=== PATIENT | male | born 1935 | race Caucasian/White ===

== ENCOUNTER → 2018-07-13 10:40 | Outpatient (CLI) | payer MEDICARE, SELFPAY ==
[2018-07-13 11:03] LABS: Absolute Lymphocyte Count 1.22 X10^3/ul (0.83-4.51); Absolute Neutrophil Count 4.5 X10^3/uL (2.0-7.7); Basophil# 0.05 X10^3/uL; Basophil% 0.8 % (0-1); Eosinophil# 0.16 X10^3/uL; Eosinophils% 2.5 % (0-5); Hematocrit 41.7 % (40-54); Lymphocyte # 1.22 X10^3/ul (4.0); Lymphocyte % 18.7 % (19-41); Mean Corp Hgb Conc 33.6 g/gl (32-36); Mean Corpuscular Hgb 31.7 pg (27.0-32.0); Mean Corpuscular Volume 94.3 fL (80-94); Mean Platelet Vol. 10.1 fl (6.2-12.0); Monocyte# 0.62 X10^3/uL; Monocyte% 9.5 % (0-10); Neutrophil # 4.46 X10^3/uL (2.7-7.7); Neutrophil % 68.2 % (47-70); Platelet Count 195 K/mm3 (150-450); RBC Distribution Width CV 12.9 % (11.6-14.6); RBC Distribution Width SD 43.6 fl (35.1-43.9); Red Blood Count 4.42 M/mm3 (4.6-6.2); White Blood Count 6.5 K/mm3 (4.4-11.0)
[2018-07-13 11:07] LABS: POSITIVE COUNT NO; POSITIVE DIFFERENTIAL NO; POSITIVE MORPHOLOGY NO
[2018-07-13 11:34] LABS: AST(SGOT) 27 U/L (15-37); Alanine Aminotransfer ALT/SGPT 39 U/L (16-61); Albumin, Serum 3.8 g/dL (3.2-5.0); Alkaline Phosphatase 70 U/L (45-117); Anion Gap 10 (5-15); BNP,B-Type NATRIURETIC PEPTIDE 777.6 pg/mL (0-100); BUN 23 mg/dL (7-18); BUN/Creat Ratio 15.6 RATIO (10-20); Bilirubin, Direct 0.22 mg/dL (0.00-0.30); Calcium,Total 8.8 mg/dL (8.5-10.1); Chloride 107 mmol/L (98-107); Cholesterol 134 mg/dL (200); Creatinine, Serum 1.47 mg/dL (0.70-1.30); EST Glomerular Filtration Rate 49 mL/min (>60); Est Glom Filt Rate - Afr Amer 59 mL/min (>60); Globulin 3.8 g/dL (2.2-4.2); Glucose 102 mg/dL (74-106); High Density Lipoprotein 45 mg/dL; Potassium 4.5 mmol/L (3.5-5.1); Protein, Total 7.6 g/dL (6.4-8.2); Sodium Level 141 mmol/L (136-145); T4 Total, Thyroxin 7.5 ug/dL (4.5-12.1); Triglycerides 62 mg/dL; Very Low Density Lipoprotein 12 mg/dL (5-40)
== END ==
PROVIDERS: Family Provider Student in an Organized Health Care Education/Training Program; PCP Student in an Organized Health Care Education/Training Program; Visit Provider Physician Assistant Medical
DX: I48.91 Unspecified atrial fibrillation (principal); R06.09 Other forms of dyspnea; R53.83 Other fatigue; I25.10 Atherosclerotic heart disease of native coronary artery without angina pectoris
CPT/HCPCS: 36415; 80048; 80061; 80076; 83880; 84436; 84443; 85025

== ENCOUNTER → 2018-07-21 13:54 | Outpatient (CLI) | payer MEDICARE, SELFPAY | PROVIDERS: Family Provider Student in an Organized Health Care Education/Training Program; PCP Student in an Organized Health Care Education/Training Program; Visit Provider Physician Assistant Medical | DX: I48.91 Unspecified atrial fibrillation (principal); R06.09 Other forms of dyspnea; R53.83 Other fatigue; I25.10 Atherosclerotic heart disease of native coronary artery without angina pectoris | CPT/HCPCS: 93225; 93226; 93306 ==

== ENCOUNTER → 2018-07-27 10:37 | Outpatient (CLI) | payer MEDICARE, SELFPAY ==
--- NOTE | 2018-07-27 10:39 | STEWCON_ITS ---
Version 2 Reason For Study: CAD, Atrial Fibrillation Stress Results Protocol: Maximilian Protocol Maximum Predicted HR: 140 bpm Target HR: 119 bpm% Max imum Predicted HR: 107 % DurationHeart Rate Stage (mm:ss) (bpm) BPCom ment Baseline 78 122/84 Definity 3.5 ML Diluted Given; No Chest Pain Maximilian Protocol Stage I 3:00 15 0 134/80No Chest Pain; Mild Dyspnea Maximilian Protocol Stage II 1:15 13 3 / No Chest Pain; Moderate Dyspnea Recovery 86 128/88 No Chest Pain Stress Duration: 4:15 mm:ss Maximum Stress HR: 150 bpmM ETS: 7 Baseline Echocardiogram Findings The estimated ejection fraction is 65 %. Stress Echo Wall motion Data Resting WMIntermediate WMStress WM Resting Wall Motion Wall Motion Stress No regional wall motion No regional wall motion abnormalities noted. abnormalities noted. EKG Data Atrial fibrillation with controlled ventriicular response. The patient exercised according to the regular Maximilian protocol for a total duration of 4:15. The maximum heart rate attained was 164 beats per minute. This was 117% of maximum predicted heart rate. The patient exercised into stage 2 of the Maximilian protocol. During stress, there were no ST or T wave changes noted to suggest ischemia. No clinical angina was noted. Interpretation Summary The study was technically difficult. Contrast injection was performed. The estimated ejection fraction is 65 %. Normal, adequate, treadmill echocardiogram. Negative for ischemia by EKG and echocardiographic criteria. No anginal symptoms noted. Rare PVCs noted. Appropriate blood pressure response to exercise. Test terminated due to dyspnea. Below average exercise capacity for age. Decreased sensitivity due to poor echo windows requiring Definity enhancing agent. Final LVEF is 75%. Ordering Physician: Jennifer Omer Referring Physician: Jennifer Omer Performed By: Maureen Burleson RDCS
[2018-07-27 13:22] LABS: Anion Gap 12 (5-15); BUN 37 mg/dL (7-18); BUN/Creat Ratio 18.7 RATIO (10-20); Calcium,Total 9.2 mg/dL (8.5-10.1); Chloride 106 mmol/L (98-107); Creatinine, Serum 1.98 mg/dL (0.70-1.30); EST Glomerular Filtration Rate 35 mL/min (>60); Est Glom Filt Rate - Afr Amer 42 mL/min (>60); Glucose 102 mg/dL (74-106); Potassium 4.2 mmol/L (3.5-5.1); Sodium Level 143 mmol/L (136-145)
== END ==
PROVIDERS: Family Provider Student in an Organized Health Care Education/Training Program; PCP Student in an Organized Health Care Education/Training Program; Visit Provider Physician Assistant Medical
DX: I48.91 Unspecified atrial fibrillation (principal); I25.10 Atherosclerotic heart disease of native coronary artery without angina pectoris; I50.9 Heart failure, unspecified; R53.83 Other fatigue; R06.09 Other forms of dyspnea
CPT/HCPCS: 36415; 80048; 93017; 93350; Q9957; A4216; C8928

== ENCOUNTER → 2018-08-04 12:23 | Outpatient (CLI) | payer MEDICARE, SELFPAY | PROVIDERS: Family Provider Student in an Organized Health Care Education/Training Program; PCP Student in an Organized Health Care Education/Training Program; Visit Provider Nurse Practitioner Acute Care | DX: G47.33 Obstructive sleep apnea (adult) (pediatric) (principal) | CPT/HCPCS: 95811 ==

== ENCOUNTER → 2018-08-14 11:25 | Outpatient (CLI) | payer MEDICARE, SELFPAY ==
--- NOTE | 2018-08-14 11:33 | RAD_ITS ---
STUDY: X-RAY CHEST REASON FOR EXAM: Male, 82 years old. Shortness of breath. Atrial fibrillation. TECHNIQUE: PA and lateral views of the chest. COMPARISON: November 05, 2016. FINDINGS: There is hyperinflation of the lungs consistent with chronic obstructive lung disease (COPD). There is no new mass or infiltrate. There is no demonstrated pleural abnormality. Normal size heart. Normal mediastinum and pham. Normal visualized pulmonary arteries. There is atherosclerotic calcification of the aortic arch with tortuosity. There are diffuse degenerative changes of the visualized thoracic spine. There is degenerative osteoarthritis of the bilateral shoulders. There is no demonstrated abnormality of the visualized soft tissue structures of the upper abdomen. RAD/Chest PA and Lateral IMPRESSION: Probable COPD without acute cardiopulmonary disease or interval change. Electronically Signed: Aldo Mike DO at 17:02 EDT Tel [phone], Service support ,
[2018-08-14 12:31] LABS: Anion Gap 10 (5-15); BUN 24 mg/dL (7-18); BUN/Creat Ratio 15.6 RATIO (10-20); Chloride 104 mmol/L (98-107); Creatinine, Serum 1.54 mg/dL (0.70-1.30); EST Glomerular Filtration Rate 46 mL/min (>60); Est Glom Filt Rate - Afr Amer 56 mL/min (>60); Glucose 106 mg/dL (74-106); Potassium 4.3 mmol/L (3.5-5.1); Sodium Level 140 mmol/L (136-145)
== END ==
PROVIDERS: Family Provider Student in an Organized Health Care Education/Training Program; PCP Student in an Organized Health Care Education/Training Program; Referring Provider Physician Assistant Medical; Visit Provider Physician Assistant Medical
DX: I48.1 Persistent atrial fibrillation (principal); R06.02 Shortness of breath
CPT/HCPCS: 36415; 71046; 80048

== ENCOUNTER 2018-08-16 09:56 | Day surgery (SDC) | payer MEDICARE, SELFPAY ==
[2018-08-15 11:43] VITALS: BMI 26.4
--- NOTE | 2018-08-16 11:40 | PCM.OP.BLANK ---
Problem List (1) Atrial fibrillation Status: Acute Qualifiers: (2) Dyspnea on exertion Status: Acute (3) Fatigue Status: Acute Qualifiers: (4) KENNEDY (obstructive sleep apnea) Status: Acute Operative Report Date of Procedure: 08/16/18 DC cardioversion report: Patient was brought to the [facility] holding area in the fasting state. The risks/benefits of the DC cardioversion were thoroughly explained to the patient and his family and informed consent was obtained. The defibrillator pads were placed in the AP position. With the assistance of Dr. Maximilian Olivarez he was given a total of 50 mg of IV propofol. Once adequate sedation was obtained a single synchronized biphasic 200 J shock was delivered which converted him from atrial fibrillation with controlled ventricular response to normal sinus rhythm at a rate of 54 bpm. The patient spontaneously awoke, moves all 4 extremities and tolerated the procedure well. Conclusions: 1. Successful Eliquis assisted DC cardioversion with a single biphasic 200 J synchronized shock converting him from atrial flutter relation to normal sinus rhythm. 2. Patient will continue on current antihypertensive, atenolol, and Eliquis going forward. He will report in 2 weeks time for an EKG and blood pressure check. If the patient has recurrent atrial fibrillation we may consider continuing beta-leonora and Eliquis versus amiodarone assisted DC cardioversion in the future. 3. Patient will be discharged home once fully recovered. Many thanks Dr. Maximilian Olivarez for his assistance.
--- NOTE | 2018-08-16 11:43 | OP.PCM_ITS ---
Problem List (1) Atrial fibrillation Status: Acute Qualifiers: (2) Dyspnea on exertion Status: Acute (3) Fatigue Status: Acute Qualifiers: (4) KENNEDY (obstructive sleep apnea) Status: Acute Operative Report Date of Procedure: 08/16/18 DC cardioversion report: Patient was brought to the [facility] holding area in the fasting state. The risks/benefits of the DC cardioversion were thoroughly explained to the patient and his family and informed consent was obtained. The defibrillator pads were placed in the AP position. With the assistance of Dr. Maximilian Olivarez he was given a total of 50 mg of IV propofol. Once adequate sedation was obtained a single synchronized biphasic 200 J shock was delivered which converted him from atrial fibrillation with controlled ventricular response to normal sinus rhythm at a rate of 54 bpm. The patient spontaneously awoke, moves all 4 extremities and tolerated the procedure well. Conclusions: 1. Successful Eliquis assisted DC cardioversion with a single biphasic 200 J synchronized shock converting him from atrial flutter relation to normal sinus rhythm. 2. Patient will continue on current antihypertensive, atenolol, and Eliquis going forward. He will report in 2 weeks time for an EKG and blood pressure check. If the patient has recurrent atrial fibrillation we may consider paulette nuing beta-leonora and Eliquis versus amiodarone assisted DC cardioversion in the future. 3. Patient will be discharged home once fully recovered. Many thanks Dr. Maximilian Olivarez for his assistance.
--- NOTE | 2018-08-16 14:04 | OP.PCM_ITS ---
Problem List (1) Atrial fibrillation Status: Acute Qualifiers: (2) KENNEDY (obstructive sleep apnea) Status: Acute (3) Arteriosclerotic heart disease (ASHD) Status: Chronic (4) CKD (chronic kidney disease) stage 3, GFR 30-59 ml/min Status: Chronic (5) Hypertrophic cardiomyopathy Status: Chronic Operative Report Date of Procedure: 08/16/18 - Conscious sedation CONSCIOUS SEDATION REPORT BRIEF HISTORY OF PRESENT ILLNESS: The patient is an 82-year-old male who presented to [facility] for an elective outpatient cardioversion due to underlying atrial fibrillation. The patient reports no PO intake since midnight. The patient does have a history of obstructive sleep apnea treated with BiPAP therapy. The patient reports a history of smoking and COPD. The patient denies any recent constitutional symptoms such as fevers, chills, nausea or vomiting. The patient does report previous issues with bradycardia associated with anesthesia. Last known ejection fraction of 45%. PHYSICAL EXAMINATION: VITAL SIGNS: Reviewed and were acceptable. GENERAL: The patient is an obese male, in no apparent distress, speaking in full sentences. HEENT: Normocephalic, atraumatic. Mucous membranes are moist and pink. Good mouth opening noted. Trachea is midline. Good neck mobility. MP II CHEST: S1, S2 irregularly irregular. No murmurs, rubs or gallops were noted. LUNGS: Clear to auscultation bilaterally without appreciable wheezes, rales or rhonchi. ABDOMEN: Soft, nontender, nondistended. Positive bowel sounds. EXTREMITIES: There is no clubbing, cyanosis or edema. ASA Class: II DESCRIPTION OF PROCEDURE: After confirmation of informed consent, the patient's anesthesia plan was reviewed in detail. Propofol was chosen. Risks and benefits were reviewed and the patient agreed to proceed. At 11:29 AM, the patient was given 40 mg of propofol. The patient required a total of 50 mg of propofol throughout the procedure to achieve appropriate sedation. The patient achieved an appropriate level of sedation and received 1 attempt s synchronized cardioversion, at [address] Pedersen at the bedside. This was successful in achieving normal sinus rhythm. The patient was monitored until 11:37 AM, at which time the patient reached their baseline mental status and function. The patient tolerated the procedure well. COMPLICATIONS: None ESTIMATED BLOOD LOSS: None RECOMMENDATIONS: Okay to recover in usual fashion. Code Visit 9xxxx: Other Procedure See Report - [id number] - 8 minutes
== END 2018-08-16 12:55 | disposition home or self-care (01) ==
LOC: CLSP 09:57
PROVIDERS: Family Provider Student in an Organized Health Care Education/Training Program; PCP Student in an Organized Health Care Education/Training Program; Referring Provider Internal Medicine Cardiovascular Disease; Visit Provider Internal Medicine Cardiovascular Disease
DX: I48.1 Persistent atrial fibrillation (principal); R06.00 Dyspnea, unspecified; R53.83 Other fatigue; G47.33 Obstructive sleep apnea (adult) (pediatric); I25.10 Atherosclerotic heart disease of native coronary artery without angina pectoris; N18.3 Chronic kidney disease, stage 3 (moderate); I42.2 Other hypertrophic cardiomyopathy; E66.9 Obesity, unspecified; I25.2 Old myocardial infarction; Z68.26 Body mass index [BMI] 26.0-26.9, adult
CPT/HCPCS: 92960; 93005; J7040

== ENCOUNTER → 2019-10-19 09:07 | Outpatient (CLI) | payer MEDICARE, SELFPAY ==
[2019-10-18 13:40] VITALS: BMI 26.9
[2019-10-19 10:43] LABS: AST(SGOT) 20 U/L (15-37); Alanine Aminotransfer ALT/SGPT 31 U/L (16-61); Albumin, Serum 3.8 g/dL (3.2-5.0); Alkaline Phosphatase 63 U/L (45-117); Bilirubin, Direct 0.22 mg/dL (0.00-0.30); Cholesterol 136 mg/dL (200); Globulin 3.5 g/dL (2.2-4.2); High Density Lipoprotein 47 mg/dL; Protein, Total 7.3 g/dL (6.4-8.2); Triglycerides 51 mg/dL; Very Low Density Lipoprotein 10 mg/dL (5-40)
== END ==
PROVIDERS: Family Provider Student in an Organized Health Care Education/Training Program; PCP Student in an Organized Health Care Education/Training Program; Referring Provider Internal Medicine Cardiovascular Disease; Visit Provider Internal Medicine Cardiovascular Disease
DX: E78.5 Hyperlipidemia, unspecified (principal); I25.10 Atherosclerotic heart disease of native coronary artery without angina pectoris
CPT/HCPCS: 36415; 80061; 80076

== ENCOUNTER → 2019-11-02 13:52 | Outpatient (CLI) | payer MEDICARE, SELFPAY ==
[2019-10-18 13:40] VITALS: BMI 26.9
--- NOTE | 2019-11-02 13:53 | ECHOD_ITS ---
Reason For Study: CHF Procedure This was a 2D Doppler, Color Flow transthoracic echocardiogram. Exam performed in department. Left Ventricle Moderate concentric left ventricular hypertrophy. The estimated ejection fraction is 45 %. Stage 2 diastolic dysfunction. There is moderate global hypokinesis of the left ventricle. Right Ventricle Moderately dilated right ventricle. Normal systolic function. Atria The left atrium is moderately enlarged. Normal right atrium. Normal atrial septum. Mitral Valve The mitral valve is structurally normal. No prolapse or stenosis seen. Mild (1+) mitral valve insufficiency. Tricuspid Valve Normal tricuspid valve. Trivial tricuspid valve insufficiency. Unable to estimate RV systolic pressure due to insufficient tricuspid regurgitant envelope. Aortic Valve Trisinus/trileaflet aortic valve. Pulmonic Valve Normal pulmonic valve. Trivial pulmonic valve insufficiency. Great Vessels Normal aortic root. Normal arch. Normal inferior vena cava. Inferior vena cava collapse with sniff. Pericardium/Pleural No pericardial effusion. MMode/2D Measurements & Calculations LVIDd: 5.0 cm IVSd: 1.9 cm Ao root diam: 4.0 cm LVIDs: 4.0 cm LVPWd: 1.0 cm LA dimension: 4.0 cm RVDd: 4.0 cm FS: 20.3 % LAV(MOD-bp): 73.9 ml LA A4 area: 23.5 cm2 RA A4 area: 18.8 cm2 LAV(MOD-bp) Indexed: 40.1 ml/m2 LAV(MOD-sp2): 66.2 ml LAV(MOD-sp4): 76.5 ml Time Measurements MV dec time: 0.16 sec Doppler Measurements & Calculations MV E max puneet: 72.3 cm/sec Lat Peak E' Puneet: 8.8 cm/sec Med Peak E' Puneet: 3.5 cm/sec MV A max puneet: 44.2 cm/sec E/E' lat: 8.2 E/E' med: 20.7 MV E/A: 1.6 MV V2 max: 86.7 cm/sec MV P1/2t max puneet: 86.7 cm/sec Ao V2 max: 92.3 cm/sec MV max P.0 mmHg MV P1/2t: 83.1 msec Ao max P.4 mmHg MV V2 mean: 47.2 cm/sec MV dec slope: 305.4 cm/sec2 Ao V2 mean: 60.5 cm/sec MV mean P.0 mmHg MVA(P1/2t): 2.6 cm2 Ao mean P.7 mmHg MV V2 VTI: 29.3 cm Ao V2 VTI: 17.6 cm LV V1 max: 76.1 cm/sec MR max puneet: 523.8 cm/sec PA V2 max: 88.6 cm/sec LV V1 max P.3 mmHg MR max P.7 mmHg LV V1 mean P.2 mmHg MR mean puneet: 384.5 cm/sec LV V1 mean: 51.0 cm/sec MR mean P.8 mmHg LV V1 VTI: 14.0 cm MR VTI: 191.0 cm Interpretation Summary Moderate concentric left ventricular hypertrophy. The estimated ejection fraction is 45 %. Stage 2 diastolic dysfunction. There is moderate global hypokinesis of the left ventricle. Moderately dilated right ventricle. The left atrium is moderately enlarged. Mild (1+) mitral valve insufficiency. Trivial tricuspid valve insufficiency. Unable to estimate RV systolic pressure due to insufficient tricuspid regurgitant envelope. Compared to echo report dated 07/21/2018, no appreciable changes noted. Ordering Physician: Corby Pedersen Referring Physician: Geremias Mesa Performed By: eRese Jacobson RCS
== END ==
PROVIDERS: Family Provider Student in an Organized Health Care Education/Training Program; PCP Student in an Organized Health Care Education/Training Program; Referring Provider Internal Medicine Cardiovascular Disease; Visit Provider Internal Medicine Cardiovascular Disease
DX: I50.9 Heart failure, unspecified (principal); I25.10 Atherosclerotic heart disease of native coronary artery without angina pectoris; I48.91 Unspecified atrial fibrillation; I42.2 Other hypertrophic cardiomyopathy; G47.33 Obstructive sleep apnea (adult) (pediatric)
CPT/HCPCS: 93306

== ENCOUNTER → 2020-08-20 20:00 | Outpatient (CLI) | payer MEDICARE, SELFPAY ==
[2020-08-07 16:04] VITALS: BMI 26.6
[2020-08-14 12:54] VITALS: BMI 26.6
== END ==
PROVIDERS: PCP Student in an Organized Health Care Education/Training Program; Visit Provider Nurse Practitioner Acute Care
DX: G47.33 Obstructive sleep apnea (adult) (pediatric) (principal)
CPT/HCPCS: 95811

== ENCOUNTER → 2020-09-23 09:00 | Outpatient (CLI) | payer MEDICARE, SELFPAY ==
[2020-08-14 12:54] VITALS: BMI 26.6
== END ==
PROVIDERS: PCP Student in an Organized Health Care Education/Training Program; Visit Provider Nurse Practitioner Acute Care
DX: G47.33 Obstructive sleep apnea (adult) (pediatric) (principal)
CPT/HCPCS: 98960; G0463

== ENCOUNTER 2020-12-04 15:59 | Outpatient (RCR) | payer MEDICARE, SELFPAY | END 2020-12-04 23:59 | LOC: IMMUN 15:59 | PROVIDERS: PCP Student in an Organized Health Care Education/Training Program; Visit Provider Family Medicine | DX: Z23 Encounter for immunization (principal) | CPT/HCPCS: 0011A; 0012A; 91301 ==

== ENCOUNTER 2021-01-07 16:17 | Observation (INO) | payer MEDICARE, SELFPAY ==
[2020-12-31 10:23] VITALS: BMI 26.9
[2021-01-07] VITALS (7 sets, daily range): BP systolic 137–156; BP diastolic 67–90; PULSE 60–99; RESP 18–22; TEMP 35.8–36.8; O2SAT 96–97; BMI 25.8; BMI 26.0
--- NOTE | 2021-01-07 16:21 | CT_ITS ---
STUDY: CT BRAIN WITHOUT CONTRAST REASON FOR EXAM: Male, 85 years old. trauma RADIATION DOSAGE (If Supplied By Facility): CTDIvol = ( 44.99 ) mGy, DLP = ( 812.98 ) mGycm TECHNIQUE: Transaxial CT imaging of the brain was performed without administration of intravenous contrast material. Individualized dose optimization techniques were used for this CT. COMPARISON: No relevant priors. FINDINGS: Focal scalp swelling seen over the posterior right head. Normal calvarium. There is mild cerebral atrophy with widening of the extra-axial spaces and ventricular dilatation. There are areas of decreased attenuation within the white matter tracts of the supratentorial brain, consistent with microvascular disease changes. Normal basal ganglia and thalami. Normal brainstem. There is mild cerebellar atrophy. There is no intracranial hemorrhage. There are no findings of an acute ischemic infarction. Normal visualized paranasal sinuses. CT/Brain/Head without Contrast IMPRESSION: Chronic involutional changes of the brain. No acute abnormality. Electronically Signed: Ronaldo Mora MD at 16:40 EST , Service support ,
--- NOTE | 2021-01-07 16:42 | EKG12_ITS ---
Test Reason : SYNCOPE Blood Pressure : / mmHG Vent. Rate : 058 BPM Atrial Rate : 058 BPM P-R Int : 318 ms QRS Dur : 120 ms QT Int : 430 ms P-R-T Axes : 060 -51 112 degrees QTc Int : 422 ms Sinus bradycardia with 1st degree A-V block Left anterior fascicular block Left ventricular hypertrophy with QRS widening T wave abnormality, consider lateral ischemia Abnormal ECG Confirmed by JAGJIT RODAS, GUTIERREZ ([id number]), web content editor DARIAN MEIER ([id number]) on 01/12/2021 9:37:59 AM Referred By: THEODORE Confirmed By:CATHRYN DANIELSON MD
--- NOTE | 2021-01-07 16:43 | ED.VIS.GEN ---
History of Present Illness Chief Complaint: Syncope Informant: Patient Narrative: 85-year-old male presenting after an episode of syncope with laceration to the right side of his scalp. He states that he was coming in from working in his barn where he was cutting wood for about an hour and a half and he lost consciousness as he was coming up the steps to his house. He does not think he was unconscious for long. He states he did not have any chest pain, palpitations, lightheadedness or dizziness prior to the episode. This was unwitnessed. Patient is on Xarelto for history of A. fib. Patient states that 30 years ago he used to have episodes of syncope but he has not had this in some time. He denies any symptoms currently except for some mild pain to his scalp. - Past Medical History (1) Paroxysmal atrial fibrillation Status: Chronic (2) Atherosclerotic heart disease of [place] coronary artery without angina pectoris Status: Chronic (3) CKD (chronic kidney disease) stage 3, GFR 30-59 ml/min Status: Chronic (4) Hypertrophic cardiomyopathy Status: Chronic (5) KENNEDY (obstructive sleep apnea) Status: Chronic Past Medical History - Allergies and Home Meds Allergies/Adverse Reactions: Allergies atorvastatin Allergy (Verified 01/07/21 16:19) confused lisinopril Allergy (Verified 01/07/21 16:19) cough Prior records reviewed: Yes Past Medical History: - - Reviewed in problem list Surgical History: - - Hemorrhoid plexi Lives: Spouse/ Significant Other Smoking Status: Never smoker Alcohol: None Drugs: None - Family History Maternal Family History: Family History (Last Reviewed 12/31/20 @ 10:24 by Jennifer Loza) Father Myocardial infarction Brother Myocardial infarction Family History: Reports: - - No hypertrophic cardiomyopathy Paternal Family History: Family History (Last Reviewed 12/31/20 @ 10:24 by Jennifer Loza) Father Myocardial infarction Brother Myocardial infarction Family History: Reports: - - No hypertrophic cardiomyopathy Review of Systems General: Denies: Chills, Fever, Sweats Eyes: Denies: Visual changes - bilaterally, Diplopia ENT: Denies: Rhinorrhea, Sore throat Cardiovascular: Denies: Chest pain, Palpitations Respiratory: Denies: Dyspnea, Cough, Dyspnea on exertion Gastrointestinal: Denies: Abdominal pain, Nausea, Vomiting, Diarrhea, Constipation, Melena, Hematochezia, -, - Genitourinary: Denies: Dysuria, Hematuria, Frequency Musculoskeletal: Denies: Back pain, Extremity Pain Skin: Reports: Wounds, - - 5 cm laceration to the right side of scalp with no active bleeding. No skull deformity.. Denies: Rash Neurological: Denies: Headache, Weakness, Numbness Psych: Denies: Depression, Anxiety Physical Exam Vital Signs/Narrative: Vital Signs Temp Pulse Resp BP Pulse Ox 01/07/21 16:17 96.5 F L 67 18 149/90 H 96 Inital Vital Signs reviewed: Yes General: Well nourished, No Acute Distress Head: Normocephalic, Atraumatic Eyes: Perrl, EOMI ENT: Moist mucous membranes, No rhinorrhea Cardiovascular: Regular rate, Regular rhythm Respiratory: No distress, CTA bilaterally Abdomen: Soft, Nontender Back: Negative for: Nontender, Normal Inspection Extremities: Negative for: Nontender, No edema Skin: Normal color, No rash, - - 5 cm right posterior scalp laceration without skull induration or deformity. Psychological: Normal affect, Normal Mood Diagnostic/Tx/Re-eval - EKG Initial EKG Interpretation: Sinus Bradycardia, LAFB, Inverted T-Waves - Lead I, aVL - Medical Decision Making 85-year-old male presenting with an episode of syncope. He lost consciousness for short duration he states and hit his head. He has a laceration on the side of his head. He does not actively bleeding. Patient is on Xarelto for atrial fibrillation. Patient is denying any chest pain, palpitations, shortness of breath. He states that he was working in his barn sawing wood as he normally would and when he walked back and he had an episode of syncope. He states he has had this many years ago but has not had this for at least 30 years. EKG performed on arrival shows a sinus bradycardia with first-degree AV block as well as T wave inversion in leads I and lead aVL interpreted by myself. EKG is not significantly changed from EKG in 16 August 2018. Chest x-ray is interpreted by myself shows no acute cardiopulmonary process. Patient had CT brain which was negative for acute intracranial findings. Lab work shows white blood cell count 6.7 hemoglobin hematocrit 13.9/42.0 creatinine is 1.55 and is at baseline. Troponin is 0.332. Although the patient is denying any chest pain or shortness of breath I do have concern that his syncope could be cardiac related given his a history of hypertrophic cardiomyopathy as well as CAD. Patient was given aspirin. Patient's laceration was sutured as I could not approximate the wound margins with a staple. Please see procedure note. Patient is admitted in stabilized condition. Impression: 1. 5 cm scalp laceration 2. Syncope 3. Elevated troponin Procedures - Lacerations No standard instances Length: 5 ft Depth: Skin Shape: Linear Prep: Sterile Conditions, Chlorhexadine Laceration repair: Lidocaine Irrigated (ml): 500 Number of Sutures/Miriam: 3 Suture Information: Ethilon - 3.0 ED Disposition - Plan for ED Patient: Disposition: Acute Care Hospital [facility]
[2021-01-07] MEDS: Lidocaine/Epi/Tetracaine 50 ML 1 APPLIC TOPICAL (16:57)
[2021-01-07 17:01] LABS: Absolute Neutrophil Count 4.6 X10^3/uL (2.0-7.7); Basophil# 0.05 X10^3/uL; Basophil% 0.7 % (0-1); Eosinophil# 0.14 X10^3/uL; Eosinophils% 2.1 % (0-5); Hemoglobin 13.9 g/dL (13.0-16.5); Lymphocyte % 19.4 % (19-41); Mean Corp Hgb Conc 33.1 g/dL (32-36); Mean Corpuscular Hgb 31.2 pg (27.0-32.0); Mean Corpuscular Volume 94.4 fL (80-94); Mean Platelet Vol. 10.3 fl (6.2-12.0); Monocyte# 0.54 X10^3/uL; NRBC Flagged by Analyzer 0 % (0-5); Neutrophil # 4.64 X10^3/uL (2.7-7.7); Neutrophil % 69.2 % (47-70); Platelet Count 202 K/mm3 (150-450); RBC Distribution Width CV 12.2 % (11.6-14.6); RBC Distribution Width SD 42.4 fl (35.1-43.9); Red Blood Count 4.45 M/mm3 (4.6-6.2); White Blood Count 6.7 K/mm3 (4.4-11.0)
--- NOTE | 2021-01-07 17:10 | RAD_ITS ---
STUDY: X-RAY CHEST REASON FOR EXAM: Male, 85 years old. chest pain TECHNIQUE: Single AP portable view of the chest. COMPARISON: 08/14/2018. FINDINGS: The lungs are clear and expanded. There is no demonstrated pleural abnormality. Normal size heart. Normal mediastinum and pham. Normal visualized pulmonary arteries. There is atherosclerotic calcification of the aortic arch with tortuosity. There are diffuse degenerative changes of the visualized thoracic spine. Normal visualized ribs, clavicles, and shoulders. There is no demonstrated abnormality of the visualized soft tissue structures of the upper abdomen. RAD/Chest 1 View (Portable) IMPRESSION: No definite acute or significant abnormality seen. Electronically Signed: Ronaldo Mora MD at 17:33 EST , Service support ,
[2021-01-07 17:37] LABS: Anion Gap 6 (5-15); BUN 28 mg/dL (7-18); BUN/Creat Ratio 18.1 RATIO (10-20); Calcium,Total 9.1 mg/dL (8.5-10.1); Chloride 106 mmol/L (98-107); Creatinine, Serum 1.55 mg/dL (0.70-1.30); EST Glomerular Filtration Rate 46 mL/min (>60); Est Glom Filt Rate - Afr Amer 55 mL/min (>60); Estimated Creatinine Clearance 33.76 ml/min; Glucose 92 mg/dL (74-106); Sodium Level 138 mmol/L (136-145)
--- NOTE | 2021-01-07 18:21 | NURSING ---
DR BLACKWOOD FOR DR JAIMES
--- NOTE | 2021-01-07 18:34 | PCM.HP.STD ---
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 transplanted heart: zuni heart Qualified Code(s): I25.10 - Atherosclerotic heart disease of zuni coronary artery without angina pectoris (5) History of cardioversion Status: Chronic (6) KENNEDY (obstructive sleep apnea) Status: Chronic (7) CKD (chronic kidney disease) stage 3, GFR 30-59 ml/min Status: Chronic (8) Hypertrophic cardiomyopathy Status: Chronic History of Present Illness Date of Admission: 01/07/21 Chief Complaint: Syncope. The patient is a 85 year old M with past medical history as mentioned above presented to the emergency room because of syncopal episode. Patient stated that he was going upstairs and all of a sudden, he passed out and was on the floor. He denied any prodromal symptoms before this incident such as dizziness, lightheadedness, chest pain, palpitation. He stated that he lost his consciousness for a few seconds, regained his consciousness very quick and he felt okay afterwards. He reported any symptoms after he woke up. Currently, he is not dizzy or lightheaded. He has history of paroxysmal atrial fibrillation, status post cardioversion and he has been on atenolol and Xarelto for anticoagulation. He had a history of non-STEMI without history of prior cardiac interventions. He had a history of stage III chronic kidney disease and his baseline creatinine has been around 1.4 to 1.9 mg/dL and has been stable. In the emergency department, his vital signs were stable, was afebrile, heart rate was in the 60s to high 50s. Orthostatic vitals were normal. Pulse ox was normal on room air. Routine blood work was remarkable for BUN of 28, creatinine of 1.55. EKG revealed sinus bradycardia with heart rate of 58, first-degree AV block, no other cardiac arrhythmias or acute ischemic changes. Troponin was 0.332. Chest x-ray showed no acute findings. CT scan brain showed no acute infarct or hemorrhage. He is being admitted for syncopal episode and abnormal cardiac enzymes. Past Medical History Past Medical History (Chronic Problems): Chronic Problems (Last Updated 01/07/21 @ 18:[address] Virginia Dorman MD) Paroxysmal atrial fibrillation (Chronic) Atherosclerotic heart disease of zuni coronary artery without angina pectoris (Chronic) History of cardioversion (Chronic 01/11/19) KENNEDY (obstructive sleep apnea) (Chronic) Vertigo (Chronic) CKD (chronic kidney disease) stage 3, GFR 30-59 ml/min (Chronic) Hypertrophic cardiomyopathy (Chronic) NSTEMI (non-ST elevated myocardial infarction) (Chronic) Medical History: Medical History (Last Updated 01/07/21 @ 18:[address] Virginia Dorman MD) Paroxysmal atrial fibrillation (Chronic) I48.0 Atherosclerotic heart disease of zuni coronary artery without angina pectoris (Chronic) I25.10 Hypertrophic cardiomyopathy (Chronic) I42.2 NSTEMI (non-ST elevated myocardial infarction) (Chronic) I21.4 Atrial fibrillation (Inactive) I48.91 Allergies atorvastatin Allergy (Verified 01/07/21 16:19) confused lisinopril Allergy (Verified 01/07/21 16:19) cough Home Medications: Ambulatory Orders Medication Instructions Recorded Saw [place]leton Fruit [Saw Middleton] 450 mg PO DAILY 09/10/16 magnesium 250 mg tablet 500 mg PO DAILY tab 07/13/18 atenolol 25 mg tablet 25 mg PO DAILY #90 tab 10/18/19 cholecalciferol (vitamin D3) 125 5,000 unit PO DAILY 10/18/19 mcg (5,000 unit) capsule cyanocobalamin (vitamin B-12) 1,000 mcg PO DAILY 10/18/19 1,000 mcg capsule rivaroxaban 15 mg tablet 15 mg PO DAILY #90 tab 12/05/20 Surgical History: Surgical History (Last Reviewed 12/31/20 @ 10:24 by Jennifer Loza) History of cardioversion (Chronic) Onset Date: 01/11/19 Z98.890 Surgical History: no surgical history, - Psychiatric History: No pertinent psych hx Lives: Spouse/ Significant Other Smoking Status: Never smoker Alcohol: None Drugs: None - *Family History Maternal Family History: Family History (Last Reviewed 12/31/20 @ 10:24 by Jennifer Loza) Father Myocardial infarction Brother Myocardial infarction History Items: - Paternal Family History: Family History (Last Reviewed 12/31/20 @ 10:24 by Jennifer Loza) Father Myocardial infarction Brother Myocardial infarction History Items: - Review of Systems Constitutional: Denies: Anorexia, Chills, Fever, Weakness Eyes: Denies: Blurred vision, Double vision, Drainage, Redness HEENT: Denies: Difficulty Hearing, Ear Pain, Eye Pain, Nasal Congestion, Sore Throat Cardiovascular: Reports: Syncope. Denies: Chest Pain, Chest Pressure, Chest Tightness, Edema, Heaviness, Light Headedness, Palpitations Respiratory: Denies: Cough, Pleuritic Pain, Shortness of Breath, Sputum production, Wheezing Gastrointestinal: Denies: Abdominal Pain, Constipation, Diarrhea, Nausea, Vomiting Genitourinary: Denies: Dysuria, Frequency, Hematuria Musculoskeletal: Denies: Arm Pain, Back Pain, Foot Pain Skin: Denies: Dryness, Rash Neurological: Denies: Balance problems, Double vision, Change in Speech, Slurred speech, Confusion, Headaches, Incoordination Psychiatric: Denies: Anxiety, Depression Endocrine: Denies: Change in Body Habitus, Polydipsia VTE Information - Inpt Only VTE Present on Admission: No VTE Mechan Device Prophylaxis: None VTE Pharm Prophylaxis ordered?: No - Physical Exam Vitals/I&O's: Vital Signs Temp Pulse Resp BP Pulse Ox 97.3 F L 67 20 H 140/67 H 97 01/07/21 18:27 01/07/21 18:27 01/07/21 18:27 01/07/21 18:27 01/07/21 18:27 Oxygen Delivery Method Room Air Weight: 165 lb Body Mass Index (BMI) 25.8 General: Alert, Oriented x3, Cooperative, No apparent distress HEENT: PERRLA, EOMI, Normocephalic, - - Traumatic, right parietal scalp laceration. Oral: Moist Mucosa, No Gingival or Mucosal Lesions/ Ulcerations Neck: Supple, No JVD, Negative Carotid Bruits, Trachea Midline, Thyroid Normal Size and Texture Lungs: Clear to auscultation, Normal air movement, No rhonchi, No wheeze, No rales Cardiovascular: Regular rate, Regular Rhythm, Normal S1, Normal S2, PMI Normal Abdomen: Bowel Sounds Present, Soft, Non Tender, Non-Distended, No Hepato-splenomegaly Extremities: No clubbing, No cyanosis, No edema Skin: No rashes, No breakdown Lymphatic: No Cervical, Supraclavicular, or Inguinal Adenopathy Neurological: Cranial nerves II-XII grossly intact, Motor Exam 5/5 strength throughout Psych/Mental Status: Normal Affect, Appropriate, Alert and oriented to time, place, person, mood and affect Laboratory Results 01/07/21 16:50: WBC 6.7, RBC 4.45 L, Hgb 13.9, Hct 42.0, MCV 94.4 H, MCH 31.2, MCHC 33.1, RDW Std Deviation 42.4, RDW Coeff of Samra 12.2, Plt Count 202, MPV 10.3, Immature Gran % (Auto) 0.600, Neut % (Auto) 69.2, Lymph % (Auto) 19.4, [place] % (Auto) 8.0, Eos % (Auto) 2.1, Baso % (Auto) 0.7, Absolute Neuts (auto) 4.6, Absolute Lymphs (auto) 1.30, Nucleated RBC % 0 01/07/21 16:50: Sodium 138, Potassium 4.0, Chloride 106, Carbon Dioxide 26.0, Anion Gap 6, BUN 28 H, Creatinine 1.55 H, Estim Creat Clear Calc 33.76, Est GFR (MDRD) Af Amer 55 L, Est GFR (MDRD) Non-Af 46 L, BUN/Creatinine Ratio 18.1, Glucose 92, Calcium 9.1, Troponin I 0.332 H Clinical Impression(s) from Imaging Studies Brain CT 01/07/21 16:21 IMPRESSION: Chronic involutional changes of the brain. No acute abnormality. Electronically Signed: Ronaldo Mora MD at 16:40 EST , Service support , Chest X-Ray 01/07/21 17:10 IMPRESSION: No definite acute or significant abnormality seen. Electronically Signed: Ronaldo Mora MD at 17:33 EST , Service support , Assessment/Plan All Active Problems (Last Updated 01/07/21 @ 18:[address] Virginia Dorman MD) Abnormal cardiac enzyme level (Acute) Syncope (Acute) This is an 85 years old male patient presented to the emergency room because of syncopal episode, found to have abnormal cardiac enzymes and he is being admitted for evaluation and treatment. #1 syncopal episode: Seem to be cardiogenic. Patient had a history of hypertrophic cardiomyopathy so cardiac arrhythmia cannot be ruled out. EKG reviewed, revealed bradycardia, heart rate 58, first-degree AV block, no acute ischemic changes. Troponin is 0.332. Patient denied any chest pain. CT scan brain showed no acute findings. Plan: Admit to PCU for observation, cardiac monitoring, serial cardiac enzymes, repeat EKG tomorrow morning, 2D echocardiogram, gentle IV fluids for hydration, Tylenol as needed, cardiology consult, repeat CBC and BMP tomorrow morning, PT OT evaluation and treatment. #2 closed head injury/right parietal scalp laceration: Due to mechanical fall. CT scan brain showed no acute hemorrhage or infarct. Right scalp laceration to be sutured by the ED physician. #3 CAD: Without prior history of cardiac interventions. Plan as above, continue atenolol. #4 paroxysmal atrial fibrillation: Currently, he is in sinus rhythm, heart rate has been in the 60s, blood pressure stable. Plan to continue atenolol for rate control, continue Xarelto. #5 stage III chronic kidney disease: BUN and creatinine at baseline, plan for gentle IV fluids for hydration, repeat BMP tomorrow morning. #6 history of hypertrophic cardiomyopathy: Plan as above, cardiology consult. #7 DVT prophylaxis: Continue Xarelto. This note was generated with [employer] dictation software. It may contain incorrect words, spelling, and punctuation that were not noted in checking the note before signing. OBSV E&M: 54979 Initial observation care L3
[2021-01-07] MEDS: Aspirin 81 MG TAB.CHEW 324 MG PO (18:48)
[2021-01-07] MEDS: Lidocaine 1% (20 ml mdv) 20 ML Vial 10 ML INFILT (18:48)
--- NOTE | 2021-01-07 19:52 | ECHOD_ITS ---
Reason For Study: SYNCOPE/NEAR SYNCOPE Procedure This was a 2D Doppler, Color Flow transthoracic echocardiogram. Exam performed portable in patient room. Left Ventricle Normal LV size. The intervenricular septum has mild hypertrophy. The estimated ejection fraction is 60 %. No regional wall motion abnormalities noted. Right Ventricle Normal RV size. Normal systolic function. Atria The left atrium is moderately enlarged. Normal right atrium. No doppler evidence for ASD. Mitral Valve There is no mitral valve stenosis. Trivial mitral valve insufficiency. Tricuspid Valve There is no tricuspid stenosis. Unable to estimate RV systolic pressure due to inadequate jet, pulmonary artery pressure probably normal. Aortic Valve Trisinus/trileaflet aortic valve. There is no aortic stenosis. No aortic valve insufficiency. Pulmonic Valve There is no pulmonic valvular stenosis. No pulmonic valve insufficiency. Great Vessels Normal aortic root. Pericardium/Pleural No pericardial effusion. MMode/2D Measurements & Calculations LVIDd: 5.0 cm IVSd: 2.1 cm Ao root diam: 4.5 cm LVIDs: 4.0 cm LVPWd: 1.2 cm RVDd: 3.2 cm FS: 20.2 % LAV(MOD-bp): 76.2 ml LA A4 area: 21.1 cm2 LA dimension(2D): 4.4 cm LAV(MOD-bp) Indexed: 41.3 ml/m2 LAV(MOD-sp2): 74.6 ml LAV(MOD-sp4): 66.5 ml RA A4 area: 19.8 cm2 Time Measurements MV dec time: 0.17 sec Doppler Measurements & Calculations MV E max puneet: 66.3 cm/sec Lat Peak E' Puneet: 7.9 cm/sec Med Peak E' Puneet: 4.5 cm/sec MV A max puneet: 57.2 cm/sec E/E' lat: 8.4 E/E' med: 14.9 MV E/A: 1.2 Ao V2 max: 125.0 cm/sec LV V1 max: 124.7 cm/sec PA V2 max: 87.1 cm/sec Ao max P.3 mmHg LV V1 max P.2 mmHg TR max puneet: 249.8 cm/sec TR max P.0 mmHg Interpretation Summary The estimated ejection fraction is 60 %. Trivial mitral valve insufficiency. The left atrium is moderately enlarged. Ordering Physician: Virginia Dorman Referring Physician: Geremias Norwood Performed By: María Mahajan RDCS, RVT
[2021-01-07 20:10] LABS: International Normalized Ratio 1.8; Prothrombin Time (Protime)PT. 20.8 SECONDS (11.7-14.9)
[2021-01-07] MEDS: 0.9% Saline Lock 10 ML Syringe IV (20:47)
[2021-01-07] MEDS: 0.9% Normal Saline 1,000 ML 75 ML IV (20:47)
[2021-01-07 20:58] LABS: Magnesium 2.2 mg/dL (1.6-2.6)
[2021-01-08] VITALS (10 sets, daily range): BP systolic 128–142; BP diastolic 68–88; PULSE 53–64; RESP 16–18; TEMP 36.5–37.1; O2SAT 95–96
[2021-01-08] MEDS: Acetaminophen 325 MG Tablet 650 MG PO (05:38)
--- NOTE | 2021-01-08 05:55 | EKG12_ITS ---
Test Reason : AM EKG Blood Pressure : / mmHG Vent. Rate : 059 BPM Atrial Rate : 059 BPM P-R Int : 324 ms QRS Dur : 118 ms QT Int : 412 ms P-R-T Axes : 071 -47 118 degrees QTc Int : 407 ms Sinus bradycardia with 1st degree A-V block Left anterior fascicular block Left ventricular hypertrophy with QRS widening and repolarization abnormality Abnormal ECG When compared with ECG of 07-JAN-2021 17:04, MANUAL COMPARISON REQUIRED, DATA IS UNCONFIRMED Confirmed by LISET RODAS, DAYAN ([id number]), writer editor DARIAN MEIER ([id number]) on 01/13/2021 1:06:04 PM Referred By: MERCED Confirmed By:DAYAN HUTCHINS MD
[2021-01-08 06:11] LABS: Absolute Lymphocyte Count 1.33 X10^3/uL (0.83-4.51); Absolute Neutrophil Count 4.8 X10^3/uL (2.0-7.7); Basophil# 0.04 X10^3/uL; Basophil% 0.6 % (0-1); Eosinophil# 0.09 X10^3/uL; Eosinophils% 1.3 % (0-5); Hematocrit 40.7 % (40-54); Hemoglobin 12.9 g/dL (13.0-16.5); Lymphocyte # 1.33 X10^3/ul (4.0); Lymphocyte % 19.1 % (19-41); Mean Corp Hgb Conc 31.7 g/dL (32-36); Mean Corpuscular Hgb 30.2 pg (27.0-32.0); Mean Corpuscular Volume 95.3 fL (80-94); Monocyte# 0.69 X10^3/uL; Monocyte% 9.9 % (0-10); NRBC Flagged by Analyzer 0 % (0-5); Neutrophil # 4.81 X10^3/uL (2.7-7.7); Neutrophil % 68.8 % (47-70); Platelet Count 173 K/mm3 (150-450); RBC Distribution Width CV 12.3 % (11.6-14.6); RBC Distribution Width SD 43.2 fl (35.1-43.9); Red Blood Count 4.27 M/mm3 (4.6-6.2)
[2021-01-08 06:38] LABS: Anion Gap 5 (5-15); BUN 27 mg/dL (7-18); BUN/Creat Ratio 19.6 RATIO (10-20); Calcium,Total 8.7 mg/dL (8.5-10.1); Chloride 109 mmol/L (98-107); Creatinine, Serum 1.38 mg/dL (0.70-1.30); EST Glomerular Filtration Rate 52 mL/min (>60); Est Glom Filt Rate - Afr Amer 63 mL/min (>60); Glucose 95 mg/dL (74-106); Potassium 4.1 mmol/L (3.5-5.1); Sodium Level 140 mmol/L (136-145)
[2021-01-08] MEDS: Atenolol 25 MG Tablet PO (09:50)
[2021-01-08] MEDS: Rivaroxaban 15 MG Tablet PO (09:50)
--- NOTE | 2021-01-08 11:34 | PN_ITS ---
<Rox Francisco FIELD CONTACT PERSON - Last Filed: 01/08/21 11:51> Patient Problems: Active and Suspected Problems (Last Updated 01/07/21 @ 18:[address] Virginia aguirre MD) Abnormal cardiac enzyme level (Acute) Syncope (Acute) Subjective: Patient seen and examined. Denies further pre-syncope/syncope. Denies current symptoms or complaints. - Physical Exam Vitals/I&O's: Vital Signs Temp Pulse Resp BP Pulse Ox 98.2 F 64 18 133/69 H 96 01/08/21 09:46 01/08/21 09:46 01/08/21 09:46 01/08/21 09:46 01/08/21 09:46 Oxygen Delivery Method Room Air Weight: 161 lb 9.581 oz Body Mass Index (BMI) 26.0 Intake and Output for Last 24 Hours 01/06/21 01/07/21 01/08/21 23:59 23:59 23:59 Intake Total 1460 / 1460 Output Total 1105 / 1105 Balance 355 / 355 General: Alert, Oriented x3, Cooperative HEENT: Atraumatic, PERRLA, EOMI, Normocephalic Neck: Supple, No JVD, Negative Carotid Bruits Lungs: Clear to auscultation, Normal air movement Cardiovascular: Regular rate, No murmurs, - - 1st degree AV block Abdomen: Bowel Sounds Present, Soft, Non Tender, Non-Distended Extremities: No clubbing, No cyanosis, No edema, Capillary Refill Less than 3 Seconds Skin: No rashes, No breakdown, - - Right parietal scalp laceration- stable Musculoskeletal: No Tenderness to Palpation of Joints or Extremities Neurological: Cranial nerves II-XII grossly intact, Neuro grossly intact Psych/Mental Status: Normal Affect, Appropriate Laboratory Results 01/07/21 16:50: WBC 6.7, RBC 4.45 L, Hgb 13.9, Hct 42.0, MCV 94.4 H, MCH 31.2, MCHC 33.1, RDW Std Deviation 42.4, RDW Coeff of Samra 12.2, Plt Count 202, MPV 10.3, Immature Gran % (Auto) 0.600, Neut % (Auto) 69.2, Lymph % (Auto) 19.4, [place] % (Auto) 8.0, Eos % (Auto) 2.1, Baso % (Auto) 0.7, Absolute Neuts (auto) 4.6, Absolute Lymphs (auto) 1.30, Nucleated RBC % 0 01/07/21 16:50: Sodium 138, Potassium 4.0, Chloride 106, Carbon Dioxide 26.0, Anion Gap 6, BUN 28 H, Creatinine 1.55 H, Estim Creat Clear Calc 33.76, Est GFR (MDRD) Af Amer 55 L, Est GFR (MDRD) Non-Af 46 L, BUN/Creatinine Ratio 18.1, Glucose 92, Calcium 9.1, Troponin I 0.332 H 01/07/21 16:50: PT 20.8 H, INR 1.8 01/07/21 20:22: Magnesium 2.2, Troponin I 0.345 H 01/07/21 22:59: Troponin I 0.347 H 01/08/21 06:00: WBC 7.0, RBC 4.27 L, Hgb 12.9 L, Hct 40.7, MCV 95.3 H, MCH 30.2, MCHC 31.7 L, RDW Std Deviation 43.2, RDW Coeff of Samra 12.3, Plt Count 173, MPV 10.0, Immature Gran % (Auto) 0.300, Neut % (Auto) 68.8, Lymph % (Auto) 19.1, [place] % (Auto) 9.9, Eos % (Auto) 1.3, Baso % (Auto) 0.6, Absolute Neuts (auto) 4.8, Absolute Lymphs (auto) 1.33, Nucleated RBC % 0 01/08/21 06:00: Sodium 140, Potassium 4.1, Chloride 109 H, Carbon Dioxide 26.0, Anion Gap 5, BUN 27 H, Creatinine 1.38 H, Estim Creat Clear Calc 36.60, Est GFR (MDRD) Af Amer 63, Est GFR (MDRD) Non-Af 52 L, BUN/Creatinine Ratio 19.6, Glucose 95, Calcium 8.7 Current Medications Acetaminophen (Acetaminophen 325 Mg Tablet) 650 mg PO Q6H PRN PRN PRN Reason: Pain Score 1-10/Temp > 100.7 F Last Admin: 01/08/21 05:38 Dose: 650 mg Documented by: Atenolol (Atenolol 25 Mg Tablet) 25 mg PO DAILY [facility] Last Admin: 01/08/21 09:50 Dose: 25 mg Documented by: Ondansetron HCl (Ondansetron 4 Mg/2 Ml Vial) 4 mg IV Q8H PRN PRN PRN Reason: NAUSEA/VOMITING Rivaroxaban (Rivaroxaban 15 Mg Tablet) 15 mg PO DAILY [facility] Last Admin: 01/08/21 09:50 Dose: 15 mg Documented by: Sodium Chloride (0.9% Saline Lock 10 Ml Syringe) 10 - 40 ml IV UD PRN PRN Reason: SALINE FLUSH Last Admin: 01/07/21 20:47 Dose: 10 ml Documented by: Medical Necessity - Tobacco Use Smoking Status: Never smoker Assessment/Plan All Active Problems (Last Updated 01/07/21 @ 18:[address] Virginia Dorman MD) Abnormal cardiac enzyme level (Acute) Syncope (Acute) 1. Syncope, abnormal troponin-Cardiology consulted. Echocardiogram pending. Telemetry with 1st degree AV block. Orthostatic vitals negative. Further recommendations per cardiology. 2. Closed head injury with right parietal scalp laceration- secondary to #1. Sutured in ED. CT brain negative. 3. CAD/Hx hypertrophic cardiomyopathy- Echo 10/2019 with EF 45%, stage II diastolic dysfunction. Repeat echo ordered as noted above. Follows with Dr. Dee. 4. Paroxysmal atrial fibrillation- on atenolol, xarelto. History of synchronized cardioversion. 5. Stage III chronic kidney disease-at baseline, trend BMP. 6. KENNEDY-continue home Pap regimen. DVT prophylaxis- Xarelto This patient was seen by LOUISE Mcneil under the supervision of Dr. Rosario. <Gayle Rosario - Last Filed: 01/08/21 16:13> - Physical Exam Vitals/I&O's: Vital Signs Temp Pulse Resp BP Pulse Ox 97.9 F 56 L 18 132/68 H 95 01/08/21 15:40 01/08/21 15:40 01/08/21 15:40 01/08/21 15:40 01/08/21 15:40 Oxygen Delivery Method Room Air Weight: 161 lb 9.581 oz Body Mass Index (BMI) 26.0 Intake and Output for Last 24 Hours 01/06/21 01/07/21 01/08/21 23:59 23:59 23:59 Intake Total 1939 / 1939 Output Total 1330 / 1330 Balance 610 / 610 Laboratory Results 01/07/21 16:50: WBC 6.7, RBC 4.45 L, Hgb 13.9, Hct 42.0, MCV 94.4 H, MCH 31.2, MCHC 33.1, RDW Std Deviation 42.4, RDW Coeff of Samra 12.2, Plt Count 202, MPV 10.3, Immature Gran % (Auto) 0.600, Neut % (Auto) 69.2, Lymph % (Auto) 19.4, [place] % (Auto) 8.0, Eos % (Auto) 2.1, Baso % (Auto) 0.7, Absolute Neuts (auto) 4.6, Absolute Lymphs (auto) 1.30, Nucleated RBC % 0 01/07/21 16:50: Sodium 138, Potassium 4.0, Chloride 106, Carbon Dioxide 26.0, Anion Gap 6, BUN 28 H, Creatinine 1.55 H, Estim Creat Clear Calc 33.76, Est GFR (MDRD) Af Amer 55 L, Est GFR (MDRD) Non-Af 46 L, BUN/Creatinine Ratio 18.1, Glucose 92, Calcium 9.1, Troponin I 0.332 H 01/07/21 16:50: PT 20.8 H, INR 1.8 01/07/21 20:22: Magnesium 2.2, Troponin I 0.345 H 01/07/21 22:59: Troponin I 0.347 H 01/08/21 06:00: WBC 7.0, RBC 4.27 L, Hgb 12.9 L, Hct 40.7, MCV 95.3 H, MCH 30.2, MCHC 31.7 L, RDW Std Deviation 43.2, RDW Coeff of Samra 12.3, Plt Count 173, MPV 10.0, Immature Gran % (Auto) 0.300, Neut % (Auto) 68.8, Lymph % (Auto) 19.1, [place] % (Auto) 9.9, Eos % (Auto) 1.3, Baso % (Auto) 0.6, Absolute Neuts (auto) 4.8, Absolute Lymphs (auto) 1.33, Nucleated RBC % 0 01/08/21 06:00: Sodium 140, Potassium 4.1, Chloride 109 H, Carbon Dioxide 26.0, Anion Gap 5, BUN 27 H, Creatinine 1.38 H, Estim Creat Clear Calc 36.60, Est GFR (MDRD) Af Amer 63, Est GFR (MDRD) Non-Af 52 L, BUN/Creatinine Ratio 19.6, Glucose 95, Calcium 8.7 Current Medications Acetaminophen (Acetaminophen 325 Mg Tablet) 650 mg PO Q6H PRN PRN PRN Reason: Pain Score 1-10/Temp > 100.7 F Last Admin: 01/08/21 05:38 Dose: 650 mg Documented by: Atenolol (Atenolol 25 Mg Tablet) 25 mg PO DAILY [facility] Last Admin: 01/08/21 09:50 Dose: 25 mg Documented by: Ondansetron HCl (Ondansetron 4 Mg/2 Ml Vial) 4 mg IV Q8H PRN PRN PRN Reason: NAUSEA/VOMITING Rivaroxaban (Rivaroxaban 15 Mg Tablet) 15 mg PO DAILY [facility] Last Admin: 01/08/21 09:50 Dose: 15 mg Documented by: Sodium Chloride (0.9% Saline Lock 10 Ml Syringe) 10 - 40 ml IV UD PRN PRN Reason: SALINE FLUSH Last Admin: 01/07/21 20:47 Dose: 10 ml Documented by: Assessment/Plan Patient seen by Rox Francisco NP-see under my supervision. Patient seen and examined. He was admitted with a complaint of syncope. Troponins were also found to be mildly elevated with a peak of 0.347. Cardiology is on board. He has been managed for syncope Patient had no complaints and felt well. Review of symptoms otherwise negative. Labs and vitals reviewed. o/e: Vital Signs Temp Pulse Resp BP Pulse Ox 97.9 F 56 L 18 132/68 H 95 01/08/21 15:40 01/08/21 15:40 01/08/21 15:40 01/08/21 15:40 01/08/21 15:40 General: Alert, Oriented x3, Cooperative HEENT: Atraumatic, PERRLA, EOMI, Normocephalic Neck: Supple, No JVD, Negative Carotid Bruits Lungs: Clear to auscultation, Normal air movement Cardiovascular: bradycardic, No murmurs, - - 1st degree AV block Abdomen: Bowel Sounds Present, Soft, Non Tender, Non-Distended Extremities: No clubbing, No cyanosis, No edema, Capillary Refill Less than 3 Seconds Skin: No rashes, No breakdown, - - Right parietal scalp laceration- stable Musculoskeletal: No Tenderness to Palpation of Joints or Extremities Neurological: Cranial nerves II-XII grossly intact, Neuro grossly intact Psych/Mental Status: Normal Affect, Appropriate Cardiology consulted. 2D echo done showed EF of 60% with interventricular septal hypertrophy which was mild, greatly enlarged left atrium and trivial mitral valve insufficiency. Per cardiology, to consider neurology cause as well. CT of the brain done was however negative. To continue telemonitoring overnight and if he remains stable, consider discharging him tomorrow on a 30- day event monitor. To also have a Lexiscan nuclear stress test done tomorrow. Rest as per Rox Francisco NP having C's notes which I reviewed and endorsed. Inpatient E&M: 72125 Subs Hosp L2
--- NOTE | 2021-01-08 14:05 | CON.PCM_ITS ---
Reason for Consult Date of Consultation: 01/08/21 Reason for Consultation: Syncope History of Present Illness: The patient is a 85 year old M [admitted after syncopal episode. Patient was apparently about to go upstairs and the next thing he remembers his waking up on the ground. He hit his head and required 3 sutures to his scalp. He denies any chest pain, shortness of breath. He states that for couple of days prior to this episode he was feeling off balance and felt that he was leaning more to the left when he was walking. He had mentioned this to his as well. Sometimes when he gets up quickly from a sitting or lying position he gets dizziness but this is not consistent. He says he has history of vertigo but has not had any dizziness or lightheadedness recently. He did not have any prodromal symptoms prior to the syncopal episode. In the hospital he has been walking to the bathroom without any difficulty. Patient had a heart cath in 2016 when he had presented with elevated troponin of around 1.6 and was found to have a small diagonal with a significant ostial lesion. This was treated medically. He had a stress test in 2018 that was negative for ischemia. He had an echocardiogram done today which showed preserved EF. During this admission his troponin has gone up to around 0.3. Review of systems: All systems reviewed. All else is negative except that in the HPI.] Past Medical History Allergies/Adverse Reactions: Allergies atorvastatin Allergy (Verified 01/07/21 16:19) confused lisinopril Allergy (Verified 01/07/21 16:19) cough Home Medications: Ambulatory Orders Medication Instructions Recorded Saw [place] Fruit [Saw [place]] 450 mg PO DAILY 09/10/16 magnesium 250 mg tablet 500 mg PO DAILY tab 07/13/18 cholecalciferol (vitamin D3) 125 5,000 unit PO DAILY 10/18/19 mcg (5,000 unit) capsule cyanocobalamin (vitamin B-12) 1,000 mcg PO DAILY 10/18/19 1,000 mcg capsule Atenolol [Tenormin (beta leonora)] 25 mg PO DAILY 01/07/21 Rivaroxaban [Xarelto] 15 mg PO DAILY 01/07/21 Past Medical History (Chronic Problems): Chronic Problems (Last Updated 01/07/21 @ 18:[address] Virginia Dorman MD) Paroxysmal atrial fibrillation (Chronic) Atherosclerotic heart disease of [place] coronary artery without angina pectoris (Chronic) History of cardioversion (Chronic 01/11/19) KENNEDY (obstructive sleep apnea) (Chronic) Vertigo (Chronic) CKD (chronic kidney disease) stage 3, GFR 30-59 ml/min (Chronic) Hypertrophic cardiomyopathy (Chronic) NSTEMI (non-ST elevated myocardial infarction) (Chronic) Surgical History: no surgical history, - Psychiatric History: No pertinent psych hx - *Family History Maternal Family History: Family History (Last Reviewed 12/31/20 @ 10:24 by Jennifer Loza) Father Myocardial infarction Brother Myocardial infarction History Items: - Paternal Family History: Family History (Last Reviewed 12/31/20 @ 10:24 by Jennifer Loza) Father Myocardial infarction Brother Myocardial infarction History Items: - Lives: Spouse/ Significant Other Smoking Status: Never smoker Alcohol: None Drugs: None Objective: Vital Signs Temp Pulse Resp BP Pulse Ox 98.2 F 64 18 133/69 H 96 01/08/21 09:46 01/08/21 09:46 01/08/21 09:46 01/08/21 09:46 01/08/21 09:46 Oxygen Delivery Method Room Air Weight: 161 lb 9.581 oz Body Mass Index (BMI) 26.0 Intake and Output for Last 24 Hours 01/06/21 01/07/21 01/08/21 23:59 23:59 23:59 Intake Total 1940 / 1940 Output Total 1330 / 1330 Balance 610 / 610 General: Awake, Alert, Oriented x 3 HEENT: Atraumatic Oral: Moist Mucosa Neck: Supple Lungs: Clear to auscultation Cardiovascular: Regular Rhythm Extremities: No edema Skin: No Rashes 01/07/21 16:50: WBC 6.7, RBC 4.45 L, Hgb 13.9, Hct 42.0, MCV 94.4 H, MCH 31.2, MCHC 33.1, Plt Count 202, MPV 10.3, Immature Gran % (Auto) 0.600, Neut % (Auto) 69.2, Lymph % (Auto) 19.4, [place]eman % (Auto) 8.0, Eos % (Auto) 2.1, Baso % (Auto) 0.7, Absolute Neuts (auto) 4.6, Nucleated RBC % 0 01/07/21 16:50: Sodium 138, Potassium 4.0, Chloride 106, Carbon Dioxide 26.0, Anion Gap 6, BUN 28 H, Creatinine 1.55 H, Est GFR (MDRD) Af Amer 55 L, Est GFR (MDRD) Non-Af 46 L, BUN/Creatinine Ratio 18.1, Glucose 92, Calcium 9.1, Troponin I 0.332 H 01/07/21 16:50: PT 20.8 H, INR 1.8 01/07/21 20:22: Magnesium 2.2, Troponin I 0.345 H 01/07/21 22:59: Troponin I 0.347 H 01/08/21 06:00: WBC 7.0, RBC 4.27 L, Hgb 12.9 L, Hct 40.7, MCV 95.3 H, MCH 30.2, MCHC 31.7 L, Plt Count 173, MPV 10.0, Immature Gran % (Auto) 0.300, Neut % (Au to) 68.8, Lymph % (Auto) 19.1, Hod[place]eman % (Auto) 9.9, Eos % (Auto) 1.3, Baso % (Auto) 0.6, Absolute Neuts (auto) 4.8, Nucleated RBC % 0 01/08/21 06:00: Sodium 140, Potassium 4.1, Chloride 109 H, Carbon Dioxide 26.0, Anion Gap 5, BUN 27 H, Creatinine 1.38 H, Est GFR (MDRD) Af Amer 63, Est GFR (MDRD) Non-Af 52 L, BUN/Creatinine Ratio 19.6, Glucose 95, Calcium 8.7 Rhythm: EKG: ECHO: Stress Test: Cardiac Cath: PCI: CT Surgery: Holter monitor: EPS: PPM: CXR: Chest CT Scan: Assessment/Plan 1. Syncope: Does not appear to be cardiac. Consider neurological cause as well. From a cardiac standpoint continue telemetry monitoring overnight. When the patient is discharged home if possible will be reasonable to send him with a 30-day event monitor. We will also check a Lexiscan nuclear stress test. 2. Elevated troponin: Patient has significant stenosis in a small diagonal branch that is being treated medically. In 2015 when he had a heart cath his troponin was 1.6 and this lesion was identified and treated medically. With troponin elevation could be secondary to the underlying CAD. Patient has CKD as well. Creatinine is at baseline. Instead of proceeding with coronary angiography I think stress test will be better in this case.
--- NOTE | 2021-01-08 14:50 | CASEMGMT ---
THis RN KVNG to room with IRAHETA form at this time, explanation done-pt voices understanding, and signs IRAHETA form at this time. Original to chart and copy to pt at this time. Pt/ voice no further questions/concerns/needs at this time. SStaten JAZZMINE CM
[2021-01-09] VITALS (7 sets, daily range): BP systolic 127–154; BP diastolic 60–78; PULSE 55–75; RESP 18; TEMP 36.6–36.9; O2SAT 96–97
[2021-01-09 06:25] LABS: Hematocrit 39.8 % (40-54); Hemoglobin 13.2 g/dL (13.0-16.5); Mean Corp Hgb Conc 33.2 g/dL (32-36); Mean Corpuscular Hgb 31.6 pg (27.0-32.0); Mean Corpuscular Volume 95.2 fL (80-94); Platelet Count 165 K/mm3 (150-450); RBC Distribution Width CV 12.5 % (11.6-14.6); RBC Distribution Width SD 43.6 fl (35.1-43.9); Red Blood Count 4.18 M/mm3 (4.6-6.2); White Blood Count 6.5 K/mm3 (4.4-11.0)
[2021-01-09 06:55] LABS: Anion Gap 6 (5-15); BUN 27 mg/dL (7-18); BUN/Creat Ratio 20.6 RATIO (10-20); Calcium,Total 8.7 mg/dL (8.5-10.1); Chloride 108 mmol/L (98-107); Creatinine, Serum 1.31 mg/dL (0.70-1.30); EST Glomerular Filtration Rate 56 mL/min (>60); Est Glom Filt Rate - Afr Amer 67 mL/min (>60); Estimated Creatinine Clearance 38.56 ml/min; Glucose 90 mg/dL (74-106); Potassium 4.1 mmol/L (3.5-5.1); Sodium Level 139 mmol/L (136-145)
--- NOTE | 2021-01-09 10:22 | NURSING ---
unable to complete vsa on time due to patient being off floor at procedure
[2021-01-09] MEDS: Atenolol 25 MG Tablet PO (10:41)
--- NOTE | 2021-01-09 11:45 | CASEMGMT ---
Per therapy, pt does not need any further therapy at this time. Stress test is pending at this time. Slime DOVER CM
--- NOTE | 2021-01-09 11:52 | STRESSREP_ITS ---
Stress Test Report Date: 01/09/2021 Procedure: Pharmacologic stress nuclear imaging study Indications: Syncope Consent: Per the patient Procedure: The patient underwent pharmacologic (Regadenoson) evaluation with a peak heart rate of 88 beats per minute (64%predicted maximal heart rate) and a peak blood pressure of 142/74 mmHg. The baseline ECG demonstrated normal sinus rhythm, first-degree AV block, possible old anterior AR, nonspecific ST-T changes. EKG during lexiscan infusion revealed no significant ischemic changes, occasional PVCs. EKG post infusion revealed no significant ischemic changes. [There was no complaint of chest discomfort during pharmacologic infusion or recovery]. The examination was discontinued secondary to completion of protocol. Impression: 1. Lexiscan stress test test is negative for Lexiscan infusion induced EKG changes of ischemia. 2. Lexiscan stress test test is negative for Lexiscan infusion induced chest pain. 3. Results of the nuclear portion of the test is as below Myocardial perfusion imaging study: Technique: The patient was injected with 12 millicuries of technetium 99m Cardiolite and subsequently rest SPECT Cardiolite nuclear imaging was obtained in the horizontal long, vertical long, and short axis views. The patient underwent pharmacologic [Regadenoson 0.4mg] evaluation. Please see above for details. The patient was injected with 33.8 millicuries of technetium 99m Cardiolite and subsequently stress SPECT Cardiolite nuclear imaging was obtained in the horizontal long, vertical long, and short axis views. A gated Cardiolite study at peak stress was obtained. Interpretation: Rest and stress SPECT Cardiolite nuclear imaging status post realignment, normalization, and attenuation correction demonstrate mildly decreased radioisotope uptake in the inferior wall on both the rest and stress images prior to attenuation correction. After attenuation correction there is normal myocardial radioisotope uptake in the inferior wall. There is no evidence of significant ischemia or infarction overall. These findings assessed of diaphragmatic attenuation artifact. Gated images reveal no significant regional wall motion abnormalities. The reported LVEF is 54%. Impression: 1. There is no evidence of significant ischemia or infarction. 2. Estimated ejection fraction is 54%. This note was generated with [employer] software. It may contain incorrect words, spelling, and punctuation that were not noted in checking the note before signing.
--- NOTE | 2021-01-09 12:03 | PCM.DC ---
- Discharge Diagnoses Current Active Problems: Current Active and Chronic Problems (Last Updated 01/07/21 @ 18:[address] Virginia Dorman MD) Abnormal cardiac enzyme level (Acute) Syncope (Acute) Paroxysmal atrial fibrillation (Chronic) Atherosclerotic heart disease of [place] coronary artery without angina pectoris (Chronic) History of cardioversion (Chronic 01/11/19) KENNEDY (obstructive sleep apnea) (Chronic) CKD (chronic kidney disease) stage 3, GFR 30-59 ml/min (Chronic) Hypertrophic cardiomyopathy (Chronic) You will use the following diet at home:: Cardiac Discharge Activity: Return to Normal Activity Call your doctor if you observe: Shortness of breath, Dizziness, Fainting spells, Chest pain Allergies/Adverse Reactions: Allergies atorvastatin Allergy (Verified 01/07/21 16:19) confused lisinopril Allergy (Verified 01/07/21 16:19) cough Medications to take at Discharge Saw [place] Fruit [Saw [place]] 450 mg PO DAILY 09/10/16 magnesium 250 mg tablet 500 mg PO DAILY tab 07/13/18 cholecalciferol (vitamin D3) 125 mcg (5,000 unit) capsule 5,000 unit PO DAILY 10/18/19 cyanocobalamin (vitamin B-12) 1,000 mcg capsule 1,000 mcg PO DAILY 10/18/19 Atenolol [Tenormin (beta leonora)] 25 mg PO DAILY 01/07/21 Rivaroxaban [Xarelto] 15 mg PO DAILY 01/07/21 Primary Care Physician: Geremias Norwood DO [Primary Care Provider] - Please follow up with your Primary Care Physician in: 1 Week Test Results: Test results from this visit will be discussed in further detail at your follow-up appointment, if applicable. Please Follow Up With: Jennifer Omer, PA When: 4 Weeks Please Follow Up With: David Bustillo DO When: As scheduled 02/23/21 Proposed Discharge Date: 01/09/21
[2021-01-09] MEDS: Rivaroxaban 15 MG Tablet PO (12:07)
--- NOTE | 2021-01-09 12:07 | DS.PCM_ITS ---
<Rox Francisco [employer]INEER - Last Filed: 01/09/21 12:15> Discharge Date and Diagnosis - Problem List Patient Problems: Active and Suspected Problems (Last Updated 01/07/21 @ 18:[address] Virginia Dorman MD) Abnormal cardiac enzyme level (Acute) Syncope (Acute) Date of Admission: 01/07/21 Date of Discharge: 01/09/21 - Primary Discharge Diagnosis Acute Problems: Active Problems (Last Updated 01/07/21 @ 18:[address] Virginia Dorman MD) 1. Syncope, resulting in closed head injury with right parietal scalp laceration 2. Abnormal troponin 3. CAD/Hx hypertrophic cardiomyopathy 4. Paroxysmal atrial fibrillation 5. Stage III chronic kidney disease 6. KENNEDY - Secondary Discharge Diagnosis Chronic Problems: Chronic Problems (Last Updated 01/07/21 @ 18:[address] Virginia Dorman MD) Paroxysmal atrial fibrillation (Chronic) Atherosclerotic heart disease of [place] coronary artery without angina pectoris (Chronic) History of cardioversion (Chronic 01/11/19) KENNEDY (obstructive sleep apnea) (Chronic) Vertigo (Chronic) CKD (chronic kidney disease) stage 3, GFR 30-59 ml/min (Chronic) Hypertrophic cardiomyopathy (Chronic) NSTEMI (non-ST elevated myocardial infarction) (Chronic) Hospital Course and Treatment Imaging Results: Diagnostic Data Brain CT 01/07/21 16:21 IMPRESSION: Chronic involutional changes of the brain. No acute abnormality. Electronically Signed: Ronaldo Mora MD at 16:40 EST , Service support , Chest X-Ray 01/07/21 17:10 IMPRESSION: No definite acute or significant abnormality seen. Electronically Signed: Ronaldo Mora MD at 17:33 EST , Service support , Dr. Cunningham -Cardiology Operations: None Procedures: 2-D Echocardiogram, Stress test Summary of Care Provided: The patient is a 85 year old M admitted 01/07/2021 due to syncope. 1. Syncope, resulting in closed head injury with right parietal scalp laceration -CT brain negative. Scalp sutured in ED, remove sutures in 7 to 10 days. Orthostatic vitals negative. Echocardiogram demonstrates an EF of 60%. Patient underwent nuclear stress test which was negative for ischemia. Discharged on 30-day event monitor per cardiology recommendations. Follow-up with cardiology in 4 weeks following completion of event monitor. 2. Abnormal troponin-cardiology consulted. Underwent nuclear stress test which was negative for ischemia. 3. CAD/Hx hypertrophic cardiomyopathy- Echo 10/2019 with EF 45%, stage II diastolic dysfunction. Repeat echo as noted above. Follows with Dr. Dee. 4. Paroxysmal atrial fibrillation- on atenolol, xarelto. History of synchronized cardioversion. 5. Stage III chronic kidney disease-at baseline, trend BMP. 6. KENNEDY-continue home Pap regimen. General: Alert, Oriented x3, Cooperative HEENT: Atraumatic, PERRLA, EOMI, Normocephalic Neck: Supple, No JVD, Negative Carotid Bruits Lungs: Clear to auscultation, Normal air movement Cardiovascular: Regular rate, No murmurs, - - 1st degree AV block Abdomen: Bowel Sounds Present, Soft, Non Tender, Non-Distended Extremities: No clubbing, No cyanosis, No edema, Capillary Refill Less than 3 Seconds Skin: No rashes, No breakdown, - - Right parietal scalp laceration- stable Musculoskeletal: No Tenderness to Palpation of Joints or Extremities Neurological: Cranial nerves II-XII grossly intact, Neuro grossly intact Psych/Mental Status: Normal Affect, Appropriate Patient seen and examined prior to discharge. Physical assessment as noted above. Patient is stable for discharge with follow up recommendations as noted above. This patient was seen by LOUISE Mcneil under the supervision of Dr. Rosario. Patient Problems: Active and Suspected Problems (Last Updated 01/07/21 @ 18:[address] Virginia Dorman MD) Abnormal cardiac enzyme level (Acute) Syncope (Acute) - Physical Exam Vitals/I&O's: Vital Signs Temp Pulse Resp BP Pulse Ox 98.4 F 64 18 138/78 H 96 01/09/21 10:40 01/09/21 11:48 01/09/21 10:40 01/09/21 11:48 01/09/21 10:40 Oxygen Delivery Method Room Air Weight: 161 lb 9.581 oz Body Mass Index (BMI) 26.0 Orthostatic Vital Signs Start: 01/09/21 11:48 Freq: X1 Status: Active Protocol: Activity Type Activity Date Activity User E-Sign Co-Sign Detail Recorded Client Recorded Date Recorded By Document 01/09/21 11:48 AMG [id number] 01/09/21 11:48 AMG 01/09/21 11:48 Orthostatic Vitals Standing -Blood Pressure (90/60-120/80) 144/66 H -Extremity Use Left Arm -Pulse Rate (60-100) 74 Sitting -Blood Pressure (90/60-120/80) 138/65 H -Extremity Use Left Arm -Pulse Rate (60-100) 66 Lying -Blood Pressure (90/60-120/80) 138/78 H -Extremity Use Left Arm -Pulse Rate (60-100) 64 Intake and Output for Last 24 Hours 01/07/21 01/08/21 01/09/21 23:59 23:59 23:59 Intake Total 2420 / 2420 Output Total 1330 / 1330 Balance 1090 / 1090 Laboratory Results 01/09/21 05:15: WBC 6.5, RBC 4.18 L, Hgb 13.2, Hct 39.8 L, MCV 95.2 H, MCH 31.6, MCHC 33.2, RDW Std Deviation 43.6, RDW Coeff of Samra 12.5, Plt Count 165, MPV 11.0 01/09/21 05:15: Sodium 139, Potassium 4.1, Chloride 108 H, Carbon Dioxide 25.0, Anion Gap 6, BUN 27 H, Creatinine 1.31 H, Estim Creat Clear Calc 38.56, Est GFR (MDRD) Af Amer 67, Est GFR (MDRD) Non-Af 56 L, BUN/Creatinine Ratio 20.6 H, Glucose 90, Calcium 8.7 Current Medications Acetaminophen (Acetaminophen 325 Mg Tablet) 650 mg PO Q6H PRN PRN PRN Reason: Pain Score 1-10/Temp > 100.7 F Last Admin: 01/08/21 05:38 Dose: 650 mg Documented by: Atenolol (Atenolol 25 Mg Tablet) 25 mg PO DAILY TYREE Last Admin: 01/09/21 10:41 Dose: 25 mg Documented by: Ondansetron HCl (Ondansetron 4 Mg/2 Ml Vial) 4 mg IV Q8H PRN PRN PRN Reason: NAUSEA/VOMITING Rivaroxaban (Rivaroxaban 15 Mg Tablet) 15 mg PO DAILY TYREE Last Admin: 01/09/21 12:07 Dose: 15 mg Documented by: Sodium Chloride (0.9% Saline Lock 10 Ml Syringe) 10 - 40 ml IV UD PRN PRN Reason: SALINE FLUSH Last Admin: 01/07/21 20:47 Dose: 10 ml Documented by: Discharge Diet: Low fat/ Low Cholesterol Discharge Activity: Return to Normal Activity Call your doctor if you observe: Shortness of breath, Dizziness, Fainting spells, Chest pain Home Medications: Medications to take at Discharge Saw [place] Fruit [Saw [place]] 450 mg PO DAILY 09/10/16 magnesium 250 mg tablet 500 mg PO DAILY tab 07/13/18 cholecalciferol (vitamin D3) 125 mcg (5,000 unit) capsule 5,000 unit PO DAILY 10/18/19 cyanocobalamin (vitamin B-12) 1,000 mcg capsule 1,000 mcg PO DAILY 10/18/19 Atenolol [Tenormin (beta leonora)] 25 mg PO DAILY 01/07/21 Rivaroxaban [Xarelto] 15 mg PO DAILY 01/07/21 Other Amb Orders: 30-Day Event Recorder [[facility]] Location: None Selected Primary Care Physician: Geremias Norwood DO [Primary Care Provider] - Please follow up with your Primary Care Physician in: 1 Week Please Follow Up With: Jennifer Omer, PA When: 4 Weeks Please Follow Up With: David Bustillo DO When: As scheduled 02/23/21 Disposition: Home Minutes spent on discharge:: 35 Patient Condition:: Stable Medical Necessity - Tobacco Use Smoking Status: Never smoker Meaningful Use Info Meaningful Use Diagnoses (Choose all that apply): None applicable <Gayle Rosario - Last Filed: 01/09/21 16:28> Discharge Date and Diagnosis - Primary Discharge Diagnosis Acute Problems: Active Problems (Last Updated 01/07/21 @ 18:[address] Virginia Dorman MD) Abnormal cardiac enzyme level (Acute) Syncope (Acute) - Secondary Discharge Diagnosis Chronic Problems: Chronic Problems (Last Updated 01/07/21 @ 18:[address] Virginia Dorman MD) Paroxysmal atrial fibrillation (Chronic) Atherosclerotic heart disease of [place] coronary artery without angina pectoris (Chronic) History of cardioversion (Chronic 01/11/19) KENNEDY (obstructive sleep apnea) (Chronic) Vertigo (Chronic) CKD (chronic kidney disease) stage 3, GFR 30-59 ml/min (Chronic) Hypertrophic cardiomyopathy (Chronic) NSTEMI (non-ST elevated myocardial infarction) (Chronic) Hospital Course and Treatment Summary of Care Provided: Patient seen by LOUISE Mcneil under my supervision. The patient is a 85 year old M with a past medical history as outlined was admitted with a complaint of syncope and was found to have mildly elevated troponins with troponins peaking at 0.347. He was admitted and managed for syncope likely cardiogenic and cardiology was consulted. He did have a closed head injury with right parietal scalp laceration which was sutured. CT of the brain was negative. Orthostatics were negative and he had a 2D echo which showed EF of 60%. Per cardiology, he had a nuclear stress test which was negative for ischemia. Patient remained stable and was discharged home on a 30- day event monitor per cardiology recommendations. He is follow-up with cardiology. Of note, patient did have a history of hypertrophic cardiomyopathy and his 2D echo done during this admission showed interventricular septal hypertrophy. Patient seen and examined prior to discharge. He had no complaints. Review of systems otherwise negative. Labs and vitals reviewed. Home medication reviewed and reconciled. O/E: [] Vital Signs Temp Pulse Resp BP Pulse Ox 98.4 F 64 18 138/78 H 96 01/09/21 10:40 01/09/21 11:48 01/09/21 10:40 01/09/21 11:48 01/09/21 10:40 General: Alert, Oriented x3, Cooperative HEENT: Atraumatic, PERRLA, EOMI, Normocephalic Neck: Supple, No JVD, Negative Carotid Bruits Lungs: Clear to auscultation, Normal air movement Cardiovascular: bradycardic, No murmurs, - - 1st degree AV block Abdomen: Bowel Sounds Present, Soft, Non Tender, Non-Distended Extremities: No clubbing, No cyanosis, No edema, Capillary Refill Less than 3 Seconds Skin: No rashes, No breakdown, - - Right parietal scalp laceration- stable Musculoskeletal: No Tenderness to Palpation of Joints or Extremities Neurological: Cranial nerves II-XII grossly intact, Neuro grossly intact Psych/Mental Status: Normal Affect, Appropriate Plan is for discharge home today. Rest as per Rox Francisco NP-C's notes which I have reviewed and endorsed. - Physical Exam Vitals/I&O's: Vital Signs Temp Pulse Resp BP Pulse Ox 98.4 F 64 18 138/78 H 96 01/09/21 10:40 01/09/21 11:48 01/09/21 10:40 01/09/21 11:48 01/09/21 10:40 Oxygen Delivery Method Room Air Weight: 161 lb 9.581 oz Body Mass Index (BMI) 26.0 Intake and Output for Last 24 Hours 01/07/21 01/08/21 01/09/21 23:59 23:59 23:59 Intake Total 2420 / 2420 240 / 240 Output Total 1330 / 1330 Balance 1090 / 1090 240 / 240 Laboratory Results 01/09/21 05:15: WBC 6.5, RBC 4.18 L, Hgb 13.2, Hct 39.8 L, MCV 95.2 H, MCH 31.6, MCHC 33.2, RDW Std Deviation 43.6, RDW Coeff of [place] 12.5, Plt Count 165, MPV 11.0 01/09/21 05:15: Sodium 139, Potassium 4.1, Chloride 108 H, Carbon Dioxide 25.0, Anion Gap 6, BUN 27 H, Creatinine 1.31 H, Estim Creat Clear Calc 38.56, Est GFR (MDRD) Af Amer 67, Est GFR (MDRD) Non-Af 56 L, BUN/Creatinine Ratio 20.6 H, Glucose 90, Calcium 8.7 OBSV E&M: 15019 Observation care discharge
--- NOTE | 2021-01-09 12:42 | PHA.DC.MR ---
Pharmacy Service has performed discharge medication reconciliation for this patient. No new medications at time of discharge. Medications reviewed are from previously reported home medications. Home Medications Saw [place] Fruit [Saw [place]] 450 mg PO DAILY 09/10/16 magnesium 250 mg tablet 500 mg PO DAILY tab 07/13/18 cholecalciferol (vitamin D3) 125 mcg (5,000 unit) capsule 5,000 unit PO DAILY 10/18/19 cyanocobalamin (vitamin B-12) 1,000 mcg capsule 1,000 mcg PO DAILY 10/18/19 Atenolol [Tenormin (beta leonora)] 25 mg PO DAILY 01/07/21 Rivaroxaban [Xarelto] 15 mg PO DAILY 01/07/21 The patient's discharge medication list was reviewed for discrepancies and discrepancies were resolved.
--- NOTE | 2021-01-09 13:30 | PCM.PN.CARD ---
Subjectve: Patient has remained asymptomatic from a cardiac standpoint overnight. He did have 2 episodes of nonsustained V. tach on telemetry. The longest was 8 beats. Objective: Vital Signs Temp Pulse Resp BP Pulse Ox 98.4 F 64 18 138/78 H 96 01/09/21 10:40 01/09/21 11:48 01/09/21 10:40 01/09/21 11:48 01/09/21 10:40 Oxygen Delivery Method Room Air Weight: 161 lb 9.581 oz Body Mass Index (BMI) 26.0 Intake and Output for Last 24 Hours 01/07/21 01/08/21 01/09/21 23:59 23:59 23:59 Intake Total 2420 / 2420 240 / 240 Output Total 1330 / 1330 Balance 1090 / 1090 240 / 240 General: Awake, Alert, Oriented x 3 HEENT: Atraumatic Oral: Moist Mucosa Neck: Supple Cardiovascular: Regular Rhythm Abdomen: Soft Psych/Mental Status: Appropriate 01/09/21 05:15: WBC 6.5, RBC 4.18 L, Hgb 13.2, Hct 39.8 L, MCV 95.2 H, MCH 31.6, MCHC 33.2, Plt Count 165, MPV 11.0 01/09/21 05:15: Sodium 139, Potassium 4.1, Chloride 108 H, Carbon Dioxide 25.0, Anion Gap 6, BUN 27 H, Creatinine 1.31 H, Est GFR (MDRD) Af Amer 67, Est GFR (MDRD) Non-Af 56 L, BUN/Creatinine Ratio 20.6 H, Glucose 90, Calcium 8.7 Rhythm: EKG: ECHO: Stress Test: Cardiac Cath: PCI: CT Surgery: Holter monitor: EPS: PPM: CXR: Chest CT Scan: Medical Necessity - Tobacco Use Smoking Status: Never smoker Assessment/Plan 1. Syncope: 2D echo and stress test have been unremarkable. Patient did have nonsustained V. tach on telemetry. His potassium and magnesium were within normal limits. It will be reasonable from a cardiac standpoint to discharge the patient home with a 30-day event monitor. If patient has long runs of nonsustained V. tach or sustained V. tach then despite the normal stress test we can consider coronary angiography. Consider neurological cause for syncope as well. 2. Elevated troponin: Patient has significant stenosis in a small diagonal branch that is being treated medically. In 2016 when he had a heart cath his troponin was 1.6 and this lesion was identified and treated medically. With troponin elevation could be secondary to the underlying CAD. Patient has CKD as well. Creatinine is at baseline. Stress test was negative for significant ischemia. Patient is going home with 30-day event monitor. If he has further cardiac symptoms in the form of syncope or angina or if he has significant runs of nonsustained V. tach or sustained V. tach then we will consider coronary angiography despite the normal stress test.
== END 2021-01-09 13:13 | disposition home or self-care (01) ==
LOC: ED 17:31 → PCU 01-08 07:18
PROVIDERS: Nurse Practitioner Family; Admitting Provider Hospitalist; Emergency Provider Student in an Organized Health Care Education/Training Program; PCP Student in an Organized Health Care Education/Training Program; Visit Provider Student in an Organized Health Care Education/Training Program
DX: R55 Syncope and collapse (principal); S01.01XA Laceration without foreign body of scalp, initial encounter; W19.XXXA Unspecified fall, initial encounter; Y93.89 Activity, other specified; Y92.008 Other place in unspecified non-institutional (private) residence as the place of occurrence of the external cause; Y99.9 Unspecified external cause status; R74.8 Abnormal levels of other serum enzymes; I48.0 Paroxysmal atrial fibrillation; I25.10 Atherosclerotic heart disease of native coronary artery without angina pectoris; G47.33 Obstructive sleep apnea (adult) (pediatric); N18.30 Chronic kidney disease, stage 3 unspecified; I44.0 Atrioventricular block, first degree; R79.89 Other specified abnormal findings of blood chemistry; I25.2 Old myocardial infarction; I42.2 Other hypertrophic cardiomyopathy; Z79.899 Other long term (current) drug therapy; Z79.01 Long term (current) use of anticoagulants; I34.0 Nonrheumatic mitral (valve) insufficiency
CPT/HCPCS: 12002; 36415; 70450; 71045; 78452; 80048; 83735; 84484; 85025; 85027; 85610; 93005; 93017; 93306; 96360; 96361; 97161; 99218; 99251; 99285; A9500; J7030; A4216; G0378; G0463; J2785

== ENCOUNTER → 2021-03-03 20:00 | Outpatient (CLI) | payer MEDICARE, SELFPAY ==
[2021-02-23 13:21] VITALS: BMI 26.3
[2021-03-03] MEDS: Zolpidem Tartrate 5 MG Tablet PO (21:00)
== END ==
PROVIDERS: PCP Student in an Organized Health Care Education/Training Program; Visit Provider Internal Medicine Critical Care Medicine
DX: G47.33 Obstructive sleep apnea (adult) (pediatric) (principal)
CPT/HCPCS: 95811

== ENCOUNTER → 2021-03-19 10:00 | Outpatient (CLI) | payer MEDICARE, SELFPAY ==
[2021-03-02 15:37] VITALS: BMI 26.6
== END ==
PROVIDERS: PCP Student in an Organized Health Care Education/Training Program; Visit Provider Nurse Practitioner Acute Care
DX: R69 Illness, unspecified (principal)

== ENCOUNTER → 2021-07-14 10:00 | Outpatient (CLI) | payer MEDICARE, SELFPAY | PROVIDERS: PCP Student in an Organized Health Care Education/Training Program; Visit Provider Nurse Practitioner Acute Care | DX: G47.33 Obstructive sleep apnea (adult) (pediatric) (principal) ==

== ENCOUNTER → 2022-10-27 | Outpatient (CLI) | payer MEDICARE, SELFPAY ==
--- NOTE | 2022-10-27 15:20 | RAD_ITS ---
EXAM: XR CHEST, 2 VIEWS CLINICAL INDICATION: Possible DCCV for atrial , LAZARO TECHNIQUE: Frontal and lateral views of the chest. This report was created using Loop report generation technology. COMPARISON: None. FINDINGS: LUNGS AND PLEURAL SPACES: Degenerative changes of the acromioclavicular joints. Bibasilar mild pleural parenchymal scarring and/or subsegmental atelectasis. No consolidation. No pleural effusion or pneumothorax. No unremarkable pulmonary masses or nodules. HEART: Unremarkable. Cardiac silhouette not enlarged. MEDIASTINUM: Central airways and mediastinal contour are unremarkable. BONES/JOINTS: Degenerative changes of the spine. SOFT TISSUES: Unremarkable. VASCULATURE: Ectatic thoracic aortic arch with atherosclerotic calcifications. Atherosclerotic calcifications extend down the descending thoracic aorta which is not enlarged. RAD/Chest PA and Lateral IMPRESSION: No acute disease. Electronically Signed: Michael Bowling MD at 1:15 EST Reading Location ID and State: [facility] / [place] Tel , Service support ,
[2022-10-27 16:06] LABS: Hematocrit 41.1 % (40-54); Hemoglobin 13.8 g/dL (13.0-16.5); Mean Corp Hgb Conc 33.6 g/dL (32-36); Mean Corpuscular Hgb 32.3 pg (27.0-32.0); Mean Corpuscular Volume 96.3 fL (80-94); Platelet Count 209 K/mm3 (150-450); RBC Distribution Width CV 12.7 % (11.6-14.6); RBC Distribution Width SD 44.6 fl (35.1-43.9); Red Blood Count 4.27 M/mm3 (4.6-6.2); White Blood Count 6.8 K/mm3 (4.4-11.0)
[2022-10-27 16:41] LABS: Anion Gap 5 (5-15); BUN 21 mg/dL (7-18); BUN/Creat Ratio 14.3 RATIO (10-20); Calcium,Total 9.4 mg/dL (8.5-10.1); Chloride 107 mmol/L (98-107); Creatinine, Serum 1.47 mg/dL (0.70-1.30); EST Glomerular Filtration Rate 48 mL/min (>60); Est Glom Filt Rate - Afr Amer 59 mL/min (>60); Glucose 90 mg/dL (74-106); Magnesium 2.3 mg/dL (1.6-2.6); Potassium 4.1 mmol/L (3.5-5.1); Sodium Level 141 mmol/L (136-145); Thyroid Stim Hormone (TSH) 2.25 uIU/mL (0.358-3.74)
== END | disposition home or self-care (01) ==
LOC: RAD 15:12
PROVIDERS: PCP Student in an Organized Health Care Education/Training Program; Visit Provider Internal Medicine Cardiovascular Disease
DX: M19.019 Primary osteoarthritis, unspecified shoulder (principal); I70.0 Atherosclerosis of aorta; I77.810 Thoracic aortic ectasia; I48.0 Paroxysmal atrial fibrillation; N18.30 Chronic kidney disease, stage 3 unspecified; R06.09 Other forms of dyspnea; R53.83 Other fatigue; I25.10 Atherosclerotic heart disease of native coronary artery without angina pectoris; R11.10 Vomiting, unspecified
CPT/HCPCS: 36415; 71046; 80048; 83735; 83880; 84443; 85027

== ENCOUNTER → 2022-11-03 | Outpatient (CLI) | payer MEDICARE, SELFPAY ==
[2022-11-03 12:15] LABS: Anion Gap 3 (5-15); BUN 18 mg/dL (7-18); BUN/Creat Ratio 11.2 RATIO (10-20); Calcium,Total 9.2 mg/dL (8.5-10.1); Chloride 108 mmol/L (98-107); EST Glomerular Filtration Rate 44 mL/min (>60); Est Glom Filt Rate - Afr Amer 53 mL/min (>60); Glucose 102 mg/dL (74-106); Potassium 4.3 mmol/L (3.5-5.1); Sodium Level 140 mmol/L (136-145)
== END | disposition home or self-care (01) ==
LOC: LAB 11:21
PROVIDERS: PCP Student in an Organized Health Care Education/Training Program; Visit Provider Nurse Practitioner Gerontology
DX: I48.0 Paroxysmal atrial fibrillation (principal)
CPT/HCPCS: 36415; 80048

== ENCOUNTER → 2022-11-23 | Outpatient (CLI) | payer MEDICARE, SELFPAY | END | disposition home or self-care (01) | LOC: SL 13:23 | PROVIDERS: PCP Student in an Organized Health Care Education/Training Program; Visit Provider Nurse Practitioner Acute Care | DX: G47.33 Obstructive sleep apnea (adult) (pediatric) (principal) | CPT/HCPCS: 98960; G0463 ==

== ENCOUNTER 2022-11-30 10:23 | Day surgery (SDC) | payer MEDICARE, SELFPAY ==
[2022-11-29 08:38] VITALS: BMI 25.8
--- NOTE | 2022-11-29 14:12 | PCM.HP.BLA ---
History and Physical Date of Admission: 11/30/22 [facility] [address] [place], [place] [address] MR#: [id number] Acct: [id number] Name:WIL OCHOA Rep #: [id number] : 1935 ?Provider: ?LOUISE Gamboa Age/Sex:? 86/M ?Location: [facility] [place] Status: Signed HPI HPI History of Present Illness Surgical H&P: Yes Details: WIL FISH, is a 86 year old gentleman who presents to the office today for a cardiovascular follow-up visit. He has a history of CAD (no PCI/no CABG), PAF status post synchronized biphasic DC cardioversion, hyperlipidemia, hypertension, chronic kidney disease, and obstructive sleep apnea /CPAP who returns for routine cardiac follow-up.? As you recall, he had a syncopal episode in December 2020 and evaluated at [facility]. During his most recent hospitalization he was noted to have short runs of ventricular tachycardia.? He underwent an echocardiogram and stress test. His echocardiogram showed an ejection fraction of 60%.? His stress test was negative for ischemia.? Upon discharge, he underwent a 30-day event monitor that continues to show 7 episodes of ventricular tachycardia with longest episode of 11 beats.? He was also noted to have a 3.1-second pause.? Because of the noted ventricular tachycardia as well as pause, it was recommended proceed with heart catheterization to further rule out coronary artery disease.? He declined cardiac catheterization and opted for medical therapy with amiodarone- this was stopped d/t nausea, lightheadedness/dizziness.? He developed lightheadedness and bradycardia and his atenolol was placed on hold. He states that in September he was sick with an URI, and converted into atrial fibrillation. He has been in atrial fibrillation since.? He denies any palpitations, chest pain, pressure or heaviness. He does have SOB with exertion-this is worsening since being in atrial fibrillation.? He denies Orthopnea, and PND. He does wear a CPAP nightly. He does not have any bleeding issues; no blood in urine, stool or nosebleeds. He does acknowledge fatigue since being in atrial fibrillation. He denies myalgias, or claudication.? He does not have edema, or sudden weight gain. He does have occasional dizziness with quick positional changes. He denies lightheadedness, syncopal or near syncopal episodes, and headaches. Intake Vital Signs ? 11/03/2210:28 11/03/2210:28 Height 5 ft 6 in 5 ft 6 in Weight: 160 lb ? BMI 25.8 ? BP 130/75 H ? Blood Pressure Location Lt brachial ? Position Sitting ? Respiration 18 ? Pulse 67 ? Pulse Source Monitor ? Pulse Oximetry (%) 94 ? Intake Visit Reasons:?Back in atrial fib Luis Payroll Secretary Required: No Is patient in pain?: No Allergies atorvastatin Allergy (Verified 11/03/22 13:02) confusedlisinopril Allergy (Verified 11/03/22 13:02) coughamiodarone Adverse Reaction (Intermediate, Verified 11/03/22 13:02) lightheadedness Medications saw palmetto 450 mg capsule 450 mg PO DAILY prostate health 09/10/16 [History Confirmed 11/03/22] magnesium 250 mg tablet 500 mg PO DAILY mineral 07/13/18 [History Confirmed 11/03/22] cholecalciferol (vitamin D3) 125 mcg (5,000 unit) capsule 5,000 unit PO DAILY vitamin 10/18/19 [History Confirmed 11/03/22] cyanocobalamin (vitamin B-12) 1,000 mcg capsule 1,000 mcg PO DAILY vitamin 10/18/19 [History Confirmed 11/03/22] rivaroxaban 15 mg tablet 15 mg PO DAILY blood thinner #30 tabs 11/30/21 [Rx Confirmed 11/03/22] calcium carbonate 600 mg calcium (1,500 mg) tablet (Calcium) 600 mg PO DAILY 03/31/22 [History Confirmed 11/03/22] vitamins A,C,A-vumk-rjjdzh 14,320 unit-226 mg-200 unit capsule (PreserVision AREDS) 1 cap PO DAILY 03/31/22 [History Confirmed 11/03/22] [facility] Medical History? Atherosclerotic heart disease of [place] coronary artery without angina pectoris Atrial fibrillation Hypertrophic cardiomyopathy NSTEMI (non-ST elevated myocardial infarction) Paroxysmal atrial fibrillation Surgical History? History of cardioversion (01/11/19) Family History? Father?? Myocardial infarctionBrother?? Myocardial infarction Social History? Smoking Status:? Never smoker second hand exposure:? No alcohol intake:? never substance use type:? does not use caffeine:? Yes Type: tea what type of physical activity do you participate in:? walking ROS Const Const: Positive for fatigue; Negative for weakness, fever(s), headache(s), chills, frequent falls, weight gain or weight loss Eyes Eyes: Negative for blind spots, loss of peripheral vision, transient loss of vision, blurry vision, change in vision, double vision, floaters or tunnel vision ENT ENT: Negative for headache(s), dizziness (occasional with quick positional changes), Nosebleed/epistaxis, balance problems or neck pain Cardio Chest Pain: No Palpitations: No Edema: None Muscle aches with walking: None Resp Respiratory: Positive for SOB with activity (worsening since being in afib); Negative for SOB at rest or SOB orthopnea\SOB lying down GI GI: Negative nausea, vomiting, heartburn, bloating, vomiting blood/hematemesis, bright, red blood in stools or black,tarry stools Musc Musc: Negative for muscle aches/ myalgia, muscle weakness, joint pain or balance problems Neuro Neuro: Negative for dizziness (occasional with quick positional changes), lightheadedness, near syncope, syncope, orthostatic symptoms, frequent falls, headache(s), weakness, blurry vision or double vision João Hematologic/Lymphatic: Negative for easy bleeding or easy bruising Endo Endo: Positive for fatigue Cardiology Exam Const Appearance: cooperative, healthy appearing, comfortable, no acute distress, well developed and well groomed Nutritional Appearance: average body habitus and well nourished Orientation: alert, awake and oriented x3 Head Head: normal to inspection Ears: hearing grossly normal bilaterally Nose: external nose normal Face and Sinus: face symmetric Eyes Eyelids: eyelids normal Conjunctivae: conjunctivae normal Pupils: PERRL EOM: EOM intact bilaterally Neck Neck: normal visual inspection, full ROM and no JVD Carotids: normal carotid upstroke Chest Chest inspection: normal inspection of the chest, symmetric chest movement and normal respiratory effort; Negative cough Auscultation: Bilateral: Clear to Auscultation Cardio Rate: regular rate Rhythm: irregular rhythm Heart sounds: S1 normal, S2 normal and murmur Murmur: Grade 2/6, soft and DENIZ loudest LLSB GI GI: normal to inspection Neuro General: patient alert, patient awake, patient oriented x3, gait normal and moves all extremities Skin Skin: no rashes or lesions noted Extremities Pulses: Normal: Right Posterior Tibial Pulse, Left Posterior Tibial Pulse, Right Radial Pulse and Left Radial Pulse Lower Extremity Edema: None: Bilateral Psych Psychological: normal affect Supplemental Info Supplemental Information Echocardiogram 01/07/2021: Interpretation Summary The estimated ejection fraction is 60 %. Trivial mitral valve insufficiency. The left atrium is moderately enlarged. Echocardiogram from 11/02/2019: Interpretation Summary Moderate concentric left ventricular hypertrophy. The estimated ejection fraction is 45 %. Stage 2 diastolic dysfunction. There is moderate global hypokinesis of the left ventricle. Moderately dilated right ventricle. The left atrium is moderately enlarged. Mild (1+) mitral valve insufficiency. Trivial tricuspid valve insufficiency. Unable to estimate RV systolic pressure due to insufficient tricuspid regurgitant envelope. Compared to echo report dated 07/21/2018, no appreciable changes noted. Stress Test Report Date: 01/09/2021 ? Procedure: Pharmacologic stress nuclear imaging study ? Indications: Syncope ? Consent: Per the patient ? Procedure: ? The patient underwent pharmacologic (Regadenoson) evaluation with a peak heart rate of 88 beats per minute (64%predicted maximal heart rate) and a peak blood pressure of 142/74 mmHg. ? The baseline ECG demonstrated normal sinus rhythm, first-degree AV block, possible old anterior ME, nonspecific ST-T changes.? EKG during lexiscan infusion revealed no significant ischemic changes, occasional PVCs. EKG post infusion revealed no significant ischemic changes. ? [There was no complaint of chest discomfort during pharmacologic infusion or recovery]. ? The examination was discontinued secondary to completion of protocol. ? Impression: ? 1.? Lexiscan stress test test is negative for Lexiscan infusion induced EKG changes of ischemia. 2.? Lexiscan stress test test is negative for Lexiscan infusion induced chest pain. 3.? Results of the nuclear portion of the test is as below ? Myocardial perfusion imaging study: ? Technique: ? The patient was injected with 12 millicuries of technetium 99m Cardiolite and subsequently rest SPECT Cardiolite nuclear imaging was obtained in the horizontal long, vertical long, and short axis views. The patient underwent pharmacologic [Regadenoson 0.4mg] evaluation.? Please see above for details. The patient was injected with 33.8 millicuries of technetium 99m Cardiolite and subsequently stress SPECT Cardiolite nuclear imaging was obtained in the horizontal long, vertical long, and short axis views.? A gated Cardiolite study at peak stress was obtained. ? Interpretation: ? Rest and stress SPECT Cardiolite nuclear imaging status post realignment, normalization, and attenuation correction demonstrate mildly decreased radioisotope uptake in the inferior wall on both the rest and stress images prior to attenuation correction.? After attenuation correction there is normal myocardial radioisotope uptake in the inferior wall.? There is no evidence of significant ischemia or infarction overall.? These findings assessed of diaphragmatic attenuation artifact.? Gated images reveal no significant regional wall motion abnormalities.? The reported LVEF is 54%. ? Impression: ? 1.? There is no evidence of significant ischemia or infarction. 2.? Estimated ejection fraction is 54%. Heart catheterization from 11/09/2016: Final impression: 1.? Elevated left ventricular end-diastolic pressure compatible decreased diastolic compliance 2.? Left ventricle: A.? Normal left ventricular size, wall motion, and systolic function B.? Estimated LVEF is 60% C.? Fluoroscopic findings compatible with left ventricular hypertrophy 3.? Left main coronary artery: A.? Proximal 10-25% eccentric appearing stenosis 4.? Left anterior descending coronary artery: A.? Proximal mild eccentric calcification B.? Between the first and second diagonal branch there is 10-25% hazy appearing stenosis at the level of the mild eccentric calcification as well as an aneurysmal segment C.? Second diagonal branch: Small vessel: Ostial/proximal 50-75% appearing stenosis 5.? Left circumflex coronary artery: A.? Angiographically normal 6.? Right coronary artery: A.? Very large dominant vessel B.? Minimal luminal irregularities Labs: ?? ? No Data to Display Diagnostics: ?? ? Electrocardiogram ? Chest X-Ray ? Pulmonary: ?? ? No Data to Display Assessment and Plan Assessment and Plan (1) Paroxysmal atrial fibrillation: ?Status:?Chronic ?Plan: Patient has a history of paroxysmal atrial fibrillation.? His EKG from today demonstrates atrial fibrillation, occasional ectopic ventricular beat, left axis-anterior fascicular block, heart rate 96 bpm. His most recent echocardiogram from 01/07/2021 demonstrated an ejection fraction of 60%, and moderately enlarged left atrium. He has complaints of dyspnea on exertion, and fatigue since being back into atrial fibrillation. He will undergo cardioversion on 11/30/[address] Dee. Cardioversion instructions given to patient, and he verbalizes understanding. He does state that he has not missed any doses of rivaroxaban.? He will continue with rivaroxaban 15 mg daily, along with monitoring for any concerning symptoms of atrial fibrillation. (2) Atherosclerotic heart disease of [place] coronary artery without angina pectoris: ?Status:?Chronic ?Qualifiers: ?[place] vs. transplanted heart:?[place] heart? Qualified Code(s):?I25.10 - Atherosclerotic heart disease of [place] coronary artery without angina pectoris ?Plan: Patient has a history of coronary artery disease.? His most recent stress test from 01/09/2021 was negative for ischemia.? He appears stable at this time, and denies any recent symptoms or events.? He will continue with aggressive risk factor and lifestyle modifications, as well as monitoring for any concerning symptoms. (3) Syncope: ?Status:?Acute ?Plan: Patient has a history of syncope. He denies any recent symptoms or events. He will continue to monitor for any concerning symptoms. (4) KENNEDY (obstructive sleep apnea): ?Status:?Chronic ?Plan: Patient has a history of KENNEDY. He will continue with CPAP therapy, and following with pulmonology for this. ? ? ? Orders: Orders 12 Lead EKG performed by [facility] 11/03/22 I48.0 - Paroxysmal atrial fibrillation ? Cardioversion 11/30/22 I48.0 - Paroxysmal atrial fibrillation ? Basic Metabolic Profile (BMP) 11/03/22 I48.0 - Paroxysmal atrial fibrillation ? Plan Details Additional Comments: Patient will follow up in 3 months, or sooner if needed. Thank you for allowing me to participate in the care of your patient. Please don't hesitate to call if any issues arise. This note was generated using a voice recognition system and there may be incorrect words, spelling, or punctuation that were not noted when reviewing the office note prior to saving. Portions of this documentation were copied and pasted from previous office visit notes to provide a cohesive continuity of the history. The note has been reviewed, edited, and updated, as necessary. Follow Up: ? ? 3 Months (NANOTECHNOLOGY ENGINEERING TECHNICIAN/PA) ? ? 1 Week after 11/30/2022? (Post cardioversion EKG) COVID (Procedure Consent) Procedure Criteria Procedure Criteria: Yes Elective The surgeon/proceduralist and patient have discussed in detail the risk of exposure to and/or potential harm posed by the COVID-19 virus with having a surgery/procedure at this time versus the risk of? delaying the surgery/procedure. It is not possible to know either the risk of delaying the surgery or procedure or chance of getting an infection with perfect accuracy, but a joint decision was made between the patient and the surgeon/proceduralist ?to proceed at this time with the scheduled surgery/procedure as indicated on the consent form. Coding Level of Care Code Off vis,est,level 4 Diagnoses Paroxysmal atrial fibrillation? I48.0 Atherosclerotic heart disease of [place] coronary artery without angina pectoris? I25.10 ? ? ? [place] vs. transplanted heart: [place] heart Syncope? R55 KENNEDY (obstructive sleep apnea)? G47.33 Coding Level of Care Code Off vis,est,level 4 Diagnoses Paroxysmal atrial fibrillation? I48.0 Atherosclerotic heart disease of [place] coronary artery without angina pectoris? I25.10 ? ? ? [place] vs. transplanted heart: [place] heart Syncope? R55 KENNEDY (obstructive sleep apnea)? G47.33 11/05/22 0949 <Electronically signed by Lyn Gamboa NP, NP-C> Date Lyn GIL Cosigner Signature: Date (if applicable) CC:? Dr. Geremias Norwood, DO ~ Assessment & Plan Addt'l Comments I have examined the patient and the H&P has been reviewed. There are no clinical changes since date of exam. This note was generated using a voice recognition system and there may be incorrect words, spelling or punctuation that were not noted when reviewing the office note prior to saving.
--- NOTE | 2022-11-30 12:18 | PCM.OP.PRO ---
Procedure Report Date of Procedure: 11/30/22 CONSCIOUS SEDATION REPORT BRIEF HISTORY OF PRESENT ILLNESS: The patient is an 86-year-old male who presented to [facility] for an elective outpatient cardioversion due to underlying atrial fibrillation. The patient reports no PO intake since midnight, but is currently therapeutic on anticoagulation. The patient does have a history of KENNEDY treated with BiPAP therapy. The patient reports a history of smoking and COPD. The patient denies any recent constitutional symptoms such as fevers, chills, nausea or vomiting. The patient denies previous applicable anesthetic complications. Patient did take anticoagulation on the day of the procedure. Patient's last known ejection fraction was 60%. Patient did have a cardioversion completed in 2018 showing good response to 50 mg of propofol therapy. PHYSICAL EXAMINATION: VITAL SIGNS: Reviewed and were acceptable. GENERAL: The patient is a male, in no apparent distress, speaking in full sentences. HEENT: Normocephalic, atraumatic. Mucous membranes are moist and pink. Good mouth opening noted. Trachea is midline. Good neck mobility. MP II CHEST: S1, S2 irregularly irregular. No murmurs, rubs or gallops were noted. LUNGS: Clear to auscultation bilaterally without appreciable wheezes, rales or rhonchi. ABDOMEN: Soft, nontender, nondistended. Positive bowel sounds. EXTREMITIES: There is no clubbing, cyanosis or edema. ASA Class: II DESCRIPTION OF PROCEDURE: After confirmation of informed consent, the patient's anesthesia plan was reviewed in detail. Propofol was chosen. Risks and benefits were reviewed and the patient agreed to proceed. At 11:42 AM, the patient was given 40 mg of propofol. The patient achieved an appropriate level of sedation and received 1 attempt synchronized cardioversion, at [address] Dee at the bedside. This was successful in achieving normal sinus rhythm. The patient was monitored until 11:56 AM, at which time the patient reached their baseline mental status and function. The patient tolerated the procedure well. COMPLICATIONS: None ESTIMATED BLOOD LOSS: None RECOMMENDATIONS: Okay to recover in usual fashion. Procedures Pulmonary 9xxxx: [id number] Con Sedation
--- NOTE | 2022-11-30 12:22 | CARDIOVERS ---
Cardioversion Cardioversion: Date: 11-30-2022 Procedure: Synchronized Biphasic DC Cardioversion Indications: Atrial fibrillation Consent: Per the Patient Anesthesia: per Dr. Olivarez of pulmonology and critical care medicine with propofol 40 mg IV push total Procedure: Synchronized Biphasic DC Cardioversion: 200 J x 1: Result: Sinus rhythm Complications: no apparent complications This note was generated with [employer] dictation software. It may contain incorrect words, spelling, and punctuation that were not noted in checking the note before signing.
== END 2022-11-30 13:00 | disposition home or self-care (01) ==
LOC: CLSP 10:24
PROVIDERS: PCP Student in an Organized Health Care Education/Training Program; Referring Provider Internal Medicine Cardiovascular Disease; Visit Provider Internal Medicine Cardiovascular Disease
DX: I48.0 Paroxysmal atrial fibrillation (principal); I47.20 Ventricular tachycardia, unspecified; G47.33 Obstructive sleep apnea (adult) (pediatric); R53.83 Other fatigue; R06.02 Shortness of breath; R06.01 Orthopnea; I25.10 Atherosclerotic heart disease of native coronary artery without angina pectoris
CPT/HCPCS: 92960; 93005; J7040

== ENCOUNTER 2023-02-20 23:27 | Inpatient (IN) | payer MEDICARE, SELFPAY ==
[2023-02-20 23:28] VITALS: BP 170/113; PULSE 141; RESP 17; TEMP 36.2; O2SAT 96; BMI 25.3
--- NOTE | 2023-02-20 23:56 | EDS_ITS ---
HPI History of Present Illness Chief Complaint: Palpitations Informant: patient, spouse/S.O. and family (Daughter) Narrative Narrative: For about the past 4 hours, patient suddenly started vomiting and then having racing heartbeat palpitations without any chest pain, dyspnea, or syncope. Consistent with prior episodes of paroxysmal atrial fibrillation. He recently had a cardioversion a couple of months ago, this was scheduled as an outpatient and done here at the hospital, and he was seen back in follow-up about 2 weeks ago, he had no further symptoms and was in normal rhythm at that time on exam. He states he has some lightheadedness, but no near-syncope or syncope tonight. All of the symptoms he has had before with prior episodes. He has been anticoagulated on rivaroxaban for several years. He denies any recent illness or bleeding. [facility] Medical History (Updated 02/21/23 @ 02:[address] Charles Schmidt MD) Atherosclerotic heart disease of [place] coronary artery without angina pectoris Atrial fibrillation Hypertrophic cardiomyopathy NSTEMI (non-ST elevated myocardial infarction) Paroxysmal atrial fibrillation Home Medications saw palmetto 450 mg capsule 450 mg PO DAILY prostate health 09/10/16 [History Last Taken 11/05/16] magnesium 250 mg tablet 500 mg PO DAILY mineral 07/13/18 [History Last Taken ] cholecalciferol (vitamin D3) 125 mcg (5,000 unit) capsule 5,000 unit PO DAILY vitamin 10/18/19 [History Last Taken 01/07/21] cyanocobalamin (vitamin B-12) 1,000 mcg capsule 1,000 mcg PO DAILY vitamin 10/18/19 [History Last Taken 01/07/21] calcium carbonate 600 mg calcium (1,500 mg) tablet (Calcium) 600 mg PO DAILY 03/31/22 [History Last Taken Unknown] vitamins A,C,J-uqmc-tasnnc 4,296 mcg-226 mg-90 mg capsule (PreserVision AREDS) 1 cap PO DAILY 03/31/22 [History Last Taken Unknown] rivaroxaban 15 mg tablet 15 mg PO DAILY blood thinner #30 tabs 12/14/22 [Rx Last Taken Unknown] Allergy/AdvReac Type Severity Reaction Status Date / Time atorvastatin Allergy confused Verified 02/09/23 10:09 lisinopril Allergy cough Verified 02/09/23 10:09 amiodarone AdvReac Intermediate lightheaded Verified 02/09/23 10:09 ness Family History Father Myocardial infarction Brother Myocardial infarction Surgical History History of cardioversion (01/11/19) Social History Smoking Status: Never smoker second hand exposure: No alcohol intake: never substance use type: does not use caffeine: Yes Type: tea what type of physical activity do you participate in: walking ROS ROS ED Constitutional Constitutional ED: Denies chills or fever(s) Eyes Eyes: Denies change in vision or diplopia ENT ENT ED: Denies rhinorrhea or sore throat Cardiovascular Cardiovascular: Reports as per HPI, palpitations and racing heartbeat; Denies chest pain Respiratory/Chest Respiratory/Chest: Denies cough or dyspnea Gastrointestinal Gastrointestinal: Reports nausea and vomiting; Denies abdominal pain or diarrhea Genitourinary Genitourinary ED: Denies dysuria or hematuria Musculoskeletal Musculoskeletal: Denies back pain or neck pain Integumentary Denies abscess or rash Neurologic Neurologic: Denies headache(s), paresthesias or weakness Psychiatric Psychiatric: Denies anxiety or suicidal thoughts EXAM Physical Exam Const Vital Signs: 02/20/23 23:28 02/20/23 23:36 02/21/23 00:00 Temperature 97.2 F L 98 F Temperature Source Temporal Pulse Rate 141 H 124 H Pulse Rate [1 (Initial Baseline)] Respiratory Rate 17 15 Respiratory Rate [1 (Initial Baseline)] Respiratory Effort Normal Non-Labored Blood Pressure 170/113 H 158/105 H Blood Pressure [1 (Initial Baseline)] Blood Pressure Mean 132 Pulse Ox 96 97 Oxygen Delivery Method Room Air Room Air Oxygen Delivery Method [1 (Initial Baseline)] Oxygen Flow Rate (L/min) Oxygen Flow Rate (L/min) [1 (Initial Baseline)] 02/21/23 00:10 02/21/23 00:18 02/21/23 00:23 Temperature Temperature Source Pulse Rate Pulse Rate [1 (Initial Baseline)] 127 H Respiratory Rate Respiratory Rate [1 (Initial Baseline)] 17 Respiratory Effort Blood Pressure Blood Pressure [1 (Initial Baseline)] 148/90 H Blood Pressure Mean Pulse Ox Oxygen Delivery Method Nasal Cannula Nasal Cannula Oxygen Delivery Method [1 (Initial Baseline)] Nasal Cannula Oxygen Flow Rate (L/min) 2 Oxygen Flow Rate (L/min) [1 (Initial Baseline)] 4 02/21/23 00:28 02/21/23 01:00 Temperature Temperature Source Pulse Rate 91 Pulse Rate [1 (Initial Baseline)] Respiratory Rate 16 Respiratory Rate [1 (Initial Baseline)] Respiratory Effort Blood Pressure 146/86 H Blood Pressure [1 (Initial Baseline)] Blood Pressure Mean 106 Pulse Ox 94 Oxygen Delivery Method Nasal Cannula Room Air Oxygen Delivery Method [1 (Initial Baseline)] Oxygen Flow Rate (L/min) 2 Oxygen Flow Rate (L/min) [1 (Initial Baseline)] Positive well nourished and well developed General Appearance ED: well developed and NAD HEENT Reports moist mucous membranes normocephalic and atraumatic Eyes PERRL and EOMs intact bilaterally Neck full ROM and supple Resp normal respiratory effort and clear to auscultation bilaterally Cardio no murmurs Rate: tachycardic Rhythm: abnormal rhythm irregularly irregular GI non-tender and non-distended Auscultation: normoactive bowel sounds Palpation: soft Back/Spine no CVA tenderness General Back: other FROM Extremity normal to inspection General Extremety ED: Negative for edema, pulses abnormal or tenderness General Extremity: Negative for edema or pulses abnormal Neuro oriented x3, CN's II-XII intact bilaterally and no sensory deficits noted Sensorium / Orientation: awake and alert Motor Exam: strength 5/5 throughout Skin no rashes or lesions noted and no wounds MDM MDM MDM Narrative Medical decision making narrative: During the initial evaluation and discussion with patient and family, patient leaned forward and began vomiting into his emesis bag, and simultaneously was bradycardic in the high 20s/low 30s, with A-fib/flutter at a rate of about 300 in the background on the monitor. This was after we obtained the EKG. He then recovered, he did not lose consciousness, with tachycardia back into the 120s in A-fib. It is unclear if this is consistent with tachybrady syndrome or if he vomited and vague old. Family states he has been doing this for the last rashmi ral hours, the states that whenever she checks his heart rate at home and he is feeling well, lately for the last couple months he he has been regular and not fast. My suspicion is that he just went into A-fib with RVR tonight. Since he has been anticoagulated for some time and has tolerated cardioversions in the past I recommend that we cardiovert him to prevent more episodes of bradycardia and vomiting. We discussed the pros and cons of this and procedural sedation at length at the bedside and they are amenable to that. Procedure was successful and uncomplicated, see the procedure note. Patient felt much better afterwards. He was observed. Shortly thereafter, the patient started having more nausea and vomiting. I reevaluated him promptly at the bedside. His heart rate was in the low 100s, and his first-degree AV block is so prominent that his P waves appeared to be hidden by the T waves, mimicking atrial fibrillation but it was regular and I can tell it was sinus upon looking at a rhythm strip. He was given Reglan and I added on a troponin which I did not feel was needed until this. It is over 1000. This is consistent with an NSTEMI. He does have a history of CAD in the LAD system from his last heart catheterization in 2015. The last recorded stress test was 01/09/2021 and was negative. Patient is additionally given aspirin 162 mg, he is already anticoagulated so no heparin started right now, discussed with hospitalist for admission to PCU. History & Record Review Discussion w/independent historian: Patient and Family Additional record(s) reviewed:: Prior outpatient record (Cardiology follow-up January 2023) and Prior labs Lab Data Attestation: I reviewed the patient's lab results. Labs: Laboratory Results - last 24 hr 02/20/23 02/20/23 02/20/23 23:40 23:40 23:40 WBC 8.5 RBC 4.65 Hgb 14.6 Hct 43.9 MCV 94.4 H MCH 31.4 MCHC 33.3 RDW Std Deviation 45.1 H RDW Coeff of Samra 13.2 Plt Count 234 MPV 10.3 Immature Gran % (Auto) 0.700 Neut % (Auto) 85.8 H Lymph % (Auto) 9.3 L [place] % (Auto) 3.6 Eos % (Auto) 0.2 Baso % (Auto) 0.4 Absolute Neuts (auto) 7.3 Absolute Lymphs (auto) 0.79 L Nucleated RBC % 0 Sodium 141 Potassium 4.0 Chloride 107 Carbon Dioxide 24.0 Anion Gap 10 BUN 30 H Creatinine 1.71 H Estim Creat Clear Calc 28.50 Est GFR (MDRD) Af Amer 49 L Est GFR (MDRD) Non-Af 41 L BUN/Creatinine Ratio 17.5 Glucose 152 H Calcium 9.6 Troponin I High Sens 1079 H* Rhythm Strip Rhythm Strip: A-fib Rate: 125 Ectopy: None EKG Initial EKG: Attestation: I personally reviewed and interpreted this EKG as follows: Interpretation: No Acute Injury Pattern, Atrial Fibrillation (w/ RVR) and LAFB Follow-up EKG: Attestation: I personally reviewed and interpreted this EKG as follows: Interpretation: Sinus Rhythm, No Acute Injury Pattern, LAFB and AV Block (1st deg) Comments: PVCs Prior: Changed (NSR now vs. AFIB; unchanged compared w/ old EKG 11/30/22) Management Discussion w/another healthcare provider: Hospitalist Procedures Procedural Sedation 1 (Initial Baseline): Consent Signed: Yes Any Problems With Anesthesia: No You/Your family experience fever (hyperthermia) w/anesthesia: Unknown Sedation medication: Etomidate Dose: 10 Route: IV Total Moderate Sedation Units: 16 Maliampati Score: Class II ASA Classification: II Comment:: Shallow breathing, borderline hypoxemia but did not go below 90% and no other complications. Other Procedures Procedure(s): Electrocardioversion: With pretreatment with fentanyl 25 mcg IV and procedural sedation as above, patient had pads placed right anterior and left lateral chest, synchronized cardioversion with 200 J biphasic was performed once, which was successful in converting the patient to a normal sinus rhythm, initially with ventricular ectopy which settled down afterwards. No complications, repeat EKG confirms sinus rhythm without acute injury. Critical Care Time Critical Care Time: Yes Critical care time (excluding procedures): 30-74 minutes (35 min, not including procedure time), Including time spent:, Discussing w/Patient &/or Family/Printing Sign Machine Operator, Discussing w/Consultants, Arranging Admission or Transfer and Performing Direct Patient Care at Bedside Discharge Plan Dx/Rx/DC Orders Clinical Impression: Atrial fibrillation with rapid ventricular response, Acute non-ST elevation myocardial infarction (NSTEMI) Disposition Disposition: Acute Care [facility]
[2023-02-21] VITALS (16 sets, daily range): BP systolic 109–158; BP diastolic 69–105; PULSE 86–127; RESP 15–18; TEMP 36.4–36.9; O2SAT 93–99; BMI 23.1
[2023-02-21] MEDS: Ondansetron 4 MG/2 ML Vial IV (00:04)
[2023-02-21 00:05] LABS: Absolute Lymphocyte Count 0.79 X10^3/uL (0.83-4.51); Absolute Neutrophil Count 7.3 X10^3/uL (2.0-7.7); Basophil# 0.03 X10^3/uL; Basophil% 0.4 % (0-1); Eosinophil# 0.02 X10^3/uL; Eosinophils% 0.2 % (0-5); Hematocrit 43.9 % (40-54); Hemoglobin 14.6 g/dL (13.0-16.5); Lymphocyte # 0.79 X10^3/ul (0.83-4.51); Lymphocyte % 9.3 % (19-41); Mean Corp Hgb Conc 33.3 g/dL (32-36); Mean Corpuscular Hgb 31.4 pg (27.0-32.0); Mean Corpuscular Volume 94.4 fL (80-94); Mean Platelet Vol. 10.3 fl (6.2-12.0); Monocyte# 0.31 X10^3/uL; Monocyte% 3.6 % (0-10); NRBC Flagged by Analyzer 0 % (0-5); Neutrophil # 7.33 X10^3/uL (2.7-7.7); Neutrophil % 85.8 % (47-70); Platelet Count 234 K/mm3 (150-450); RBC Distribution Width CV 13.2 % (11.6-14.6); RBC Distribution Width SD 45.1 fl (35.1-43.9); Red Blood Count 4.65 M/mm3 (4.6-6.2); White Blood Count 8.5 K/mm3 (4.4-11.0)
[2023-02-21] MEDS: fentaNYL 100 MCG/2 ML Ampul 25 MCG IV (00:10)
[2023-02-21] MEDS: Etomidate 20 MG/10 ML Vial 10 MG IV (00:11)
[2023-02-21] MEDS: 0.9% Normal Saline 1,000 ML 100 ML IV ×3 (00:12→16:28)
[2023-02-21 00:33] LABS: Anion Gap 10 (5-15); BUN 30 mg/dL (7-18); BUN/Creat Ratio 17.5 RATIO (10-20); Calcium,Total 9.6 mg/dL (8.5-10.1); Chloride 107 mmol/L (98-107); Creatinine, Serum 1.71 mg/dL (0.70-1.30); EST Glomerular Filtration Rate 41 mL/min (>60); Est Glom Filt Rate - Afr Amer 49 mL/min (>60); Glucose 152 mg/dL (74-106); Sodium Level 141 mmol/L (136-145)
[2023-02-21] MEDS: Metoclopramide 10 MG/2 ML Vial 5 MG IV (00:53)
[2023-02-21 01:44] LABS: Troponin-I HS 1079 pg/mL (3.0-78.0)
[2023-02-21] MEDS: Aspirin 81 MG TAB.CHEW 162 MG PO (02:03)
--- NOTE | 2023-02-21 02:24 | PCM.HP.STD ---
HPI - General General Date of Admission: 02/21/23 Date of Service: 02/21/23 Chief Complaint: Palpitations HPI Narrative WIL FISH, is a 87 M who presented to the emergency department at [facility] on 02/20/2023 with palpitations. Evidently about 4 hours prior to presentation the patient started having some vomiting and then family noted he was having tachycardia with palpitations. He had no chest pain, shortness of breath, or syncope at that time. Family reports he has had symptoms similar to this with previous episodes of paroxysmal atrial fibrillation. He last had a cardioversion in November 2022 that was scheduled as an outpatient and done here at the hospital. He was just seen by cardiology on 02/09/2023. He is not on any rate controlling medications at baseline and takes Xarelto 15 mg daily. At the time of my evaluation he is feeling much better and has no complaints. Patient stated prior to developing the nausea and vomiting he was feeling his normal self as well and had no sick contacts. Vital signs on presentation demonstrated a temperature of 97.2, heart rate 141, blood pressure 170/113, respiratory rate was 17 and oxygen saturation was 96% on room air. After cardioversion her heart rates have been anywhere from 90-97 in sinus rhythm. Blood pressures have improved and are currently running in the 140s over 80 range. His CBC is unremarkable. Chemistry panel shows normal electrolytes with a slightly elevated BUN/creatinine from baseline. Current serum creatinine is 1.7 and baseline serum creatinine appears to be between 1.3 and 1.6. Blood glucose is 152. His initial troponin which was obtained prior to him being cardioverted was 1079. [facility] Medical History (Updated 02/21/23 @ 02:[address] Adriana Westbrook, DO) Atherosclerotic heart disease of [place] coronary artery without angina pectoris Atrial fibrillation Hypertrophic cardiomyopathy NSTEMI (non-ST elevated myocardial infarction) Paroxysmal atrial fibrillation Home Medications saw palmetto 450 mg capsule 450 mg PO DAILY prostate health 09/10/16 [History Last Taken 11/05/16] magnesium 250 mg tablet 500 mg PO DAILY mineral 07/13/18 [History Last Taken 01/07/21] cholecalciferol (vitamin D3) 125 mcg (5,000 unit) capsule 5,000 unit PO DAILY vitamin 10/18/19 [History Last Taken 01/07/21] cyanocobalamin (vitamin B-12) 1,000 mcg capsule 1,000 mcg PO DAILY vitamin 10/18/19 [History Last Taken 01/07/21] calcium carbonate 600 mg calcium (1,500 mg) tablet (Calcium) 600 mg PO DAILY 03/31/22 [History Last Taken Unknown] vitamins A,C,L-usgs-fushcv 4,296 mcg-226 mg-90 mg capsule (PreserVision AREDS) 1 cap PO DAILY 03/31/22 [History Last Taken Unknown] rivaroxaban 15 mg tablet 15 mg PO DAILY blood thinner #30 tabs 12/14/22 [Rx Last Taken Unknown] Allergy/AdvReac Type Severity Reaction Status Date / Time atorvastatin Allergy confused Verified 02/09/23 10:09 lisinopril Allergy cough Verified 02/09/23 10:09 amiodarone AdvReac Intermediate lightheaded Verified 02/09/23 10:09 ness Family History Father Myocardial infarction Brother Myocardial infarction Surgical History History of cardioversion (01/11/19) Social History Smoking Status: Never smoker second hand exposure: No alcohol intake: never substance use type: does not use caffeine: Yes Type: tea what type of physical activity do you participate in: walking ROS Constitutional Constitutional: Denies anorexia, change in weight, chills, fatigue, fever(s), malaise, night sweats, weakness or other Eyes Eyes: Denies blurry vision, change in eye color, change in vision, discharge from eye(s), double vision, erythema, eye pain, loss of vision or other ENT HEENT: Denies abnormal hearing, dysphagia, ear pain, epistaxis, headache(s), hearing loss, nasal congestion, nasal discharge, post nasal drip, sinus pressure, sore throat or other Cardiovascular Cardiovascular: Denies chest pain, claudication, dyspnea on exertion, edema, lightheadedness, orthopnea, palpitations, paroxysmal nocturnal dyspnea, rapid heart rate, syncope or other Respiratory/Chest Respiratory/Chest: Denies cough, dyspnea, excessive phlegm production, hemoptysis, productive cough, shortness of breath at rest, shortness of breath with exertion, wheezing or other Gastrointestinal Gastrointestinal: Denies abdominal pain, coffee ground emesis, constipation, diarrhea, dyspepsia, hematemesis, hematochezia, loose stools, melena, nausea, vomiting or other Genitourinary Genitourinary: Denies burning urination, difficulty urinating, dysuria, hematuria, nocturia, urinary frequency, urinary hesitancy, urinary incontinence, urinary urgency or other Musculoskeletal Musculoskeletal: Reports back pain, joint pain and joint stiffness; Denies arthralgias, joint swelling, myalgias, neck pain or other Neurologic Neurologic: Denies abnormal gait, abnormal speech, confusion, disequilibrium, dizziness, focal weakness, headache(s), numbness, paresthesias, seizure-like activity, seizures, syncope, tingling, tremor(s) or other Psychiatric Psychiatric: Denies anxiety, depression, homicidal ideation, suicidal ideation or other Endocrine Endocrinology: Denies change in body appearance, cold intolerance, excessive sweating, heat intolerance, polydipsia, polyuria or other Hematologic/Lymphatic Hematologic/Lymphatic: Denies anemia, easy bleeding, easy bruising, lymphadenopathy or other Allergic/Immunologic Allergic/Immunologic: Denies rhinitis, hives, eczemia, asthma or other Vital Signs Vital Signs Vital Signs: 02/20/23 23:28 02/20/23 23:36 02/21/23 00:00 Temperature 97.2 F L 98 F Temperature Source Temporal Pulse Rate 141 H 124 H Pulse Rate [1 (Initial Baseline)] Respiratory Rate 17 15 Respiratory Rate [1 (Initial Baseline)] Respiratory Effort Normal Non-Labored Blood Pressure 170/113 H 158/105 H Blood Pressure [1 (Initial Baseline)] Blood Pressure Mean 132 Pulse Ox 96 97 Oxygen Delivery Method Room Air Room Air Oxygen Delivery Method [1 (Initial Baseline)] Oxygen Flow Rate (L/min) Oxygen Flow Rate (L/min) [1 (Initial Baseline)] 02/21/23 00:10 02/21/23 00:18 02/21/23 00:23 Temperature Temperature Source Pulse Rate Pulse Rate [1 (Initial Baseline)] 127 H Respiratory Rate Respiratory Rate [1 (Initial Baseline)] 17 Respiratory Effort Blood Pressure Blood Pressure [1 (Initial Baseline)] 148/90 H Blood Pressure Mean Pulse Ox Oxygen Delivery Method Nasal Cannula Nasal Cannula Oxygen Delivery Method [1 (Initial Baseline)] Nasal Cannula Oxygen Flow Rate (L/min) 2 Oxygen Flow Rate (L/min) [1 (Initial Baseline)] 4 02/21/23 00:28 02/21/23 01:00 02/21/23 02:00 Temperature Temperature Source Pulse Rate 91 97 Pulse Rate [1 (Initial Baseline)] Respiratory Rate 16 16 Respiratory Rate [1 (Initial Baseline)] Respiratory Effort Blood Pressure 146/86 H 149/91 H Blood Pressure [1 (Initial Baseline)] Blood Pressure Mean 106 110 Pulse Ox 94 95 Oxygen Delivery Method Nasal Cannula Room Air Room Air Oxygen Delivery Method [1 (Initial Baseline)] Oxygen Flow Rate (L/min) 2 Oxygen Flow Rate (L/min) [1 (Initial Baseline)] 02/21/23 02:16 Temperature 97.6 F L Temperature Source Temporal Pulse Rate 97 Pulse Rate [1 (Initial Baseline)] Respiratory Rate 16 Respiratory Rate [1 (Initial Baseline)] Respiratory Effort Blood Pressure 149/91 H Blood Pressure [1 (Initial Baseline)] Blood Pressure Mean 110 Pulse Ox 94 Oxygen Delivery Method Room Air Oxygen Delivery Method [1 (Initial Baseline)] Oxygen Flow Rate (L/min) Oxygen Flow Rate (L/min) [1 (Initial Baseline)] Weight Weight: 71.305 kg Body Mass Index (BMI) 25.3 Physical Exam Const alert, oriented x3, no apparent distress, average body habitus and well nourished Constitutional Narrative: Elderly white male, sitting up in bed, family at bedside, patient appears comfortable and nontoxic, no current complaints General Appearance: cooperative HEENT normocephalic, head/scalp atraumatic and moist oral mucous membranes HEENT Narrative: Mallampati 2, plate in place for dentition, no thrush Eyes PERRL, EOMs intact bilaterally and conjunctivae normal Eyes Narrative: No scleral icterus Neck no lymphadenopathy, supple, no JVD and no carotid bruits Neck Narrative: Trachea midline, no thyroid enlargement Resp normal respiratory effort, no retractions, no use of accessory muscles and clear to auscultation bilaterally Auscultation: Negative for rales, rhonchi or wheezes Cardio regular rate, regular rhythm, S1 normal heart sound, S2 normal heart sound, no murmurs, no rub, no gallops and no clicks GI normal to inspection, nondistended, normoactive bowel sounds, soft to palpation and non-tender Extremity no clubbing, cyanosis or edema Extremity Narrative: 2+ pedal pulses Skin no rashes or lesions noted, no wounds, skin turgor normal, no jaundice, no petechiae and no mottling Skin Narrative: Seborrheic keratoses noted, skin changes consistent with previous sun exposure Neuro oriented x3, CN's II-XII intact bilaterally, moves all extremities and no focal motor deficits Neuro Narrative: Mild generalized weakness with proximal musculature weaker than distal Speech: speech normal Psych affect normal Psych Narrative: Very pleasant appropriately interactive Results Lab / Micro Data Attestation: I reviewed the patient's lab results. Result Diagrams: 02/20/23 23:40 02/20/23 23:40 Labs: Laboratory Results - last 24 hr 02/20/23 23:40: WBC 8.5, RBC 4.65, Hgb 14.6, Hct 43.9, MCV 94.4 H, MCH 31.4, MCHC 33.3, RDW Std Deviation 45.1 H, RDW Coeff of Samra 13.2, Plt Count 234, MPV 10.3, Immature Gran % (Auto) 0.700, Neut % (Auto) 85.8 H, Lymph % (Auto) 9.3 L, [place] % (Auto) 3.6, Eos % (Auto) 0.2, Baso % (Auto) 0.4, Absolute Neuts (auto) 7.3, Absolute Lymphs (auto) 0.79 L, Nucleated RBC % 0 02/20/23 23:40: Sodium 141, Potassium 4.0, Chloride 107, Carbon Dioxide 24.0, Anion Gap 10, BUN 30 H, Creatinine 1.71 H, Estim Creat Clear Calc 28.50, Est GFR (MDRD) Af Amer 49 L, Est GFR (MDRD) Non-Af 41 L, BUN/Creatinine Ratio 17.5, Glucose 152 H, Calcium 9.6 02/20/23 23:40: Troponin I High Sens 1079 H* Rhythm Strip Rhythm Strip: A-fib Rate: 125 Ectopy: None Assessment & Plan Assessment/Plan (1) Atrial fibrillation with rapid ventricular response: (2) Acute non-ST elevation myocardial infarction (NSTEMI): (3) Hyperglycemia: PLAN: Plan NSTEMI -Initial troponin was greater than 1000 it was obtained prior to cardioversion -Last cardiac catheterization was in 2016 -Last stress test was in 2020 -Cycle cardiac enzymes -Start metoprolol 25 mg twice daily -Hold Xarelto and start heparin drip -Check hemoglobin A1c -Check lipid panel -Patient has atorvastatin allergy from which he developed confusion--> we will try high-dose pravastatin at 80 mg as substitution -Start baby aspirin -Check echocardiogram -Consult cardiology -We will have patient be n.p.o. in case cardiac catheterization is required Paroxysmal atrial fibrillation with RVR -Check TSH -Check echocardiogram -Start metoprolol 25 mg p.o. twice daily -Patient was cardioverted in the emergency department and is now in sinus rhythm -Continue anticoagulation but hold Xarelto and utilize heparin drip with NSTEMI above Hyperglycemia -Patient does not have history of diabetes -Check hemoglobin A1c -Monitor -May be stress response Nausea/vomiting -Resolved -Suspect was related to the above CKD stage IIIb -Baseline serum creatinine fluctuates between 1.3 and 1.6 -Currently 1.7 -We will gently hydrate and attempt to get his serum creatinine down as far as possible given that cardiac catheterization may be required -Repeat BMP in a.m. -Avoid nephrotoxins KENNEDY -Continue home CPAP--> family his home CPAP machine broke about 2 months ago and they have been unable to get a hold of [employer] to call them back to get a new machine -I advised them to discuss this with case management tomorrow to see if they could intervene and help him get a new machine or alternatively call the prescribing physician (Dr. Olivarez) and see if he could address it further History of CAD -No history of PCI or CABG -As above Hyperlipidemia -Patient is not on any statin as he has had confusion while on atorvastatin previously -Check lipids -We will trial pravastatin BPH -Hold home saw palmetto and restart at discharge Vitamin D deficiency -Continue home cholecalciferol DVT prophylaxis -Patient is typically fully anticoagulated with Xarelto-we will hold for heparin drip at this time CODE STATUS -Full code Charges/Coding Visit Charges Inpatient E&M: 50079 Init Hosp L3
[2023-02-21 02:47] LABS: International Normalized Ratio 1.9; Prothrombin Time (Protime)PT. 21.7 SECONDS (11.7-14.9)
[2023-02-21 03:11] LABS: Hemoglobin A1c 5.7 % (3.8-5.6)
--- NOTE | 2023-02-21 03:49 | ECHOCS_ITS ---
Reason For Study: Afib, Aflutter Procedure This was a 2D Doppler, Color Flow transthoracic echocardiogram. Contrast injection was performed. Exam performed portable in patient room. Left Ventricle Normal LV size. Moderate concentric left ventricular hypertrophy. Anterior setal, inferior septal and apical hypokinesis. Unable to assess diastolic function based on available data. The left ventricular ejection fraction is 45 %. Right Ventricle Normal RV size. Mild global right ventricular systolic dysfunction. Atria The left atrium is moderately enlarged. The right atrium is mildly enlarged. Mitral Valve Moderate (2+) mitral valve insufficiency. Tricuspid Valve Mild tricuspid valve insufficiency. Normal pulmonary artery pressure. Aortic Valve Trisinus/trileaflet aortic valve. Mild (1+) aortic valve insufficiency. Pulmonic Valve The pulmonic valve is not well visualized. Great Vessels Mildly dilated aortic root. Pericardium/Pleural No pericardial effusion. Medication Diluted definity 4ml given slow IV push to enhance endocardial definition. MMode/2D Measurements & Calculations LVIDd: 5.0 cm IVSd: 1.5 cm Ao root diam: 3.7 cm LVIDs: 3.8 cm LVPWd: 1.5 cm RVDd: 3.7 cm FS: 22.6 % LAV(MOD-bp): 69.5 ml LVAd ap4: 36.7 cm2 SV(MOD-sp4): 71.4 ml LAV(MOD-bp) Indexed: 39.1 ml/m2 LVLd ap4: 8.0 cm LAV(MOD-sp2): 64.2 ml EDV(MOD-sp4): 141.4 ml LAV(MOD-sp4): 69.9 ml EDV(sp4-el): 142.5 ml LVAs ap4: 24.7 cm2 LVLs ap4: 7.7 cm ESV(MOD-sp4): 70.0 ml ESV(sp4-el): 66.7 ml EF(MOD-sp4): 50.5 % EF(sp4-el): 53.2 % SV(sp4-el): 75.8 ml LA A4 area: 22.2 cm2 LA dimension(2D): 4.1 cm RA A4 area: 16.8 cm2 Doppler Measurements & Calculations MV E max jose: 112.2 cm/sec Ao V2 max: 94.8 cm/sec LV V1 max: 83.6 cm/sec Ao max P.6 mmHg LV V1 max P.8 mmHg Ao V2 mean: 67.0 cm/sec Ao mean P.1 mmHg Ao V2 VTI: 16.2 cm PA V2 max: 105.7 cm/sec TR max jose: 216.3 cm/sec TR max P.7 mmHg ECHO/Echo Complete W/ Contrast Interpretation Summary Moderate concentric left ventricular hypertrophy. The left ventricular ejection fraction is 45 %. Anterior setal, inferior septal and apical hypokinesis. Mild global right ventricular systolic dysfunction. Moderate (2+) mitral valve insufficiency. Mild (1+) aortic valve insufficiency. Mildly dilated aortic root. Ordering Physician: Adriana Westbrook Referring Physician: Geremias Norwood Performed By: Samantha Joseph, NATY, RVT
[2023-02-21] MEDS: HEPARIN/D5w 25,000 UNITS 25,000 UNITS/250 ML IV.SOLN. 8 UNITS CONT INF (04:26)
[2023-02-21] MEDS: Heparin Injection (Vial) 5,000 UNIT/ML VIAL 4000 UNIT IV (04:30)
[2023-02-21 04:52] LABS: Troponin-I HS 968 pg/mL (3.0-78.0)
[2023-02-21 06:21] LABS: Absolute Lymphocyte Count 0.59 X10^3/uL (0.83-4.51); Absolute Neutrophil Count 5.5 X10^3/uL (2.0-7.7); Basophil# 0.03 X10^3/uL; Basophil% 0.5 % (0-1); Hematocrit 39.3 % (40-54); Hemoglobin 12.9 g/dL (13.0-16.5); Lymphocyte # 0.59 X10^3/ul (0.83-4.51); Lymphocyte % 9.2 % (19-41); Mean Corp Hgb Conc 32.8 g/dL (32-36); Mean Corpuscular Volume 94.5 fL (80-94); Mean Platelet Vol. 10.3 fl (6.2-12.0); Monocyte# 0.28 X10^3/uL; Monocyte% 4.3 % (0-10); NRBC Flagged by Analyzer 0 % (0-5); Neutrophil # 5.52 X10^3/uL (2.7-7.7); Neutrophil % 85.7 % (47-70); POSITIVE DIFFERENTIAL YES; Platelet Count 199 K/mm3 (150-450); RBC Distribution Width CV 13.2 % (11.6-14.6); RBC Distribution Width SD 45.5 fl (35.1-43.9); Red Blood Count 4.16 M/mm3 (4.6-6.2); White Blood Count 6.4 K/mm3 (4.4-11.0)
[2023-02-21 06:46] LABS: Differential Indicated SCAN CRITERIA MET
[2023-02-21 07:03] LABS: AST(SGOT) 23 U/L (15-37); Alanine Aminotransfer ALT/SGPT 26 U/L (16-61); Albumin, Serum 3.3 g/dL (3.2-5.0); Alkaline Phosphatase 61 U/L (45-117); Anion Gap 5 (5-15); BUN 30 mg/dL (7-18); BUN/Creat Ratio 19.9 RATIO (10-20); Calcium,Total 8.8 mg/dL (8.5-10.1); Chloride 110 mmol/L (98-107); Cholesterol 130 mg/dL (200); Creatinine, Serum 1.51 mg/dL (0.70-1.30); EST Glomerular Filtration Rate 47 mL/min (>60); Est Glom Filt Rate - Afr Amer 57 mL/min (>60); Globulin 3.3 g/dL (2.2-4.2); Glucose 130 mg/dL (74-106); High Density Lipoprotein 44 mg/dL; Magnesium 2.2 mg/dL (1.6-2.6); Phosphorus 4.7 mg/dL (2.5-4.9); Potassium 4.4 mmol/L (3.5-5.1); Protein, Total 6.6 g/dL (6.4-8.2); Sodium Level 141 mmol/L (136-145); Thyroid Stim Hormone (TSH) 1.48 uIU/mL (0.358-3.74); Triglycerides 24 mg/dL; Troponin-I HS 839 pg/mL (3.0-78.0); Very Low Density Lipoprotein 5 mg/dL (5-40)
--- NOTE | 2023-02-21 07:51 | PCM.PN.HOSP ---
Reason for Visit Reason for Visit: Diagnoses Non-ST elevation (NSTEMI) myocardial infarction (02/21/23) Unspecified atrial fibrillation (02/21/23) Hyperglycemia, unspecified (02/21/23) Subjective Subjective For much better than when he presented, no chest pain or shortness of breath at this time. Objective Data Objective Data Vital Signs: Vital Signs Temp Pulse Resp BP Pulse Ox O2 Del Method O2 Flow Rate 97.7 F L 106 H 16 126/80 H 98 Room Air 2 02/21/23 04:08 02/21/23 04:08 02/21/23 04:08 02/21/23 04:08 02/21/23 04:08 02/21/23 05:11 02/21/23 00:28 Oxygen Flow Rate (L/min) [1 ( 4 Initial Baseline)] Oxygen Flow Rate (L/min) 2 Oxygen Delivery Method [1 ( Nasal Cannula Initial Baseline)] Oxygen Delivery Method Room Air Weight: 69 kg Body Mass Index (BMI) 23.1 Intake & Output: Intake and Output for Last 24 Hours 02/19/23 02/20/23 02/21/23 23:59 23:59 23:59 Intake Total 566.67 / 566.67 Balance 566.67 / 566.67 Lab / Micro Data Result Diagrams: 02/21/23 05:52 02/21/23 05:52 Labs: Laboratory Results - last 24 hr 02/20/23 23:40: WBC 8.5, RBC 4.65, Hgb 14.6, Hct 43.9, MCV 94.4 H, MCH 31.4, MCHC 33.3, RDW Std Deviation 45.1 H, RDW Coeff of Samra 13.2, Plt Count 234, MPV 10.3, Immature Gran % (Auto) 0.700, Neut % (Auto) 85.8 H, Lymph % (Auto) 9.3 L, [place] % (Auto) 3.6, Eos % (Auto) 0.2, Baso % (Auto) 0.4, Absolute Neuts (auto) 7.3, Absolute Lymphs (auto) 0.79 L, Nucleated RBC % 0 02/20/23 23:40: Sodium 141, Potassium 4.0, Chloride 107, Carbon Dioxide 24.0, Anion Gap 10, BUN 30 H, Creatinine 1.71 H, Estim Creat Clear Calc 28.50, Est GFR (MDRD) Af Amer 49 L, Est GFR (MDRD) Non-Af 41 L, BUN/Creatinine Ratio 17.5, Glucose 152 H, Calcium 9.6 02/20/23 23:40: Troponin I High Sens 1079 H* 02/20/23 23:40: PT 21.7 H, INR 1.9, APTT 28.0 02/20/23 23:40: Hemoglobin A1c 5.7 H 02/21/23 03:50: Troponin I High Sens 968 H* 02/21/23 05:52: WBC 6.4, RBC 4.16 L, Hgb 12.9 L, Hct 39.3 L, MCV 94.5 H, MCH 31.0, MCHC 32.8, RDW Std Deviation 45.5 H, RDW Coeff of Samra 13.2, Plt Count 199, MPV 10.3, Immature Gran % (Auto) 0.300, Neut % (Auto) 85.7 H, Lymph % (Auto) 9.2 L, [place] % (Auto) 4.3, Eos % (Auto) 0.0, Baso % (Auto) 0.5, Absolute Neuts (auto) 5.5, Absolute Lymphs (auto) 0.59 L, Nucleated RBC % 0, Differential Comment COMMENT 02/21/23 05:52: Sodium 141, Potassium 4.4, Chloride 110 H, Carbon Dioxide 26.0, Anion Gap 5, BUN 30 H, Creatinine 1.51 H, Estim Creat Clear Calc 34.60, Est GFR (MDRD) Af Amer 57 L, Est GFR (MDRD) Non-Af 47 L, BUN/Creatinine Ratio 19.9, Glucose 130 H, Calcium 8.8, Phosphorus 4.7, Magnesium 2.2, Total Bilirubin 0.70, AST 23, ALT 26, Alkaline Phosphatase 61, Total Protein 6.6, Albumin 3.3, Globulin 3.3, Albumin/Globulin Ratio 1.0, Triglycerides 24, Cholesterol 130, LDL Cholesterol 81, VLDL Cholesterol 5, HDL Cholesterol 44, TSH 1.48 02/21/23 05:52: Troponin I High Sens 839 H* Rhythm Strip Rhythm Strip: A-fib Rate: 125 Ectopy: None Physical Exam Narrative General: Alert, oriented, no apparent distress HEENT: Atraumatic, normocephalic Eyes: Anicteric, normal conjunctiva, extraocular movements grossly intact Neck: Supple Respiratory: No wheezes or crackles appreciated, normal respiratory effort Cardiovascular: Normal sinus rhythm GI: Soft, nontender, nondistended Extremities: No edema Musculoskeletal: Moving all extremities Neuro: No overt focal neurological deficits Skin: No rashes appreciated Psych: Cooperative Assessment & Plan Assessment/Plan (1) Atrial fibrillation with rapid ventricular response: (2) Acute non-ST elevation myocardial infarction (NSTEMI): (3) Hyperglycemia: PLAN: Plan #NSTEMI -Initial troponin was greater than 1000 it was obtained prior to cardioversion -Last cardiac catheterization was in 2015 -Last stress test was in 2020 -Cycle cardiac enzymes -Start metoprolol 25 mg twice daily -Hold Xarelto and start heparin drip -Check hemoglobin A1c -Check lipid panel -Patient has atorvastatin allergy from which he developed confusion--> we will try high-dose pravastatin at 80 mg as substitution -Start baby aspirin -Check echocardiogram -Consult cardiology -We will have patient be n.p.o. in case cardiac catheterization is required -02/21: Plan for cardiac cath tomorrow based on echo with mildly decreased LV systolic function with segmental wall motion abnormalities. #Paroxysmal atrial fibrillation with RVR -Check TSH -Check echocardiogram -Start metoprolol 25 mg p.o. twice daily -Patient was cardioverted in the emergency department and is now in sinus rhythm -Continue anticoagulation but hold Xarelto and utilize heparin drip with NSTEMI above -02/21: Remains on telemetry, remains on heparin drip. Cardiac cath tomorrow #CKD stage IIIb -Baseline serum creatinine fluctuates between 1.3 and 1.6 -Currently 1.7 -We will gently hydrate and attempt to get his serum creatinine down as far as possible given that cardiac catheterization may be required -Repeat BMP in a.m. -Avoid nephrotoxins #KENNEDY -CPAP nightly #History of CAD -No history of PCI or CABG -As above #BPH -Hold home saw palmetto and restart at discharge #Vitamin D deficiency -Continue home cholecalciferol #DVT prophylaxis -Patient is typically fully anticoagulated with Xarelto-we will hold for heparin drip at this time Charges/Coding Visit Charges Inpatient E&M: 42159 Subs Hosp L2
--- NOTE | 2023-02-21 08:21 | PCM.CONS.C ---
Assessment & Plan Assessment/Plan (1) Paroxysmal atrial fibrillation: PLAN: Back in normal sinus rhythm. Continue anticoagulation. Started on beta-blockers. (2) Sick sinus syndrome: PLAN: Marked first-degree AV block. Started on metoprolol for his paroxysmal atrial fibrillation. Monitor for worsening of heart block. (3) Coronary artery disease: PLAN: See #4 below. (4) Acute non-ST elevation myocardial infarction (NSTEMI): PLAN: Troponin elevation likely type II with atrial fibrillation with rapid ventricular response. Patient asymptomatic. Will check Lexiscan stress Myoview to rule out ischemia. Check echo. HPI Consult Data Date of Consult: 02/21/23 HPI Narrative Reason for Consultation: Elevated troponins HPI Narrative: The patient has past medical history significant for paroxysmal atrial fibrillation. He presented to the emergency room with complaints of palpitations. No shortness of breath. No chest pain. He also had nausea and vomiting. Troponins were checked for the patient. These were elevated. Patient denies any prior history of angina pectoris. He has had coronary angiography done in 2016. He had nonobstructive coronary artery disease. In the emergency room, the patient was successfully cardioverted back to normal sinus rhythm. On his EKG, he has normal sinus rhythm with marked first-degree AV block. [facility] Medical History (Updated 02/21/23 @ 10:[address] Manuel Briceno MD) Atherosclerotic heart disease of [place] coronary artery without angina pectoris Atrial fibrillation Hypertrophic cardiomyopathy NSTEMI (non-ST elevated myocardial infarction) Paroxysmal atrial fibrillation Home Medications saw palmetto 450 mg capsule 450 mg PO DAILY prostate health 09/10/16 [History Last Taken 11/05/16] magnesium 250 mg tablet 500 mg PO DAILY mineral 07/13/18 [History Last Taken 01/07/21] cholecalciferol (vitamin D3) 125 mcg (5,000 unit) capsule 5,000 unit PO DAILY vitamin 10/18/19 [History Last Taken 01/07/21] cyanocobalamin (vitamin B-12) 1,000 mcg capsule 1,000 mcg PO DAILY vitamin 10/18/19 [History Last Taken 01/07/21] calcium carbonate 600 mg calcium (1,500 mg) tablet (Calcium) 600 mg PO DAILY supplement 03/31/22 [History Last Taken Unknown] vitamins A,C,B-bqlz-yvqqqt 4,296 mcg-226 mg-90 mg capsule (PreserVision AREDS) 1 cap PO DAILY supplement 03/31/22 [History Last Taken Unknown] rivaroxaban 15 mg tablet 15 mg PO DAILY blood thinner #30 tabs 12/14/22 [Rx Last Taken Unknown] Allergy/AdvReac Type Severity Reaction Status Date / Time atorvastatin Allergy confused Verified 02/09/23 10:09 lisinopril Allergy cough Verified 02/09/23 10:09 amiodarone AdvReac Intermediate lightheaded Verified 02/09/23 10:09 ness Family History Father Myocardial infarction Brother Myocardial infarction Surgical History History of cardioversion (01/11/19) Social History Smoking Status: Never smoker second hand exposure: No alcohol intake: never substance use type: does not use caffeine: Yes Type: tea what type of physical activity do you participate in: walking Physical Exam Narrative Comfortable. Lying flat in the bed. Heart sounds 1 and 2 are noted. Regular rate and rhythm. Chest clear to auscultation bilaterally. Abdomen soft nontender bowel sounds positive. Alert oriented x3. No ankle edema noted. Risk Stratification Risk Stratification Applicable: No Objective Data Vital Signs: Vital Signs Temp Pulse Resp BP Pulse Ox O2 Del Method O2 Flow Rate 97.7 F L 106 H 16 126/80 H 95 Room Air 2 02/21/23 04:08 02/21/23 04:08 02/21/23 04:08 02/21/23 04:08 02/21/23 07:12 02/21/23 07:12 02/21/23 00:28 Oxygen Flow Rate (L/min) [1 ( 4 Initial Baseline)] Oxygen Flow Rate (L/min) 2 Oxygen Delivery Method [1 ( Nasal Cannula Initial Baseline)] Oxygen Delivery Method Room Air Weight: 152 lb 1.903 oz Body Mass Index (BMI) 23.1 Intake & Output: Intake and Output for Last 24 Hours 02/19/23 02/20/23 02/21/23 23:59 23:59 23:59 Intake Total 566.67 / 566.67 Balance 566.67 / 566.67 Lab / Micro Data Attestation: I reviewed the patient's lab results. Result Diagrams: 02/21/23 05:52 02/21/23 05:52 Labs: Laboratory Results - last 24 hr 02/20/23 23:40: WBC 8.5, RBC 4.65, Hgb 14.6, Hct 43.9, MCV 94.4 H, MCH 31.4, MCHC 33.3, RDW Std Deviation 45.1 H, RDW Coeff of Samra 13.2, Plt Count 234, MPV 10.3, Immature Gran % (Auto) 0.700, Neut % (Auto) 85.8 H, Lymph % (Auto) 9.3 L, [place] % (Auto) 3.6, Eos % (Auto) 0.2, Baso % (Auto) 0.4, Absolute Neuts (auto) 7.3, Absolute Lymphs (auto) 0.79 L, Nucleated RBC % 0 02/20/23 23:40: Sodium 141, Potassium 4.0, Chloride 107, Carbon Dioxide 24.0, Anion Gap 10, BUN 30 H, Creatinine 1.71 H, Estim Creat Clear Calc 28.50, Est GFR (MDRD) Af Amer 49 L, Est GFR (MDRD) Non-Af 41 L, BUN/Creatinine Ratio 17.5, Glucose 152 H, Calcium 9.6 02/20/23 23:40: Troponin I High Sens 1079 H* 02/20/23 23:40: PT 21.7 H, INR 1.9, APTT 28.0 02/20/23 23:40: Hemoglobin A1c 5.7 H 02/21/23 03:50: Troponin I High Sens 968 H* 02/21/23 05:52: WBC 6.4, RBC 4.16 L, Hgb 12.9 L, Hct 39.3 L, MCV 94.5 H, MCH 31.0, MCHC 32.8, RDW Std Deviation 45.5 H, RDW Coeff of Samra 13.2, Plt Count 199, MPV 10.3, Immature Gran % (Auto) 0.300, Neut % (Auto) 85.7 H, Lymph % (Auto) 9.2 L, [place] % (Auto) 4.3, Eos % (Auto) 0.0, Baso % (Auto) 0.5, Absolute Neuts (auto) 5.5, Absolute Lymphs (auto) 0.59 L, Nucleated RBC % 0, Differential Comment COMMENT 02/21/23 05:52: Sodium 141, Potassium 4.4, Chloride 110 H, Carbon Dioxide 26.0, Anion Gap 5, BUN 30 H, Creatinine 1.51 H, Estim Creat Clear Calc 34.60, Est GFR (MDRD) Af Amer 57 L, Est GFR (MDRD) Non-Af 47 L, BUN/Creatinine Ratio 19.9, Glucose 130 H, Calcium 8.8, Phosphorus 4.7, Magnesium 2.2, Total Bilirubin 0.70, AST 23, ALT 26, Alkaline Phosphatase 61, Total Protein 6.6, Albumin 3.3, Globulin 3.3, Albumin/Globulin Ratio 1.0, Triglycerides 24, Cholesterol 130, LDL Cholesterol 81, VLDL Cholesterol 5, HDL Cholesterol 44, TSH 1.48 02/21/23 05:52: Troponin I High Sens 839 H* Rhythm Strip Rhythm Strip: Sinus Rhythm Rate: 98 Ectopy: None Cardiology Labs/Tests 02/20/23 23:40: WBC 8.5, RBC 4.65, Hgb 14.6, Hct 43.9, MCV 94.4 H, MCH 31.4, MCHC 33.3, Plt Count 234, MPV 10.3, Immature Gran % (Auto) 0.700, Neut % (Auto) 85.8 H, Lymph % (Auto) 9.3 L, [place] % (Auto) 3.6, Eos % (Auto) 0.2, Baso % (Auto) 0.4, Absolute Neuts (auto) 7.3, Nucleated RBC % 0 02/20/23 23:40: Sodium 141, Potassium 4.0, Chloride 107, Carbon Dioxide 24.0, Anion Gap 10, BUN 30 H, Creatinine 1.71 H, Est GFR (MDRD) Af Amer 49 L, Est GFR (MDRD) Non-Af 41 L, BUN/Creatinine Ratio 17.5, Glucose 152 H, Calcium 9.6 02/20/23 23:40: PT 21.7 H, INR 1.9, APTT 28.0 02/20/23 23:40: Hemoglobin A1c 5.7 H 02/21/23 05:52: WBC 6.4, RBC 4.16 L, Hgb 12.9 L, Hct 39.3 L, MCV 94.5 H, MCH 31.0, MCHC 32.8, Plt Count 199, MPV 10.3, Immature Gran % (Auto) 0.300, Neut % (Auto) 85.7 H, Lymph % (Auto) 9.2 L, [place] % (Auto) 4.3, Eos % (Auto) 0.0, Baso % (Auto) 0.5, Absolute Neuts (auto) 5.5, Nucleated RBC % 0 02/21/23 05:52: Sodium 141, Potassium 4.4, Chloride 110 H, Carbon Dioxide 26.0, Anion Gap 5, BUN 30 H, Creatinine 1.51 H, Est GFR (MDRD) Af Amer 57 L, Est GFR (MDRD) Non-Af 47 L, BUN/Creatinine Ratio 19.9, Glucose 130 H, Calcium 8.8, Phosphorus 4.7, Magnesium 2.2, Total Bilirubin 0.70, Triglycerides 24, Cholesterol 130, LDL Cholesterol 81, VLDL Cholesterol 5, HDL Cholesterol 44 Rhythm: Normal sinus rhythm EKG: Atrial fibrillation with rapid ventricular response on initial EKGs. Presently normal sinus rhythm with marked first-degree AV block ECHO: Stress Test: Cardiac Cath: PCI: CT Surgery: Holter monitor: EPS: PPM: CXR: Chest CT Scan:
[2023-02-21] MEDS: Aspirin E.C. 81 MG Tablet PO (10:45)
[2023-02-21 11:14] LABS: Partial Thromboplast Time 91.3 Seconds (24.1-36.2)
[2023-02-21] MEDS: Magnesium Chloride 64 MG Delay Rel.Tablet 128 MG PO (11:17)
[2023-02-21] MEDS: Cholecalciferol (Vit D3) 125 MCG CAPSULE (5,000 UNITS) PO (11:18)
[2023-02-21] MEDS: Cyanocobalamin 500 MCG Tablet 1000 MCG PO (11:18)
[2023-02-21] MEDS: Multivitamin (Healthy Eyes) Capsule 1 CAP PO (11:18)
[2023-02-21] MEDS: Calcium (Elemental) 500 MG Tablet PO (11:18)
[2023-02-21] MEDS: Metoprolol Tartrate 25 MG Tablet PO ×2 (11:18→21:53)
--- NOTE | 2023-02-21 15:25 | CASEMGMT ---
JAZZMINE CALDERON Assessment: Face to Face with pt for initial transition planning/care coordination assessment. JAZZMINE CALDERON introduced self and role at [facility], pt voices understanding and consents to assessment. Pt is A/O x4 and answers all questions appropriately at this time. Pt sitting up in bed in no distress. Care providers, pharmacy, and demographics verified/updated. Admitting Dx: NSTEMI PCP:Cuco Specialists:HIMA, was seeing Preferred [facility]acy: [facility] [place] [facility] [facility] Benefit: yes LNOK: Jaycee Yoo, ; Ramila Yoo, dtr Living Arrangements: Pt lives with and son in a single story home with 2 steps to enter with a pole. Pt reports he is I in ADL's and denies concerns at home. Transportation: Pt drives self and denies concerns with transportation. DME/HHC/SNF: Pt has a cane and walker available to him but does not use. Pt uses a walking stick when outside. Pt states he had a CPAP at home that was not working. They took it to [facility] approx 5 weeks ago and have not heard on the status of this. [place] [facility] [place]. Pt has had HHC in the past but is unsure of the name of the agency. Pt denies SNF stays. Pt states no concerns with going home at time of dc. During assessment, systems development manager came in to speak with pt. Plan for heart cath tomorrow. Pt states no further concerns/needs. CM to follow. Advised pt to ask CM if any further question/concerns/needs arise, voices understanding. Pt Goal: Home Plan: Home
--- NOTE | 2023-02-21 15:33 | PCM.PN.BLA ---
Progress Note Echocardiogram reviewed. Mildly decreased LV systolic function with segmental wall motion abnormalities. Discussed with patient. In view of the abnormal echocardiogram, recommended coronary angiography with possible revascularization. Risks benefits and alternatives explained. He understands these and wishes to proceed. We will schedule for coronary angiography for tomorrow.
[2023-02-21] MEDS: Pravastatin 80 MG Tablet PO (21:53)
[2023-02-22] VITALS (12 sets, daily range): BP systolic 113–140; BP diastolic 62–97; PULSE 70–85; RESP 17–18; TEMP 36.5–37; O2SAT 92–96; BMI 23.1
[2023-02-22 00:08] LABS: Partial Thromboplast Time 65.3 Seconds (24.1-36.2)
--- NOTE | 2023-02-22 01:24 | CPS ---
CPAP not in room, His broke at home and he does not want to wear hospital CPAP.
[2023-02-22] MEDS: 0.9% Normal Saline 1,000 ML 100 ML IV ×2 (04:05→12:29)
[2023-02-22] MEDS: Aspirin E.C. 81 MG Tablet PO (05:47)
[2023-02-22] MEDS: Metoprolol Tartrate 25 MG Tablet PO ×2 (05:48→21:17)
[2023-02-22 07:49] LABS: Absolute Lymphocyte Count 1.19 X10^3/uL (0.83-4.51); Absolute Neutrophil Count 5.6 X10^3/uL (2.0-7.7); Basophil# 0.06 X10^3/uL; Basophil% 0.8 % (0-1); Eosinophil# 0.13 X10^3/uL; Eosinophils% 1.7 % (0-5); Hematocrit 38.5 % (40-54); Hemoglobin 12.5 g/dL (13.0-16.5); Lymphocyte # 1.19 X10^3/ul (0.83-4.51); Lymphocyte % 15.7 % (19-41); Mean Corp Hgb Conc 32.5 g/dL (32-36); Mean Corpuscular Hgb 31.9 pg (27.0-32.0); Mean Corpuscular Volume 98.2 fL (80-94); Monocyte# 0.55 X10^3/uL; Monocyte% 7.3 % (0-10); NRBC Flagged by Analyzer 0 % (0-5); Neutrophil # 5.63 X10^3/uL (2.7-7.7); Neutrophil % 74.2 % (47-70); Platelet Count 176 K/mm3 (150-450); RBC Distribution Width CV 13.6 % (11.6-14.6); Red Blood Count 3.92 M/mm3 (4.6-6.2); White Blood Count 7.6 K/mm3 (4.4-11.0)
[2023-02-22 07:59] LABS: Partial Thromboplast Time 34.2 Seconds (24.1-36.2)
--- NOTE | 2023-02-22 08:07 | NURSING ---
Report called to Gildardo in director of cardiac cath lab.
[2023-02-22 08:16] LABS: Anion Gap 2 (5-15); BUN 30 mg/dL (7-18); BUN/Creat Ratio 21.6 RATIO (10-20); Calcium,Total 8.5 mg/dL (8.5-10.1); Chloride 112 mmol/L (98-107); Creatinine, Serum 1.39 mg/dL (0.70-1.30); EST Glomerular Filtration Rate 52 mL/min (>60); Est Glom Filt Rate - Afr Amer 62 mL/min (>60); Estimated Creatinine Clearance 37.59 ml/min; Glucose 99 mg/dL (74-106); Potassium 4.4 mmol/L (3.5-5.1); Sodium Level 139 mmol/L (136-145)
--- NOTE | 2023-02-22 09:18 | CASEMGMT ---
Tertiary facilities in-network with patient' insurance: [facility], [facility], [facility], , [facility], [facility]
--- NOTE | 2023-02-22 10:06 | PN.HOSP_ITS ---
Reason for Visit Reason for Visit: Diagnoses Non-ST elevation (NSTEMI) myocardial infarction (02/21/23) Atherosclerotic heart disease of [place] coronary artery without angina pectoris (02/21/23) Paroxysmal atrial fibrillation (02/21/23) Unspecified atrial fibrillation (02/21/23) Sick sinus syndrome (02/21/23) Hyperglycemia, unspecified (02/21/23) Subjective Subjective No chest pain, feeling fair overall. For heart cath today Objective Data Objective Data Vital Signs: Vital Signs Temp Pulse Resp BP Pulse Ox O2 Del Method O2 Flow Rate 98.1 F 79 18 128/97 H 93 Room Air 2 02/22/23 07:35 02/22/23 07:35 02/22/23 07:35 02/22/23 07:35 02/22/23 07:35 02/22/23 08:28 02/21/23 00:28 Oxygen Flow Rate (L/min) [1 ( 4 Initial Baseline)] Oxygen Flow Rate (L/min) 2 Oxygen Delivery Method [1 ( Nasal Cannula Initial Baseline)] Oxygen Delivery Method Room Air Weight: 69.1 kg Body Mass Index (BMI) 23.1 Intake & Output: Intake and Output for Last 24 Hours 02/20/23 02/21/23 02/22/23 23:59 23:59 23:59 Intake Total 2030.34 / 2030.34 1470.07 / 1470.07 Output Total 400 / 400 Balance 1630.34 / 1630.34 1470.07 / 1470.07 Lab / Micro Data Result Diagrams: 02/22/23 07:35 02/22/23 07:35 Labs: Laboratory Results - last 24 hr 02/21/23 10:40: APTT 91.3 H* 02/21/23 17:47: APTT 66.0 H 02/21/23 23:39: APTT 65.3 H 02/22/23 07:35: WBC 7.6, RBC 3.92 L, Hgb 12.5 L, Hct 38.5 L, MCV 98.2 H, MCH 31.9, MCHC 32.5, RDW Std Deviation 49.0 H, RDW Coeff of Samra 13.6, Plt Count 176, MPV 10.0, Immature Gran % (Auto) 0.300, Neut % (Auto) 74.2 H, Lymph % (Auto) 15.7 L, [place] % (Auto) 7.3, Eos % (Auto) 1.7, Baso % (Auto) 0.8, Absolute Neuts (auto) 5.6, Absolute Lymphs (auto) 1.19, Nucleated RBC % 0 02/22/23 07:35: Sodium 139, Potassium 4.4, Chloride 112 H, Carbon Dioxide 25.0, Anion Gap 2 L, BUN 30 H, Creatinine 1.39 H, Estim Creat Clear Calc 37.59, Est GFR (MDRD) Af Amer 62, Est GFR (MDRD) Non-Af 52 L, BUN/Creatinine Ratio 21.6 H, Glucose 99, Calcium 8.5 02/22/23 07:35: APTT 34.2 Radiography Diagnostic Testing: Radiology Impression Echocardiogram 02/21/23 03:49 Interpretation Summary Moderate concentric left ventricular hypertrophy. The left ventricular ejection fraction is 45 %. Anterior setal, inferior septal and apical hypokinesis. Mild global right ventricular systolic dysfunction. Moderate (2+) mitral valve insufficiency. Mild (1+) aortic valve insufficiency. Mildly dilated aortic root. Ordering Physician: Adriana Westbrook Referring Physician: Geremias Norwood Performed By: Samantha Joseph, NATY, RVT Rhythm Strip Rhythm Strip: Sinus Rhythm Rate: 98 Ectopy: None Physical Exam Narrative General: Alert, oriented, no apparent distress HEENT: Atraumatic, normocephalic Eyes: Anicteric, normal conjunctiva, extraocular movements grossly intact Neck: Supple Respiratory: No wheezes or crackles appreciated, normal respiratory effort Cardiovascular: Normal sinus rhythm GI: Soft, nontender, nondistended Extremities: No edema Musculoskeletal: Moving all extremities Neuro: No overt focal neurological deficits Skin: No rashes appreciated Psych: Cooperative Assessment & Plan Assessment/Plan (1) Atrial fibrillation with rapid ventricular response: (2) Acute non-ST elevation myocardial infarction (NSTEMI): (3) Hyperglycemia: PLAN: Plan #NSTEMI -Initial troponin was greater than 1000 it was obtained prior to cardioversion -Last cardiac catheterization was in 2015 -Last stress test was in 2020 -Cycle cardiac enzymes -Start metoprolol 25 mg twice daily -Hold Xarelto and start heparin drip -Check hemoglobin A1c -Check lipid panel -Patient has atorvastatin allergy from which he developed confusion--> we will try high-dose pravastatin at 80 mg as substitution -Start baby aspirin -Check echocardiogram -Consult cardiology -We will have patient be n.p.o. in case cardiac catheterization is required -02/21: Plan for cardiac cath tomorrow based on echo with mildly decreased LV systolic function with segmental wall motion abnormalities. -02/22: Heart cath today #Paroxysmal atrial fibrillation with RVR -Check TSH -Check echocardiogram -Start metoprolol 25 mg p.o. twice daily -Patient was cardioverted in the emergency department and is now in sinus rhythm -Continue anticoagulation but hold Xarelto and utilize heparin drip with NSTEMI above -02/21: Remains on telemetry, remains on heparin drip. Cardiac cath tomorrow -02/22: Has continued to have what appears to be first-degree block on telemetry, to go to heart cath today #CKD stage IIIb -Baseline serum creatinine fluctuates between 1.3 and 1.6 -Currently 1.7 -We will gently hydrate and attempt to get his serum creatinine down as far as possible given that cardiac catheterization may be required -Repeat BMP in a.m. -Avoid nephrotoxins #KENNEDY -CPAP nightly #History of CAD -No history of PCI or CABG -As above #BPH -Hold home saw palmetto and restart at discharge #Vitamin D deficiency -Continue home cholecalciferol #DVT prophylaxis -Patient is typically fully anticoagulated with Xarelto-SCDs at this time as he was on a heparin drip. Charges/Coding Visit Charges Inpatient E&M: 32183 Subs Hosp L2
--- NOTE | 2023-02-22 11:16 | CL.D_ITS ---
Patient Name: WIL FISH Study Date: 02/22/2023 Performing: Manuel Briceno MD Ht: 66 inches 167.64 cm : 1935 Wt: 152.5 lbs 69.1 kg Age: 87 Gender: male BSA: 1.78 PROCEDURE(S) PERFORMED [id number])[facility]ICAL PROFILE AND INDICATIONS Indications: ACS > 24 hrs Heart Failure: None CAD Presentations: Non-STEMI. Symptom onset Date/Time: Time Not Available CONCLUSIONS 60% Mid LAD (No significant change since previous study from 2015); 90% ostial D2 (small 1.5 mm vessel) Mild luminal irregularities OM1 40% prox RCA Unable to perfomr procedure through right radial artery. 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 The risks and benefits of the procedure as well as a full description of our services here and current unavailability of surgical backup were fully explained to the patient and/or their significant other prior to the catheterization. The Timeout was completed, verifying the correct patient and procedure. The patient's procedural site was prepped and draped in the usual fashion. Local anesthetic was given subcutaneously to right radial region with Lidocaine 2%. Local anesthetic was given subcutaneously to right groin region with Lidocaine 2%. Using a modified Seldinger technique, arterial access was obtained via the right radial artery, a 6Fr sheath was inserted., arterial access was obtained via the right femoral artery, a 6Fr sheath was inserted. Left Coronary Artery selective angiography was performed in multiple views using a 6 Fr. JL4 catheter. Right Coronary Artery selective angiography was then performed in multiple views using a 5 Fr. 4.0 Beresford catheter.Contrast was injected through the sheath and the Right Iliac and Femoral artery were assessed for possible closure device.The arterial sheath was pulled and a Perclose closure device was deployed for hemostasis CORONARY ANGIOGRAPHY DOMINANCE: Right Dominant LEFT HEART ASSESSMENT Left Ventricular Ejection Fraction: Not assessed LEFT MAIN: Tubular 30% Ostial lesion in Left Main LEFT ANTERIOR DESCENDING ARTERY: LAD: Calcified 60% Mid lesion in LAD DIAGONAL 2: Tubular 90% Ostial lesion in 2nd Diagonal DIAGONAL 3: Tubular 70% Mid lesion in 3rd Diagonal Tubular 50% Ostial lesion in 3rd Diagonal OM 1: Luminal Irregularities 20% Ostial lesion in 1st OM RIGHT CORONARY ARTERY: RCA: Calcified 40% Proximal lesion in RCA COMPLICATIONS No Complications PROCEDURE MEDICATIONS Versed .5 mg IV Fentanyl 50 mcg IV Oxygen: 2 L/min via nasal cannula Heparin given IA 02/22/2023 10:03:11 Heparin 4000 unit(s) IV 02/22/2023 10:13:47 Verapamil 2.5mg, Ntg 200mcgs, 2000 units of Heparin given IA 02/22/2023 10:03:11 SUMMARY OF HEMODYNAMIC DATA Time AIR REST ECG 09:42:16 AO 144/89 (112) SA 10:27:41 Signed By Manuel Briceno MD On 02/22/2023 11:15:30 Manuel Briceno MD
--- NOTE | 2023-02-22 11:21 | PN_ITS ---
Progress Note Coronary angiography done. Please see cath report for details. 60% mid LAD which remains unchanged from previous cath in 2016. Continue medical ma nagement. Resume patient's rivaroxaban. May discharge home in the morning if creatinine is stable.
[2023-02-22] MEDS: Calcium (Elemental) 500 MG Tablet PO (12:34)
[2023-02-22] MEDS: Cholecalciferol (Vit D3) 125 MCG CAPSULE (5,000 UNITS) PO (12:34)
[2023-02-22] MEDS: Magnesium Chloride 64 MG Delay Rel.Tablet 128 MG PO (12:34)
[2023-02-22] MEDS: Cyanocobalamin 500 MCG Tablet 1000 MCG PO (12:34)
[2023-02-22] MEDS: Multivitamin (Healthy Eyes) Capsule 1 CAP PO (12:34)
[2023-02-22] MEDS: Rivaroxaban 15 MG Tablet PO (17:05)
[2023-02-22] MEDS: Pravastatin 80 MG Tablet PO (21:17)
[2023-02-23] VITALS (7 sets, daily range): BP systolic 116–142; BP diastolic 80–104; PULSE 81–89; RESP 16; TEMP 36.5–36.8; O2SAT 90–95; BMI 24.1
[2023-02-23 04:37] LABS: Absolute Lymphocyte Count 0.96 X10^3/uL (0.83-4.51); Absolute Neutrophil Count 6.9 X10^3/uL (2.0-7.7); Basophil# 0.04 X10^3/uL; Basophil% 0.5 % (0-1); Eosinophil# 0.03 X10^3/uL; Eosinophils% 0.3 % (0-5); Hematocrit 36.5 % (40-54); Hemoglobin 11.7 g/dL (13.0-16.5); Lymphocyte # 0.96 X10^3/ul (0.83-4.51); Lymphocyte % 11.1 % (19-41); Mean Corp Hgb Conc 32.1 g/dL (32-36); Mean Corpuscular Hgb 31.3 pg (27.0-32.0); Mean Corpuscular Volume 97.6 fL (80-94); Mean Platelet Vol. 9.9 fl (6.2-12.0); Monocyte# 0.66 X10^3/uL; Monocyte% 7.6 % (0-10); NRBC Flagged by Analyzer 0 % (0-5); Neutrophil # 6.91 X10^3/uL (2.7-7.7); Neutrophil % 80.2 % (47-70); Platelet Count 159 K/mm3 (150-450); RBC Distribution Width CV 13.4 % (11.6-14.6); Red Blood Count 3.74 M/mm3 (4.6-6.2); White Blood Count 8.6 K/mm3 (4.4-11.0)
[2023-02-23 05:16] LABS: ALB/GLOB Ratio 1.1 RATIO (0.9-2.4); AST(SGOT) 23 U/L (15-37); Alanine Aminotransfer ALT/SGPT 26 U/L (16-61); Albumin, Serum 3.2 g/dL (3.2-5.0); Alkaline Phosphatase 54 U/L (45-117); Anion Gap 3 (5-15); BUN 27 mg/dL (7-18); Calcium,Total 8.4 mg/dL (8.5-10.1); Chloride 110 mmol/L (98-107); Creatinine, Serum 1.23 mg/dL (0.70-1.30); EST Glomerular Filtration Rate 59 mL/min (>60); Est Glom Filt Rate - Afr Amer 72 mL/min (>60); Estimated Creatinine Clearance 42.48 ml/min; Glucose 104 mg/dL (74-106); Protein, Total 6.2 g/dL (6.4-8.2); Sodium Level 138 mmol/L (136-145)
[2023-02-23] MEDS: Multivitamin (Healthy Eyes) Capsule 1 CAP PO (08:27)
[2023-02-23] MEDS: Cyanocobalamin 500 MCG Tablet 1000 MCG PO (08:28)
[2023-02-23] MEDS: Calcium (Elemental) 500 MG Tablet PO (08:29)
[2023-02-23] MEDS: Aspirin E.C. 81 MG Tablet PO (08:30)
[2023-02-23] MEDS: Cholecalciferol (Vit D3) 125 MCG CAPSULE (5,000 UNITS) PO (08:30)
[2023-02-23] MEDS: Magnesium Chloride 64 MG Delay Rel.Tablet 128 MG PO (08:31)
--- NOTE | 2023-02-23 09:32 | PCM.PN.CARD ---
Subjective Subjective Denies any complaints Objective Data Vital Signs: Vital Signs Temp Pulse Resp BP Pulse Ox O2 Del Method O2 Flow Rate 98.2 F 89 16 116/90 H 90 Room Air 2 02/23/23 03:25 02/23/23 03:25 02/23/23 03:25 02/23/23 03:25 02/23/23 08:11 02/23/23 08:11 02/22/23 13:00 Oxygen Flow Rate (L/min) [1 ( 4 Initial Baseline)] Oxygen Flow Rate (L/min) 2 Oxygen Delivery Method [1 ( Nasal Cannula Initial Baseline)] Oxygen Delivery Method Room Air Weight: 158 lb 11.725 oz Body Mass Index (BMI) 24.1 Intake & Output: Intake and Output for Last 24 Hours 02/21/23 02/22/23 02/23/23 23:59 23:59 23:59 Intake Total 2030.34 / 2030.34 3030.07 / 3030.07 240 / 240 Output Total 400 / 400 950 / 950 500 / 500 Balance 1630.34 / 1630.34 2080.07 / 2080.07 -260 / -260 Lab / Micro Data Attestation: I reviewed the patient's lab results. Result Diagrams: 02/23/23 04:16 02/23/23 04:16 Labs: Laboratory Results - last 24 hr 02/23/23 04:16: WBC 8.6, RBC 3.74 L, Hgb 11.7 L, Hct 36.5 L, MCV 97.6 H, MCH 31.3, MCHC 32.1, RDW Std Deviation 48.0 H, RDW Coeff of Samra 13.4, Plt Count 159, MPV 9.9, Immature Gran % (Auto) 0.300, Neut % (Auto) 80.2 H, Lymph % (Auto) 11.1 L, [place] % (Auto) 7.6, Eos % (Auto) 0.3, Baso % (Auto) 0.5, Absolute Neuts (auto) 6.9, Absolute Lymphs (auto) 0.96, Nucleated RBC % 0 02/23/23 04:16: Sodium 138, Potassium 4.0, Chloride 110 H, Carbon Dioxide 25.0, Anion Gap 3 L, BUN 27 H, Creatinine 1.23, Estim Creat Clear Calc 42.48, Est GFR (MDRD) Af Amer 72, Est GFR (MDRD) Non-Af 59 L, BUN/Creatinine Ratio 22.0 H, Glucose 104, Calcium 8.4 L, Total Bilirubin 0.80, AST 23, ALT 26, Alkaline Phosphatase 54, Total Protein 6.2 L, Albumin 3.2, Globulin 3.0, Albumin/Globulin Ratio 1.1 Rhythm Strip Rhythm Strip: Sinus Rhythm Rate: 98 Ectopy: None Cardiology Labs/Tests 02/23/23 04:16: WBC 8.6, RBC 3.74 L, Hgb 11.7 L, Hct 36.5 L, MCV 97.6 H, MCH 31.3, MCHC 32.1, Plt Count 159, MPV 9.9, Immature Gran % (Auto) 0.300, Neut % (Auto) 80.2 H, Lymph % (Auto) 11.1 L, [place] % (Auto) 7.6, Eos % (Auto) 0.3, Baso % (Auto) 0.5, Absolute Neuts (auto) 6.9, Nucleated RBC % 0 02/23/23 04:16: Sodium 138, Potassium 4.0, Chloride 110 H, Carbon Dioxide 25.0, Anion Gap 3 L, BUN 27 H, Creatinine 1.23, Est GFR (MDRD) Af Amer 72, Est GFR (MDRD) Non-Af 59 L, BUN/Creatinine Ratio 22.0 H, Glucose 104, Calcium 8.4 L, Total Bilirubin 0.80 Rhythm: Normal sinus rhythm with first-degree AV block EKG: ECHO: Stress Test: Cardiac Cath: PCI: CT Surgery: Holter monitor: EPS: PPM: CXR: Chest CT Scan: Physical Exam Narrative Heart sounds 1 and 2 normal. Chest clear to auscultation bilaterally. No ankle edema. Right groin stable. No hematoma or bruit. Assessment & Plan Assessment/Plan (1) Paroxysmal atrial fibrillation: PLAN: Back in normal sinus rhythm. Continue anticoagulation. Started on beta-blockers. (2) Sick sinus syndrome: PLAN: Marked first-degree AV block. Started on metoprolol for his paroxysmal atrial fibrillation. Monitor for worsening of heart block. (3) Coronary artery disease: PLAN: Coronary angiography revealed no significant lesions in the major epicardial vessels. Continue medical management. (4) Acute non-ST elevation myocardial infarction (NSTEMI): PLAN: See #3 above. PLAN: Plan Okay to discharge home from a cardiology standpoint.
--- NOTE | 2023-02-23 10:32 | CASEMGMT ---
JAZZMINE CALDERON to patient room per request by . inquiring if this JAZZMINE CALDERON will be able to assist with Cpap repair. Cpap was returned to [facility] 5 weeks ago for repair and they have received no update. JAZZMINE CALDERON called [facility] liaison, to inquire about repair. JAZZMINE CALDERON received updated from [facility] that Bright with [facility] spoke with daughter yesterday regarding cpap repair. Per [facility], Bright is working on a solution and will updated daughter at the end of the day. JAZZMINE CALDERON updated patient and regarding conversation with [facility]. Patient and had no further questions or concerns at this time.
[2023-02-23] MEDS: Metoprolol Tartrate 25 MG Tablet PO (10:41)
--- NOTE | 2023-02-23 12:15 | DCINST_ITS ---
Discharge Instructions Diet Discharge Diet: - (DASH diet) Activity Discharge Activity: - (-Do only light and easy activities for 2 to 3 days after your stent placement, ask for help with chores and errands while you recover and have someone drive you to your appointments.-Unless your job involves lifting you may return to normal activities within 2 days-Please take your medications as pr) Follow Up Care Test Results: Test results from this visit will be discussed in further detail at your follow- up appointment, if applicable. Discharge Plan Admission Admit Date/Time: 02/21/23 02:15 Primary Reason for Your Visit: Heart palpitations Attending Provider: Anna Leary Primary Care Provider: Geremias Norwood Consulting Providers: Adriana Westbrook ; Manuel Briceno Instructions Patient Instructions: Arslan Pickens Additional Instructions / Restrictions: DISCHARGE INSTRUCTIONS PLEASE READ *Please take this with you to your next doctors appointment* -Continue your Xarelto, you will also take aspirin 81 mg daily, metoprolol tartrate 25 mg twice daily, and pravastatin 80 mg daily -You will need to follow-up with cardiology upon discharge, please call the office of Dr. Briceno upon discharge to schedule your hospital follow-up appointment ) -Please call your primary care provider's office upon discharge to schedule a hospital follow up within 1 week. -For any concerning signs or symptoms please call 911 or proceed to the nearest emergency department Discharge Orders/Prescriptions Prescriptions: New aspirin 81 mg Tablet,Delayed Release (Dr/Ec) 81 mg PO BREAKFAST 30 Days Qty: 30 0RF pravastatin 80 mg Tablet 80 mg PO QHS 30 Days Qty: 30 0RF metoprolol tartrate 25 mg Tablet 25 mg PO BID 30 Days Qty: 60 0RF Continued magnesium 250 mg tablet 500 mg PO DAILY cholecalciferol (vitamin D3) 5,000 unit capsule 5,000 unit PO DAILY cyanocobalamin (vitamin B-12) 1,000 mcg capsule 1,000 mcg PO DAILY PreserVision AREDS 14,320-226-200 [id number]-rh-[id number] capsule 1 cap PO DAILY calcium carbonate [Calcium 600] 600 mg calcium (1,500 mg) tablet 600 mg PO DAILY saw palmetto 450 MG capsule 450 mg PO DAILY Label Comments: supplement rivaroxaban 15 mg tablet 15 mg PO DAILY Qty: 30 12RF Referrals / Follow Up: Manuel Briceno MD [Med Staff - Active Staff] - See Referral Note (You will need to follow-up with cardiology upon discharge, please call the office of Dr. Briceno upon discharge to schedule your hospital follow-up appointment (ph [phone])) Geremias Norwood DO [Primary Care Provider] - Within 1 Week Disposition Disposition (needs filled in before D/C Order can be placed): Home, Self Care
--- NOTE | 2023-02-23 12:19 | DS.PCM_ITS ---
Providers Date of Admission: 02/21/23 Date of Discharge: 02/23/23 Primary Care Physician: Dr. Geremias Norwood, DO Consultations 02/21/23 03:49 Consult: Cardiology Routine Consulting Provider: Manuel Briceno Reason for Consult: Chest Pain EMERGENT Consult: No MD Notified: Yes Date Notified: 02/21/23 Time Notified: 06:53 Method of Notification: Text Reason For Visit: NSTEMI Diagnosis Discharge Diagnosis (1) Paroxysmal atrial fibrillation: Status: Chronic Code(s): I48.0 - Paroxysmal atrial fibrillation (2) Sick sinus syndrome: Status: Acute Code(s): I49.5 - Sick sinus syndrome (3) Coronary artery disease: Status: Deleted Code(s): I25.10 - Atherosclerotic heart disease of [place] coronary artery without angina pectoris (4) Acute non-ST elevation myocardial infarction (NSTEMI): Status: Acute Code(s): I21.4 - Non-ST elevation (NSTEMI) myocardial infarction Plan #CAD with no stenting, medical management #NSTEMI type II #First degree AV block #Paroxysmal atrial fibrillation with RVR s/p cardioversion #CKD stage IIIb #KENNEDY #BPH #Vitamin D deficiency Medications at Discharge Home Medications saw palmetto 450 mg capsule 450 mg PO DAILY prostate health 09/10/16 magnesium 250 mg tablet 500 mg PO DAILY mineral 07/13/18 cholecalciferol (vitamin D3) 125 mcg (5,000 unit) capsule 5,000 unit PO DAILY vitamin 10/18/19 cyanocobalamin (vitamin B-12) 1,000 mcg capsule 1,000 mcg PO DAILY vitamin 10/18/19 calcium carbonate 600 mg calcium (1,500 mg) tablet (Calcium) 600 mg PO DAILY supplement 03/31/22 vitamins A,C,Z-aexw-glxorc 4,296 mcg-226 mg-90 mg capsule (PreserVision AREDS) 1 cap PO DAILY supplement 03/31/22 rivaroxaban 15 mg tablet 15 mg PO DAILY blood thinner #30 tabs 12/14/22 aspirin 81 mg tablet,delayed release 81 mg PO BREAKFAST 30 days #30 tabs 02/23/23 metoprolol tartrate 25 mg tablet 25 mg PO BID 30 days #60 tabs 02/23/23 pravastatin 80 mg tablet 80 mg PO QHS 30 days #30 tabs 02/23/23 Hospital Course Procedures - (echo, heart catherization w/ no PCI) Summary of Care Provided Minutes Spent on Discharge: 35 Hospital Course: 87-year-old male with a history of atrial fibrillation is under to [facility] 02/20 with heart palpitations for 4 hours prior to arrival. He had a cardioversion November 2022 for atrial fibrillation and had just been seen by cardiology 02/09/2023 and was not on any rate controlling medications at baseline but was on Xarelto 15 mg daily. In the ED he was noted to have A-fib with RVR and was cardioverted in the emergency department. His troponin prior to cardioversion was 1079. Given presentation and elevated troponin cardiology consulted and he was placed on a heparin drip and Xarelto held. Plan was for Lexiscan stress to rule out ischemia however echocardiogram demonstrated an EF of 45% with moderate concentric left ventricular hypertrophy and anterior septal, inferior septal and apical hypokinesis. Due to the regional wall motion abnormalities cardiac catheterization was recommended. Cardiac catheterization 02/22/2023 with 60% mid LAD with no change since study in 2016, 90% ostial D2 (small 1.5 mm vessel), 40% proximal RCA and medical management recommended. He did well post cath with continued improvement in his kidney function. No complaints on the day of discharge and cardiology cleared for DC home. Discharge instructions as followed: -Continue your Xarelto, you will also take aspirin 81 mg daily, metoprolol tartrate 25 mg twice daily, and pravastatin 80 mg daily -You will need to follow-up with cardiology upon discharge, please call the office of Dr. Briceno upon discharge to schedule your hospital follow-up appointment ( [phone]) -Please call your primary care provider's office upon discharge to schedule a hospital follow up within 1 week. -For any concerning signs or symptoms please call 911 or proceed to the nearest emergency department Physical Exam Narrative General: Alert, oriented, no apparent distress HEENT: Atraumatic, normocephalic Eyes: Anicteric, normal conjunctiva, extraocular movements grossly intact Neck: Supple Respiratory: No wheezes or crackles appreciated, normal respiratory effort Cardiovascular: Normal sinus rhythm GI: Soft, nontender, nondistended Extremities: No edema Musculoskeletal: Moving all extremities Neuro: No overt focal neurological deficits Skin: No rashes appreciated Psych: Cooperative Weight / BMI Weight Weight: 72 kg Body Mass Index (BMI) 24.1 ABG / Lab / Microbiology Data Result Diagrams: 02/23/23 04:16 02/23/23 04:16 Laboratory: Laboratory Results - last 24 hr 02/23/23 04:16: WBC 8.6, RBC 3.74 L, Hgb 11.7 L, Hct 36.5 L, MCV 97.6 H, MCH 31.3, MCHC 32.1, RDW Std Deviation 48.0 H, RDW Coeff of Samra 13.4, Plt Count 159, MPV 9.9, Immature Gran % (Auto) 0.300, Neut % (Auto) 80.2 H, Lymph % (Auto) 11.1 L, [place] % (Auto) 7.6, Eos % (Auto) 0.3, Baso % (Auto) 0.5, Absolute Neuts (auto) 6.9, Absolute Lymphs (auto) 0.96, Nucleated RBC % 0 02/23/23 04:16: Sodium 138, Potassium 4.0, Chloride 110 H, Carbon Dioxide 25.0, Anion Gap 3 L, BUN 27 H, Creatinine 1.23, Estim Creat Clear Calc 42.48, Est GFR (MDRD) Af Amer 72, Est GFR (MDRD) Non-Af 59 L, BUN/Creatinine Ratio 22.0 H, Glucose 104, Calcium 8.4 L, Total Bilirubin 0.80, AST 23, ALT 26, Alkaline Phosphatase 54, Total Protein 6.2 L, Albumin 3.2, Globulin 3.0, Albumin/Globulin Ratio 1.1 D/C Instructions Discharge Diet: - (DASH diet) Meaningful Use Info Meaningful Use Diagnoses (Choose all that apply): None applicable Discharge Plan Admission Admit Date/Time: 02/21/23 02:15 Primary Reason for Your Visit: Heart palpitations Attending Provider: Anna Leary Primary Care Provider: Geremias Norwood Consulting Providers: Adriana Westbrook ; Manuel Briceno Instructions Patient Instructions: AFib Dc Additional Instructions / Restrictions: DISCHARGE INSTRUCTIONS PLEASE READ *Please take this with you to your next doctors appointment* -Continue your Xarelto, you will also take aspirin 81 mg daily, metoprolol tartrate 25 mg twice daily, and pravastatin 80 mg daily -You will need to follow-up with cardiology upon discharge, please call the office of Dr. Briceno upon discharge to schedule your hospital follow-up jesús sears ( [phone]) -Please call your primary care provider's office upon discharge to schedule a hospital follow up within 1 week. -For any concerning signs or symptoms please call 911 or proceed to the nearest emergency department Discharge Orders/Prescriptions Prescriptions: New aspirin 81 mg Tablet,Delayed Release (Dr/Ec) 81 mg PO BREAKFAST 30 Days Qty: 30 0RF pravastatin 80 mg Tablet 80 mg PO QHS 30 Days Qty: 30 0RF metoprolol tartrate 25 mg Tablet 25 mg PO BID 30 Days Qty: 60 0RF Continued magnesium 250 mg tablet 500 mg PO DAILY cholecalciferol (vitamin D3) 5,000 unit capsule 5,000 unit PO DAILY cyanocobalamin (vitamin B-12) 1,000 mcg capsule 1,000 mcg PO DAILY PreserVision AREDS 14,320-226-200 [id number]-gg-pcms capsule 1 cap PO DAILY calcium carbonate [Calcium 600] 600 mg calcium (1,500 mg) tablet 600 mg PO DAILY saw palmetto 450 MG capsule 450 mg PO DAILY Label Comments: supplement rivaroxaban 15 mg tablet 15 mg PO DAILY Qty: 30 12RF Referrals / Follow Up: Manuel Briceno MD [Med Staff - Active Staff] - 03/10/23 11:00 am () Geremias Norwood DO [Primary Care Provider] - 03/04/23 10:00 am Disposition Disposition (needs filled in before D/C Order can be placed): Home, Self Care Charges/Coding Visit Charges Inpatient E&M: 17850 Disch Hosp >30min
--- NOTE | 2023-02-23 14:39 | PHA.DC.MR ---
Pharmacy Service has performed discharge medication reconciliation for this patient. The patient's discharge medication list was reviewed for discrepancies and discrepancies were resolved. Medication education papers prepared, patient discharged before I was able to deputy county counsel. Home Medications saw palmetto 450 mg capsule 450 mg PO DAILY prostate health 09/10/16 magnesium 250 mg tablet 500 mg PO DAILY mineral 07/13/18 cholecalciferol (vitamin D3) 125 mcg (5,000 unit) capsule 5,000 unit PO DAILY vitamin 10/18/19 cyanocobalamin (vitamin B-12) 1,000 mcg capsule 1,000 mcg PO DAILY vitamin 10/18/19 calcium carbonate 600 mg calcium (1,500 mg) tablet (Calcium) 600 mg PO DAILY supplement 03/31/22 vitamins A,C,K-ylkn-wartvo 4,296 mcg-226 mg-90 mg capsule (PreserVision AREDS) 1 cap PO DAILY supplement 03/31/22 rivaroxaban 15 mg tablet 15 mg PO DAILY blood thinner #30 tabs 12/14/22 aspirin 81 mg tablet,delayed release 81 mg PO BREAKFAST 30 days #30 tabs 02/23/23 metoprolol tartrate 25 mg tablet 25 mg PO BID 30 days #60 tabs 02/23/23 pravastatin 80 mg tablet 80 mg PO QHS 30 days #30 tabs 02/23/23
--- NOTE | 2023-02-23 14:41 | NURSING ---
Reviewed charting with Danette Jeff RN
--- NOTE | 2023-02-28 11:58 | NURSING ---
JAZZMINE CM Discharge Follow-up Phone Call LACE: 10 Strata: 3 Date of call: 02/28/23 Time of call: 1201 Admitting Diagnosis: NSTEMI Summary of call: Left VM message. Advised patient to follow up with PCP for any questions.
== END 2023-02-23 14:21 | disposition home or self-care (01) | DRG 282 ==
LOC: ED 02-21 01:52 → PCU 02-21 03:43
PROVIDERS: Admitting Provider Internal Medicine; Emergency Provider Emergency Medicine; PCP Student in an Organized Health Care Education/Training Program; Visit Provider Internal Medicine
DX: I48.0 Paroxysmal atrial fibrillation (principal); I21.A1 Myocardial infarction type 2; I49.5 Sick sinus syndrome; I42.2 Other hypertrophic cardiomyopathy; N18.32 Chronic kidney disease, stage 3b; I25.10 Atherosclerotic heart disease of native coronary artery without angina pectoris; G47.33 Obstructive sleep apnea (adult) (pediatric); I44.0 Atrioventricular block, first degree; E78.5 Hyperlipidemia, unspecified; E55.9 Vitamin D deficiency, unspecified; Z79.01 Long term (current) use of anticoagulants; R73.9 Hyperglycemia, unspecified
CPT/HCPCS: 36415; 80048; 80053; 80061; 83036; 83735; 84100; 84443; 84484; 85025; 85610; 85730; 93005; 93306; 93454; 94668; 99152; 99153; 99252; 99285; J7030; Q9957; Q9967; A4216; C1760; C1769; C1894; C8929; G0463; J2405

== ENCOUNTER → 2023-05-16 | Outpatient (CLI) | payer MEDICARE, SELFPAY ==
[2023-05-16 10:57] LABS: Absolute Lymphocyte Count 1.39 X10^3/uL (0.83-4.51); Absolute Neutrophil Count 3.8 X10^3/uL (2.0-7.7); Basophil# 0.04 X10^3/uL; Basophil% 0.7 % (0-1); Eosinophil# 0.19 X10^3/uL; Eosinophils% 3.2 % (0-5); Hematocrit 40.9 % (40-54); Hemoglobin 13.7 g/dL (13.0-16.5); Lymphocyte # 1.39 X10^3/ul (0.83-4.51); Lymphocyte % 23.2 % (19-41); Mean Corp Hgb Conc 33.5 g/dL (32-36); Mean Corpuscular Hgb 32.2 pg (27.0-32.0); Mean Corpuscular Volume 96.2 fL (80-94); Mean Platelet Vol. 10.6 fl (6.2-12.0); Monocyte# 0.53 X10^3/uL; Monocyte% 8.8 % (0-10); NRBC Flagged by Analyzer 0 % (0-5); Neutrophil # 3.83 X10^3/uL (2.7-7.7); Neutrophil % 63.8 % (47-70); Platelet Count 174 K/mm3 (150-450); RBC Distribution Width CV 12.7 % (11.6-14.6); RBC Distribution Width SD 44.9 fl (35.1-43.9); Red Blood Count 4.25 M/mm3 (4.6-6.2)
[2023-05-16 11:32] LABS: BNP,B-Type NATRIURETIC PEPTIDE 738.1 pg/mL (0-100)
[2023-05-16 11:41] LABS: Anion Gap 4 (5-15); BUN 23 mg/dL (7-18); BUN/Creat Ratio 17.7 RATIO (10-20); Calcium,Total 9.4 mg/dL (8.5-10.1); Chloride 107 mmol/L (98-107); EST Glomerular Filtration Rate 56 mL/min (>60); Est Glom Filt Rate - Afr Amer 67 mL/min (>60); Glucose 97 mg/dL (74-106); Potassium 4.6 mmol/L (3.5-5.1); Sodium Level 139 mmol/L (136-145); Thyroid Stim Hormone (TSH) 3.36 uIU/mL (0.358-3.74)
== END | disposition home or self-care (01) ==
LOC: LAB 10:20
PROVIDERS: PCP Student in an Organized Health Care Education/Training Program; Referring Provider Nurse Practitioner Gerontology; Visit Provider Nurse Practitioner Gerontology
DX: R53.83 Other fatigue (principal); R06.09 Other forms of dyspnea
CPT/HCPCS: 36415; 80048; 83880; 84443; 85025

== ENCOUNTER → 2023-05-24 | Outpatient (CLI) | payer MEDICARE, SELFPAY ==
[2023-05-24 10:20] LABS: Anion Gap 5 (5-15); BUN 31 mg/dL (7-18); BUN/Creat Ratio 16.8 RATIO (10-20); Calcium,Total 9.2 mg/dL (8.5-10.1); Chloride 107 mmol/L (98-107); Creatinine, Serum 1.85 mg/dL (0.70-1.30); EST Glomerular Filtration Rate 37 mL/min (>60); Est Glom Filt Rate - Afr Amer 45 mL/min (>60); Glucose 101 mg/dL (74-106); Potassium 4.4 mmol/L (3.5-5.1); Sodium Level 138 mmol/L (136-145)
== END | disposition home or self-care (01) ==
LOC: LAB 09:13
PROVIDERS: PCP Student in an Organized Health Care Education/Training Program; Referring Provider Nurse Practitioner Gerontology; Visit Provider Nurse Practitioner Gerontology
DX: R06.09 Other forms of dyspnea (principal); N18.30 Chronic kidney disease, stage 3 unspecified
CPT/HCPCS: 36415; 80048

== ENCOUNTER → 2023-07-12 | Outpatient (CLI) | payer MEDICARE, SELFPAY | END | disposition home or self-care (01) | LOC: SL 11:55 | PROVIDERS: PCP Student in an Organized Health Care Education/Training Program; Referring Provider Internal Medicine Critical Care Medicine; Visit Provider Internal Medicine Critical Care Medicine | DX: G47.33 Obstructive sleep apnea (adult) (pediatric) (principal) | CPT/HCPCS: 98960; G0463 ==

== ENCOUNTER → 2023-12-30 | Outpatient (CLI) | payer MEDICARE, SELFPAY ==
--- OUTSIDE RECORDS SUMMARY | 2023-12-30 10:46 | XMS RPT_ITS | CCD ---
Author Name Unknown Address [address] [place] [address] Organization [facility] Care Team Providers Care Meat Boner And Slicer Name Role Phone Korey Nicholson Unavailable Unavailable Korey Nicholson Unavailable Unavailable Korey Nicholson Unavailable Unavailable Chip Cai Unavailable Unavailable Roof Georges BARROSO Unavailable Chip Cai Y Unavailable Unavailable Katina Campbell Unavailable Roof SHOT BLASTERGeorges Unavailable Geremias Solo DO Primary Care Provider Geremias Solo DO Primary Care Provider Geremias Solo DO Primary Care Provider GEREMIAS SOLO Primary Care Unavailable EDIL, GEREMIAS L Attending Unavailable SOLO, GEREMIAS L Referring Unavailable SOLO, GEREMIAS L Primary Care Unavailable SOLO, GEREMIAS L Primary Care Unavailable SOLO, GEREMIAS L Attending Unavailable SOLO, GEREMIAS L Primary Care Unavailable STEPHANIE KIDD Attending Unavailable SOLO, GEREMIAS Lidia Primary Care Unavailable SOLO, GEREMIAS L Referring Unavailable SOLO, GEREMIAS L Primary Care Unavailable SOLO, GEREMIAS L Referring Unavailable SOLO, GEREMIAS L Referring Unavailable SOLO, GEREMIAS L Primary Care Unavailable Allergies Allergy Classification Reported Allergen(s) Allergy Type Date of Onset Reaction(s) Facility (19 sources) lisinopril; Translations: [LISINOPRIL] drug allergy 11-29-2016 [facility] Work Phone: (11 sources) atorvastatin; Translations: [ATORVASTATIN CALCIUM] Drug Allergy 08-17-2017 Mental Status Change [facility] Work Phone: Medications Current Medications Medication Drug Class(es) Dates Sig (Normalized) Sig (Original) molnupiravir 200 mg capsule (1 source) Start: 11-13-2022 End: 11-18-2022 take 4 capsules by mouth twice daily molnupiravir 200 mg capsule Indications: COVID-19 Take 4 capsules by mouth twice daily for 5 days. 40 capsule 0 11/13/2022 11/18/2022 Active Completed/Discontinued Medications Medication Drug Class(es) Dates Sig (Normalized) Sig (Original) aspirin 81 mg delayed release oral tablet (14 sources) Nonsteroidal Anti-inflammatory Drug Start: 11-22-2016 take 1 tablet by mouth once daily ASPIRIN EC 81 MG TBEC One tablet by mouth daily ASPIRIN [id number] Lainey Banks RN Problems Active Problems Problem Classification Problem Date Documented Date Episodic/Chronic Acute myocardial infarction (16 sources) Non-ST elevation (NSTEMI) myocardial infarction; Translations: [Myocardial infarction] Onset: 11-22-2016 12-20-2016 Chronic Cardiac dysrhythmias (20 sources) Persistent atrial fibrillation; Translations: [Premature beats] Onset: 02-08-2008 11-22-2016 Chronic Chronic kidney disease (12 sources) Chronic kidney disease stage 3A ; Translations: [Stage 3a chronic kidney disease] Onset: 10-31-2014 03-17-2021 Chronic Coronary atherosclerosis and other heart disease (18 sources) Atherosclerotic heart disease of [place] coronary artery without angina pectoris; Translations: [History of non-ST segment elevation myocardial infarction] Onset: 11-09-2016 11-09-2016 Chronic Deficiency and other anemia (7 sources) Anemia; Translations: [Anemia, unspecified] Onset: 03-04-2023 Episodic Disorders of lipid metabolism (20 sources) Hyperlipidemia; Translations: [Dyslipidemia] Onset: 12-20-2016 12-20-2016 Chronic Esophageal disorders (10 sources) Gastroesophageal reflux disease; Translations: [Gastro-esophageal reflux disease without esophagitis] Onset: 01-19-2006 02-14-2007 Chronic Essential hypertension (12 sources) Essential hypertension; Translations: [Essential (primary) hypertension] Onset: 01-14-2021 01-14-2021 Chronic Hyperplasia of prostate (20 sources) Benign prostatic hypertrophy with outflow obstruction; Translations: [Benign prostatic hyperplasia with lower urinary tract symptoms] Onset: 02-14-2007 08-16-2012 Chronic Hypertension with complications and secondary hypertension (10 sources) Hypertensive renal disease; Translations: [Hypertensive chronic kidney disease with stage 1 through stage 4 chronic kidney disease, or unspecified chronic kidney disease] Onset: 02-14-2007 06-17-2021 Chronic Immunizations and screening for infectious disease (1 source) Needs influenza immunization; Translations: [Encounter for immunization] 08-31-2023 Episodic Nutritional deficiencies (12 sources) Vitamin D deficiency; Translations: [Vitamin D deficiency, unspecified] Onset: 10-17-2019 10-17-2019 Chronic Other hereditary and degenerative nervous system conditions (10 sources) Restless legs; Translations: [Restless legs syndrome] Onset: 03-17-2021 03-17-2021 Chronic Other screening for suspected conditions (not mental disorders or infectious disease) (20 sources) Raised prostate specific antigen; Translations: [Elevated prostate specific antigen [PSA]] Onset: 02-14-2007 02-14-2007 Episodic Carissa-; endo-; and myocarditis; cardiomyopathy (except that caused by tuberculosis or sexually transmitted disease) (15 sources) Hypertrophic cardiomyopathy; Translations: [Other hypertrophic cardiomyopathy] Onset: 01-19-2006 10-24-2013 Chronic Unclassified (20 sources) Obstructive sleep apnea syndrome; Translations: [Obstructive sleep apnea (adult) (pediatric)] Onset: 12-20-2016 12-20-2016 Chronic Viral infection (1 source) Disease caused by 2019-nCoV; Translations: [COVID-19] Episodic Past or Other Problems Problem Classification Problem Date Documented Da te Episodic/Chronic Conditions associated with dizziness or vertigo (20 sources) Intermittent vertigo; Translations: [Dizziness and giddiness] Onset: 08-16-2012 08-16-2012 Episodic Deficiency and other anemia (1 source) Anemia, unspecified; Translations: [Anemia, unspecified type] Onset: 03-04-2023 Episodic Diabetes mellitus without complication (10 sources) Impaired fasting glycemia; Translations: [Impaired fasting glucose] Onset: 03-17-2021 03-17-2021 Episodic Malaise and fatigue (12 sources) Fatigue; Translations: [Other fatigue] Onset: 10-17-2019 10-17-2019 Episodic Other aftercare (3 sources) Other intermediate (current) drug therapy; Translations: [Other animal care taker (current) drug therapy] Onset: 07-07-2017 07-07-2017 Episodic Syncope (10 sources) Syncope; Translations: [Syncope and collapse] Onset: 01-14-2021 01-14-2021 Episodic Results Test Name Value Interpretation Reference Range Facil ity Vital Signs Date Time Vital Sign Value Performing Clinician Facility 08-30-2023 12:01-0400 Body temperature 97.2 [degF] Geremias Solo DO Work Phone: [facility] 08-30-2023 12:01-0400 Body weight 73.94 kg Geremias Solo DO Work Phone: [facility] 08-30-2023 12:01-0400 Diastolic blood pressure 80 mm[Hg] Geremias Solo DO Work Phone: [facility] 08-30-2023 12:01-0400 Heart rate 60 /min Geremias Solo DO Work Phone: [facility] 08-30-2023 12:01-0400 Respiratory rate 20 /min Geremias Solo DO Work Phone: [facility] 08-30-2023 12:01-0400 Systolic blood pressure 124 mm[Hg] Geremias Solo DO Work Phone: [facility] 03-04-2023 10:59-0400 Diastolic blood pressure 80 mm[Hg] Geremias Solo DO Work Phone: [facility] 03-04-2023 10:59-0400 Systolic blood pressure 130 mm[Hg] Geremias Solo DO Work Phone: [facility] 03-04-2023 10:12-0400 Body temperature 97.9 [degF] Geremias Solo DO Work Phone: [facility] 03-04-2023 10:12-0400 Body weight 70.76 kg Geremias Solo DO Work Phone: [facility] 03-04-2023 10:12-0400 Heart rate 60 /min Geremias Solo DO Work Phone: [facility] 03-04-2023 10:12-0400 Respiratory rate 16 /min Geremias Solo DO Work Phone: [facility] 11-13-2022 12:19-0500 Body temperature 98.2 [degF] Sadia Praisler-Wood [employer] MEMBER.SERVICE ELECTRICIAN Work Phone: [facility] 11-13-2022 12:19-0500 Body weight 70.31 kg Sadia Praisler-Wood [employer] MEMBER.SERVICE ELECTRICIAN Work Phone: [facility] 11-13-2022 12:19-0500 Diastolic blood pressure 72 mm[Hg] Sadia Praisler-Wood CHOIR MEMBER.SERVICE ELECTRICIAN Work Phone: [facility] 11-13-2022 12:19-0500 Heart rate 92 /min Sadia Praisler-Wood [employer] MEMBER.SERVICE ELECTRICIAN Work Phone: [facility] 11-13-2022 12:19-0500 Respiratory rate 16 /min Sadia Praisler-Wood [employer] MEMBER.SERVICE ELECTRICIAN Work Phone: [facility] 11-13-2022 12:19-0500 SaO2% (BldA) [Mass fraction] 96 % Sadia Praisler-Wood [employer] MEMBER.SERVICE ELECTRICIAN Work Phone: [facility] 11-13-2022 12:19-0500 Systolic blood pressure 118 mm[Hg] Sadia Praisler-Wood CHOIR MEMBER.SERVICE ELECTRICIAN Work Phone: [facility] 08-24-2022 14:45-0400 Body height 166 cm Geremias Solo DO Work Phone: [facility] 08-24-2022 14:45-0400 Body weight 71.22 kg Geremias Solo DO Work Phone: [facility] 08-24-2022 14:45-0400 Diastolic blood pressure 82 mm[Hg] Geremias Solo DO Work Phone: [facility] 08-24-2022 14:45-0400 Heart rate 74 /min Geremias Solo DO Work Phone: [facility] 08-24-2022 14:45-0400 Respiratory rate 18 /min Geremias Solo DO Work Phone: [facility] 08-24-2022 14:45-0400 SaO2% (BldA) [Mass fraction] 95 % Geremias Villalobosrison DO Work Phone: [facility] 08-24-2022 14:45-0400 Systolic blood pressure 138 mm[Hg] Geremias Fieldson DO Work Phone: [facility] 06-22-2022 13:40-0400 Body height 165.1 cm Jose Cortes PA-C Work Phone: [facility] 06-22-2022 13:40-0400 Body temperature 97.11 [degF] Jose Cortes PA-C Work Phone: [facility] 06-22-2022 13:40-0400 Body weight 71.22 kg Jose Cortes PA-C Work Phone: [facility] 06-22-2022 13:40-0400 Diastolic blood pressure 90 mm[Hg] Jose Cortes PA-C Work Phone: [facility] 06-22-2022 13:40-0400 Heart rate 70 /min Jose Cortes PA-C Work Phone: [facility] 06-22-2022 13:40-0400 Respiratory rate 14 /min Jose Cortes PA-C Work Phone: [facility] 06-22-2022 13:40-0400 SaO2% (BldA) [Mass fraction] 98 % Jose Cortes PA-C Work Phone: [facility] 06-22-2022 13:40-0400 Systolic blood pressure 120 mm[Hg] Jose Cortes PA-C Work Phone: [facility] 07-07-2017 10:35-0400 BP Diastolic 72 mm[Hg] Korey Nicholson [facility] [employer] Work Phone: 07-07-2017 10:35-0400 BP Systolic 130 mm[Hg] Korey Nicholson [facility] [employer] Work Phone: 07-07-2017 10:35-0400 Pulse (Heart Rate) 56 /min Korey Smith [employer] Work Phone: 07-07-2017 10:35-0400 Respiratory Rate 16 /min [facility]: 06-23-2017 13:26-0400 BMI (Body Mass Index) 25.21 kg/m2 Katina Campbell [facility] Work Phone: 06-23-2017 13:26-0400 BP Diastolic 70 mm[Hg] Katina Campbell [facility] Work Phone: 06-23-2017 13:26-0400 BP Diastolic 62 mm[Hg] Katina Campbell [facility] Work Phone: 06-23-2017 13:26-0400 BP Systolic 128 mm[Hg] [facility] Work Phone: 06-23-2017 13:26-0400 BP Systolic 142 mm[Hg] Katina Campbell [facility] Work Phone: 06-23-2017 13:26-0400 Height 170.18 cm [facility] Work Phone: 06-23-2017 13:26-0400 Pulse (Heart Rate) 60 /min Katina Campbell [facility] Work Phone: 06-23-2017 13:26-0400 Respiratory Rate 18 /min [facility] Work Phone: 06-23-2017 13:26-0400 Weight 73.03 kg [facility] Work Phone: 12-20-2016 15:22-0500 Heart rate 52 /min [facility] Work Phone: 12-20-2016 13:14-0500 BMI (Body Mass Index) 25.21 kg/m2 Chip Cai [facility] Work Phone: 12-20-2016 13:14-0500 BP Diastolic 74 mm[Hg] Chip DeFinis [facility] Work Phone: 12-20-2016 13:14-0500 BP Systolic 124 mm[Hg] Harumi DeFinis [facility] Work Phone: 12-20-2016 13:14-0500 BSA (Body Surface Area) 1.85 m2 Harumi DeFinis [facility] Work Phone: 12-20-2016 13:14-0500 Height 170.18 cm Harumi DeFinis [facility] Work Phone: 12-20-2016 13:14-0500 Pulse (Heart Rate) 60 /min Harumi DeFinis [facility] Work Phone: 12-20-2016 13:14-0500 Respiratory Rate 18 /min Chip DeFinis [facility] Work Phone: 12-20-2016 13:14-0500 Weight 73.03 kg Chip DeFinis [facility] Work Phone: Encounters Encounter Date Encounter Type Care Provider Facility Start: 11-13-2023 End: 11-13-2023 ambulatory GEREMIAS SOLO Facility:[facility] Start: 11-04-2023 End: 11-05-2023 ambulatory GEREMIAS SOLO Facility:[facility] Start: 09-08-2023 ambulatory Geremias Lopez son DO Work Phone: [facility] Procedures Date Procedure Procedure Detail Performing Clinician Start: 08-30-2023 INFLUENZA VACCINE, P RSV FREE, AGE 65+ YR, HIGH DOSE, QUADRIVALENT (FLUZONE HIGH-DOSE) Geremias Solo DO Work Phone: Start: 08-24-2022 INFLUENZA SEASONAL QUADRIVALENT HIGH DOSE AGE 65+ Geremias Fieldson DO Work Phone: Start: 06-22-2022 Urnls dip stick/tabl et rgnt auto w/o microscopy Jose Cortes PA-C Work Phone: Start: 06-23-2017 End: 06-27-2017 *Hepatic Function Panel Corby Pedersen MD Work Phone: Start: 06-23-2017 End: 06-23-2017 ANSON Pedersen MD Work Phone: Start: 06-23-2017 End: 06-23-2017 Follow Up Appt 6 months Corby Pedersen MD Work Phone: Start: 06-23-2017 End: 06-23-2017 Follow Up BP Check Corby Pedersen MD Work Phone: Start: 06-23-2017 End: 06-27-2017 Lipid panel [AGGREGATE] Corby Pedersen MD Work Phone: Start: 12-20-2016 End: 06-27-2017 *Hepatic Function Panel Corby Pedersen MD Work Phone: Start: 12-20-2016 End: 12-20-2016 ANSON Pedersen MD Work Phone: Start: 12-20-2016 End: 12-20-2016 Follow Up Appt 6 months Corby Pedersen MD Work Phone: Start: 12-20-2016 End: 06-27-2017 Lipid panel [AGGREGATE] Corby Pedersen MD Work Phone: Plan of Treatment Date Care Activity Detail Author Start: 08-30-2026 Diabetes Screening Diabetes Screening [facility] Start: 06-17-2025 DIABETES SCREEN DIABETES SCREEN [facility] Start: 09-26-2023 End: 12-26-2023 CBC W Auto Differential panel - Blood CBC + DIFF Lab Routine Anemia, unspecified type Expected: 09/26/2023, Expires: 12/26/2023 [facility] Work Phone: Immunizations Immunization Date Immunization Notes Care Provider Brooklyn godinez 08-30-2023 influenza (HD-IIV4) vaccine, age 65+ yr, high dose, quadrivalent, PF (FLUZONE HIGH-DOSE) Geremias Solo DO Work Phone: [facility] Work Phone: 08-30-2023 pneumococcal (PCV20) vaccine, 20 valent (PREVNAR 20) Geremias Villalobosrison DO Work Phone: [facility] Work Phone: 08-30-2023 pneumococcal Conjuga te, unspecified formulation Geremias Solo DO Work Phone: [facility] Work Phone: 08-24-2022 influenza, high-dose , quadrivalent vaccine (FLUZONE HIGH DOSE QUADRIVALENT) Geremias Villalobosrison DO Work Phone: [facility] 10-17-2019 pneumococcal polysaccharide vaccine, 23 valent Geremias Villalobosrison DO Work Phone: [facility] Work Phone: 08-20-2019 influenza, seasonal, injectable Geremias Solo DO Work Phone: [facility] Work Phone: 09-11-2018 influenza, high dose seasonal, preservative-free Geremias Solo DO Work Phone: [facility] Work Phone: 08-17-2017 influenza, high dose seasonal, preservative-free Geremias Solo DO Work Phone: [facility] Work Phone: 08-17-2016 influenza, high dose seasonal, preservative-free Geremias Solo DO Work Phone: [facility] Work Phone: 09-02-2015 influenza, high dose seasonal, preservative-free Geremias Solo DO Work Phone: [facility] Work Phone: 09-02-2015 pneumococcal conjuga te vaccine, 13 valent Geremias Villalobosrison DO Work Phone: [facility] Work Phone: 08-16-2014 influenza, seasonal, injectable Geremias Solo DO Work Phone: [facility] 08-16-2014 zoster vaccine, live Geremias Villalobosrison DO Work Phone: [facility] 08-24-2013 influenza virus vacc ine, unspecified formulation Geremias Villalobosrison DO Work Phone: [facility] 08-16-2012 influenza virus vacc ine, unspecified formulation Geremias Solo DO Work Phone: [facility] Work Phone: 08-16-2009 influenza virus vacc ine, unspecified formulation Geremias Villalobosrison DO Work Phone: [facility] Work Phone: 09-07-2008 influenza virus vacc ine, unspecified formulation Geremias Solo DO Work Phone: [facility] Work Phone: 02-08-2008 tetanus and diphther ia toxoids, adsorbed, preservative free, for adult use (2 Lf of tetanus toxoid and 2 Lf of diphtheria toxoid) Geremias Solo DO Work Phone: [facility] Work Phone: 09-23-2007 influenza virus vacc ine, unspecified formulation Geremias Villalobosrison DO Work Phone: [facility] Work Phone: Payers Date Payer Category Payer Medicare MMO MEDICARE MMO [employer] PPO [id number] 2018-Present [phone] [address] [place] [address] O [id number] 2018 Unknown [id number] Social History Date Type Detail Facility Start: 08-16-2012 Tobacco smoking stat us [facility] Never smoked tobacco [facility] Work Phone: Start: 08-16-2012 Tobacco use and exposure Smoke less tobacco non-user [facility] Work Phone: Start: 06-19-2021 End: 08-30-2023 Alcohol intake Current non-drinker of alcohol (finding) [facility] Start: 10-14-2020 End: 02-27-2023 History SDOH Alcohol Frequency 1 [facility] Start: 10-14-2020 History SDOH Social Connections Get Together 4 [facility] Start: 10-14-2020 End: 02-27-2023 History SDOH Social Connections Faith 3 [facility] Start: 10-14-2020 History SDOH Physica l Activity DPW 6 [facility] Start: 10-14-2020 End: 02-27-2023 History SDOH Stress 2 [facility] Start: 10-14-2020 History SDOH Financial 5 [facility] Start: 10-14-2020 Education 12 [facility] Start: 1935 Sex Assigned At Not on file C [facility] Start: 06-05-2022 End: 06-22-2022 Exposure to SARS-CoV-2 (event) Not sure [facility] Start: 02-27-2023 History SDOH Alcohol Std Drinks 0 [facility] Start: 02-27-2023 End: 08-30-2023 History of Social function [facility] Start: 02-27-2023 End: 08-30-2023 Social connection and isolation panel [facility] Do you belong to any clubs or organizations such as yazidism groups, unions, fraternal or athletic groups, or school groups? No [facility] Are you now , , , , never or living with a partner? [facility] How often to you hav e a drink containing alcohol? Never [facility] How many standard dr inks containing alcohol do you have on a typical day? Patient does not drink [facility] Do you feel stress - tense, restless, nervous, or anxious, or unable to sleep at night because your mind is troubled all the time - these days [OSQ] Not at all [facility] (I/We) worried selma er (my/our) food would run out before (I/we) got money to buy more. Never true [facility] Clinical Notes 09-20-2008 to 11-13-2023 Addendum Note - Geremias Solo, - 09/26/2023 1:44 PM ESTTelephone Encounter - Geremias Solo, - 09/26/2023 1:44 PM ESTTelephone Encounter - Leila Evangelista - 09/08/2023 2:42 PM EDT Note Date & Type Note Facility 11-13-2023 Note HNO ID: [id number] Author: Stephanie Kidd APRN.SERVICE ELECTRICIAN Service: ? Author Type: Nurse Practitioner Type: Progress Notes Filed: 11/13/2023 2:43 PM Note Text: CC: Patient presents with: Nasal Congestion: With cough HPI: Wil Yoo is a 87 year old male who presents to the office with complaint of head congestion and cough, nonproductive for a week. Symptoms are worsening Associated symptoms includes nasal congestion and facial pain/pressure. Denies fever, nausea, vomiting , and diarrhea. Treatments tried include nothing so far. with no relief of symptoms. Sick contacts: unknown. History of asthma, frequent episodes of bronchitis, chronic bronchitis, bronchiectasis or COPD: No Smoker: No Seasonal/environmental allergies: No The ROS is otherwise negative. The patient's pmh, medications, allergies, and past visits are reviewed. PHYSICAL EXAM: BP 122/76 Pulse 92 Temp 37.2 ?C (98.9 ?F) Resp 20 Wt 72.6 kg (160 lb) SpO2 95% BMI 26.34 kg/m? General appearance: alert, cooperative, pleasant, in no acute distress Head: Normocephalic Eyes: EOM's intact, conjunctiva pink and moist, no icterus, sclera white, non-injected Ears: Right ear: External ear/canal- Normal, TM - clear with good landmarks. Left ear: External ear/canal- Normal, TM - clear with good landmarks Oropharynx:moist without lesions, No erythema, exudates or tonsillar hypertrophy. Heart: Negative. RRR without obvious murmur, gallop, or rubs. No ectopy. Lungs: clear to auscultation, without rales or wheeze, good air exchange PAST MEDICAL HISTORY Diagnosis Date Atrial fibrillation (HCC) BPH with obstruction/lower urinary tract symptoms 02/14/2007 Cardiomyopathy CKD (chronic kidney disease) stage 3, GFR 30-59 ml/min ([facility]) 10/31/2014 Diverticulosis of colon (without mention of hemorrhage) ELEVATED PROSTATE SPECIFIC ANTIGEN 02/14/2007 Esophageal reflux 01/19/2006 HYPERGLYCEMIA 02/08/2008 HYPERLIPIDEMIA NEC/NOS 02/17/2006 HYPERTENSION NOS 02/14/2007 HYPERTR OBSTR CARDIOMYOP 01/19/2006 PREMATURE BEATS NEC 02/08/2008 PROSTATIC DISORDER NOS 02/14/2007 Vertigo, intermittent 08/16/2012 PAST SURGICAL HISTORY Procedure Laterality Date CARDIOVERSION 08/16/2018 COLONOSCOPY FLX DX W/COLLJ SPEC WHEN PFRMD 03/24/2001 Colonoscopy COLONOSCOPY FLX DX W/COLLJ SPEC WHEN PFRMD 04/22/11 HEMORRHOIDOPEXY BY STAPLING 09/15/16 PAST SURGICAL HISTORY OF 2012 SCC of left forehead PROSTATE BIOPSY 11/25/2004 PULMONARY FUNCTION TEST 02/20/2004 RIGHT HEART CATHETERIZATION 07/26/1973 Cardiac cath, R heart TOTAL HIP JOINT REPLACEMENT Left Hip. XCAPSL CTRC RMVL INSJ IO LENS PROSTH W/O ECP 07/2013; 09/2013 ALLERGIES Lipitor [Atorvastatin Calcium] and Lisinopril MEDICATIONS pravastatin (PRAVACHOL) 80 mg tablet Take 80 mg by mouth once daily. metoprolol succinate ER (TOPROL XL) 25 mg 24 hr tablet Take 25 mg by mouth twice daily. magnesium gluconate (MAGONATE) 27 mg (500 mg) tab Take by mouth once daily. vitamin D3-folic acid 5,000 unit- 1 mg tab Take by mouth. cyanocobalamin (VITAMIN B-12) 1,000 mcg tab Take 1,000 mcg by mouth once daily. rivaroxaban (XARELTO) 15 mg tablet Take 1 tablet by mouth daily with dinner. COMPOUNDED PRESCRIPTION Order: Bipap Bilevel setting of 16/10 cm of water with humidification with [employer] full face mask size medium with heated humidity for comfort (needs Bipap and supplies) Dx: [place] FAMILY HISTORY Problem Relation Age of Onset None Sister None Brother Coronary Artery Disease Father Cancer Sister soft tissue leg Social History Tobacco Use Smoking status: Never Smokeless tobacco: Never Vaping Use Vaping Use: Never used Substance Use Topics Alcohol use: No Drug use: No ASSESSMENT/PLAN: 1. Rhinosinusitis - ICD9: 473.9, ICD10: J32.9 Prescription instructions reviewed with patient as applicable. Potential red flag symptoms discussed with the patient. Reviewed appropriate action plan to take if red flag symptoms occur. Patient agreeable to treatment plan. Stephanie Kidd APRN.[facility] 09-26-2023 Miscellaneous Notes Addended by: GEREMIAS SOLO on: 09/26/2023 01:44 PM Modules accepted: Orders Noted Geremias Solo DO Pt's informed. Will see what results are for next lab before doiig EGD and Colonoscopy. Please call patient/ and let them know that his anemia was mild. Recommend rechecking CBC when able in the next few weeks. Overall his iron levels are lower end of normal- can try to take slo Fe with 45-67 mg of iron in it once a day with a meal. The anemia may be related to the prostate since PSA is still high at 14- this can trigger anemia as well. His vitamin B12 is normal and thyroid is normal. Renal function is stable as well with creatinine at 1.3 in the chronic kidney disease mild stage. Can consider seeing a General surgeon for EGD and colonoscopy for further evaluation of the anemia with scopes to determine if any other cause of the anemia, if interested as well. Geremias Solo DO Images from the original note were not included. Please see pt message- Wil Miguel Angel Potter [facility] My Chart Rx Pool (supporting Geremias Solo DO) 7 minutes ago (2:33 PM) LB After his visit and blood results Wil is concerned about his weakness in his legs and his anemia and the proper ways it should be treated. Can only work for very short periods and then needs to rest. I am sure he didn't convey that at his appointment. Any ideas? documented in this encounter [facility] 09-08-2023 Miscellaneous Notes Turned into AMINAH Evangelista documented in this encounter [facility] 09-06-2023 Miscellaneous Notes Called and left a detailed voicemail notifying patient of providers message. Clinic phone number was left in case patient has any questions. Please inform Wil that no changes are needed. Overall labs are stable, no concerns Geremias Solo DO Pt's is calling for the follow up lab results from 09/02. Component Latest Ref Rng & Units 09/02/2023 Iron 41 - 186 ug/dL 52 TIBC 232 - 386 ug/dL 216 (L) Transferrin Saturation 15.0 - 57.0 % 24.1 Ferritin 30.3 - 565.7 ng/mL 183.0 Vitamin B12 232 - 1,245 pg/mL 1,365 (H) Divya Hill LPN documented in this encounter [facility] 08-31-2023 Note HNO ID: [id number] Author: Geremias Solo DO Service: ? Author Type: Physician Type: Progress Notes Filed: 08/31/2023 9:20 AM Note Text: CC: Wil Yoo is a 87 year old male who presents to the office for follow up HPI: History of atrial fibrillation, was in an out of atrial fibrillation rhythm this summer. Has been seen by [facility] [employer], started on metoprolol and pravastatin medication, he is taking Xarelto. Is tolerating medication well. Just has some fatigue symptoms GERD, stable, not taking any medication KENNEDY, use of Bipap as prescribed, sleeping well. Hx of BPH, no new changes in symptoms HTN, well controlled. Has had fatigue Interested in flu and pneumonia vaccine PAST MEDICAL HISTORY Diagnosis Date Atrial fibrillation (HCC) BPH with obstruction/lower urinary tract symptoms 02/14/2007 Cardiomyopathy CKD (chronic kidney disease) stage 3, GFR 30-59 ml/min (HCC) 10/31/2014 Diverticulosis of colon (without mention of hemorrhage) ELEVATED PROSTATE SPECIFIC ANTIGEN 02/14/2007 Esophageal reflux 01/19/2006 HYPERGLYCEMIA 02/08/2008 HYPERLIPIDEMIA NEC/NOS 02/17/2006 HYPERTENSION NOS 02/14/2007 HYPERTR OBSTR CARDIOMYOP 01/19/2006 PREMATURE BEATS NEC 02/08/2008 PROSTATIC DISORDER NOS 02/14/2007 Vertigo, intermittent 08/16/2012 PAST SURGICAL HISTORY Procedure Laterality Date CARDIOVERSION 08/16/2018 COLONOSCOPY FLX DX W/COLLJ SPEC WHEN PFRMD 03/24/2001 Colonoscopy COLONOSCOPY FLX DX W/COLLJ SPEC WHEN PFRMD 04/22/11 HEMORRHOIDOPEXY BY STAPLING 09/15/16 PAST SURGICAL HISTORY OF 2012 SCC of left forehead PROSTATE BIOPSY 11/25/2004 PULMONARY FUNCTION TEST 02/20/2004 RIGHT HEART CATHETERIZATION 07/26/1973 Cardiac cath, R heart TOTAL HIP JOINT REPLACEMENT Left Hip. XCAPSL CTRC RMVL INSJ IO LENS PROSTH W/O ECP 07/2013; 09/2013 Current Outpatient Medications Medication Sig pravastatin (PRAVACHOL) 80 mg tablet Take 80 mg by mouth once daily. metoprolol succinate ER (TOPROL XL) 25 mg 24 hr tablet Take 25 mg by mouth twice daily. magnesium gluconate (MAGONATE) 27 mg (500 mg) tab Take by mouth once daily. vitamin D3-folic acid 5,000 unit- 1 mg tab Take by mouth. cyanocobalamin (VITAMIN B-12) 1,000 mcg tab Take 1,000 mcg by mouth once daily. rivaroxaban (XARELTO) 15 mg tablet Take 1 tablet by mouth daily with dinner. COMPOUNDED PRESCRIPTION Order: Bipap Bilevel setting of 16/10 cm of water with humidification with [employer] full face mask size medium with heated humidity for comfort (needs Bipap and supplies) Dx: KENNEDY No current facility-administered medications for this visit. ALLERGIES Allergen Reactions Lipitor [Atorvastat* Mental Status Change Memory loss/impairment Lisinopril Cough ALL ACEI Social History Tobacco Use Smoking status: Never Smokeless tobacco: Never Vaping Use Vaping Use: Never used Substance Use Topics Alcohol use: No Drug use: No ROS: See HPI PE: BP 124/80 Pulse 60 Temp (Src) 97.2 (Left Tympanic) Resp 20 Wt 163 lb (73.9kg) Gen: AANDOX3, NAD, non-toxic appearing HEENT: PERRLA, EOMs intact b/l, nares without drainage, pharynx without erythema, exudate, lesions, or drainage. Uvula midline. Neck: No LAD, no thyromegaly, no meningismus. CV: RRR, 1/6 HSM murmur, normal s1s2 Lungs: CTA b/l, no wheezing Skin: No rashes, lesions, or wounds on exposed skin. Abd: NT, ND, normal BS, no masses No edema., normal pulses Hard of hearing ASSESSMENT/PLAN: 1. Dyslipidemia - ICD9: 272.4, ICD10: E78.5 (primary diagnosis) - Controlled - Counseled on healthy diet and regular exercise 2. Need for influenza vaccination - ICD9: V04.81, ICD10: Z23 - INFLUENZA VACCINE, PRSV FREE, AGE 65+ YR, HIGH DOSE, QUADRIVALENT (FLUZONE HIGH-DOSE) 3. Vitamin D deficiency - ICD9: 268.9, ICD10: E55.9 - continue supplement - VITAMIN D 25 HYDROXY 4. Fatigue, unspecified type - ICD9: 780.79, ICD10: R53.83 Recheck labs. - CBC + DIFF - COMP METABOLIC PANEL - TSH BLD 5. Screening for prostate cancer - ICD9: V76.44, ICD10: Z12.5 - Counseled on healthy diet and regular exercise - PSA/PROSTSPECAG SCRN 6. Other hypertrophic cardiomyopathy (HCC) - ICD9: 425.18, ICD10: I42.2 Stable, f/u with triage specialist 7. Stage 3a chronic kidney disease (HCC) - ICD9: 585.3, ICD10: N18.31 - eGFR: 53 Stable - Counseled on avoiding NSAIDs, adequate hydration - Counseled on low sodium diet 8. Paroxysmal atrial fibrillation (HCC) - ICD9: 427.31, ICD10: I48.0 Stable, f/u with triage specialist, continue same medications. 9. KENNEDY (obstructive sleep apnea) - ICD9: 327.23, ICD10: G47.33 Stable, continue Bipap 10. Essential hypertension - ICD9: 401.9, ICD10: I10 - Controlled - Continue current medications - Recommend home blood pressure monitoring, to bring results to next visit - Encouraged sodium restriction, DASH or Mediterranean diet - Recommend regular aerobic exercise - Discussed need for and benefit o (more content not included)... [facility] 08-31-2023 History of Present illness Narrative CC: Wil Yoo is a 87 year old male who presents to the office for follow up HPI: History of atrial fibrillation, was in an out of atrial fibrillation rhythm this summer. Has been seen by [employer] [facility], started on metoprolol and pravastatin medication, he is taking Xarelto. Is tolerating medication well. Just has some fatigue symptoms GERD, stable, not taking any medication KENNEDY, use of Bipap as prescribed, sleeping well. Hx of BPH, no new changes in symptoms HTN, well controlled. Has had fatigue Interested in flu and pneumonia vaccine PAST MEDICAL HISTORY Diagnosis Date Atrial fibrillation (HCC) BPH with obstruction/lower urinary tract symptoms 02/14/2007 Cardiomyopathy CKD (chronic kidney disease) stage 3, GFR 30-59 ml/min ([facility]) 10/31/2014 Diverticulosis of colon (without mention of hemorrhage) ELEVATED PROSTATE SPECIFIC ANTIGEN 02/14/2007 Esophageal reflux 01/19/2006 HYPERGLYCEMIA 02/08/2008 HYPERLIPIDEMIA NEC/NOS 02/17/2006 HYPERTENSION NOS 02/14/2007 HYPERTR OBSTR CARDIOMYOP 01/19/2006 PREMATURE BEATS NEC 02/08/2008 PROSTATIC DISORDER NOS 02/14/2007 Vertigo, intermittent 08/16/2012 PAST SURGICAL HISTORY Procedure Laterality Date CARDIOVERSION 08/16/2018 COLONOSCOPY FLX DX W/COLLJ SPEC WHEN PFRMD 03/24/2001 Colonoscopy COLONOSCOPY FLX DX W/COLLJ SPEC WHEN PFRMD 04/22/11 HEMORRHOIDOPEXY BY STAPLING 09/15/16 PAST SURGICAL HISTORY OF 2012 SCC of left forehead PROSTATE BIOPSY 11/25/2004 PULMONARY FUNCTION TEST 02/20/2004 RIGHT HEART CATHETERIZATION 07/26/1973 Cardiac cath, R heart TOTAL HIP JOINT REPLACEMENT Left Hip. XCAPSL CTRC RMVL INSJ IO LENS PROSTH W/O ECP 07/2013; 09/2013 Current Outpatient Medications Medication Sig pravastatin (PRAVACHOL) 80 mg tablet Take 80 mg by mouth once daily. metoprolol succinate ER (TOPROL XL) 25 mg 24 hr tablet Take 25 mg by mouth twice daily. magnesium gluconate (MAGONATE) 27 mg (500 mg) tab Take by mouth once daily. vitamin D3-folic acid 5,000 unit- 1 mg tab Take by mouth. cyanocobalamin (VITAMIN B-12) 1,000 mcg tab Take 1,000 mcg by mouth once daily. rivaroxaban (XARELTO) 15 mg tablet Take 1 tablet by mouth daily with dinner. COMPOUNDED PRESCRIPTION Order: Bipap Bilevel setting of 16/10 cm of water with humidification with [employer] full face mask size medium with heated humidity for comfort (needs Bipap and supplies) Dx: KENNEDY No current facility-administered medications for this visit. ALLERGIES Allergen Reactions Lipitor [Atorvastat* Mental Status Change Memory loss/impairment Lisinopril Cough ALL ACEI Social History Tobacco Use Smoking status: Never Smokeless tobacco: Never Vaping Use Vaping Use: Never used Substance Use Topics Alcohol use: No Drug use: No ROS: See HPI PE: BP 124/80 Pulse 60 Temp (Src) 97.2 (Left Tympanic) Resp 20 Wt 163 lb (73.9kg) Gen: A&OX3, NAD, non-toxic appearing HEENT: PERRLA, EOMs intact b/l, nares without drainage, pharynx without erythema, exudate, lesions, or drainage. Uvula midline. Neck: No LAD, no thyromegaly, no meningismus. CV: RRR, 1/6 HSM murmur, normal s1s2 Lungs: CTA b/l, no wheezing Skin: No rashes, lesions, or wounds on exposed skin. Abd: NT, ND, normal BS, no masses No edema., normal pulses Hard of hearing ASSESSMENT/PLAN: 1. Dyslipidemia - ICD9: 272.4, ICD10: E78.5 (primary diagnosis) - Controlled - Counseled on healthy diet and regular exercise 2. Need for influenza vaccination - ICD9: V04.81, ICD10: Z23 - INFLUENZA VACCINE, PRSV FREE, AGE 65+ YR, HIGH DOSE, QUADRIVALENT (FLUZONE HIGH-DOSE) 3. Vitamin D deficiency - ICD9: 268.9, ICD10: E55.9 - continue supplement - VITAMIN D 25 HYDROXY 4. Fatigue, unspecified type - ICD9: 780.79, ICD10: R53.83 Recheck labs. - CBC + DIFF - COMP METABOLIC PANEL - TSH BLD 5. Screening for prostate cancer - ICD9: V76.44, ICD10: Z12.5 - Counseled on healthy diet and regular exercise - PSA/PROSTSPECAG SCRN 6. Other hypertrophic cardiomyopathy (HCC) - ICD9: 425.18, ICD10: I42.2 Stable, f/u with triage specialist 7. Stage 3a chronic kidney disease (HCC) - ICD9: 585.3, ICD10: N18.31 - eGFR: 53 Stable - Counseled on avoiding NSAIDs, adequate hydration - Counseled on low sodium diet 8. Paroxysmal atrial fibrillation (HCC) - ICD9: 427.31, ICD10: I48.0 Stable, f/u with triage specialist, continue same medications. 9. KENNEDY (obstructive sleep apnea) - ICD9: 327.23, ICD10: G47.33 Stable, continue Bipap 10. Essential hypertension - ICD9: 401.9, ICD10: I10 - Controlled - Continue current medications - Recommend home blood pressure monitoring, to bring results to next visit - Encouraged sodium restriction, DASH or Mediterranean diet - Recommend regular aerobic exercise - Discussed need for and benefit of weight loss. BMI 26.83 kg/(m^2) Geremias Solo DO Return if no improvement. Follow up with Geremias Solo DO. To ER if develops chest pain, shortness of breath Discussed risks, benefits, alternatives, and potential side effects of medications. Patient/Guardian expressed understanding and agreed with the plan. See patient instructions. Geremias Solo DO [address] [place] [address] documented in this encounter [facility] 03-04-2023 Note HNO ID: [id number] Author: Geremias Solo DO Service: ? Author Type: Physician Type: Progress Notes Filed: 03/04/2023 5:30 PM Note Text: CC: Wil Yoo is a 87 year old male who presents to the office for hospital follow up HPI: Heart rate 124 and BLOOD PRESSURE 170s/100s on 02/21 when he was having symptoms of cold sweats and feeling LH. Prior to this hadn't had CPAP machine since January 18- was having trouble getting this from [employer]. Then got the [facility] hospital to help get a new loner CPAP machine to use as of last week. While in the hospital he had a cardiac catherization procedure by Dr. Briceno and no stents were placed, he was discharged home and has been using his CPAP, BLOOD PRESSURE has been well controlled. Denies any current chest pain or dyspnea. He is interested in referral to new triage specialist since Dr. Dee has left [facility] and would like to stay local if able. No edema, no recent other symptoms He is taking his medications as prescribed. PAST MEDICAL HISTORY Diagnosis Date Atrial fibrillation (HCC) BPH with obstruction/lower urinary tract symptoms 02/14/2007 Cardiomyopathy CKD (chronic kidney disease) stage 3, GFR 30-59 ml/min ([facility]) 10/31/2014 Diverticulosis of colon (without mention of hemorrhage) ELEVATED PROSTATE SPECIFIC ANTIGEN 02/14/2007 Esophageal reflux 01/19/2006 HYPERGLYCEMIA 02/08/2008 HYPERLIPIDEMIA NEC/NOS 02/17/2006 HYPERTENSION NOS 02/14/2007 HYPERTR OBSTR CARDIOMYOP 01/19/2006 PREMATURE BEATS NEC 02/08/2008 PROSTATIC DISORDER NOS 02/14/2007 Vertigo, intermittent 08/16/2012 PAST SURGICAL HISTORY Procedure Laterality Date CARDIOVERSION 08/16/2018 COLONOSCOPY FLX DX W/COLLJ SPEC WHEN PFRMD 03/24/2001 Colonoscopy COLONOSCOPY FLX DX W/COLLJ SPEC WHEN PFRMD 04/22/11 HEMORRHOIDOPEXY BY STAPLING 09/15/16 PAST SURGICAL HISTORY OF 2012 SCC of left forehead PROSTATE BIOPSY 11/25/2004 PULMONARY FUNCTION TEST 02/20/2004 RIGHT HEART CATHETERIZATION 07/26/1973 Cardiac cath, R heart TOTAL HIP JOINT REPLACEMENT Left Hip. XCAPSL CTRC RMVL INSJ IO LENS PROSTH W/O ECP 07/2013; 09/2013 Current Outpatient Medications Medication Sig pravastatin (PRAVACHOL) 80 mg tablet Take 80 mg by mouth once daily. metoprolol succinate ER (TOPROL XL) 25 mg 24 hr tablet Take 25 mg by mouth twice daily. magnesium gluconate (MAGONATE) 27 mg (500 mg) tab Take by mouth once daily. vitamin D3-folic acid 5,000 unit- 1 mg tab Take by mouth. cyanocobalamin (VITAMIN B-12) 1,000 mcg tab Take 1,000 mcg by mouth once daily. rivaroxaban (XARELTO) 15 mg tablet Take 1 tablet by mouth daily with dinner. COMPOUNDED PRESCRIPTION Order: Bipap Bilevel setting of 16/10 cm of water with humidification with [employer] full face mask size medium with heated humidity for comfort (needs Bipap and supplies) Dx: KENNEDY Aspirin 81 mg Tab Take 1 tablet by mouth once daily. Take with food. benzonatate (TESSALON PERLES) 100 mg capsule Take 1 capsule by mouth three times daily as needed for Cough. (Patient not taking: Reported on 11/12/2022) wrnqjalzvgUGYPM-cohtxh-kcpluynht (BMX 1:1:1) 1:1:1 liqd Mix in equal amounts - 1 T every 2hrs as needed for mouth pain, Swish/swallow or expectorate. (8oz) Saw [place] 500 mg cap Daily for prostate symptoms. Omeprazole Magnesium (PRILOSEC OTC) 20 mg tablet Take 1 tablet by mouth once daily as needed. 1/2 hr before meal. No current facility-administered medications for this visit. ALLERGIES Allergen Reactions Lipitor [Atorvastat* Mental Status Change Memory loss/impairment Lisinopril Cough ALL ACEI Social History Tobacco Use Smoking status: Never Smokeless tobacco: Never Vaping Use Vaping Use: Never used Substance Use Topics Alcohol use: No Drug use: No ROS: See HPI PE: BP 138/80 Pulse 60 Temp (Src) 97.9 (Left Tympanic) Resp 16 Wt 156 lb (70.8kg) Gen: AANDOX3, NAD, non-toxic appearing HEENT: PERRLA, EOMs intact b/l, nares without drainage, pharynx without erythema, exudate, lesions, or drainage. Uvula midline. Neck: No LAD, no thyromegaly, no meningismus. CV: RRR, no murmur Lungs: CTA b/l, no wheezing Skin: No rashes, lesions, or wounds on exposed skin. Abd: NT, ND, normal BS, no masses No edema., normal pulses Hard of hearing ASSESSMENT/PLAN: 1. Paroxysmal atrial fibrillation (HCC) - ICD9: 427.31, ICD10: I48.0 (primary diagnosis) - f/u with [employer], symptoms have improved, likely related to not having his CPAP machine for 2-3 weeks prior to atrial fibrillation episode occurring. - CONSULT TO CARDIOLOGY 2. Anemia, unspecified type - ICD9: 285.9, ICD10: D64.9 Recheck labs as ordered today - CBC + DIFF - COMP METABOLIC PANEL - IRON + TIBC - FERRITIN BLD - VITAMIN B12 BLOOD 3. Elevated BUN - ICD9: 790.6, ICD10: R79.9 - recheck labs as ordered - CBC + DIFF - COMP METABOLIC PANEL 4. Sick sinus syndrome (HCC) - ICD9: 427.81, ICD10: I49.5 (more content not included)... [facility] 03-04-2023 Instructions Geremias Solo DO - 03/04/2023 10:47 AM EDT Recheck labs in 1 month, no need to fast documented in this encounter [facility] 03-04-2023 History of Present illness Narrative CC: Wil Yoo is a 87 year old male who presents to the office for hospital follow up HPI: Heart rate 124 and BLOOD PRESSURE 170s/100s on 02/21 when he was having symptoms of cold sweats and feeling LH. Prior to this hadn't had CPAP machine since January 18- was having trouble getting this from [employer]. Then got the [facility] hospital to help get a new loner CPAP machine to use as of last week. While in the hospital he had a cardiac catherization procedure by Dr. Briceno and no stents were placed, he was discharged home and has been using his CPAP, BLOOD PRESSURE has been well controlled. Denies any current chest pain or dyspnea. He is interested in referral to new triage specialist since Dr. Dee has left [facility] and would like to stay local if able. No edema, no recent other symptoms He is taking his medications as prescribed. PAST MEDICAL HISTORY Diagnosis Date Atrial fibrillation (HCC) BPH with obstruction/lower urinary tract symptoms 02/14/2007 Cardiomyopathy CKD (chronic kidney disease) stage 3, GFR 30-59 ml/min ([facility]) 10/31/2014 Diverticulosis of colon (without mention of hemorrhage) ELEVATED PROSTATE SPECIFIC ANTIGEN 02/14/2007 Esophageal reflux 01/19/2006 HYPERGLYCEMIA 02/08/2008 HYPERLIPIDEMIA NEC/NOS 02/17/2006 HYPERTENSION NOS 02/14/2007 HYPERTR OBSTR CARDIOMYOP 01/19/2006 PREMATURE BEATS NEC 02/08/2008 PROSTATIC DISORDER NOS 02/14/2007 Vertigo, intermittent 08/16/2012 PAST SURGICAL HISTORY Procedure Laterality Date CARDIOVERSION 08/16/2018 COLONOSCOPY FLX DX W/COLLJ SPEC WHEN PFRMD 03/24/2001 Colonoscopy COLONOSCOPY FLX DX W/COLLJ SPEC WHEN PFRMD 04/22/11 HEMORRHOIDOPEXY BY STAPLING 09/15/16 PAST SURGICAL HISTORY OF 2012 SCC of left forehead PROSTATE BIOPSY 11/25/2004 PULMONARY FUNCTION TEST 02/20/2004 RIGHT HEART CATHETERIZATION 07/26/1973 Cardiac cath, R heart TOTAL HIP JOINT REPLACEMENT Left Hip. XCAPSL CTRC RMVL INSJ IO LENS PROSTH W/O ECP 07/2013; 09/2013 Current Outpatient Medications Medication Sig pravastatin (PRAVACHOL) 80 mg tablet Take 80 mg by mouth once daily. metoprolol succinate ER (TOPROL XL) 25 mg 24 hr tablet Take 25 mg by mouth twice daily. magnesium gluconate (MAGONATE) 27 mg (500 mg) tab Take by mouth once daily. vitamin D3-folic acid 5,000 unit- 1 mg tab Take by mouth. cyanocobalamin (VITAMIN B-12) 1,000 mcg tab Take 1,000 mcg by mouth once daily. rivaroxaban (XARELTO) 15 mg tablet Take 1 tablet by mouth daily with dinner. COMPOUNDED PRESCRIPTION Order: Bipap Bilevel setting of 16/10 cm of water with humidification with [employer] full face mask size medium with heated humidity for comfort (needs Bipap and supplies) Dx: KENNEDY Aspirin 81 mg Tab Take 1 tablet by mouth once daily. Take with food. benzonatate (TESSALON PERLES) 100 mg capsule Take 1 capsule by mouth three times daily as needed for Cough. (Patient not taking: Reported on 11/12/2022) axzeynxmpdAULIB-gauzyi-xxxjhlbxy (BMX 1:1:1) 1:1:1 liqd Mix in equal amounts - 1 T every 2hrs as needed for mouth pain, Swish/swallow or expectorate. (8oz) Saw [place] 500 mg cap Daily for prostate symptoms. Omeprazole Magnesium (PRILOSEC OTC) 20 mg tablet Take 1 tablet by mouth once daily as needed. 1/2 hr before meal. No current facility-administered medications for this visit. ALLERGIES Allergen Reactions Lipitor [Atorvastat* Mental Status Change Memory loss/impairment Lisinopril Cough ALL ACEI Social History Tobacco Use Smoking status: Never Smokeless tobacco: Never Vaping Use Vaping Use: Never used Substance Use Topics Alcohol use: No Drug use: No ROS: See HPI PE: BP 138/80 Pulse 60 Temp (Src) 97.9 (Left Tympanic) Resp 16 Wt 156 lb (70.8kg) Gen: A&OX3, NAD, non-toxic appearing HEENT: PERRLA, EOMs intact b/l, nares without drainage, pharynx without erythema, exudate, lesions, or drainage. Uvula midline. Neck: No LAD, no thyromegaly, no meningismus. CV: RRR, no murmur Lungs: CTA b/l, no wheezing Skin: No rashes, lesions, or wounds on exposed skin. Abd: NT, ND, normal BS, no masses No edema., normal pulses Hard of hearing ASSESSMENT/PLAN: 1. Paroxysmal atrial fibrillation (HCC) - ICD9: 427.31, ICD10: I48.0 (primary diagnosis) - f/u with [employer], symptoms have improved, likely related to not having his CPAP machine for 2-3 weeks prior to atrial fibrillation episode occurring. - CONSULT TO CARDIOLOGY 2. Anemia, unspecified type - ICD9: 285.9, ICD10: D64.9 Recheck labs as ordered today - CBC + DIFF - COMP METABOLIC PANEL - IRON + TIBC - FERRITIN BLD - VITAMIN B12 BLOOD 3. Elevated BUN - ICD9: 790.6, ICD10: R79.9 - recheck labs as ordered - CBC + DIFF - COMP METABOLIC PANEL 4. Sick sinus syndrome (HCC) - ICD9: 427.81, ICD10: I49.5 - f/u with [employer], symptoms have improved, likely related to not having his CPAP machine for 2-3 weeks prior to atrial fibrillation episode occurring. - CONSULT TO CARDIOLOGY 5. Essential hypertension - ICD9: 401.9, ICD10: I10 - good control - Continue current medication(s) - Encouraged dietary sodium restriction/DASH diet - Recommended regular aerobic exercise. - Recommend home blood pressure monitoring, to bring results in on next visit - Goal of BP <130/80 6. Dyslipidemia - ICD9: 272.4, ICD10: E78.5 - to be determined upon return of lab results - Encouraged following a low fat, low cholesterol diet. - Discussed the benefits of regular aerobic exercise and weight loss. 7. KENNEDY (obstructive sleep apnea) - ICD9: 327.23, ICD10: G47.33 Continue CPAP - f/u with [employer], symptoms have improved, likely related to not having his CPAP machine for 2-3 weeks prior to atrial fibrillation episode occurring. Geremias Solo DO Return if no improvement. Follow up with Geremias Solo DO. To ER if develops chest pain, shortness of breath Discussed risks, benefits, alternatives, and potential side effects of medications. Patient/Guardian expressed understanding and agreed with the plan. See patient instructions. Geremias Solo DO [address] [place] [address] documented in this encounter [facility] 11-13-2022 History of Present illness Narrative Subjective HPI Wil Yoo is a 86 year old male who wishes to take antiviral medication for COVID 19. He was diagnosed yesterday. See additional note for molnupiravir specific documentation. Wil had some vomiting yesterday. That has resolved. Today he has a sore throat. Review of Systems Constitutional: Positive for malaise/fatigue. Negative for chills and fever. HENT: Positive for sore throat. Negative for congestion. Respiratory: Positive for cough. Cardiovascular: Negative. Gastrointestinal: Negative for diarrhea, nausea and vomiting. Musculoskeletal: Negative for myalgias. BP 118/72 Pulse 92 Temp 36.8 C (98.2 F) Resp 16 Wt 70.3 kg (155 lb) SpO2 96% BMI 25.51 kg/m PAST MEDICAL HISTORY Diagnosis Date Atrial fibrillation (HCC) BPH with obstruction/lower urinary tract symptoms 02/14/2007 Cardiomyopathy CKD (chronic kidney disease) stage 3, GFR 30-59 ml/min ([facility]) 10/31/2014 Diverticulosis of colon (without mention of hemorrhage) ELEVATED PROSTATE SPECIFIC ANTIGEN 02/14/2007 Esophageal reflux 01/19/2006 HYPERGLYCEMIA 02/08/2008 HYPERLIPIDEMIA NEC/NOS 02/17/2006 HYPERTENSION NOS 02/14/2007 HYPERTR OBSTR CARDIOMYOP 01/19/2006 PREMATURE BEATS NEC 02/08/2008 PROSTATIC DISORDER NOS 02/14/2007 Vertigo, intermittent 08/16/2012 PAST SURGICAL HISTORY Procedure Laterality Date CARDIOVERSION 08/16/2018 COLONOSCOPY FLX DX W/COLLJ SPEC WHEN PFRMD 03/24/2001 Colonoscopy COLONOSCOPY FLX DX W/COLLJ SPEC WHEN PFRMD 04/22/11 HEMORRHOIDOPEXY BY STAPLING 09/15/16 PAST SURGICAL HISTORY OF 2012 SCC of left forehead PROSTATE BIOPSY 11/25/2004 PULMONARY FUNCTION TEST 02/20/2004 RIGHT HEART CATHETERIZATION 07/26/1973 Cardiac cath, R heart TOTAL HIP JOINT REPLACEMENT Left Hip. XCAPSL CTRC RMVL INSJ IO LENS PROSTH W/O ECP 07/2013; 09/2013 ALLERGIES Lipitor [Atorvastatin Calcium] and Lisinopril MEDICATIONS magnesium gluconate (MAGONATE) 27 mg (500 mg) tab Take by mouth once daily. vitamin D3-folic acid 5,000 unit- 1 mg tab Take by mouth. cyanocobalamin (VITAMIN B-12) 1,000 mcg tab Take 1,000 mcg by mouth once daily. rivaroxaban (XARELTO) 15 mg tablet Take 1 tablet by mouth daily with dinner. COMPOUNDED PRESCRIPTION Order: Bipap Bilevel setting of 16/10 cm of water with humidification with [employer] Simplus full face mask size medium with heated humidity for comfort (needs Bipap and supplies) Dx: KENNEDY Saw [place] 500 mg cap Daily for prostate symptoms. Omeprazole Magnesium (PRILOSEC OTC) 20 mg tablet Take 1 tablet by mouth once daily as needed. 1/2 hr before meal. molnupiravir 200 mg capsule Take 4 capsules by mouth twice daily for 5 days. benzonatate (TESSALON PERLES) 100 mg capsule Take 1 capsule by mouth three times daily as needed for Cough. (Patient not taking: Reported on 11/12/2022) fchykhwaayMAAWB-yvvzgq-iwnnlgnyh (BMX 1:1:1) 1:1:1 liqd Mix in equal amounts - 1 T every 2hrs as needed for mouth pain, Swish/swallow or expectorate. (8oz) Aspirin 81 mg Tab Take 1 tablet by mouth once daily. Take with food. FAMILY HISTORY Problem Relation Age of Onset None Sister None Brother Coronary Artery Disease Father Cancer Sister soft tissue leg Social History Tobacco Use Smoking status: Never Smokeless tobacco: Never Vaping Use Vaping Use: Never used Substance Use Topics Alcohol use: No Drug use: No Objective Physical Exam Vitals and nursing note reviewed. Constitutional: General: He is not in acute distress. Appearance: Normal appearance. He is not toxic-appearing. HENT: Mouth/Throat: Mouth: Mucous membranes are moist. Pharynx: Oropharynx is clear. No oropharyngeal exudate or posterior oropharyngeal erythema. Cardiovascular: Rate and Rhythm: Normal rate and regular rhythm. Heart sounds: Normal heart sounds. Pulmonary: Effort: Pulmonary effort is normal. No respiratory distress. Breath sounds: Normal breath sounds. No wheezing or rales. Skin: General: Skin is warm and dry. Findings: No erythema or rash. Neurological: Mental Status: He is alert. ASSESSMENT/PLAN: 1. COVID-19 - ICD9: 079.89, ICD10: U07.1 - see additional note for molnupiravir specific documentation. - MOLNUPIRAVIR 200 MG CAPSULE (EUA) - Follow-up with your PCP in 3-5 days if symptoms have not improved or sooner if symptoms worsen - Discussed red flags and need for immediate medical evaluation if any occur. - Discussed supportive care treatment with fluids, rest and analgesia. - Discussed expected course of illness Sadia Esquivel APRN.CNP Molnupiravir Eligibility and Patient Discussion [facility] Formulary Restriction Criteria: Adult outpatients 18 years and older with ALL of the following: [x] Patient has positive SARS-COV-2 viral test (PCR or antigen test) during current illness [x] Patient has symptoms for 5 days or less [x] Not requiring hospitalization at any time for management of COVID-19 [x] Not requiring supplemental oxygen or a change in baseline supplemental oxygen [x] Not utilized for pre-exposure or post-exposure prophylaxis for prevention of COVID-19 [x] Patient is not or lactating [x] Meeting at least one of the criteria for high risk of progression to severe COVID-19: [x] Age over 65 years [] Cancer [x] Chronic kidney disease [] Chronic liver disease [] Chronic lung diseases, including cystic fibrosis [] Dementia or other neurological conditions [] Diabetes (type 1 or type 2) [] Disabilities, including Down syndrome and neurodevelopmental disorders [x] Heart conditions [] HIV infection [] Immunocompromised state [] Mental health conditions [] Medical related technological dependence (tracheostomy, gastrostomy, or positive pressure ventilation (not related to COVID) [] Overweight and obesity (BMI greater or equal to 25 for adults) [] Physical inactivity [] Sickle cell disease or thalassemia [] Smoking, current or former [] Solid organ or blood stem cell transplant [] Stroke or cerebrovascular disease [] Substance use disorders [] Tuberculosis [] People from racial and ethnic minority groups Criteria above are met: Yes Date of Positive Test:11/12/2022 Date of Symptom Onset: 11/10/2022 Patient received COVID vaccine: Yes / status reviewed: Females: [] Patient is not currently and there is no possibility the patient could be (select one of the following): [] test does not need to be confirmed in patients who have undergone permanent sterilization, are currently using an intrauterine system or contraceptive implant, or in whom is not possible. [] Patients not meeting conditions above: assess whether the patient is based on the first day of the last menstrual period in individuals who have regular menstrual cycles, is using reliable method of contraception correctly and consistently or have had a negative test [] A test is recommended if the individual has irregular menstrual cycles, is unsure of the first day of the last menstrual period or is not using effective contraception correctly and consistently [] Patient is not currently . is not recommended during treatment and for four days after final dose of molnupiravir. [] Females have been advised to use a reliable method of contraception correctly and consistently for the duration of treatment and for four days after the last dose of molnupiravir Males: [x] Sexually active male with partner(s) of childbearing potential has been advised to use a reliable method of contraception correctly and consistently for intercourse for the duration of treatment and for three months after the last dose of molnupiravir I have discussed the use of the investigational therapeutic, molnupiravir, for the treatment of mild to moderate COVID-19 and its use under Emergency Use Authorization with the patient. The patient was informed that molnupiravir is not an FDA approved drug and that it is authorized for use under this Emergency Use Authorization. The patient was also informed of the significant known benefits and potential risks of molnupiravir, and the extent to which such potential risks and benefits are unknown. The patient was informed that there is mandatory reporting of all medication errors and serious adverse events potentially related to molnupiravir treatment within 7 calendar days from the onset of the event and that events up to 28 days after completion of therapy need to be reported. The discussion included alternatives to receiving molnupiravir, including clinical trials, and potential the risks and benefits of those alternatives. The patient was provided electronically with the Fact Sheet for Patients, Parents and Caregivers . The patient was also instructed that in addition to the treatment with molnupiravir, he/she should continue to self-isolate and use infection control measures (e.g., wear mask, isolate, social distance, avoid sharing personal items, clean and disinfect high touch surfaces, and frequent handwashing) according to CDC guidelines. The patient stated understanding and gave verbal consent to proceeding with molnupiravir treatment. Sadia Esquivel APRN.CNP November 13, 2022 12:29 PM documented in this encounter [facility] 11-13-2022 Instructions Sadia Esquivel APRN.CNP - 11/13/2022 12:28 PM EST Fact Sheet for Patients And Caregivers Emergency Use Authorization (EUA) Of Molnupiravir For Coronavirus Disease 2019 (COVID-19) What is the most important information I should know about molnupiravir? Molnupiravir may cause serious side effects, including: Molnupiravir may cause harm to your unborn baby. It is not known if molnupiravir will harm your baby if you take molnupiravir during . Molnupiravir is not recommended for use in . Molnupiravir has not been studied in . Molnupiravir was studied in animals only. When molnupiravir was given to animals, molnupiravir caused harm to their unborn babies. You and your healthcare provider may decide that you should take molnupiravir during if there are no other COVID-19 treatment options authorized by the FDA that are accessible or clinically appropriate for you. If you and your healthcare provider decide that you should take molnupiravir during , you and your healthcare provider should discuss the known and potential benefits and the potential risks of taking molnupiravir during . For individuals who are able to become : You should use a reliable method of control (contraception) consistently and correctly during treatment with molnupiravir and for 4 days after the last dose of molnupiravir. Talk to your healthcare provider about reliable control methods. Before starting treatment with molnupiravir your healthcare provider may do a test to see if you are before starting treatment with molnupiravir. Tell your healthcare provider right away if you become or think you may be during treatment with molnupiravir. Surveillance Program: There is a surveillance program for individuals who take molnupiravir during . The purpose of this program is to collect information about the health of you and your baby. Talk to your healthcare provider about how to take part in this program. If you take molnupiravir during and you agree to participate in the surveillance program and allow your healthcare provider to share your information with [employer], then your healthcare provider will report your use of molnupiravir during to [employer] by calling or [email or web address].[employer]. For individuals who are sexually active with partners who are able to become : It is not known if molnupiravir can affect sperm. While the risk is regarded as low, animal studies to fully assess the potential for molnupiravir to affect the babies of males treated with molnupiravir have not been completed. A reliable method of control (contraception) should be used consistently and correctly during treatment with molnupiravir and for at least 3 months after the last dose. The risk to sperm beyond 3 months is not known. Studies to understand the risk to sperm beyond 3 months are ongoing. Talk to your healthcare provider about reliable control methods. Talk to your healthcare provider if you have questions or concerns about how molnupiravir may affect sperm. You are being given this fact sheet because your healthcare provider believes it is necessary to provide you with molnupiravir for the treatment of adults with stlz-ys-zwdkmgtl coronavirus disease 2019 (COVID-19) with positive results of direct SARS-CoV-2 viral testing, and who are at high risk for progressing to severe COVID-19 including hospitalization or , and for whom other COVID-19 treatment options authorized by the FDA are not accessible or clinically appropriate. The [place]. Food and Drug Administration (FDA) has issued an Emergency Use Authorization (EUA) to make molnupiravir available during the COVID-19 pandemic (for more details about an EUA please see What is an Emergency Use Authorization? at the end of this document). Molnupiravir is not an FDA-approved medicine in the [place]. Read this Fact Sheet for information about molnupiravir. Talk to your healthcare provider about your options if you have any questions. It is your choice to take molnupiravir. What is COVID-19? COVID-19 is caused by a virus called a coronavirus. You can get COVID-19 through close contact with another person who has the virus. COVID-19 illnesses have ranged from very gptc-wn-qruhab, including illness resulting in . While information so far suggests that most COVID-19 illness is mild, serious illness can happen and may cause some of your other medical conditions to become worse. Older people and people of all ages with severe, long lasting (chronic) medical conditions like heart disease, lung disease and diabetes, for example seem to be at higher risk of being hospitalized for COVID-19. What is molnupiravir? Molnupiravir is an investigational medicine used to treat myuy-vl-dzzbtrxs COVID-19 in adults: with positive results of direct SARS-CoV-2 viral testing, and who are at high risk for progressing to severe COVID-19 including hospitalization or , and for whom other COVID-19 treatment options authorized by the FDA are not accessible or clinically appropriate. The FDA has authorized the emergency use of molnupiravir for the treatment of mild-tomoderate COVID-19 in adults under an EUA. For more information on EUA, see the What is an Emergency Use Authorization (EUA)? section at the end of this Fact Sheet. Molnupiravir is not authorized: for use in people less than 18 years of age. for prevention of COVID-19. for people needing hospitalization for COVID-19. for use for longer than 5 consecutive days. What should I tell my healthcare provider before I take molnupiravir? Tell your healthcare provider if you: Have any allergies Are or plan to breastfeed Have any serious illnesses Are taking any medicines (prescription, bwok-uww-ulgwknk, vitamins, or herbal products). How do I take molnupiravir? Take molnupiravir exactly as your healthcare provider tells you to take it. Take 4 capsules of molnupiravir every 12 hours (for example, at 8 am and at 8 pm) Take molnupiravir for 5 days. It is important that you complete the full 5 days of treatment with molnupiravir. Do not stop taking molnupiravir before you complete the full 5 days of treatment, even if you feel better. Take molnupiravir with or without food. You should stay in isolation for as long as your healthcare provider tells you to. Talk to your healthcare provider if you are not sure about how to properly isolate while you have COVID-19. Swallow molnupiravir capsules whole. Do not open, break, or crush the capsules. If you cannot swallow capsules whole, tell your healthcare provider. What to do if you miss a dose: If it has been less than 10 hours since the missed dose, take it as soon as you remember If it has been more than 10 hours since the missed dose, skip the missed dose and take your dose at the next scheduled time. Do not double the dose of molnupiravir to make up for a missed dose. What are the important possible side effects of molnupiravir? Possible side effects of molnupiravir are: See, What is the most important information I should know about molnupiravir? diarrhea nausea dizziness These are not all the possible side effects of molnupiravir. Not many people have taken molnupiravir. Serious and unexpected side effects may happen. This medicine is still being studied, so it is possible that all of the risks are not known at this time. What other treatment choices are there? Like molnupiravir, FDA may allow for the emergency use of other medicines to treat people with COVID-19. Go to https://www.fda.gov/emergency-pre wtxebhgbw-ljz-sxohlrtq/mcm-legalr obcbfivgm-yar-elfktx-framework/em yhkzney-gsq-buhflywkzibjp for more information. It is your choice to be treated or not to be treated with molnupiravir. Should you decide not to take it, it will not change your standard medical care. What if I am ? is not recommended during treatment with molnupiravir and for 4 days after the last dose of molnupiravir. If you are or plan to breastfeed, talk to your healthcare provider about your options and specific situation before taking molnupiravir. How do I report side effects with molnupiravir? Contact your healthcare provider if you have any side effects that bother you or do not go away. Report side effects to FDA MedWatch at www.fda.gov/medwatch or call 7-086-DAE-4222 ( ). How should I store molnupiravir? Store molnupiravir capsules at room temperature between 68 F to 77 F (20 C to 25 C). Keep molnupiravir and all medicines out of the reach of children and pets. How can I learn more about COVID-19? Ask your healthcare provider. Visit www.cdc.gov/COVID19 Contact your local or state public health department. Call [employer] at (toll free in the [place] Visit www.[employer] What Is an Emergency Use Authorization (EUA)? The [place] FDA has made molnupiravir available under an emergency access mechanism called an Emergency Use Authorization (EUA) The EUA is supported by a [employer] of Health and Human Service (HHS) declaration that circumstances exist to justify emergency use of drugs and biological products during the COVID-19 pandemic. Molnupiravir for the treatment of lyzx-cd-zrtctwkw COVID-19 in adults with positive results of direct SARS-CoV-2 viral testing, who are at high risk for progression to severe COVID-19, including hospitalization or , and for whom alternative COVID-19 treatment options authorized by FDA are not accessible or clinically appropriate, has not undergone the same type of review as an FDA-approved product. In issuing an EUA under the COVID-19 public health emergency, the FDA has determined, among other things, that based on the total amount of scientific evidence available including data from adequate and well-controlled clinical trials, if available, it is reasonable to believe that the product may be effective for diagnosing, treating, or preventing COVID-19, or a serious or life-threatening disease or condition caused by COVID19; that the known and potential benefits of the product, when used to diagnose, treat, or prevent such disease or condition, outweigh the known and potential risks of such product; and that there are no adequate, approved, and available alternatives. All of these criteria must be met to allow for the product to be used in the treatment of patients during the COVID-19 pandemic. The EUA for molnupiravir is in effect for the duration of the COVID-19 declaration justifying emergency use of molnupiravir, unless terminated or revoked (after which molnupiravir may no longer be used under the EUA). For patent information: www.[employer]/research/patent Copyright 2020 [employer] [place], [place] and its affiliates. All rights reserved. [id number] Issued: 11/05/2021 documented in this encounter [facility] 11-13-2022 Miscellaneous Notes Patient identified by name and date of . Advised patient's spouse Jaycee of Wil's positive COVID test result. She thinks the anti-viral medication may make him sick to his stomach, but she will tell him was positive and let him decide whether he wants the medication or not. Sadia Esquivel APRN.CNP documented in this encounter [facility] 08-25-2022 History of Present illness Narrative Wil Yoo is a 86 year old male here for a Medicare Subsequent Annual Wellness Visit Health Risk Assessment In general, health is: Very good Concerns with tiredness, difficulties with sexual function, balance, teeth/dentures: More than half the days with fatigue symptoms. [place] anxious, stressed, angry, irritable, lonely, isolated, or had thoughts of hurting themself: Not at all Has little interest or pleasure in doing things: Not at all Bothered by feeling down, depressed, or hopeless: Not at all Needs help with grocery shopping, cooking, housework, bathing, grooming, dressing, eating, sitting or standing, walking, using the toilet, handling finances, taking medications, using the telephone, or driving: No Following safety precautions in the home environment and vehicle: removed throw rugs from floors, installed grab bars in the bathroom, handrails in stairwells, having adequate lighting, wearing seatbelt at all times?: No Smokes cigarettes, vapes, or chew tobacco: No Eats healthy foods including fruits, vegetables, whole grains, and fiber-rich foods: Nearly every day Number of days per week engages in exercise: 7 days Average alcohol consumption: Never Current Providers Patient Care Team: Geremias Solo DO as PCP - General (Family Medicine) Specialists: I have reviewed specialist-related care of the patient in the medical record. Medical/Family history review Reviewed and updated problem list, medical history, surgical history, family history, social history, medication list, and allergies. Opioid use review Patient is not currently using opioids. Depression screening Depression Screening PHQ-2 Score ALEJANDRA-2 Total Score 08/24/2022 0 - Depression screening tool completed and reviewed. Based on score and interview, patient is not at risk for depression. Screening tool discussed with patient, and I recommended no further intervention at this time. Cognitive screening Mini Cog Score: Score: 5 Cognitive screening reviewed and no further action needed (score 3-5) Functional Observation Was the patient's timed Up & Go test unsteady or longer than 30 seconds? No Advance Care Planning End of Life planning discussed, including patient's advanced directive wishes: Yes Measurements BP 138/82 Pulse 74 Resp 18 Ht 5' 5.354 (1.66m) Wt 157 lb (71.2kg) SpO2 95% BMI 25.84 kg/(m^2). Visual acuity: follows with optometry/ophthalmology Hearing Evaluation: within normal limits Assessment/Plan - Counseled on healthy diet and regular exercise - Fall avoidance - Lipid panel - Diabetes screening - Depression screening documented in this encounter [facility] 06-22-2022 History of Present illness Narrative Images from the original note were not included. PATIENT INFO: Wil Yoo 86 year old ( ) REFERRING PROVIDER: Geremias Solo PCP: Geremias Solo DO June 22, 2022 HPI: Wil Yoo 86 year old male is here today for discussion and evaluation of elevated PSA of 20.59, which was discussed as length with patient and his We discussed the possibility of prostate biopsy if he is concerned about prostate cancer and would like to have treatment if positive, I did not recommend this for him Given he has expressed not wanting to have another prostate biopsy and does not want further PSA testing. There was left over labs from his 03/2021 visit that was not done and when they saw there were labs ordered at that visit they did them all including the PSA, however, in Dr. Jones notes in 2020 she stated he did not wish to pursue Further PSA testing or another biopsy, the labs were just not cancelled so this PSA was taken unwittingly. Again, he stated that he feels great and has no concerns Of prostate cancer and wishes not to pursue this any further. I agree, so no further PSA testing will be done unless he decides otherwise and contact us to do so. His mentioned that there was also a concern of his renal function testing with elevated sCr of 1.5 on average, we discussed this as well and given his PVR of 0 ml and UA results being normal there does not seem to be an obstructive uropathy and that he stopped his Flomax already and is still urinating well my recommendation would be Nephrology Consult to see if there is a medical kidney issue, although his renal function is slightly decreased it appears to be chronic and unchanging over several year. He will discuss this with PCP at next visit and decide at that time. LUTS: Obstructive - weak stream: no, hesitancy: no, Intermittency: no, Double voiding no post-void dribbling: no incomplete emptying: no Irritative - NTF yes Urgency no Frequency no Dysuria no Incontinence no Gross Hematuria no Microscopic Hematuria no Other symptoms: LABS: No results found for: TESTOST No results found for: TESTFREE PSA (ng/mL) Date Value 06/17/2022 20.59 08/17/2016 Test sent to [facility]. 02/10/2011 6.92 02/25/2004 4.35 PSA Screening (ng/mL) Date Value 03/16/2021 17.26 02/03/2016 Test sent to [facility]. 01/30/2015 Test sent to [facility]. Hematocrit (%) Date Value 06/17/2022 44.6 03/16/2021 41.9 10/20/2020 43.3 10/18/2019 42.9 MEDICATIONS: magnesium gluconate (MAGONATE) 27 mg (500 mg) tab Take by mouth once daily. vitamin D3-folic acid 5,000 unit- 1 mg tab Take by mouth. cyanocobalamin (VITAMIN B-12) 1,000 mcg tab Take 1,000 mcg by mouth once daily. benzonatate (TESSALON PERLES) 100 mg capsule Take 1 capsule by mouth three times daily as needed for Cough. rivaroxaban (XARELTO) 15 mg tablet Take 1 tablet by mouth daily with dinner. Saw [place] 500 mg cap Daily for prostate symptoms. COMPOUNDED PRESCRIPTION Order: Bipap Bilevel setting of 16/10 cm of water with humidification with [employer] Simplus full face mask size medium with heated humidity for comfort (needs Bipap and supplies) Dx: KENNEDY pmjtgpawejLEXMO-llrhye-jcscigrbe (BMX 1:1:1) 1:1:1 liqd Mix in equal amounts - 1 T every 2hrs as needed for mouth pain, Swish/swallow or expectorate. (8oz) Omeprazole Magnesium (PRILOSEC OTC) 20 mg tablet Take 1 tablet by mouth once daily as needed. 1/2 hr before meal. Aspirin 81 mg Tab Take 1 tablet by mouth once daily. Take with food. 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 Cardiomyopathy CKD (chronic kidney disease) stage 3, GFR 30-59 ml/min (HCC) 10/31/2014 Diverticulosis of colon (without mention of hemorrhage) ELEVATED PROSTATE SPECIFIC ANTIGEN 02/14/2007 Esophageal reflux 01/19/2006 HYPERGLYCEMIA 02/08/2008 HYPERLIPIDEMIA NEC/NOS 02/17/2006 HYPERTENSION NOS 02/14/2007 HYPERTR OBSTR CARDIOMYOP 01/19/2006 PREMATURE BEATS NEC 02/08/2008 PROSTATIC DISORDER NOS 02/14/2007 Vertigo, intermittent 08/16/2012 PAST SURGICAL HISTORY: PAST SURGICAL HISTORY Procedure Laterality Date CARDIOVERSION 08/16/2018 COLONOSCOPY FLX DX W/COLLJ SPEC WHEN PFRMD 03/24/2001 Colonoscopy COLONOSCOPY FLX DX W/COLLJ SPEC WHEN PFRMD 04/22/11 HEMORRHOIDOPEXY BY STAPLING 09/15/16 PAST SURGICAL HISTORY OF 2012 SCC of left forehead PROSTATE BIOPSY 11/25/2004 PULMONARY FUNCTION TEST 02/20/2004 RIGHT HEART CATHETERIZATION 07/26/1973 Cardiac cath, R heart TOTAL HIP JOINT REPLACEMENT Left Hip. XCAPSL CTRC RMVL INSJ IO LENS PROSTH W/O ECP 07/2013; 09/2013 FAMILY HISTORY: FAMILY HISTORY Problem Relation Age of Onset None Sister None Brother Coronary Artery Disease Father Cancer Sister soft tissue leg SOCIAL HISTORY: Social Connections: Not on file REVIEW OF SYSTEMS: GENERAL: No fever, chills, weight loss, or fatigue. ENMT: Negative CARDIOVASCULAR:NO CHEST PAIN, PALPITATIONS, ANKLE EDEMA RESPIRATORY: No chronic cough, wheezing, dyspnea, hemoptysis. GENITOURINARY: SEE HPI MUSCULOSKELETAL:NO CHRONIC BACK PAIN, ARTHRITIS, CHRONIC NECK PAIN SKIN: NO VARICOSE VEINS, RASH, ABNORMAL ITCHING HEME/LYMPH/IMMUNE:Negative for prolonged bleeding, bruising easily or swollen nodes NEUROLOGICAL: NO HEADACHES, NUMBNESS, SEIZURES, STROKE DIABETES: No All other systems reviewed and are negative PHYSICAL EXAMINATION: Blood pressure 120/90, pulse 70, temperature 36.2 C (97.1 F), temperature source Temporal, resp. rate 14, height 165.1 cm (5' 5 ), weight 71.2 kg (157 lb), SpO2 98 %. GENERAL: WNL nutrition, no deformities, healthy appearing NEURO: Awake, alert and oriented x 3 and Normal gait PSYCH: No signs of depression, anxiety, or agitation ENMT (Ear, Nose, Mouth, Throat): No masses, adenopathy, icterus. Thyroid nonpalpable RESP: NL effort, no retractions or purse-lip breathing. CV: No extremity swelling, varices, edema, pallor, erythema GASTROINTESTINAL: Soft, nontender, nondistended, no masses. HERNIAS: None SKIN: No rash, lesions No palpable lymphadenopathy MUSCULOSKELETAL: Extremities normal. No deformities, edema, clubbing or skin discoloration. PROBLEM LIST REVIEW: Yes LABS: Results for orders placed or performed in visit on 06/22/22 UA DIP, URINE (POC) Result Value Ref Range GLUCOSE UA (POCT) Negative Negative mg/dL BILIRUBIN UA (POCT) Negative Negative KETONE UA (POCT) Negative Negative mg/dL SPECIFIC GRAVITY UA (POCT) 1.015 1.005 - 1.030 HEMOGLOBIN/BLOOD UA (POCT) Trace-intact (A) Negative PH UA (POCT) 5.5 4.5 - 8.0 PROTEIN UA (POCT) Negative Negative mg/dL UROBILINOGEN UA (POCT) 0.2 Normal E.U./dL NITRITE UA (POCT) Negative Negative LEUKOCYTES UA (POCT) Negative Negative COLOR UA (POCT) Yellow CLARITY UA (POCT) Clear PROCEDURES: PVR: 32 ml IMAGING: IMPRESSION/PLAN: 1. Elevated prostate specific antigen (PSA) of 20.59 > discussed options of having a prostate biopsy vs. Doing nothing due to his well health and no concerns an age of 86 yo He wishes to not have biopsy and no further PSA testing. 2. Chronic Renal Function decreased but stable and not likely from obstructive uropathy given off Flomax and PVR of 32 ml Possible Nephrology consult if concern for medical renal dysfunction - UA DIP, URINE (POC) I spent a total of 30 minutes on the date of the service which included preparing to see the patient, face to face patient care, completing clinical documentation, obtaining and/or reviewing separately obtained history, performing a medically appropriate examination, counseling and educating the patient/family/caregiver, ordering medications, tests, or procedures, and care coordination. MARY Kaye, [place], NIKOLE CC Post Void Residual HPI: Wil Yoo is a 86 year old male. The patient is here now for an appointment with MARY Kaye, MT, PA-COV. Procedure: Explained procedure to patient and verbalizes understanding. Performed a PVR. Patient urinated and instructed to empty bladder as much as possible just prior to having PVR done using bladder ultrasound scanner. Results of scan: 32 mL The patient tolerated the procedure well. Plan: Appointment with Jose. documented in this encounter [facility] documented in this encounter [facility]08-05-2022 Miscellaneous Notes* Telephone Encounter - Sanjuanita Dunn - 06/18/2022 1:27 PM EDT PT is scheduled with urology on Tuesday06-22-22. Thanks Sanjuanita Dunn PSS * Telephone Encounter - Jaycee Rothman LPN - 06/18/2022 9:59 AM EDT Pts calls gave information provided. Explained our schedulers would be calling to help them schedule with urology. Please assist in scheduling as soon as we can get him in. * Telephone Encounter - Leila Traore Ma - 06/18/2022 9:25 AM EDT left with patient to contact office for results Leila Traore Ma * Telephone Encounter - Geremias Solo DO - 06/18/2022 7:51 AM EDT Please inform patient that labs are overall stable except his PSA is very elevated at 20. Needs to be following up with Urologist for care/opinion. This is very high. Also his serum creatinine is slightly high, which is at his baseline. He has mild chronic kidney changes that are likely partially related to his prostate. Geremias Solo [place] [id number] History of Past illness Narrative* Problem Noted Date Resolved Date Pain in limb 09/20/2008 02/09/2011 HYPERGLYCEMIA 02/08/2008 10/24/2013 Other and unspecified hyperlipidemia 02/17/2006 10/24/2013 documented as of this encounter (statuses as of 06/21/2022) [address] History of Past illness Narrative* Problem Noted Date Resolved Date Pain in limb 09/20/2008 02/09/2011 HYPERGLYCEMIA 02/08/2008 10/24/2013 Other and unspecified hyperlipidemia 02/17/2006 10/24/2013 documented as of this encounter (statuses as of 06/22/2022) [facility] History of Past illness Narrative* Problem Noted Date Resolved Date Pain in limb 09/20/2008 02/09/2011 HYPERGLYCEMIA 02/08/2008 10/24/2013 Other and unspecified hyperlipidemia 02/17/2006 10/24/2013 documented as of this encounter (statuses as of 08/26/2022) [address]07-2008 History of Past illness Narrative* Problem Noted Date Resolved Date Pain in limb 09/20/2008 02/09/2011 HYPERGLYCEMIA 02/08/2008 10/24/2013 Other and unspecified hyperlipidemia 02/17/2006 10/24/2013 documented as of this encounter (statuses as of 11/18/2022) [place] [id number] History of Past illness Narrative* Problem Noted Date Resolved Date Pain in limb 09/20/2008 02/09/2011 HYPERGLYCEMIA 02/08/2008 10/24/2013 Other and unspecified hyperlipidemia 02/17/2006 10/24/2013 documented as of this encounter (statuses as of 11/18/2022) [address]-2008 History of Past illness Narrative* Problem Noted Date Resolved Date Pain in limb 09/20/2008 02/09/2011 HYPERGLYCEMIA 02/08/2008 10/24/2013 Other and unspecified hyperlipidemia 02/17/2006 10/24/2013 documented as of this encounter (statuses as of 03/05/2023) [place] [id number] History of Past illness Narrative* Problem Noted Date Diagnosed Date Resolved Date Pain in limb 09/20/2008 02/09/2011 HYPERGLYCEMIA 02/08/2008 10/24/2013 Other and unspecified hyperlipidemia 02/17/2006 10/24/2013 documented as of this encounter (statuses as of 08/31/2023) [address]-2008 History of Past illness Narrative* Problem Noted Date Diagnosed Date Resolved Date Pain in limb 09/20/2008 02/09/2011 HYPERGLYCEMIA 02/08/2008 10/24/2013 Other and unspecified hyperlipidemia 02/17/2006 10/24/2013 documented as of this encounter (statuses as of 09/06/2023) [address]-2008 History of Past illness Narrative* Problem Noted Date Diagnosed Date Resolved Date Pain in limb 09/20/2008 02/09/2011 HYPERGLYCEMIA 02/08/2008 10/24/2013 Other and unspecified hyperlipidemia 02/17/2006 10/24/2013 documented as of this encounter (statuses as of 09/08/2023) [address]-2008 History of Past illness Narrative* Problem Noted Date Diagnosed Date Resolved Date Pain in limb 09/20/2008 02/09/2011 HYPERGLYCEMIA 02/08/2008 10/24/2013 Other and unspecified hyperlipidemia 02/17/2006 10/24/2013 documented as of this encounter (statuses as of 09/26/2023) [facility] Diagnosis Medicare annual wellness visit, subsequent- Primary Routine general medical examination at a health care facility [facility] Diagnosis COVID-19- Primary [facility] Diagnosis Paroxysmal atrial fibrillation (HCC)- Primary Atrial fibrillation Anemia, unspecified type Elevated BUN Other abnormal blood chemistry Sick sinus syndrome (HCC) Sinoatrial node dysfunction Essential hypertension Unspecified essential hypertension Dyslipidemia Other and unspecified hyperlipidemia KENNEDY (obstructive sleep apnea) Obstructive sleep apnea (adult) (pediatric) [facility] Diagnosis Dyslipidemia- Primary Other and unspecified hyperlipidemia Need for influenza vaccination Need for prophylactic vaccination and inoculation against influenza Vitamin D deficiency Unspecified vitamin D deficiency Fatigue, unspecified type Screening for prostate cancer Special screening for malignant neoplasm of prostate Other hypertrophic cardiomyopathy (HCC) Other hypertrophic cardiomyopathy Stage 3a chronic kidney disease (HCC) Paroxysmal atrial fibrillation (HCC) Atrial fibrillation KENNEDY (obstructive sleep apnea) Obstructive sleep apnea (adult) (pediatric) Essential hypertension Unspecified essential hypertension [facility] Diagnosis Anemia, unspecified type- Primary documented in this encounter [facility] Concerns Infection Onset Date Last Indicated Resolved Time COVID-19 Rule-Out 11/12/2022 11/12/2022 11/13/2022 1:42 AM EST COVID-19 Confirmed 11/12/2022 11/12/2022 Infection Onset Date Last Indicated Resolved Time COVID-19 Confirmed 11/12/2022 11/12/2022 Reason for Referral Specialty Diagnoses / Procedures Referred By Contac t Referred To Contact Cardiology Diagnoses Paroxysmal atrial fibrillation (HCC) Sick sinus syndrome (HCC) Procedures CONSULT TO CARDIOLOGY OFFICE/OUTPATIENT [facility] 60-74 MINUTES Geremias Solo, DO [address] [place] [address] Referral ID Status Reason Start Date Expiration Date Visits Requested Visits Authorized [id number] Authorized PCP Requested Referral 03/04/2023 03/03/2024 1 1 Summary Purpose Family History No Family History Records Found Advance Directives No Advanced Directives Records Found Additional Source Comments Source Comments (unrecognize d section and content) In the event this informatio n is protected by the Federal Confidentiality of Alcohol and Drug Abuse Patient Records regulations: The Federal rules restrict any use of the information to criminally investigate or prosecute any alcohol or drug abuse patient.[facility] the event this information is protected by the Federal Confidentiality of Alcohol and Drug Abuse Patient Records regulations: The Federal rules restrict any use of the information to criminally investigate or prosecute any alcohol or drug abuse patient.[facility] the event this information is protected by the Federal Confidentiality of Alcohol and Drug Abuse Patient Records regulations: The Federal rules restrict any use of the information to criminally investigate or prosecute any alcohol or drug abuse patient.[facility] the event this information is protected by the Federal Confidentiality of Alcohol and Drug Abuse Patient Records regulations: The Federal rules restrict any use of the information to criminally investigate or prosecute any alcohol or drug abuse patient.[facility] the event this information is protected by the Federal Confidentiality of Alcohol and Drug Abuse Patient Records regulations: The Federal rules restrict any use of the information to criminally investigate or prosecute any alcohol or drug abuse patient.[facility] the event this information is protected by the Federal Confidentiality of Alcohol and Drug Abuse Patient Records regulations: The Federal rules restrict any use of the information to criminally investigate or prosecute any alcohol or drug abuse patient.[facility] the event this information is protected by the Federal Confidentiality of Alcohol and Drug Abuse Patient Records regulations: The Federal rules restrict any use of the information to criminally investigate or prosecute any alcohol or drug abuse patient.[facility] the event this information is protected by the Federal Confidentiality of Alcohol and Drug Abuse Patient Records regulations: The Federal rules restrict any use of the information to criminally investigate or prosecute any alcohol or drug abuse patient.[facility] the event this information is protected by the Federal Confidentiality of Alcohol and Drug Abuse Patient Records regulations: The Federal rules restrict any use of the information to criminally investigate or prosecute any alcohol or drug abuse patient.[facility] the event this information is protected by the Federal Confidentiality of Alcohol and Drug Abuse Patient Records regulations: The Federal rules restrict any use of the information to criminally investigate or prosecute any alcohol or drug abuse patient.[facility] Reason for Visit (unrecogniz ed section and content) Reason Comments New Patient Reason Comments Yearly Exam Reason Comments Covid Positive requesting paxlovid, 3 days symptoms Reason Comments Hospital Follow Up Reason Onset Date Comments 6 Month Exam Immunizations 08/30/2023 Flu vaccination Reason Comments Results, Lab Care Teams (unrecognized sec tion and content) [employer] S[employer]er Relationship Specialty Start Date End Date Geremias Solo DO [address] [facility] [place] [address] PCP - General Family Practice 11/17/15 [employer] S[employer]er Relationship Specialty Start Date End Date Geremias Solo DO [address] [facility] [place] [address] PCP - General Family Medicine 11/17/15 [employer] Slicer Relationship Specialty Start Date End Date Geremias Solo DO [address] [facility] [place] [address] PCP - General Family Medicine 11/17/15 [employer] And Slicer Relationship Specialty Start Date End Date Geremias Solo DO [address] [facility] [place] [address] PCP - General Family Medicine 11/17/15 [employer] Slicer Relationship Specialty Start Date End Date Geremais Solo DO [address] [facility] [place] [address] PCP - General Family Medicine 11/17/15 [employer]er And Slicer Relationship Specialty Start Date End Date Geremias Solo DO [address] [facility] [place] [address] PCP - General Family Medicine 11/17/15 [employer] And Slicer Relationship Specialty Start Date End Date Geremias Solo, DO [address] [place] [address] PCP - General [facility] 11/17/15 Meat [employer]er And Slicer Relationship Specialty Start Date End Date Geremias Solo, DO [address] [facility] [place] [address] PCP - General [facility] 11/17/15 [employer] Slicer Relationship Specialty Start Date End Date Geremias Solo, DO [address] [place] [place] [address] PCP - [facility] 11/17/15 (unrecognized sect ion and content) No Status Records Found INFORMATION SOURCE (unrecogn ized section and content) FOR RECORDS PERTAINING TO PATIENTS WHO ARE OR HAVE BEEN ENROLLED IN A CHEMICAL DEPENDENCY/SUBSTANCEABUSE PROGRAM, SOME INFORMATION MAY BE OMITTED. This clinical summary was aggregated from multiple sources. Caution should be exercised in using it in the provision of clinical care. This summary normalizes information from multiple sources, and as a consequence, information in this document may materially change the coding, format and clinical context of patient data. In addition, data may be omitted in some cases. CLINICAL DECISIONS SHOULD BE BASED ON THE PRIMARY CLINICAL RECORDS. [facility] [employer] [facility]. provides no warranty or guarantee of the accuracy or completeness of information in this document.
== END | disposition home or self-care (01) ==
LOC: SL 10:21
PROVIDERS: PCP Student in an Organized Health Care Education/Training Program; Visit Provider Nurse Practitioner Acute Care
DX: Z46.89 Encounter for fitting and adjustment of other specified devices (principal)

== ENCOUNTER → 2024-04-05 | Outpatient (CLI) | payer MEDICARE, SELFPAY ==
--- NOTE | 2024-04-05 12:54 | CDU_ITS ---
Reason For Study: Dizzy Rt. Velocities/BP Lt. Velocities/BP Prox CCA 40.9/10.7 cm/sec. Prox CCA 52.6/10.7 cm/sec. Mid CCA 33.4/10.7 cm/sec. Mid CCA 51.7/16 cm/sec. Dist CCA 28.7/8.8 cm/sec. Dist CCA 34.4/7.3 cm/sec. Prox ICA 34.4/9.5 cm/sec. Prox ICA 45.6/10.7 cm/sec. Mid ICA 45/14.4 cm/sec. Mid ICA 37.8/13.3 cm/sec. Dist ICA 65.7/26.4 cm/sec. Dist ICA 62.2/22.1 cm/sec. Rt. ICA/CCA = 1.97. Lt. ICA/CCA = 1.20. Prox ECA 45/5.9 cm/sec. Prox ECA 34.4/6.6 cm/sec. Rt. Vert. 59.6/12.5 cm/sec. Lt. Vert. 30.8/9.9 cm/sec. Right Extracranial There is intimal thickening but no significant atherosclerotic plaque noted in the right common carotid artery. There is heterogeneous, irregular atherosclerotic plaque noted in the right internal carotid artery. There is heterogeneous, irregular atherosclerotic plaque noted in the right external carotid artery. Antegrade flow is noted in the right vertebral artery. Left Extracranial There is intimal thickening but no significant atherosclerotic plaque noted in the left common carotid artery. There is heterogeneous, irregular atherosclerotic plaque noted in the left internal carotid artery. There is heterogeneous, irregular atherosclerotic plaque noted in the left external carotid artery. Antegrade flow is noted in the left vertebral artery. Procedure Carotid Duplex [id number]. This is a Carotid Duplex examination using B-mode, color flow and specral Doppler. Exam performed in department. VL/Carotid Duplex Ultrasound Interpretation Summary Mild (<50%) stenosis right extracranial internal carotid. Mild (<50%) stenosis left extracranial internal carotid. Patent and antegrade vertebrals bilaterally. Ordering Physician: Mal Wilkes Referring Physician: Geremias Norwood Performed By: Vianney Pinon RVT
--- NOTE | 2024-04-05 13:36 | ECHOD_ITS ---
Reason For Study: Dyspnea/SOB Procedure This was a 2D Doppler, Color Flow transthoracic echocardiogram. Exam performed in department. Left Ventricle Normal LV size. The estimated ejection fraction is 40 %. There is evidence of diastolic dysfunction. Apical and septal hypokinesis. Right Ventricle Normal RV size. Normal systolic function. Atria There is moderate biatrial dilatation. No doppler evidence for ASD. Mitral Valve There is no mitral valve stenosis. Trivial mitral valve insufficiency. Tricuspid Valve There is no tricuspid stenosis. Unable to estimate RV systolic pressure due to inadequate jet, pulmonary artery pressure probably normal. Aortic Valve Trisinus/trileaflet aortic valve. There is no aortic stenosis. Trivial aortic valve insufficiency. Pulmonic Valve There is no pulmonic valvular stenosis. Trivial pulmonic valve insufficiency. Great Vessels Normal aortic root. Pericardium/Pleural No pericardial effusion. MMode/2D Measurements & Calculations LVIDd: 5.3 cm IVSd: 1.7 cm Ao root diam: 4.0 cm LVIDs: 4.5 cm LVPWd: 1.1 cm LA dimension: 4.5 cm RVDd: 4.1 cm FS: 15.1 % LAV(MOD-bp): 70.9 ml LVAd ap4: 26.5 cm2 SV(MOD-sp4): 32.4 ml LAV(MOD-bp) Indexed: 38.9 ml/m2 LVLd ap4: 7.1 cm LAV(MOD-sp2): 68.1 ml EDV(MOD-sp4): 81.5 ml LAV(MOD-sp4): 73.3 ml EDV(sp4-el): 83.6 ml LVAs ap4: 20.3 cm2 LVLs ap4: 7.1 cm ESV(MOD-sp4): 49.1 ml ESV(sp4-el): 49.2 ml EF(MOD-sp4): 39.7 % EF(sp4-el): 41.2 % SV(sp4-el): 34.4 ml LA A4 area: 24.4 cm2 RA A4 area: 26.4 cm2 TAPSE: 1.6 cm Doppler Measurements & Calculations MV E max jose: 76.6 cm/sec MV V2 max: 71.2 cm/sec Ao V2 max: 84.9 cm/sec MV max P.0 mmHg Ao max P.9 mmHg MV V2 mean: 35.2 cm/sec Ao V2 mean: 59.1 cm/sec MV mean P.64 mmHg Ao mean P.6 mmHg MV V2 VTI: 19.7 cm Ao V2 VTI: 12.8 cm AV (velocity ratio): 0.82 LV V1 max: 61.6 cm/sec MR max jose: 531.2 cm/sec PA V2 max: 71.6 cm/sec LV V1 max P.5 mmHg MR max P.9 mmHg LV V1 mean P.79 mmHg MR mean jose: 373.1 cm/sec LV V1 mean: 40.7 cm/sec MR mean P.0 mmHg LV V1 VTI: 10.5 cm MR VTI: 158.9 cm TR max jose: 203.4 cm/sec TR max P.6 mmHg ECHO/Echo Complete Interpretation Summary The estimated ejection fraction is 40 %. There is evidence of diastolic dysfunction. Apical and septal hypokinesis There is moderate biatrial dilatation. Trivial mitral valve insufficiency. Trivial aortic valve insufficiency. Ordering Physician: Mal Wilkes Referring Physician: Mal Wilkes Performed By: Reese Jacobson RCS
== END | disposition home or self-care (01) ==
PROVIDERS: PCP Student in an Organized Health Care Education/Training Program; Referring Provider Internal Medicine Cardiovascular Disease; Visit Provider Internal Medicine Cardiovascular Disease
DX: R06.09 Other forms of dyspnea (principal); R42 Dizziness and giddiness
CPT/HCPCS: 93306; 93880

== ENCOUNTER → 2024-04-25 | Outpatient (CLI) | payer MEDICARE, SELFPAY ==
[2024-04-25 13:18] LABS: Anion Gap 6 (5-15); BUN 30 mg/dL (7-18); BUN/Creat Ratio 19.4 RATIO (10-20); Calcium,Total 9.3 mg/dL (8.5-10.1); Chloride 105 mmol/L (98-107); Creatinine, Serum 1.55 mg/dL (0.70-1.30); EST Glomerular Filtration Rate 45 mL/min (>60); Est Glom Filt Rate - Afr Amer 55 mL/min (>60); Glucose 116 mg/dL (74-106); Potassium 4.3 mmol/L (3.5-5.1); Sodium Level 136 mmol/L (136-145)
== END | disposition home or self-care (01) ==
LOC: LAB 11:59
PROVIDERS: PCP Student in an Organized Health Care Education/Training Program; Visit Provider Internal Medicine Cardiovascular Disease
DX: I25.5 Ischemic cardiomyopathy (principal)
CPT/HCPCS: 36415; 80048

== ENCOUNTER 2024-05-03 01:32 | Inpatient (IN) | payer MEDICARE, SELFPAY ==
[2024-05-03 00:50] VITALS: BMI 23.4
[2024-05-03 01:00] VITALS: BP 155/103; PULSE 102; RESP 18; TEMP 35.9; O2SAT 96
--- NOTE | 2024-05-03 01:28 | EKG12_ITS ---
Test Reason : CP ADMIT Blood Pressure : / mmHG Vent. Rate : 094 BPM Atrial Rate : 000 BPM P-R Int : 000 ms QRS Dur : 112 ms QT Int : 368 ms P-R-T Axes : 000 -51 107 degrees QTc Int : 460 ms Atrial fibrillation with premature ventricular or aberrantly conducted complexes Left axis deviation Incomplete left bundle branch block Minimal voltage criteria for LVH, may be normal variant ( [place] product ) T wave abnormality, consider lateral ischemia Abnormal ECG When compared with ECG of 22-FEB-2023 05:50, Atrial fibrillation has replaced Sinus rhythm Incomplete left bundle branch block is now Present Confirmed by LISET RODAS, DAYAN ([id number]), news copy editor LIYAH MERRILL ([id number]) on 05/03/2024 1:35:30 PM Referred By: WALTERS Confirmed By:DAYAN HUTCHINS MD
--- NOTE | 2024-05-03 01:38 | HP.PCM.HOS_ITS ---
[facility] - General General Date of Admission: 05/03/24 Date of Service: 05/03/24 Chief Complaint: Transient confusion and significantly elevated troponin. HPI Narrative WIL FISH, is a 88 M with a past medical history of essential hypertension, hyperlipidemia, history of coronary artery disease; with LH (02/22/2023) noted to have ~60% LAD lesion and an ~90% ostial D2 lesion with mild OM-1 luminal irregularities and ~40% proximal RCA lesion followed by Dr. Wilkes of [facility], paroxysmal atrial fibrillation; on Xarelto, history of cardioversion (11/2022), history of NSVT (2021), history of hypertrophic cardiomyopathy, history of syncope, obstructive sleep apnea, history of vertigo, CKD; stage III, BPH, osteoarthritis and he is currently undergoing workup for suspected multiple myeloma who was transferred from [facility] directly to [facility] after patient was noted to have transient altered mental status with significantly elevated troponin. Mr. Fish reports that his symptoms began in the afternoon while he was playing golf on the 16th hole as he began to feel very fatigued and he began to experience mental fog in the 90 degree heat when his symptoms acutely worsened on the 17th hole where he did not know where he was and his friends that were golfing with him activated EMS. He was then brought to [facility] for further evaluation and treatment with elevated initial troponin of approximately 620 pg/mL followed by a second troponin of 491 pg/mL consistent with suspected non-ST elevation AL due to overexertion and possible heatstroke with associated transient confusion due to suspected metabolic encephalopathy with patient's family requesting transfer for consideration regarding Left heart catheterization and follow-up consultation with his marketing and public relations manager, Dr. Wilkes. There was no report of chest pain, chest pressure, diaphoresis, nausea, vomiting, diarrhea or constipation. He denies similar previous episodes. In review of his records from [facility] show that he had a negative CT scan of the head and an EKG that showed atrial fibrillation with nonspecific interventricular conduction delay with LAD and LVH with secondary repolarization abnormality with anterior Q waves attributed to LVH. He was noted to have an elevated INR 3.2 attributed to Xarelto with no leukocytosis, significant anemia, negative urinalysis and no other acute pathologic issues identified. He was then admitted to the PCU for ongoing care for stay that is expected to be greater than 2 midnights. [facility] Medical History NSVT (nonsustained ventricular tachycardia) Acute non-ST elevation myocardial infarction (NSTEMI) Atrial fibrillation with rapid ventricular response Paroxysmal atrial fibrillation Atherosclerotic heart disease of [place] coronary artery without angina pectoris Atrial fibrillation CKD (chronic kidney disease) stage 3, GFR 30-59 ml/min Hypertrophic cardiomyopathy NSTEMI (non-ST elevated myocardial infarction) Home Medications ?Medication ?Instructions ?Recorded ?Last Taken ?Type saw palmetto 450 mg capsule 450 mg PO DAILY prostate health 09/10/16 05/02/24 10:00 History magnesium 250 mg tablet 500 mg PO DAILY mineral 07/13/18 05/02/24 10:00 History cholecalciferol (vitamin D3) 125 5,000 unit PO DAILY vitamin 10/18/19 05/02/24 10:00 History mcg (5,000 unit) capsule calcium carbonate (Calcium 600) 600 mg PO DAILY supplement 03/31/22 05/02/24 10:00 History vitamins A,C,D-tocq-dxttnc 4,296 1 cap PO DAILY supplement 03/31/22 05/02/24 10:00 History mcg-226 mg-90 mg capsule (PreserVision AREDS) rivaroxaban 15 mg tablet 15 mg PO DAILY blood thinner #90 12/16/23 05/02/24 10:00 Rx tabs pravastatin 80 mg tablet 80 mg PO QHS #90 tabs 03/09/24 04/30/24 20:00 Rx metoprolol tartrate 25 mg tablet 25 mg PO BID #180 tabs 03/20/24 05/02/24 10:00 Rx losartan 50 mg tablet 50 mg PO BID #60 tabs 04/13/24 05/02/24 10:00 Rx Allergy/AdvReac Type Severity Reaction Status Date / Time atorvastatin Allergy confused Verified 03/20/24 11:01 lisinopril Allergy cough Verified 03/20/24 11:01 amiodarone AdvReac Intermediate lightheaded Verified 03/20/24 11:01 ness Family History Father Myocardial infarction Brother Myocardial infarction Surgical History History of left heart catheterization (LHC) (~02/22/23) History of cardioversion (11/30/22) Social History Smoking Status: Never smoker second hand exposure: No alcohol intake: never substance use type: does not use caffeine: Yes Type: tea what type of physical activity do you participate in: walking ROS ROS Narrative Review of systems: General: Patient denies fever or chills. HENT: Denies headache, denies stuffy nose, denies sore throat EYES: Denies changes in vision or discharge from eyes. Resp: Denies cough, denies shortness of breath Cardiac: Denies chest pain, palpitations or heart racing. GI: Denies abdominal pain, denies changes in bowel, denies nausea or vomiting. : Denies changes in urination Extremity: Denies swelling Musculoskeletal: Feels somewhat generally weak and unwell Neuro: Patient admits to severe transient confusion not knowing where he was on [place] but he denies paresthesias or focal motor neurologic deficits. Heme: Denies any bleeding or bruising Skin: Denies rashes Psychiatric: No complaints voiced related to uncontrolled depression or anxiety. Endocrine: No polyuria, polydipsia or polyphagia. The rest of the 14 point ROS was negative except for positives in HPI. Vital Signs Vital Signs Vital Signs: Weight Weight: 145 lb 4.554 oz Body Mass Index (BMI) 23.4 Physical Exam Const alert, oriented x3, no apparent distress, average body habitus and healthy appearing General Appearance: cooperative HEENT normocephalic, head/scalp atraumatic, hearing grossly normal bilaterally and moist oral mucous membranes Eyes PERRL and EOMs intact bilaterally Neck no lymphadenopathy and supple Resp normal respiratory effort, no retractions, no use of accessory muscles and clear to auscultation bilaterally Cardio Cardio Narrative: Irregularly irregular at ~80 bpm. GI normal to inspection, nondistended, normoactive bowel sounds, soft to palpation, non-tender and non-distended Extremity normal to inspection, full ROM and no clubbing, cyanosis or edema Skin Skin Narrative: Patient has no evidence of jaundice, abscess or rash. Neuro oriented x3, CN's II-XII intact bilaterally, moves all extremities and no focal motor deficits Sensorium / Orientation: awake, alert, oriented to person, oriented to place and oriented to time Speech: speech normal Psych affect normal Results Medical Records Data Attestation: I reviewed the patient's medical records Lab / Micro Data Attestation: I reviewed the patient's lab results. 05/03/24 03:13 05/03/24 03:13 Assessment & Plan Assessment/Plan (1) NSTEMI, initial episode of care: (2) Metabolic encephalopathy: (3) Transient confusion: (4) Ischemic cardiomyopathy: (5) Paroxysmal atrial fibrillation: (6) Hypertrophic cardiomyopathy: (7) NSVT (nonsustained ventricular tachycardia): (8) CKD (chronic kidney disease) stage 3, GFR 30-59 ml/min: QUALIFIERS: Chronic kidney disease stage 3 subtype: unspecified whether 3a or 3b Qualified Code(s): N18.30 - Chronic kidney disease, stage 3 unspecified (9) History of left heart catheterization (LHC): PLAN: Plan 1. Non-ST elevation AL; evidenced by initial troponin of 620 pg/mL followed by a second troponin of 491 pg/mL in the setting of a known history of coronary artery disease; with LHC (02/22/2023) noted to have ~60% LAD lesion and an ~90% ostial D2 lesion with mild OM-1 luminal irregularities and ~40% proximal RCA lesion followed by Dr. Wilkes of [facility] - Admit to PCU and treat under non-STEMI protocol. Give aspirin, Plavix and continue statin plus start full-dose Lovenox. Hold Xarelto until further notice. Check echocardiogram to evaluate LVEF. Finally, we will consult [facility] to see this patient on rounds in the a.m. for further recommendations regarding Left heart cath this admission without appreciated in advance. 2. Overexertion and possible heatstroke with associated transient confusion due to metabolic encephalopathy likely triggering #1 - Continue supportive care and monitor for improvement. Check TSH. 3. History of hypertrophic cardiomyopathy - Noted with a repeat echocardiogram pending this admission for #1. 4. Essential hypertension - Continue home regimen as previous. 5. Hyperlipidemia - Resume statin and check lipid profile in light of #1. 6. Paroxysmal atrial fibrillation; on Xarelto - Noted with Xarelto held for #1. Continue metoprolol for rate control. 7. History of cardioversion (11/2022) - Noted. 8. History of NSVT (2021) - Noted. 9. History of syncope - Stable. 10. Obstructive sleep apnea - Continue nocturnal CPAP. 11. History of vertigo - Patient has no complaints of vertigo at this time. If they should develop we will give Antivert as needed. 12. CKD; stage III - Stable with patient's BUN and creatinine both in normal range at [facility] with a serum creatinine of 1.4 mg/dL and a BUN of 24 mg/dL. 13. BPH - Restart saw leda as outpatient. 14. Patient undergoing workup for possible multiple myeloma - Noted. 15. DVT prophylaxis - Patient will be started on full-dose Lovenox for #1. Total time: Approximately 75 minutes.
[2024-05-03] MEDS: Pravastatin 80 MG Tablet PO (03:18)
[2024-05-03] MEDS: Enoxaparin 80 MG/0.8 ML Syringe SC (03:18)
[2024-05-03 03:38] LABS: Hematocrit 39.1 % (40-54); Hemoglobin 12.9 g/dL (13.0-16.5); Mean Corpuscular Hgb 31.5 pg (27.0-32.0); Mean Corpuscular Volume 95.6 fL (80-94); Mean Platelet Vol. 10.2 fl (6.2-12.0); Platelet Count 180 K/mm3 (150-450); RBC Distribution Width CV 13.7 % (11.6-14.6); RBC Distribution Width SD 48.5 fl (35.1-43.9); Red Blood Count 4.09 M/mm3 (4.6-6.2); White Blood Count 6.9 K/mm3 (4.4-11.0)
[2024-05-03 04:08] LABS: D-Dimer Quantitative (DVT/PE) 0.76 FEU/ug/m (0.27-0.49)
[2024-05-03 04:16] LABS: AST(SGOT) 27 U/L (15-37); Alanine Aminotransfer ALT/SGPT 30 U/L (16-61); Albumin, Serum 3.6 g/dL (3.2-5.0); Alkaline Phosphatase 72 U/L (45-117); Anion Gap 7 (5-15); BUN 26 mg/dL (7-18); BUN/Creat Ratio 18.4 RATIO (10-20); Calcium,Total 9.1 mg/dL (8.5-10.1); Chloride 109 mmol/L (98-107); Cholesterol 107 mg/dL (200); Creatinine, Serum 1.41 mg/dL (0.70-1.30); EST Glomerular Filtration Rate 51 mL/min (>60); Est Glom Filt Rate - Afr Amer 61 mL/min (>60); Estimated Creatinine Clearance 33.94 ml/min; Globulin 3.6 g/dL (2.2-4.2); Glucose 130 mg/dL (74-106); High Density Lipoprotein 42 mg/dL; Magnesium 2.4 mg/dL (1.6-2.6); Phosphorus 3.2 mg/dL (2.5-4.9); Protein, Total 7.2 g/dL (6.4-8.2); Sodium Level 141 mmol/L (136-145); Thyroid Stim Hormone (TSH) 2.61 uIU/mL (0.358-3.74); Triglycerides 64 mg/dL; Troponin-I HS 536 pg/mL (3.0-78.0); Very Low Density Lipoprotein 13 mg/dL (5-40)
--- NOTE | 2024-05-03 04:30 | EKG12_ITS ---
Test Reason : AM EKG Blood Pressure : / mmHG Vent. Rate : 104 BPM Atrial Rate : 000 BPM P-R Int : 000 ms QRS Dur : 114 ms QT Int : 306 ms P-R-T Axes : 000 -48 108 degrees QTc Int : 402 ms Atrial fibrillation with rapid ventricular response with premature ventricular or aberrantly conducte d complexes Left axis deviation Incomplete left bundle branch block Minimal voltage criteria for LVH, may be normal variant ( Skip product ) Nonspecific ST and T wave abnormality Abnormal ECG When compared with ECG of 03-MAY-2024 01:44, MANUAL COMPARISON REQUIRED, DATA IS UNCONFIRMED Confirmed by LISET RODAS, DAYAN ([id number]), index editor LIYAH MERRILL ([id number]) on 05/03/2024 1:16:58 PM Referred By: WALTERS Confirmed By:DAYAN HUTCHINS MD
[2024-05-03 04:56] VITALS: BP 140/88; PULSE 88; RESP 18; TEMP 36; O2SAT 95
[2024-05-03 07:10] VITALS: O2SAT 93
--- NOTE | 2024-05-03 07:26 | PCM.CONS.C ---
Assessment & Plan Assessment/Plan (1) Atrial fibrillation: QUALIFIERS: Atrial fibrillation type: paroxysmal Qualified Code(s): I48.0 - Paroxysmal atrial fibrillation PLAN: The patient does have persistent atrial fibrillation. The plan is to continue the current medical therapy including his anticoagulation and his rate limiting medication. I suspect that his ventricular response rate was elevated which caused some demand ischemia. (2) NSTEMI (non-ST elevated myocardial infarction): PLAN: Patient presented with mild confusion as well as elevated cardiac enzymes which were checked. I suspect this was demand ischemia and I will recommend a myocardial perfusion stress test and depending on the results further recommendations will be made. Addendum: Stress test demonstrates no ischemia. (3) History of left heart catheterization (LHC): PLAN: The patient underwent cardiac catheterization approximately a year ago. It appears that medical therapy was recommended. The plan will be to reevaluate this with stress testing if its normal will discharge the patient for outpatient follow-up. HPI Consult Data Date of Consult: 05/03/24 HPI Narrative HPI Narrative: WIL FISH, is a 88 M who presents with fatigue and experiencing mental fog while playing golf in the 90 degree heat. He claims that on the 17 he did not quite know where he was and his friends were with him activated EMS. He was taken to [facility] for treatment he was noted to have an initial elevated troponin followed by a second troponin which was lower. They made a possible diagnosis of heatstroke, overexertion and non-ST elevation myocardial infarction. He does have a past medical history of hypertension, hyperlipidemia, coronary disease status post left heart catheterization a year ago demonstrating a 60% LAD lesion, 90% second diagonal lesion with mild luminal irregularities, a 40% right coronary artery lesion. He also has a history of hypertrophy, and sleep apnea as well as chronic kidney disease. He denied any chest pain per se nausea vomiting or diaphoresis. He underwent a CT of his head which did not demonstrate any significant abnormalities and his troponin was also followed he was transferred here for further evaluation and management. This morning he is doing quite well. [facility] Medical History NSVT (nonsustained ventricular tachycardia) Acute non-ST elevation myocardial infarction (NSTEMI) Atrial fibrillation with rapid ventricular response Paroxysmal atrial fibrillation Atherosclerotic heart disease of [place] coronary artery without angina pectoris Atrial fibrillation CKD (chronic kidney disease) stage 3, GFR 30-59 ml/min Hypertrophic cardiomyopathy NSTEMI (non-ST elevated myocardial infarction) Home Medications ?Medication ?Instructions ?Recorded ?Last Taken ?Type saw palmetto 450 mg capsule 450 mg PO DAILY prostate health 09/10/16 05/02/24 10:00 History magnesium 250 mg tablet 500 mg PO DAILY mineral 07/13/18 05/02/24 10:00 History cholecalciferol (vitamin D3) 125 5,000 unit PO DAILY vitamin 10/18/19 05/02/24 10:00 History mcg (5,000 unit) capsule calcium carbonate (Calcium 600) 600 mg PO DAILY supplement 03/31/22 05/02/24 10:00 History vitamins A,C,Q-kebc-miwppk 4,296 1 cap PO DAILY supplement 03/31/22 05/02/24 10:00 History mcg-226 mg-90 mg capsule (PreserVision AREDS) rivaroxaban 15 mg tablet 15 mg PO DAILY blood thinner #90 12/16/23 05/02/24 10:00 Rx tabs pravastatin 80 mg tablet 80 mg PO QHS #90 tabs 03/09/24 04/30/24 20:00 Rx metoprolol tartrate 25 mg tablet 25 mg PO BID #180 tabs 03/20/24 05/02/24 10:00 Rx losartan 50 mg tablet 50 mg PO BID #60 tabs 04/13/24 05/02/24 10:00 Rx Allergy/AdvReac Type Severity Reaction Status Date / Time atorvastatin Allergy confused Verified 03/20/24 11:01 lisinopril Allergy cough Verified 03/20/24 11:01 amiodarone AdvReac Intermediate lightheaded Verified 03/20/24 11:01 ness Family History Father Myocardial infarction Brother Myocardial infarction Surgical History History of left heart catheterization (LHC) (~02/22/23) History of cardioversion (11/30/22) Social History Smoking Status: Never smoker second hand exposure: No alcohol intake: never substance use type: does not use caffeine: Yes Type: tea what type of physical activity do you participate in: walking ROS Constitutional Constitutional: Denies fever(s) or weight loss Eyes Eyes: Reports systems reviewed and no addt'l complaints, except as documented ENT HEENT: Reports systems reviewed and no addt'l complaints, except as documented Cardiovascular Cardiovascular: Denies chest pain at rest, chest pain with activity, dyspnea at rest, dyspnea on exertion, edema, palpitations or paroxysmal nocturnal dyspnea Respiratory/Chest Respiratory/Chest: Denies dyspnea on exertion, productive cough, shortness of breath at rest or shortness of breath with exertion Gastrointestinal Gastrointestinal: Denies change in bowel habits, nausea, vomiting or weight changes Genitourinary Genitourinary: Denies difficulty urinating Musculoskeletal Musculoskeletal: Denies joint stiffness or muscle weakness Integumentary Integumentary: Denies lesions Neurologic Neurologic: Denies dizziness or syncope Psychiatric Psychiatric: Denies anxiety Endocrine Endocrinology: Denies excessive sweating or fatigue Hematologic/Lymphatic Hematologic/Lymphatic: Denies anemia Allergic/Immunologic Allergic/Immunologic: Denies seasonal rhinorrhea Physical Exam Const alert, oriented x3 and no apparent distress General Appearance: cooperative HEENT hearing grossly normal bilaterally Head and Scalp: atraumatic Eyes EOMs intact bilaterally Neck General: normal visual inspection Chest inspection of chest normal and palpation of chest normal Resp normal respiratory effort Auscultation: clear to auscultation bilaterally Cardio S1 normal heart sound and S2 normal heart sound Jugular Venous Distention: JVD Rhythm: abnormal rhythm irregularly irregular GI normal to inspection, nondistended, normoactive bowel sounds Extremity normal capillary refill and no pedal edema Peripheral Pulses: Yes pulses 2+ throughout and femoral pulses present Skin no rashes or lesions noted Neuro oriented x3 and CN's II-XII intact bilaterally Psych Appearance: grossly normal and appropriate Risk Stratification Risk Stratification Applicable: Yes Age >/= 65: Yes >/= 3 CAD Risk Factors (HTN, HLD, DM, family hx of CAD, or current smoker): Yes Aspirin Use in the Past 7 Days: Yes Severe Angina (>/= episodes in 24 hours): No EKG ST Changes >/= 0.5mm: No Positive Cardiac Marker: Yes ZAK Risk Stratification Score: 4 ZAK % Risk: 20% Risk Objective Data Vital Signs: Vital Signs Temp Pulse Resp BP Pulse Ox O2 Del Method 96.8 F L 88 18 140/88 H 95 Room Air 05/03/24 04:56 05/03/24 04:56 05/03/24 04:56 05/03/24 04:56 05/03/24 04:56 05/03/24 04:56 Oxygen Delivery Method Room Air Weight: 145 lb 4.554 oz Body Mass Index (BMI) 23.4 Intake & Output: Intake and Output for Last 24 Hours 05/01/24 05/02/24 05/03/24 23:59 23:59 23:59 Intake Total 0 / 0 Output Total 350 / 350 Balance -350 / -350 Lab / Micro Data 05/03/24 03:13 05/03/24 03:13 Labs: Laboratory Results - last 24 hr 05/03/24 03:13: WBC 6.9, RBC 4.09 L, Hgb 12.9 L, Hct 39.1 L, MCV 95.6 H, MCH 31.5, MCHC 33.0, RDW Std Deviation 48.5 H, RDW Coeff of Samra 13.7, Plt Count 180, MPV 10.2, D-Dimer Quant (PE/DVT) 0.76 H*, Sodium 141, Potassium 4.0, Chloride 109 H, Carbon Dioxide 25.0, Anion Gap 7, BUN 26 H, Creatinine 1.41 H, Estim Creat Clear Calc 33.94, Est GFR (MDRD) Af Amer 61, Est GFR (MDRD) Non-Af 51 L, BUN/Creatinine Ratio 18.4, Glucose 130 H, Calcium 9.1, Phosphorus 3.2, Magnesium 2.4, Total Bilirubin 1.30 H, AST 27, ALT 30, Alkaline Phosphatase 72, Troponin I High Sens 536 H*, Total Protein 7.2, Albumin 3.6, Globulin 3.6, Albumin/Globulin Ratio 1.0, Triglycerides 64, Cholesterol 107, LDL Cholesterol 52, VLDL Cholesterol 13, HDL Cholesterol 42, TSH 2.61 Cardiology Labs/Tests 05/03/24 03:13: WBC 6.9, RBC 4.09 L, Hgb 12.9 L, Hct 39.1 L, MCV 95.6 H, MCH 31.5, MCHC 33.0, Plt Count 180, MPV 10.2, D-Dimer Quant (PE/DVT) 0.76 H*, Sodium 141, Potassium 4.0, Chloride 109 H, Carbon Dioxide 25.0, Anion Gap 7, BUN 26 H, Creatinine 1.41 H, Est GFR (MDRD) Af Amer 61, Est GFR (MDRD) Non-Af 51 L, BUN/Creatinine Ratio 18.4, Glucose 130 H, Calcium 9.1, Phosphorus 3.2, Magnesium 2.4, Total Bilirubin 1.30 H, Triglycerides 64, Cholesterol 107, LDL Cholesterol 52, VLDL Cholesterol 13, HDL Cholesterol 42 Rhythm: EKG: Atrial fibrillation ECHO: Stress Test: Cardiac Cath: PCI: CT Surgery: Holter monitor: EPS: PPM: CXR: Chest CT Scan:
[2024-05-03 07:45] LABS: Troponin-I HS 519 pg/mL (3.0-78.0)
--- NOTE | 2024-05-03 10:15 | RAD_ITS ---
INDICATION: NSTEMI EXAMINATION/TECHNIQUE: X-RAY - XR Chest 2 Views COMPARISON: 10/27/2022 FINDINGS: LINES/DEVICES: None. LUNGS: No consolidation. Small right pleural effusion versus pleural thickening. No pneumothorax. MEDIASTINUM: Aorta is atherosclerotic. CARDIAC SILHOUETTE: Not enlarged. BONES AND SOFT TISSUES: No acute abnormalities. RAD/Chest PA and Lateral IMPRESSION: Small right pleural effusion versus pleural thickening. No infiltrates. Electronically Signed: Fabi Rangel MD at 7:55 EDT ,
[2024-05-03 10:42] VITALS: BP 157/100; PULSE 93; RESP 16; TEMP 36.7; O2SAT 93
[2024-05-03] MEDS: Cholecalciferol (Vit D3) 125 MCG CAPSULE (5,000 UNITS) PO (10:50)
[2024-05-03] MEDS: Magnesium Chloride 64 MG Delay Rel.Tablet 128 MG PO (10:50)
[2024-05-03] MEDS: Multivitamin (Healthy Eyes) Capsule 1 CAP PO (10:50)
[2024-05-03] MEDS: Losartan Potassium 50 MG Tablet PO (10:50)
[2024-05-03] MEDS: Aspirin E.C. 81 MG Tablet PO (10:50)
[2024-05-03 10:56] VITALS: BP 157/100; PULSE 93
[2024-05-03] MEDS: Metoprolol Tartrate 50 MG Tablet PO (10:56)
--- NOTE | 2024-05-03 11:55 | CASEMGMT ---
RN CM Face to Face with patient for initial transition planning/care coordination assessment. RN CM introduced self and role at [facility]. Patient lying in bed, alert and oriented, and daughter at bedside. Patient willing to participate in assessment and is able to answer all questions appropriately. Care providers, pharmacy, and demographics verified. PCP: [facility] Specialists: Chung, information resources director; Sailaja Bustillo, van loader; Zhang, oncologist Preferred Pharmacy: [facility] Insurance: [facility] Prescription Benefit: yes Living Will/HPOA: yes, Jaycee Yoo LNOK: , daughters Living Arrangements: Patient lives with in a single story home with 2 steps and railing to enter the home. Patient is independent at home. Transportation: self, , daughters DME/HHC: Patient has shower chair, grab bars, walker, bipap, and pulse ox at home. Patient denies previous HHC or SNF. Patient wishes to discharge home, denies need for home health at this time. Patient states he has no further needs or concerns at this time. CM to follow for discharge planning needs that may arise. Disposition Plan: Patient to discharge home with family support and follow-up plans in place. Vianney DELUCA, RN, CM
--- NOTE | 2024-05-03 12:41 | STRESSREP ---
Stress Test Report Pharmacologic myocardial perfusion stress test. 88-year-old man with a history of elevated troponin Resting EKG demonstrates atrial fibrillation with a rate of 111 bpm. Resting blood pressure is 142/82 mmHg. 0.4 mg of regadenoson was infused per usual protocol followed by rapid intravenous saline flush injection. Continuous EKG monitoring was performed. The maximum heart rate was 141 bpm which was 105% of max impacted heart rate the maximum workload was 1 metabolic equivalent. At rest there were no ST or T wave changes noted to suggest ischemia and at peak infusion nonspecific ST changes were noted which did not meet the criteria for ischemia. No clinical angina is noted. The final blood pressure was 140/82 mmHg. Myocardial perfusion protocol. 12.0 mCi of technetium 99m sestamibi was injected at rest. 0.4 mg of regadenoson was infused per usual protocol. At peak infusion 34.1 mCi of technetium 99m sestamibi was injected stress images were obtained stress and rest images were reconstructed and compared in the short axis vertical long and horizontal long axis. Gated images were also obtained. Perfusion SPECT analysis: Review of the stress images demonstrate normal uptake of tracer noted in all areas of the myocardium except for a portion in the mid anterior and anterior septal wall with reduced perfusion.. The resting images similar demonstrated normal uptake of tracer noted in all areas of the myocardium except for the mid anterior and anterior septal wall with reduced perfusion. No areas of reversibility are noted to suggest ischemia and the above is suggestive of a previous anterior septal infarct Gated SPECT analysis: The gated ejection fraction is 40%. Conclusion: Normal pharmacologic myocardial perfusion stress test. Mildly reduced ejection fraction.
--- NOTE | 2024-05-03 12:56 | PCM.DC ---
Discharge Instructions Diet Discharge Diet: No restrictions Activity Discharge Activity: No Restrictions Additional Activity Instructions:: Speech therapy recommendations-distant supervision with feeding, effortful swallows with liquids, meds whole in applesauce; will need modified barium swallow study done shortly after discharge Follow Up Care Test Results: Test results from this visit will be discussed in further detail at your follow-up appointment, if applicable. Discharge Plan Admission Admit Date/Time: 05/03/24 01:32 Primary Reason for Your Visit: Confusion and dehydration Attending Provider: Saturnino Brafdord Primary Care Provider: Geremias Norwood Consulting Providers: Mal Wilkes; Jose Negro Instructions Additional Instructions / Restrictions: Continue all home medications the same. Speech therapy recommended that you have a modified barium swallow study done in the near future and further therapy with speech therapy in the outpatient setting. Your PCP will order the modified barium swallow study for you. Discharge Orders/Prescriptions Prescriptions: Continued magnesium 250 mg tablet 500 mg PO DAILY cholecalciferol (vitamin D3) 5,000 unit capsule 5,000 unit PO DAILY PreserVision AREDS [id number] capsule 1 cap PO DAILY calcium carbonate [Calcium 600] 600 mg calcium (1,500 mg) tablet 600 mg PO DAILY metoprolol tartrate 25 mg tablet 25 mg PO BID Qty: 180 3RF saw palmetto 450 MG capsule 450 mg PO DAILY Patient Comments: supplement rivaroxaban 15 mg tablet 15 mg PO DAILY Qty: 90 3RF pravastatin 80 mg tablet 80 mg PO QHS Qty: 90 3RF losartan 50 mg tablet 50 mg PO BID Qty: 60 11RF Referrals / Follow Up: Geremias Norwood DO [Primary Care Provider] - Disposition Disposition (needs filled in before D/C Order can be placed): Home, Self Care
--- NOTE | 2024-05-03 12:56 | PCM.DC.SUM ---
Providers Date of Admission: 05/03/24 Date of Discharge: 05/03/24 Primary Care Physician: Dr. Geremias Norwood, Consultations 05/03/24 02:33 Consult: Cardiology Routine Consulting Provider: Mal Wilkes Reason for Consult: NSTEMI EMERGENT Consult: No MD Notified: Yes Date Notified: 05/03/24 Time Notified: 06:18 Method of Notification: Text Method of Consult:: In-Person Comments:: [email or web address] texted- Reason For Visit: NSTEMI & METABOLIC ENCEPHALOPATHY WITH TRANSIENT Diagnosis Discharge Diagnosis (1) Atrial fibrillation: Status: Acute Code(s): I48.91 - Unspecified atrial fibrillation Qualifiers: Atrial fibrillation type: paroxysmal Qualified Code(s): I48.0 - Paroxysmal atrial fibrillation (2) NSTEMI (non-ST elevated myocardial infarction): Status: Chronic Code(s): I21.4 - Non-ST elevation (NSTEMI) myocardial infarction Medications at Discharge Home Medications saw palmetto 450 mg capsule 450 mg PO DAILY prostate health 09/10/16 magnesium 250 mg tablet 500 mg PO DAILY mineral 07/13/18 cholecalciferol (vitamin D3) 125 mcg (5,000 unit) capsule 5,000 unit PO DAILY vitamin 10/18/19 calcium carbonate (Calcium 600) 600 mg PO DAILY supplement 03/31/22 vitamins A,C,G-wffq-nbdive 4,296 mcg-226 mg-90 mg capsule (PreserVision AREDS) 1 cap PO DAILY supplement 03/31/22 rivaroxaban 15 mg tablet 15 mg PO DAILY blood thinner #90 tabs 12/16/23 pravastatin 80 mg tablet 80 mg PO QHS #90 tabs 03/09/24 losartan 50 mg tablet 50 mg PO BID #60 tabs 04/13/24 metoprolol tartrate 50 mg tablet 50 mg PO BID 30 days #60 tabs 05/03/24 Hospital Course Operations None Procedures EKG, Stress test and - (Chest x-ray) Summary of Care Provided Minutes Spent on Discharge: 35 Hospital Course: Patient is an 88-year-old male who initially presented to [facility] ED on 05/02/2024 with worsening confusion and dehydration. 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 Short hospital course as noted below. Patient stable for discharge home with no therapy needs on the afternoon of 05/03. 1. NSTEMI; suspected mild heat exhaustion with dehydration, resolved ? Cardiology followed. Troponin trend 536 > 519 on admit. Known history of nonobstructive CAD and HFrEF as noted below. Stress test on 05/03 negative for inducible ischemia. Per cardiology, strongly suspect demand ischemia secondary to some degree of dehydration on admission. Was noted to have A-fib with RVR on admit, cardiology increased his Lopressor to 50 mg twice daily. Otherwise okay to continue other home medications as normal on discharge. 2. Acute metabolic encephalopathy, resolved ? Reportedly was confused on presentation to outside hospital. Resolved by arrival to [facility]. Presumed secondary to mild heat exhaustion with dehydration as noted above. 3. History of HFrEF with hypertrophic cardiomyopathy ? Recent echo on 04/11/2024 showed EF 40%, diastolic dysfunction, apical and septal hypokinesis; all stable findings from previous echo from 02/2023. Stable, not in acute exacerbation. Continue Lopressor 50 mg twice daily and home losartan on discharge. 4. Persistent A-fib on Xarelto; history of NSVT ? A-fib with RVR noted at outside hospital. Cardiology followed here as noted above. Increased home Lopressor as noted above. Continue Lopressor increased dose and home Xarelto on discharge. 5. History of nonobstructive CAD, hypertension, hyperlipidemia ? Last echo in 02/2023 showed 60% LAD lesion, 90% second diagonal lesion with mild luminal irregularities, 40% RCA lesion; no stents placed, recommendation was for medical management. Continue home statin, losartan and Lopressor on discharge. 6. Mild dysphagia ? Had mild difficulty with swallowing noted here. Speech therapy evaluated; recommended outpatient modified barium swallow study shortly after discharge. Also recommended distant supervision with feeding, effortful swallows with liquids, meds whole in applesauce. Chronic medical conditions: ? KENNEDY: Continue home CPAP. ? CKD stage III: Creatinine 1.4 on admit, at baseline. Stable. ? BPH with obstructive symptoms: Continue home saw leda on discharge. ? Concern for multiple myeloma: Currently undergoing outpatient workup, recommend continued follow-up with PCP. Total clinical time spent by myself addressing the patient's medical issues, reviewing all the data, and collaborating with patient's care team: 35 minutes. Physical Exam Const alert, oriented x3, no apparent distress and average body habitus General Appearance: cooperative and comfortable HEENT normocephalic, head/scalp atraumatic, hearing grossly normal bilaterally, nasal mucous membranes and turbinates normal and moist oral mucous membranes Eyes PERRL, EOMs intact bilaterally and conjunctivae normal Neck full ROM Chest inspection of chest normal Resp normal respiratory effort, normal air movement, no use of accessory muscles and clear to auscultation bilaterally Cardio no murmurs and peripheral pulses 2+ throughout Cardio Narrative: A-fib, rate controlled. GI normal to inspection, nondistended, normoactive bowel sounds, soft to palpation, non-tender and non-distended Back/Spine normal ROM Extremity normal to inspection, full ROM and no pedal edema Skin no rashes or lesions noted Neuro moves all extremities and no focal motor deficits Speech: speech normal Psych mental status grossly normal Weight / BMI Weight Weight: 65.9 kg Body Mass Index (BMI) 23.4 ABG / Lab / Microbiology Data 05/03/24 03:13 05/03/24 03:13 Laboratory: Laboratory Results - last 24 hr 05/03/24 03:13: WBC 6.9, RBC 4.09 L, Hgb 12.9 L, Hct 39.1 L, MCV 95.6 H, MCH 31.5, MCHC 33.0, RDW Std Deviation 48.5 H, RDW Coeff of Samra 13.7, Plt Count 180, MPV 10.2, D-Dimer Quant (PE/DVT) 0.76 H*, Sodium 141, Potassium 4.0, Chloride 109 H, Carbon Dioxide 25.0, Anion Gap 7, BUN 26 H, Creatinine 1.41 H, Estim Creat Clear Calc 33.94, Est GFR (MDRD) Af Amer 61, Est GFR (MDRD) Non-Af 51 L, BUN/Creatinine Ratio 18.4, Glucose 130 H, Calcium 9.1, Phosphorus 3.2, Magnesium 2.4, Total Bilirubin 1.30 H, AST 27, ALT 30, Alkaline Phosphatase 72, Troponin I High Sens 536 H*, Total Protein 7.2, Albumin 3.6, Globulin 3.6, Albumin/Globulin Ratio 1.0, Triglycerides 64, Cholesterol 107, LDL Cholesterol 52, VLDL Cholesterol 13, HDL Cholesterol 42, TSH 2.61 05/03/24 06:09: Troponin I High Sens 519 H* Meaningful Use Info Meaningful Use Meaningful Use Diagnoses (Choose all that apply): None applicable Ischemic Stroke Statin Dosing Therapy Reference: STATIN DOSE THERAPY REFERENCE: * Patients > 75 years receive moderate or high dose statin therapy. * Patients 75 years or YOUNGER should receive HIGH intensity statin dose unless contraindicated. You will be required to document reason for non-treatment if statin daily dose does not meet guidelines. HIGH DOSE STATIN THERAPY DAILY Atorvastatin > than or = to 40 mg Rosuvastatin > than or = to 20 mg Amlodipine + Atorvastatin > than or = to 2.5/40 mg Ezetimibe + Simvastatin 10/80 mg Simvastatin 80mg Discharge Plan Admission Admit Date/Time: 05/03/24 01:32 Primary Reason for Your Visit: Confusion and dehydration Attending Provider: Saturnino Bradford Primary Care Provider: Geremias Norwood Consulting Providers: Mal Wilkes; Jose Negro Instructions Additional Instructions / Restrictions: Please increase the Lopressor to 50 mg twice daily. Speech therapy recommended that you have a modified barium swallow study done in the near future and further therapy with speech therapy in the outpatient setting. Your PCP will order the modified barium swallow study for you. Discharge Orders/Prescriptions Prescriptions: New metoprolol tartrate 50 mg Tablet 50 mg PO BID 30 Days Qty: 60 2RF Continued magnesium 250 mg tablet 500 mg PO DAILY cholecalciferol (vitamin D3) 5,000 unit capsule 5,000 unit PO DAILY PreserVision AREDS [id number] capsule 1 cap PO DAILY calcium carbonate [Calcium 600] 600 mg calcium (1,500 mg) tablet 600 mg PO DAILY saw palmetto 450 MG capsule 450 mg PO DAILY Patient Comments: supplement rivaroxaban 15 mg tablet 15 mg PO DAILY Qty: 90 3RF pravastatin 80 mg tablet 80 mg PO QHS Qty: 90 3RF losartan 50 mg tablet 50 mg PO BID Qty: 60 11RF Discontinued metoprolol tartrate 25 mg tablet 25 mg PO BID Qty: 180 3RF Referrals / Follow Up: Geremias Norwood DO [Primary Care Provider] - Disposition Disposition (needs filled in before D/C Order can be placed): Home, Self Care Charges/Coding Visit Charges Inpatient E&M: 46970 Disch Hosp >30min
[2024-05-03] MEDS: Clopidogrel Bisulfate 75 MG Tablet PO (14:45)
--- NOTE | 2024-05-03 15:40 | CHAPLAIN ---
Type of Pastoral Visit _x__ Initial Visit ___ Follow-up Visit ___ On-call Visit ___ General Patient Visit ___ Spiritual Assessment ___ Family Conference ___ Bereavement ___ Rapid Response ___ Code Blue ___ Other (describe below) Pastoral Care Referral From _x__ Patient ___ Family ___ Nurse ___ Physician ___ Retail Manager In Training ___ Facility Worker ___ Other (describe below) Sacrament/Intervention ___ Active listening ___ Anointing ___ Congregational ___ Bereavement ___ Communion ___ Jennifer exploration ___ ___ Life review ___ Prayer ___ Reconciliation ___ Sacrament of Sick _x__ Supportive presence ___ Wedding ___ Other (describe below) Pastoral Comments patient states why he was here for evaluation and that he is content; pt states that he is waiting for test results and expects to go home; pt says that family members are here and will get him home and handle things for him; pt has no other concerns or needs
== END 2024-05-03 14:59 | disposition home or self-care (01) | DRG 922 ==
PROVIDERS: Admitting Provider Internal Medicine; PCP Student in an Organized Health Care Education/Training Program; Visit Provider Hospitalist
DX: T67.5XXA Heat exhaustion, unspecified, initial encounter (principal); I21.A1 Myocardial infarction type 2; G93.41 Metabolic encephalopathy; I42.2 Other hypertrophic cardiomyopathy; I13.0 Hypertensive heart and chronic kidney disease with heart failure and stage 1 through stage 4 chronic kidney disease, or unspecified chronic kidney disease; C90.00 Multiple myeloma not having achieved remission; I50.22 Chronic systolic (congestive) heart failure; E86.0 Dehydration; E78.5 Hyperlipidemia, unspecified; I48.0 Paroxysmal atrial fibrillation; N18.30 Chronic kidney disease, stage 3 unspecified; G47.33 Obstructive sleep apnea (adult) (pediatric); I25.5 Ischemic cardiomyopathy; I25.10 Atherosclerotic heart disease of native coronary artery without angina pectoris; X30.XXXA Exposure to excessive natural heat, initial encounter; Y93.53 Activity, golf; Y92.39 Other specified sports and athletic area as the place of occurrence of the external cause; R79.1 Abnormal coagulation profile; T45.515A Adverse effect of anticoagulants, initial encounter; N40.0 Benign prostatic hyperplasia without lower urinary tract symptoms; Z79.01 Long term (current) use of anticoagulants; Z79.899 Other long term (current) drug therapy
CPT/HCPCS: 36415; 71046; 78452; 80053; 80061; 83735; 84100; 84443; 84484; 85027; 85379; 92610; 93005; 93017; A9500; J2785

== ENCOUNTER → 2024-07-10 | Outpatient (CLI) | payer MEDICARE, SELFPAY ==
[2024-07-10 17:26] LABS: Absolute Lymphocyte Count 0.83 X10^3/uL (0.83-4.51); Absolute Neutrophil Count 6.5 X10^3/uL (2.0-7.7); Basophil# 0.05 X10^3/uL; Basophil% 0.6 % (0-1); Eosinophil# 0.11 X10^3/uL; Eosinophils% 1.3 % (0-5); Hematocrit 37.4 % (40-54); Hemoglobin 11.8 g/dL (13.0-16.5); Lymphocyte # 0.83 X10^3/ul (0.83-4.51); Lymphocyte % 10.1 % (19-41); Mean Corp Hgb Conc 31.6 g/dL (32-36); Mean Corpuscular Hgb 29.9 pg (27.0-32.0); Mean Corpuscular Volume 94.7 fL (80-94); Mean Platelet Vol. 9.4 fl (6.2-12.0); Monocyte# 0.69 X10^3/uL; Monocyte% 8.4 % (0-10); NRBC Flagged by Analyzer 0 % (0-5); Neutrophil # 6.48 X10^3/uL (2.7-7.7); Neutrophil % 79.2 % (47-70); Platelet Count 286 K/mm3 (150-450); RBC Distribution Width CV 14.6 % (11.6-14.6); RBC Distribution Width SD 50.9 fl (35.1-43.9); Red Blood Count 3.95 M/mm3 (4.6-6.2); White Blood Count 8.2 K/mm3 (4.4-11.0)
[2024-07-10 17:36] LABS: Erythrocyte Sedimentation Rate 43 mm/hr (0-20)
== END | disposition home or self-care (01) ==
LOC: LAB 16:46
PROVIDERS: PCP Student in an Organized Health Care Education/Training Program; Referring Provider Physician Assistant; Visit Provider Physician Assistant
DX: M54.16 Radiculopathy, lumbar region (principal); M70.62 Trochanteric bursitis, left hip; I10 Essential (primary) hypertension
CPT/HCPCS: 36415; 85025; 85652; 86140

== ENCOUNTER 2024-09-27 14:30 | Outpatient (RCR) | payer MEDICARE, SELFPAY | END 2024-09-27 19:00 | disposition home or self-care (01) | LOC: PT 14:30 | PROVIDERS: PCP Student in an Organized Health Care Education/Training Program; Referring Provider Student in an Organized Health Care Education/Training Program; Visit Provider Student in an Organized Health Care Education/Training Program | DX: M62.81 Muscle weakness (generalized) (principal); R26.9 Unspecified abnormalities of gait and mobility | CPT/HCPCS: 97110; 97162 ==

== ENCOUNTER 2024-09-29 13:01 | Inpatient (IN) | payer MEDICARE, SELFPAY ==
[2024-09-29] VITALS (11 sets, daily range): BP systolic 118–149; BP diastolic 66–111; PULSE 95–120; RESP 15–29; TEMP 36.5–37.1; O2SAT 93–100; BMI 24.7
--- NOTE | 2024-09-29 13:48 | EKG12_ITS ---
Test Reason : WEAKNESS Blood Pressure : */* mmHG Vent. Rate : 95 BPM Atrial Rate : * BPM P-R Int : * ms QRS Dur : 110 ms QT Int : 360 ms P-R-T Axes : * -46 141 degrees QTcB Int : 452 ms Poor data quality, interpretation may be adversely affected Atrial fibrillation Left anterior fascicular block Minimal voltage criteria for LVH, may be normal variant ( [place] product ) ST & T wave abnormality, consider lateral ischemia Abnormal ECG Confirmed by LISET RODAS, DAYAN ([id number]), editor managing director LIYAH MERRILL ([id number]) on 10/01/2024 8:10:40 AM Referred By: Confirmed By: DAYAN HUTCHINS MD
--- NOTE | 2024-09-29 13:48 | CT_ITS ---
HISTORY: Head injury on anticoagulants. TECHNIQUE: Multiple axial images were obtained of the head without intravenous contrast. A radiation dose optimization technique was used for this scan. 254 images. COMPARISON: 01/07/2021. FINDINGS: BRAIN PARENCHYMA: Multiple foci and zones of low attenuation in the bilateral cerebral white matter compatible with chronic small vessel ischemic gliosis. No acute intra-axial hemorrhage identified. CSF SPACES: Chronic moderate volume loss. No midline shift or other significant mass effect. No acute extra-axial hemorrhage seen. OTHER: Intact calvarium. No significant air fluid levels in the paranasal sinuses or mastoid air cells. Bilateral lens resections. CT/Brain/Head without Contrast IMPRESSION: No acute intracranial process identified. Chronic involutional and white matter changes. Electronically Signed: Deana Corrales MD at 15:09 EST ,
--- NOTE | 2024-09-29 13:55 | RAD_ITS ---
HISTORY: Shortness of breath. TECHNIQUE: XR Chest 1 View. COMPARISON: 05/03/2024. FINDINGS: CARDIOMEDIASTINAL BORDERS: Cardiac silhouette upper limits of normal in size. Calcification of the aorta. LUNGS: Mild opacities in the bilateral mid and lower lungs. PLEURA: Probable trace pleural effusions. OSSEOUS STRUCTURES: Degenerative change. RAD/Chest 1 View (Portable) IMPRESSION: Mild opacities in the mid to lower lungs, concerning for pneumonia or pneumonitis. Consider follow-up to resolution. Electronically Signed: Deana Corrales MD at 14:32 EST ,
[2024-09-29] MEDS: 0.9% Normal Saline (1000mL) 1,000 ML 1000 ML IV (13:56)
[2024-09-29 14:10] LABS: Absolute Lymphocyte Count 0.47 X10^3/uL (0.83-4.51); Absolute Neutrophil Count 5.2 X10^3/uL (2.0-7.7); Basophil# 0.02 X10^3/uL; Basophil% 0.3 % (0-1); Hematocrit 36.6 % (40-54); Hemoglobin 11.9 g/dL (13.0-16.5); Lymphocyte # 0.47 X10^3/ul (0.83-4.51); Lymphocyte % 7.6 % (19-41); Mean Corp Hgb Conc 32.5 g/dL (32-36); Mean Corpuscular Hgb 31.3 pg (27.0-32.0); Mean Corpuscular Volume 96.3 fL (80-94); Mean Platelet Vol. 9.8 fl (6.2-12.0); Monocyte# 0.46 X10^3/uL; Monocyte% 7.5 % (0-10); NRBC Flagged by Analyzer 0 % (0-5); Neutrophil # 5.18 X10^3/uL (2.7-7.7); Neutrophil % 84.1 % (47-70); POSITIVE DIFFERENTIAL YES; Platelet Count 195 K/mm3 (150-450); RBC Distribution Width CV 15.9 % (11.6-14.6); RBC Distribution Width SD 56.1 fl (35.1-43.9); White Blood Count 6.2 K/mm3 (4.4-11.0)
--- NOTE | 2024-09-29 14:11 | EX.ED.DYSGE1 ---
HPI History of Present Illness Chief Complaint: Weakness Narrative Narrative: 88-year-old male past medical history of atrial fibrillation, on Xarelto, presents with generalized weakness and decreased appetite with reported fever starting yesterday. He and his family relate history that he has had multiple falls, and the vocational rehabilitation specialist wanted him to have a head CT. He denies any headache or other symptoms but states that yesterday he had a fever as high as 100 ?F, and that he feels generally weak with decreased appetite. He also has an occasional cough. He denies any dysuria or hematuria. No exacerbating or alleviating factors. He lives at home with his and one of his sons. He has had outpatient rehab, he went twice, then that was reportedly all that he needed. Over the last day or so, he has had increased generalized weakness. [facility] Medical History Hx of shelter use of blood thinners Cardiomyopathy Ischemic cardiomyopathy NSVT (nonsustained ventricular tachycardia) Acute non-ST elevation myocardial infarction (NSTEMI) Atrial fibrillation with rapid ventricular response Atherosclerotic heart disease of [place] coronary artery without angina pectoris Atrial fibrillation CKD (chronic kidney disease) stage 3, GFR 30-59 ml/min Hypertrophic cardiomyopathy Home Medications ?Medication ?Instructions ?Recorded ?Last Taken ?Type saw palmetto 450 mg capsule 450 mg PO DAILY prostate health 09/10/16 05/02/24 10:00 History magnesium 250 mg tablet 500 mg PO DAILY mineral 07/13/18 05/02/24 10:00 History cholecalciferol (vitamin D3) 125 5,000 unit PO DAILY vitamin 10/18/19 05/02/24 10:00 History mcg (5,000 unit) capsule calcium carbonate (Calcium 600) 600 mg PO DAILY supplement 03/31/22 05/02/24 10:00 History rivaroxaban 15 mg tablet 15 mg PO DAILY blood thinner #90 12/16/23 05/02/24 10:00 Rx tabs pravastatin 80 mg tablet 80 mg PO QHS #90 tabs 03/09/24 04/30/24 20:00 Rx metoprolol succinate 25 mg 25 mg PO QDAY 09/20/24 Unknown History tablet,extended release 24 hr oxybutynin chloride 5 mg 5 mg PO QDAY 09/20/24 Unknown History tablet,extended release 24 hr paroxetine HCl 10 mg tablet 10 mg PO QDAY 09/20/24 Unknown History vitamins A,C,D-ihmy-doltbe 4,296 1 cap PO DAILY supplement 09/20/24 Unknown History mcg-226 mg-90 mg capsule (PreserVision AREDS) Allergy/AdvReac Type Severity Reaction Status Date / Time atorvastatin Allergy confused Verified 09/29/24 13:04 lisinopril Allergy cough Verified 09/29/24 13:04 amiodarone AdvReac Intermediate lightheaded Verified 09/29/24 13:04 ness Family History Father Myocardial infarction Brother Myocardial infarction Surgical History History of cardioversion (11/30/22) Social History Smoking Status: Never smoker second hand exposure: No alcohol intake: never substance use type: does not use caffeine: Yes Type: tea what type of physical activity do you participate in: walking ROS ROS ED ROS Narrative Constitutional: Elevated temperature of 100 ?F/fever, no chills. Generalized weakness. HEENT: No sore throat. No neck pain. No loss of vision. No rhinorrhea. Cardiovascular: No chest pain. No palpitations. No pedal edema. Respiratory: Occasional cough, no shortness of breath. Abdominal: No abdominal pain. No nausea. No vomiting. Genitourinary: No dysuria. No hematuria. Musculoskeletal: No myalgias. No arthralgias. Neurologic: No headaches. No dizziness. No lightheadedness. Skin: No rash. No change in color. Psychiatric: No depression. No anxiety. EXAM Physical Exam Narrative Exam Narrative: Afebrile. Vital signs noted. Nontoxic-appearing. HEENT shows tacky mucous membranes. Neck soft and supple without meningismus. Cardiovascular examination reveals an irregularly irregular rhythm but normal rate. Lungs are clear to auscultation bilaterally. Abdomen soft, nontender, with positive bowel sounds. No guarding or rebound. Neurological examination shows him to be awake, alert, and oriented. Nonfocal, nonlateralizing. Const Vital Signs: 09/29/24 13:04 09/29/24 13:05 09/29/24 13:21 Temperature 98.3 F 98.6 F Temperature Source Oral Oral Pulse Rate 95 97 Respiratory Rate 22 H 16 Respiratory Effort Normal Respiratory Pattern Normal Blood Pressure 149/72 H 142/77 H Blood Pressure Mean 97 98 Pulse Ox 97 97 Oxygen Delivery Method Room Air Room Air 09/29/24 14:56 Temperature 97.7 F L Temperature Source Temporal Pulse Rate 95 Respiratory Rate 29 H Respiratory Effort Respiratory Pattern Blood Pressure 137/78 H Blood Pressure Mean 97 Pulse Ox 100 Oxygen Delivery Method Room Air MDM MDM MDM Narrative Medical decision making narrative: Differential diagnosis includes but not limited to urinary tract infection versus pneumonia versus dehydration versus other electrolyte imbalance. He is not febrile here currently. I have low concern for sepsis. Comprehensive workup was pursued. EKG was obtained and interpreted by myself independently as atrial fibrillation at [address] changes. No STEMI. I reviewed his laboratory work and he has normal white count of 6.2 with hemoglobin stable at 11.9, hematocrit 36.6, platelet count normal at 195. Glucose is appropriately elevated at 146 with a normal anion gap of 6. Sodium normal at 136 with potassium 4.4, chloride 101. BUN is 28 but there is chronic elevation and he has a normal creatinine of 1.3, no evidence of profound dehydration. High-sensitivity troponin is 405, but in comparison to previous laboratories when he had his non-STEMI, it was in the thousands and he has chronic elevation with the last being in the 500s so this is improved. I think this is a chronic value for him. I do not feel that he requires heparin as he is not having chest pain. I reviewed the radiology report of the CT of the brain and there are chronic changes but no evidence of acute hemorrhage. Chest x-ray in 1 view interpreted by myself shows no consolidation, no pneumothorax. I reviewed the radiology report which comments on mid lung opacities which could be pneumonia versus pneumonitis. Clinically, he has no white count, no fever, no productive cough so I do not feel he requires antibiotics for pneumonia. In discussion with his family, he was having problems initiating walking with his generalized weakness. They state that he was trying to attempt to walk but could not move his feet initially. In discussion with the patient and his family, given his generalized weakness, he is agreeable for at least observation for PT OT assessment and possible temporary placement in rehab. I will discuss patient with the hospitalist. Patient is in stable condition. History & Record Review Discussion w/independent historian: Patient and Family Lab Data Attestation: I reviewed the patient's lab results. Labs: Laboratory Results - last 24 hr 09/29/24 13:45 WBC 6.2 RBC 3.80 L Hgb 11.9 L Hct 36.6 L MCV 96.3 H MCH 31.3 MCHC 32.5 RDW Std Deviation 56.1 H RDW Coeff of Samra 15.9 H Plt Count 195 MPV 9.8 Immature Gran % (Auto) 0.500 Neut % (Auto) 84.1 H Lymph % (Auto) 7.6 L [place] % (Auto) 7.5 Eos % (Auto) 0.0 Baso % (Auto) 0.3 Absolute Neuts (auto) 5.2 Absolute Lymphs (auto) 0.47 L Nucleated RBC % 0 Sodium 136 Potassium 4.4 Chloride 101 Carbon Dioxide 28.0 Anion Gap 6 BUN 28 H Creatinine 1.30 Est GFR (MDRD) Af Amer 67 Est GFR (MDRD) Non-Af 56 L BUN/Creatinine Ratio 21.5 H Glucose 146 H Calcium 8.8 Total Bilirubin 1.20 H AST 30 ALT 38 Alkaline Phosphatase 69 Troponin I High Sens 405 H* Total Protein 7.1 Albumin 3.2 Globulin 3.9 Albumin/Globulin Ratio 0.8 L Radiography Diagnostic Testing: Clinical Impression(s) from Imaging Studies Brain CT 09/29/24 13:48 IMPRESSION: No acute intracranial process identified. Chronic involutional and white matter changes. Electronically Signed: Deana Corrales MD at 15:09 EST , Chest X-Ray 09/29/24 13:55 IMPRESSION: Mild opacities in the mid to lower lungs, concerning for pneumonia or pneumonitis. Consider follow-up to resolution. Electronically Signed: Deana Corrales MD at 14:32 EST , Management Discussion w/another healthcare provider: Hospitalist (Dr. Evens Bradford) Discharge Plan Dx/Rx/DC Orders Clinical Impression: Generalized weakness, Elevated troponin, Difficulty in walking Disposition Disposition: Acute Care Hospital [facility]
[2024-09-29 14:27] LABS: ALB/GLOB Ratio 0.8 RATIO (0.9-2.4); AST(SGOT) 30 U/L (15-37); Alanine Aminotransfer ALT/SGPT 38 U/L (16-61); Albumin, Serum 3.2 g/dL (3.2-5.0); Alkaline Phosphatase 69 U/L (45-117); Anion Gap 6 (5-15); BUN 28 mg/dL (7-18); BUN/Creat Ratio 21.5 RATIO (10-20); Calcium,Total 8.8 mg/dL (8.5-10.1); Chloride 101 mmol/L (98-107); EST Glomerular Filtration Rate 56 mL/min (>60); Est Glom Filt Rate - Afr Amer 67 mL/min (>60); Globulin 3.9 g/dL (2.2-4.2); Glucose 146 mg/dL (74-106); Potassium 4.4 mmol/L (3.5-5.1); Protein, Total 7.1 g/dL (6.4-8.2); Sodium Level 136 mmol/L (136-145); Troponin-I HS 405 pg/mL (3.0-78.0)
--- NOTE | 2024-09-29 15:37 | HP.PCM.HOS_ITS ---
HPI - General General Date of Admission: 09/29/24 Date of Service: 09/29/24 Chief Complaint: Worsening weakness and difficulty with ambulation HPI Narrative WIL FISH, is a 88 M who presented to [facility] ED on 09/29/2024 with worsening weakness and difficulty with ambulation. I saw the patient at bedside in the ED, and daughter were present. Patient was mildly fatigued appearing but otherwise sitting up comfortably in bed and in no acute distress. He is moderately hard of hearing and appeared to have slight cognitive delay with responding to questions. Patient has had worsening functional status over the past 2 to 3 months. He lives at home with his and son. Has had difficulty getting up from his chair and his walking has slowed over that timeframe. He has also had a few small falls where he reports losing his balance while being active around the house. Denies hitting his head with these falls. Last fall was about 2 weeks ago. His PCP referred him to physical therapy and he saw PT at [facility] on 09/19, see that note for further details. Patient notably was able to drive himself to and from PT that day. Diagnosis from PT was weakness and tightness of upper legs along with difficulty with weight shift causing difficulty getting around; appears that this was attributed primarily to sedentary lifestyle. Over the last day or so now he has been unable to get out of bed or ambulate at all, so family brought him in for further evaluation. In the ED, had mild hypertension but was otherwise afebrile and hemodynamically stable. Has known A-fib and rate was in the 90s to low 100s. Labs were stable from previous. He notably did have a troponin of 405 but previous troponins were in the 500s to 1000s so it is suspected this is close to his baseline; will have a repeat troponin drawn at the 2-hour jasen. He notably denies any chest pain. Chest x-ray did show mild opacities in the mid to lower lungs concerning for pneumonia versus pneumonitis. Patient does report a mild dry cough over the past few days but denies any sputum production or any fevers or chills. No known sick contacts recently. CT brain was unremarkable. Patient has never required SNF placement for but family would be agreeable to this if needed. Will be admitted for further management. [facility] Medical History Hx of penitentiary use of blood thinners Cardiomyopathy Ischemic cardiomyopathy NSVT (nonsustained ventricular tachycardia) Acute non-ST elevation myocardial infarction (NSTEMI) Atrial fibrillation with rapid ventricular response Atherosclerotic heart disease of [place] coronary artery without angina pectoris Atrial fibrillation CKD (chronic kidney disease) stage 3, GFR 30-59 ml/min Hypertrophic cardiomyopathy Home Medications ?Medication ?Instructions ?Recorded ?Last Taken ?Type saw palmetto 450 mg capsule 450 mg PO DAILY prostate health 09/10/16 05/02/24 10:00 History magnesium 250 mg tablet 500 mg PO DAILY mineral 07/13/18 09/29/24 History cholecalciferol (vitamin D3) 125 5,000 unit PO DAILY vitamin 10/18/19 09/29/24 History mcg (5,000 unit) capsule calcium carbonate (Calcium 600) 600 mg PO DAILY supplement 03/31/22 09/29/24 History rivaroxaban 15 mg tablet 15 mg PO DAILY blood thinner #90 12/16/23 09/28/24 17:00 Rx tabs pravastatin 80 mg tablet 80 mg PO QHS #90 tabs 03/09/24 04/30/24 20:00 Rx metoprolol succinate 25 mg 25 mg PO QDAY 09/20/24 Unknown History tablet,extended release 24 hr oxybutynin chloride 5 mg 5 mg PO QDAY 09/20/24 Unknown History tablet,extended release 24 hr paroxetine HCl 10 mg tablet 10 mg PO QDAY 09/20/24 Unknown History vitamins A,C,C-wcou-llrfju 4,296 1 cap PO DAILY supplement 09/20/24 Unknown History mcg-226 mg-90 mg capsule (PreserVision AREDS) losartan 50 mg tablet 50 mg PO BID 09/29/24 Unknown History metoprolol tartrate 25 mg tablet 25 mg PO BID 09/29/24 Unknown History Allergy/AdvReac Type Severity Reaction Status Date / Time atorvastatin Allergy confused Verified 09/29/24 13:04 lisinopril Allergy cough Verified 09/29/24 13:04 amiodarone AdvReac Intermediate lightheaded Verified 09/29/24 13:04 ness Family History Father Myocardial infarction Brother Myocardial infarction Surgical History History of cardioversion (11/30/22) Social History Smoking Status: Never smoker second hand exposure: No alcohol intake: never substance use type: does not use caffeine: Yes Type: tea what type of physical activity do you participate in: walking ROS Constitutional Constitutional: Reports fatigue and weakness; Denies chills or fever(s) Eyes Eyes: Denies change in vision Cardiovascular Cardiovascular: Denies chest pain, edema or lightheadedness Respiratory/Chest Respiratory/Chest: Reports cough; Denies productive cough, shortness of breath at rest, shortness of breath with exertion or wheezing Gastrointestinal Gastrointestinal: Denies abdominal pain, constipation, diarrhea, nausea or vomiting Genitourinary Genitourinary: Denies dysuria Musculoskeletal Musculoskeletal: Denies arthralgias, back pain, joint pain or myalgias Neurologic Neurologic: Reports abnormal gait; Denies confusion, dizziness, focal weakness, headache(s), numbness or paresthesias Vital Signs Vital Signs Vital Signs: 09/29/24 13:04 09/29/24 13:05 09/29/24 13:21 Temperature 98.3 F 98.6 F Temperature Source Oral Oral Pulse Rate 95 97 Respiratory Rate 22 H 16 Respiratory Effort Normal Respiratory Pattern Normal Blood Pressure 149/72 H 142/77 H Blood Pressure Mean 97 98 Pulse Ox 97 97 Oxygen Delivery Method Room Air Room Air 09/29/24 14:56 Temperature 97.7 F L Temperature Source Temporal Pulse Rate 95 Respiratory Rate 29 H Respiratory Effort Respiratory Pattern Blood Pressure 137/78 H Blood Pressure Mean 97 Pulse Ox 100 Oxygen Delivery Method Room Air Physical Exam Const alert, oriented x3, no apparent distress and average body habitus Constitutional Narrative: Elderly male, mildly fatigued appearing, hard of hearing, mild cognitive slowing noted but otherwise answering questions appropriately, sitting up comfortably in bed and in no acute distress. General Appearance: cooperative and comfortable HEENT normocephalic, head/scalp atraumatic, nasal mucous membranes and turbinates normal and moist oral mucous membranes Eyes PERRL, EOMs intact bilaterally and conjunctivae normal Neck full ROM Chest inspection of chest normal Resp normal respiratory effort and no use of accessory muscles Resp Narrative: Breathing comfortably on room air at rest. No wheezing or crackles noted. Cardio no murmurs and peripheral pulses 2+ throughout Cardio Narrative: A-fib, rate controlled. GI normal to inspection, nondistended, normoactive bowel sounds, soft to palpation, non-tender and non-distended Back/Spine normal ROM Extremity normal to inspection, full ROM and no pedal edema Skin no rashes or lesions noted Neuro oriented x3, moves all extremities and no focal motor deficits Neuro Narrative: +4-5 strength in lower extremities bilaterally. Psych mental status grossly normal Results Lab / Micro Data 09/29/24 13:45 09/29/24 13:45 Labs: Laboratory Results - last 24 hr 09/29/24 13:45: WBC 6.2, RBC 3.80 L, Hgb 11.9 L, Hct 36.6 L, MCV 96.3 H, MCH 31.3, MCHC 32.5, RDW Std Deviation 56.1 H, RDW Coeff of Samra 15.9 H, Plt Count 195, MPV 9.8, Immature Gran % (Auto) 0.500, Neut % (Auto) 84.1 H, Lymph % (Auto) 7.6 L, [place] % (Auto) 7.5, Eos % (Auto) 0.0, Baso % (Auto) 0.3, Absolute Neuts (auto) 5.2, Absolute Lymphs (auto) 0.47 L, Nucleated RBC % 0, Sodium 136, Potassium 4.4, Chloride 101, Carbon Dioxide 28.0, Anion Gap 6, BUN 28 H, Creatinine 1.30, Est GFR (MDRD) Af Amer 67, Est GFR (MDRD) Non-Af 56 L, B UN/Creatinine Ratio 21.5 H, Glucose 146 H, Calcium 8.8, Total Bilirubin 1.20 H, AST 30, ALT 38, Alkaline Phosphatase 69, Troponin I High Sens 405 H*, Total Protein 7.1, Albumin 3.2, Globulin 3.9, Albumin/Globulin Ratio 0.8 L Imaging Radiology Impression Brain CT 09/29/24 13:48 IMPRESSION: No acute intracranial process identified. Chronic involutional and white matter changes. Electronically Signed: Deana Corrales MD at 15:09 EST Reading Location ID and State: [facility] / [place] Tel , Service support , Chest X-Ray 09/29/24 13:55 IMPRESSION: Mild opacities in the mid to lower lungs, concerning for pneumonia or pneumonitis. Consider follow-up to resolution. Electronically Signed: Deana Corrales MD at 14:32 EST Reading Location ID and State: [facility] / [place] Tel , Service support , Assessment & Plan Assessment/Plan (1) Generalized weakness: (2) Difficulty in walking: PLAN: Plan Patient is an 88-year-old male who presented [facility] ED on 09/29/2024 with worsening weakness and difficulty with ambulation. 1. Acute on chronic debility and difficulty with ambulation ? Admit under observation status to [facility]. PT/OT/case management consulted. Notably saw PT at [facility] on 09/19, note available in chart. Was suspected then that he had generalized leg weakness attributed to sedentary lifestyle. No back pain or radiculopathy noted, no need for spinal imaging. Will likely need either SNF versus normal, comfortable discharge. 2. Concern for community-acquired ammonia ? Chest x-ray on admit showed mild opacities in the mid to lower lungs concerning for pneumonia versus pneumonitis. Patient reports mild dry cough over the past few days but no shortness of breath or fevers or chills. Afebrile, hemodynamically stable on room air, normal WBC count here. Will order respiratory PCR panel and sputum culture for now but hold on any antibiotics at this time. 3. Elevated troponin ? Troponin 405 on admit, repeat pending. No EKG changes and no chest pain noted. Notably had troponins in the 500s to 1000 range back in April; suspect elevated troponin here is close to his baseline. Follow-up repeat troponin. 4. Chronic HFrEF, nonobstructive CAD, hypertension, hyperlipidemia ? Last echo 04/05/2024 showed EF 40%. Stress test on 05/03/2024 was normal. Did have a cath done back in 02/2023 that showed 60% mid LAD lesion (stable from previous), no other significant coronary disease. Follows with cardiology in the office and has been stable since April. Continue home Toprol and pravastatin. 5. Paroxysmal A-fib ? In rate controlled A-fib on admit. Follows with cardiology as noted above. Continue home Toprol and Xarelto. 6. Depression ? Stable. Continue home paroxetine. 7. Urinary incontinence ? Continue home oxybutynin. 8. KENNEDY ? Continue home CPAP. DVT prophylaxis: Not indicated, on Xarelto CODE STATUS: Full code, verified Expected disposition: SNF versus home with home health care, 1 to 2 days Total clinical time spent by myself addressing the patient's medical issues, reviewing all the data, and collaborating with patient's care team: 55 minutes. Charges/Coding Visit Charges Inpatient E&M: 89900 Init Hosp L2
--- NOTE | 2024-09-29 17:09 | NURSING ---
pt history of stroke/tia, swallow study failed, o2 dropped to 86% and pt face turned red/blue and had difficulty regaining normal breathing pattern-pt was dim in bases prior and pox of 89%-placed on 2l o2, pt gradually recovered over 3-5 minute time period pt placed on NPO and speech consulted, npo sign on door -family made aware
[2024-09-29] MEDS: 0.9% Saline Lock 10 ML Syringe IV ×2 (19:01→20:10)
[2024-09-29 19:22] LABS: Troponin-I HS 378 pg/mL (3.0-78.0)
--- NOTE | 2024-09-29 19:23 | NURSING ---
LAMONTE Yen RN NOTIFIED OF TROPONIN 378
[2024-09-29 19:27] LABS: Mucous, Urine 0 SEEN /hpf (<or=2+); Squamous Epithelial Cells - UA 0 SEEN /hpf (0-5); White Blood Cells 0 SEEN /hpf (0-5)
[2024-09-29 19:31] LABS: Color, Urine Yellow (Yellow); Glucose, Dipstick Normal (Normal); Ketone-Dipstick Negative (Negative); Leukocyte Esterase-Dipstick Negative /ul (Negative); Nitrite-Dipstick Negative (Negative); Occult Blood-Urine 25 /ul (Negative); Protein-Dipstick 100 mg/dl (Negative); Urine Bilirubin Dipstick Negative (Negative); Urine Clarity Clear (Clear); Urine Urobilinogen Normal (Normal)
[2024-09-29 19:41] LABS: Red Blood Cells-Urine 0-5 SEEN /hpf (0-5)
[2024-09-29 19:42] LABS: Bacteria RARE /hpf (None Seen)
[2024-09-29] MEDS: 0.9% Normal Saline (500mL Bag) 500 ML IV (20:10)
[2024-09-30] VITALS (10 sets, daily range): BP systolic 129–139; BP diastolic 75–92; PULSE 74–109; RESP 15–16; TEMP 36.5–37; O2SAT 93–100; BMI 24.5
[2024-09-30 06:32] LABS: Hemoglobin 11.9 g/dL (13.0-16.5); Mean Corp Hgb Conc 32.2 g/dL (32-36); Mean Corpuscular Volume 96.4 fL (80-94); Mean Platelet Vol. 10.1 fl (6.2-12.0); Platelet Count 200 K/mm3 (150-450); RBC Distribution Width SD 56.1 fl (35.1-43.9); Red Blood Count 3.84 M/mm3 (4.6-6.2); White Blood Count 4.9 K/mm3 (4.4-11.0)
[2024-09-30 07:01] LABS: Anion Gap 9 (5-15); BUN 28 mg/dL (7-18); BUN/Creat Ratio 27.2 RATIO (10-20); Calcium,Total 8.8 mg/dL (8.5-10.1); Chloride 106 mmol/L (98-107); Creatinine, Serum 1.03 mg/dL (0.70-1.30); EST Glomerular Filtration Rate 73 mL/min (>60); Est Glom Filt Rate - Afr Amer 88 mL/min (>60); Estimated Creatinine Clearance 43.11 ml/min; Glucose 126 mg/dL (74-106); Potassium 4.5 mmol/L (3.5-5.1); Sodium Level 136 mmol/L (136-145)
[2024-09-30] MEDS: Tolterodine Tartrate 2 MG CAP.SA PO (12:42)
[2024-09-30] MEDS: PARoxetine 10 MG Tablet PO (12:43)
[2024-09-30] MEDS: dexAMETHasone 4 MG Tablet 6 MG PO (12:43)
[2024-09-30] MEDS: Rivaroxaban 15 MG Tablet PO (12:43)
[2024-09-30] MEDS: Metoprolol(XL)Succ 25 MG Tablet PO (12:43)
--- NOTE | 2024-09-30 16:52 | PCM.PN.HOSP ---
Reason for Visit Reason for Visit: Diagnoses Difficulty in walking, not elsewhere classified (09/29/24) Weakness (09/29/24) Subjective Subjective Patient was seen and examined today, he appears to be in no respiratory distress at rest. Patient requires oxygen at 3 L presently, his COVID test was positive, I talk with him briefly about the use of remdesivir and he was not against it. Objective Data Objective Data Vital Signs: Vital Signs Temp Pulse Resp BP Pulse Ox O2 Del Method O2 Flow Rate 98.6 F 89 16 136/75 H 97 Room Air 2 09/30/24 16:46 09/30/24 16:46 09/30/24 16:46 09/30/24 16:46 09/30/24 16:46 09/30/24 16:46 09/30/24 16:46 Oxygen Flow Rate (L/min) 2 Oxygen Delivery Method Room Air Weight: 64.9 kg Body Mass Index (BMI) 24.5 Intake & Output: Intake and Output for Last 24 Hours 09/28/24 09/29/24 09/30/24 23:59 23:59 23:59 Intake Total 1500 / 1500 260 / 260 Output Total 450 / 450 Balance 1500 / 1300 -190 / -190 Lab / Micro Data 09/30/24 05:25 09/30/24 05:25 Labs: Laboratory Results - last 24 hr 09/29/24 18:50: Troponin I High Sens 378 H* 09/29/24 19:17: Urine Color Yellow, Urine Clarity Clear, Urine pH 6.0, Ur Specific [place] 1.020, Urine Protein 100 H, Urine Glucose (UA) Normal, Urine Ketones Negative, Urine Occult Blood 25 H, Urine Nitrite Negative, Urine Bilirubin Negative, Urine Urobilinogen Normal, Ur Leukocyte Esterase Negative, Urine RBC 0-5 SEEN, Urine WBC 0 SEEN, Ur Squamous Epith Cells 0 SEEN, Urine Bacteria RARE, Urine Mucus 0 SEEN 09/30/24 05:25: WBC 4.9, RBC 3.84 L, Hgb 11.9 L, Hct 37.0 L, MCV 96.4 H, MCH 31.0, MCHC 32.2, RDW Std Deviation 56.1 H, RDW Coeff of Samra 16.0 H, Plt Count 200, MPV 10.1, Sodium 136, Potassium 4.5, Chloride 106, Carbon Dioxide 21.0, Anion Gap 9, BUN 28 H, Creatinine 1.03, Estim Creat Clear Calc 43.11, Est GFR (MDRD) Af Amer 88, Est GFR (MDRD) Non-Af 73, BUN/Creatinine Ratio 27.2 H, Glucose 126 H, Calcium 8.8 Micro: Microbiology 09/29/24 17:15 Mucosa - Nasopharyngeal Respiratory Panel (PCR) - Final 09/29/24 17:15 Mucosa - Nasopharyngeal SARS-CoV-2, Influenza & RSV (PCR) - Final SARS-CoV-2 (COVID 19) Physical Exam Const alert, oriented x3, no apparent distress, average body habitus and healthy appearing General Appearance: cooperative, well kempt and well developed Orientation / Consciousness: awake, oriented to person, oriented to place and oriented to time HEENT normocephalic, head/scalp atraumatic and moist oral mucous membranes Eyes PERRL, EOMs intact bilaterally and conjunctivae normal Neck supple, no JVD and thyroid normal General: trachea midline Resp normal respiratory effort and clear to auscultation bilaterally Auscultation: Negative for rales, rhonchi or wheezes Cardio no murmurs, no rub and no gallops Cardio Narrative: Heart rate and rhythm is irregular GI normal to inspection, nondistended, normoactive bowel sounds, soft to palpation, non-tender and non-distended Extremity no clubbing, cyanosis or edema Skin no rashes or lesions noted General Skin Exam: no breakdown Neuro oriented x3, CN's II-XII intact bilaterally, no focal motor deficits and no sensory deficits noted Sensorium / Orientation: awake and alert Speech: speech normal Psych affect normal Assessment & Plan Assessment/Plan (1) Generalized weakness: PLAN: Plan 1. COVID-19 infection with hypoxia-patient will be placed on remdesivir, he was already placed on dexamethasone. #2 generalized weakness-this has been somewhat of a chronic condition with the patient over the last several weeks, he is being worked up as an outpatient, the COVID-19 infection is probably contributing to his overall weakness. #3 permanent atrial fibrillation-patient is on rate control medications and anticoagulants #4 essential hypertension-patient's losartan is presently being held, his blood pressure is adequate without it #5 hyperlipidemia-patient is on pravastatin Total clinical time spent by myself addressing the patient's medical issues, reviewing all of his data, and collaborating with patient's care team: 35 minutes Charges/Coding Visit Charges Inpatient E&M: 66149 Subs Hosp L2
[2024-09-30] MEDS: Remdesivir 200 MG in 0.9% Normal Saline (250mL Bag) 210 ML 250 MG IV (19:43)
[2024-09-30] MEDS: Pravastatin 80 MG Tablet PO (22:15)
[2024-10-01] VITALS (8 sets, daily range): BP systolic 119–138; BP diastolic 71–90; PULSE 64–114; RESP 15–18; TEMP 36.4–36.9; O2SAT 94–98
[2024-10-01 07:48] LABS: ALB/GLOB Ratio 0.7 RATIO (0.9-2.4); AST(SGOT) 34 U/L (15-37); Alanine Aminotransfer ALT/SGPT 42 U/L (16-61); Albumin, Serum 2.6 g/dL (3.2-5.0); Alkaline Phosphatase 66 U/L (45-117); Anion Gap 7 (5-15); BUN 44 mg/dL (7-18); BUN/Creat Ratio 41.9 RATIO (10-20); Calcium,Total 8.4 mg/dL (8.5-10.1); Chloride 107 mmol/L (98-107); Creatinine, Serum 1.05 mg/dL (0.70-1.30); EST Glomerular Filtration Rate 71 mL/min (>60); Est Glom Filt Rate - Afr Amer 86 mL/min (>60); Estimated Creatinine Clearance 42.29 ml/min; Globulin 3.7 g/dL (2.2-4.2); Glucose 139 mg/dL (74-106); Potassium 4.6 mmol/L (3.5-5.1); Protein, Total 6.3 g/dL (6.4-8.2); Sodium Level 137 mmol/L (136-145)
[2024-10-01] MEDS: dexAMETHasone 4 MG Tablet 6 MG PO (08:11)
[2024-10-01] MEDS: Rivaroxaban 15 MG Tablet PO (08:12)
[2024-10-01] MEDS: PARoxetine 10 MG Tablet PO (08:12)
[2024-10-01] MEDS: Metoprolol(XL)Succ 25 MG Tablet PO (08:13)
--- NOTE | 2024-10-01 08:23 | PN.HOSP_ITS ---
Reason for Visit Reason for Visit: Diagnoses Difficulty in walking, not elsewhere classified (09/30/24) Weakness (09/30/24) Objective Data Objective Data Vital Signs: Vital Signs Temp Pulse Resp BP Pulse Ox O2 Del Method O2 Flow Rate 36.6 C 114 H 18 133/90 H 94 Room Air 2 10/01/24 08:16 10/01/24 08:16 10/01/24 08:16 10/01/24 08:16 10/01/24 08:16 10/01/24 08:20 10/01/24 07:59 Oxygen Flow Rate (L/min) 2 Oxygen Delivery Method Room Air Weight: 64.9 kg Body Mass Index (BMI) 24.5 Intake & Output: Intake and Output for Last 24 Hours 09/29/24 09/30/24 10/01/24 23:59 23:59 23:59 Intake Total 1500 / 1500 710 / 810 100 / 100 Output Total 600 / 1000 400 / 400 Balance 1500 / 1300 110 / -190 -300 / -300 Lab / Micro Data 09/30/24 05:25 10/01/24 06:57 Labs: Laboratory Results - last 24 hr 10/01/24 06:57: Sodium 137, Potassium 4.6, Chloride 107, Carbon Dioxide 23.0, Anion Gap 7, BUN 44 H, Creatinine 1.05, Estim Creat Clear Calc 42.29, Est GFR (MDRD) Af Amer 86, Est GFR (MDRD) Non-Af 71, BUN/Creatinine Ratio 41.9 H, G lucose 139 H, Calcium 8.4 L, Total Bilirubin 0.40, AST 34, ALT 42, Alkaline Phosphatase 66, Total Protein 6.3 L, Albumin 2.6 L, Globulin 3.7, A lbumin/Globulin Ratio 0.7 L Micro: Microbiology 09/29/24 17:15 Mucosa - Nasopharyngeal Respiratory Panel (PCR) - Final 09/29/24 17:15 Mucosa - Nasopharyngeal SARS-CoV-2, Influenza & RSV (PCR) - Final SARS-CoV-2 (COVID 19) Assessment & Plan Assessment/Plan (1) Generalized weakness: PLAN: Plan Acute COVID-19 infection. * unclear onset * on remdesivir and dexamethasone debilty * poor baseline perforamance status, worsened by current COVID infection * PT OT * Anticipate SNF upon discharge as he is too unsafe to return home at this time. Elevated troponins * chronically elevated. Lower than baseline. * stress test in April was negative. Though EF was 40% at that time. Chronic conditions: * afib: metoprolol succinate and rivaroxaban * HTN: losartan on hold VTE prophylaxis: Not indicated as patient is already anticoagulated. -
--- NOTE | 2024-10-01 08:23 | PCM.PN.HOSP ---
Reason for Visit Reason for Visit: Diagnoses Difficulty in walking, not elsewhere classified (09/30/24) Weakness (09/30/24) Subjective Subjective Feels well. No events overnight. No shortness of breath. Objective Data Objective Data Vital Signs: Vital Signs Temp Pulse Resp BP Pulse Ox O2 Del Method O2 Flow Rate 36.6 C 114 H 18 133/90 H 94 Room Air 2 10/01/24 08:16 10/01/24 08:16 10/01/24 08:16 10/01/24 08:16 10/01/24 08:16 10/01/24 08:20 10/01/24 07:59 Oxygen Flow Rate (L/min) 2 Oxygen Delivery Method Room Air Weight: 64.9 kg Body Mass Index (BMI) 24.5 Intake & Output: Intake and Output for Last 24 Hours 09/29/24 09/30/24 10/01/24 23:59 23:59 23:59 Intake Total 1500 / 1500 710 / 810 100 / 100 Output Total 600 / 1000 400 / 400 Balance 1500 / 1300 110 / -190 -300 / -300 Lab / Micro Data 09/30/24 05:25 10/01/24 06:57 Labs: Laboratory Results - last 24 hr 10/01/24 06:57: Sodium 137, Potassium 4.6, Chloride 107, Carbon Dioxide 23.0, Anion Gap 7, BUN 44 H, Creatinine 1.05, Estim Creat Clear Calc 42.29, Est GFR (MDRD) Af Amer 86, Est GFR (MDRD) Non-Af 71, BUN/Creatinine Ratio 41.9 H, Glucose 139 H, Calcium 8.4 L, Total Bilirubin 0.40, AST 34, ALT 42, Alkaline Phosphatase 66, Total Protein 6.3 L, Albumin 2.6 L, Globulin 3.7, Albumin/Globulin Ratio 0.7 L Micro: Microbiology 09/29/24 17:15 Mucosa - Nasopharyngeal Respiratory Panel (PCR) - Final 09/29/24 17:15 Mucosa - Nasopharyngeal SARS-CoV-2, Influenza & RSV (PCR) - Final SARS-CoV-2 (COVID 19) Physical Exam Const alert and no apparent distress Constitutional Narrative: up in chair. no respiratory distress. no conversational dyspnea. HEENT head/scalp atraumatic and moist oral mucous membranes Resp normal respiratory effort, no retractions, no use of accessory muscles and clear to auscultation bilaterally Cardio regular rate, regular rhythm, S1 normal heart sound and S2 normal heart sound GI normal to inspection, nondistended, normoactive bowel sounds, soft to palpation, non-tender and non-distended Assessment & Plan Assessment/Plan (1) Generalized weakness: PLAN: Plan Acute COVID-19 infection. onset likely 09/28. Quarantine through 10/03, then mask from 10/04-. on remdesivir and dexamethasone debilty poor baseline perforamance status, worsened by current COVID infection PT OT Anticipate SNF upon discharge as he is too unsafe to return home at this time. Elevated troponins chronically elevated. Lower than baseline. stress test in April was negative. Though EF was 40% at that time. Chronic conditions: afib: metoprolol succinate and rivaroxaban HTN: losartan on hold VTE prophylaxis: Not indicated as patient is already anticoagulated. DW family at bedside. - Charges/Coding Visit Charges Inpatient E&M: 16188 Subs Hosp L2
[2024-10-01] MEDS: Tolterodine Tartrate 2 MG CAP.SA PO (09:43)
[2024-10-01] MEDS: Remdesivir 100 MG in 0.9% Normal Saline (250mL Bag) 230 ML 250 MG IV (09:43)
--- NOTE | 2024-10-01 11:10 | CASEMGMT ---
Addendum entered by Mari Pandey 10/01/24 14:33: Social Work- TCU was unable to accept referral. Pt notified. A list of SNF providers including quality and resource use data and consistent with the patient?s preferred geographic region, medical needs, and insurance network were provided from the [facility]. Pt requested a call to pt dtr. SW called pt dt and verbally went over list of SNF providers presented to pt. Pt dtr and mom will discuss and notify SW of choices. KARINA Ribeiro. Original Note: Social Work- SW met with pt, pt , and pt dtr to discuss preferences at d/c. SW provided education on SNF vs HHc vs OP. Pt and family would like referral to TCU. SW completed referral. SW remains available to follow. KARINA Ribeiro
--- NOTE | 2024-10-01 12:15 | CASEMGMT ---
JAZZMINE CALDERON Assessment: Face to Face with pt for initial transition planning/care coordination assessment. JAZZMINE CALDERON introduced self and role at [facility], pt voices understanding and consents to assessment. Pt is A&O x4 and answers all questions appropriately at this time. Pt sitting up in chair in no distress with and dtr at bedside. Care providers, pharmacy, and demographics verified/updated. Admitting Dx: weakness and difficulty with ambulation Strata Score: 2 PCP:Cuco Specialists:HIMA, cardio; reji Bustillo Preferred Pharmacy: [facility] Insurance: [facility] Prescription Benefit: yes LNOK: Jaycee Yoo, ; Ramila Yoo, dtr Living Arrangements: Pt lives with and son in a single story home with 2 steps to enter with a rail. Pt reports he as I in ADLs. Pt son does laundry, family or cooks, brings food and other family members get the groceries. Transportation: Pt drives self and denies concerns with transportation. DME:bipap, FWW, cane, shower chair HHC/SNF: Denies hx of Pt had been going to [facility] for therapy. Pt had eval and 2 visits. Pt has been falling at home. Family is looking at options. Pt would like to return home. Discussed options such as HHC, SNF, OP therapy. SW is checking to see if TCU has any beds at this time as pt has met with SW. Pt dtr states that pt did well with therapy but then after that he had to use the bathroom and when he stood up he couldn't get his legs to cooperate. She states it seemed his brain was not telling his legs what to do. Updated pt nurse of this. Pt states no further concerns/needs. CM to follow. Advised pt to ask CM if any further question/concerns/needs arise, voices understanding. Pt Goal: Home, will discuss with family dc dispo Plan: GIFTY Trotter RN, CM
--- NOTE | 2024-10-01 12:35 | CASEMGMT ---
Discharge Planning A list of?SNF providers including quality and resource use data and consistent with the patient's preferred geographic region, medical needs, and insurance network was created in [facility] Guide.? This list was provided to the SW. Lainey Boles Discharge Planning Asst.
[2024-10-01] MEDS: 0.9% Saline Lock 10 ML Syringe IV (21:09)
[2024-10-01] MEDS: Pravastatin 80 MG Tablet PO (21:09)
[2024-10-02 01:56] VITALS: BP 138/101; PULSE 61; RESP 16; TEMP 36.6; O2SAT 95
[2024-10-02 03:19] VITALS: BP 140/93; PULSE 83
--- NOTE | 2024-10-02 07:23 | PN.HOSP_ITS ---
Reason for Visit Reason for Visit: Diagnoses Difficulty in walking, not elsewhere classified (09/30/24) Weakness (09/30/24) Objective Data Objective Data Vital Signs: Vital Signs Temp Pulse Resp BP Pulse Ox O2 Del Method O2 Flow Rate 36.6 C 83 16 140/93 H 95 Room Air 2 10/02/24 01:56 10/02/24 03:19 10/02/24 01:56 10/02/24 03:19 10/02/24 01:56 10/02/24 02:00 10/01/24 07:59 Oxygen Flow Rate (L/min) 2 Oxygen Delivery Method Room Air Weight: 64.9 kg Body Mass Index (BMI) 24.5 Intake & Output: Intake and Output for Last 24 Hours 09/30/24 10/01/24 10/02/24 23:59 23:59 23:59 Intake Total 710 / 810 1300 / 1300 500 / 500 Output Total 600 / 1000 850 / 850 600 / 600 Balance 110 / -190 450 / 450 -100 / -100 Lab / Micro Data 09/30/24 05:25 10/01/24 06:57 Labs: Laboratory Results - last 24 hr 10/01/24 06:57: Sodium 137, Potassium 4.6, Chloride 107, Carbon Dioxide 23.0, Anion Gap 7, BUN 44 H, Creatinine 1.05, Estim Creat Clear Calc 42.29, Est GFR (MDRD) Af Amer 86, Est GFR (MDRD) Non-Af 71, BUN/Creatinine Ratio 41.9 H, G lucose 139 H, Calcium 8.4 L, Total Bilirubin 0.40, AST 34, ALT 42, Alkaline Phosphatase 66, Total Protein 6.3 L, Albumin 2.6 L, Globulin 3.7, A lbumin/Globulin Ratio 0.7 L Micro: Microbiology 09/29/24 17:15 Mucosa - Nasopharyngeal Respiratory Panel (PCR) - Final 09/29/24 17:15 Mucosa - Nasopharyngeal SARS-CoV-2, Influenza & RSV (PCR) - Final SARS-CoV-2 (COVID 19) Assessment & Plan Assessment/Plan (1) Generalized weakness: PLAN: Plan Acute COVID-19 infection. * onset likely 09/28. Quarantine through 10/03, then mask from 10/04-. * on remdesivir and dexamethasone debilty * poor baseline perforamance status, worsened by current COVID infection * PT OT * Anticipate SNF upon discharge as he is too unsafe to return home at this time. Elevated troponins * chronically elevated. Lower than baseline. * stress test in April was negative. Though EF was 40% at that time. Chronic conditions: * afib: metoprolol succinate and rivaroxaban * HTN: losartan on hold VTE prophylaxis: Not indicated as patient is already anticoagulated. DW family at bedside. -
--- NOTE | 2024-10-02 07:23 | PCM.PN.HOSP ---
Reason for Visit Reason for Visit: Diagnoses Difficulty in walking, not elsewhere classified (09/30/24) Weakness (09/30/24) Subjective Subjective Feels well. No events overnight. Objective Data Objective Data Vital Signs: Vital Signs Temp Pulse Resp BP Pulse Ox O2 Del Method O2 Flow Rate 36.6 C 83 16 140/93 H 95 Room Air 2 10/02/24 01:56 10/02/24 03:19 10/02/24 01:56 10/02/24 03:19 10/02/24 01:56 10/02/24 02:00 10/01/24 07:59 Oxygen Flow Rate (L/min) 2 Oxygen Delivery Method Room Air Weight: 64.9 kg Body Mass Index (BMI) 24.5 Intake & Output: Intake and Output for Last 24 Hours 09/30/24 10/01/24 10/02/24 23:59 23:59 23:59 Intake Total 710 / 810 1300 / 1300 500 / 500 Output Total 600 / 1000 850 / 850 600 / 600 Balance 110 / -190 450 / 450 -100 / -100 Lab / Micro Data 09/30/24 05:25 10/01/24 06:57 Labs: Laboratory Results - last 24 hr 10/01/24 06:57: Sodium 137, Potassium 4.6, Chloride 107, Carbon Dioxide 23.0, Anion Gap 7, BUN 44 H, Creatinine 1.05, Estim Creat Clear Calc 42.29, Est GFR (MDRD) Af Amer 86, Est GFR (MDRD) Non-Af 71, BUN/Creatinine Ratio 41.9 H, Glucose 139 H, Calcium 8.4 L, Total Bilirubin 0.40, AST 34, ALT 42, Alkaline Phosphatase 66, Total Protein 6.3 L, Albumin 2.6 L, Globulin 3.7, Albumin/Globulin Ratio 0.7 L Micro: Microbiology 09/29/24 17:15 Mucosa - Nasopharyngeal Respiratory Panel (PCR) - Final 09/29/24 17:15 Mucosa - Nasopharyngeal SARS-CoV-2, Influenza & RSV (PCR) - Final SARS-CoV-2 (COVID 19) Physical Exam Const alert and no apparent distress Constitutional Narrative: Up in chair. No respiratory distress. No conversational dyspnea. Resp normal respiratory effort, no retractions, no use of accessory muscles and clear to auscultation bilaterally Cardio regular rate, regular rhythm, S1 normal heart sound and S2 normal heart sound GI normal to inspection, nondistended, normoactive bowel sounds, soft to palpation, non-tender and non-distended Assessment & Plan Assessment/Plan (1) Generalized weakness: PLAN: Plan Acute COVID-19 infection. onset likely 09/28. Quarantine through 10/03, then mask from 10/04-. on remdesivir and dexamethasone debilty poor baseline perforamance status, worsened by current COVID infection PT OT Anticipate SNF upon discharge as he is too unsafe to return home at this time. Elevated troponins chronically elevated. Lower than baseline. stress test in April was negative. Though EF was 40% at that time. Chronic conditions: afib: metoprolol succinate and rivaroxaban HTN: losartan on hold VTE prophylaxis: Not indicated as patient is already anticoagulated. Disposition: To [facility] facility pending insurance authorization. - Charges/Coding Visit Charges Inpatient E&M: 44579 Subs Hosp L2
[2024-10-02 08:00] VITALS: BP 116/66; PULSE 87; RESP 16; TEMP 36.6; O2SAT 97
[2024-10-02 08:01] VITALS: O2SAT 95
--- NOTE | 2024-10-02 09:17 | CASEMGMT ---
Addendum entered by Mari Pandey 10/02/24 15:10: Social Work- Pt and family have chosen to d/c with HHC. RNCM following. KARINA Ribeiro Addendum entered by Mari Pandey 10/02/24 15:08: Social Work- SW met with pt dtr, pt , and pt in pt room to discuss plans at d/c. SW answered questions and provided education on SNF vs HHC. Pt family to have meeting to discuss information and will let SW know what their choice at d/c is. KARINA Ribeiro Original Note: Social Work- SW called pt dtr Ramila to follow up on conversation yesterday. Ramila reports that she has not spoken with her mom about SNF list at this time. SW shared that pt is medically ready and a plans for d/c need to be progressing whether it is SNF or HHC, which are the options being considered per Ramila. Ramila reports concerns that the root of why pt has challenging days walking has not been identified. Ramila reports that she feels there was be some neuro issues. FARAZ shared that RNCM presented these concerns to medical staff yesterday; SW will share with hospitalist today as well. SW offered to have hospitalist call family. Pt dtr did not request at this time. Ramila asked questions regarding SNF and HHC; SW provided education. Ramila will talk with pt and call SW back with plan. KARINA Ribeiro
[2024-10-02] MEDS: Remdesivir 100 MG in 0.9% Normal Saline (250mL Bag) 230 ML 250 MG IV (10:13)
[2024-10-02] MEDS: dexAMETHasone 4 MG Tablet 6 MG PO (10:14)
[2024-10-02] MEDS: 0.9% Saline Lock 10 ML Syringe IV (10:14)
[2024-10-02 10:15] VITALS: PULSE 82
[2024-10-02] MEDS: Rivaroxaban 15 MG Tablet PO (10:15)
[2024-10-02] MEDS: Metoprolol(XL)Succ 25 MG Tablet PO (10:15)
[2024-10-02] MEDS: Tolterodine Tartrate 2 MG CAP.SA PO (10:15)
[2024-10-02] MEDS: PARoxetine 10 MG Tablet PO (10:15)
--- NOTE | 2024-10-02 12:59 | CASEMGMT ---
Addendum entered by Urvashi Romero 10/02/24 15:19: Received tc back from Aylin at [facility], pt is accepted with SOC on . PT to shruthi for OT. JAZZMINE CALDERON updated pt and family. Addendum entered by Urvashi Romero 10/02/24 14:52: JAZZMINE CALDERON into pt room, pt and family have decided to go with [facility]. Discussed having SN, PT and OT. [facility]st choice is [facility] followed by [facility]. TC to [facility], referral made via . Will await acceptance. Hospitalist updated. Original Note: Patient was provided a list of [facility] providers including quality and resource use data and consistent with the patient?s preferred geographic region, medical needs, and insurance network were provided from the [employer] Guide. Pt and family to review list and determine if they would like SNF vs Home with [facility]. JAZZMIEN CALDERON or FARAZ to check back. Answered all pt and family questions.
[2024-10-02 14:00] VITALS: BP 124/70; PULSE 78; RESP 16; TEMP 36.6; O2SAT 97
--- NOTE | 2024-10-02 14:16 | SP.MBSS_ITS ---
Modified Barium Swallow Patient Information Study Date: 10/02/24 Study Time: 13:45 Direct Billable Minutes: 93 Total Minutes procedure & reportin Diagnosis: Generalized weakness R53.1 Referring Physician: Petr Rader Reason for Referral: Objectively assess swallow function, assess risk for aspiration, and determine recommendations for least restrictive diet textures and compensatory strategies to improve safety of swallow. 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 The patient had experienced falls around the house and had been receiving PT as an OP. Chest x-ray in the ED did show mild opacities in the mid to lower lungs concerning for pneumonia versus pneumonitis. Pt was admitted for management of difficulty walking, weakness, and COVID-19 infection with hypoxia amongst other comorbidities. Of note, hospitalist also had concern for a slight cognitive delay w/ responding to questions during admission in H&P. He was evaluated by ST and recommended for regular textures / thin liquids w/ effortful swallows w/ liquids. Pt had appeared to tolerate this diet during stay, but was recommended for MBSS due to reported history of coughing w/ food/drink at home by and patient. Current Diet Ordered: Regular / Thin Dentition: Natural Teeth, Partials (upper) and Missing Teeth Respiratory Status: Oxygenating on Room Air Penetration-Aspiration Scale Penetration-Aspiration Scale: OBJECTIVE ASSESSMENT OF SWALLOW FUNCTION (QUANTITATIVE ? PER TRIAL): PENETRATION / ASPIRATION SCALE (BURKETT): 1 = does not enter airway 2 = enters airway/above vocal folds/ejected 3 = enters airway/above vocal folds/not ejected 4 = enters airway/contacts vocal folds/ejected 5 = enters airway/contacts vocal folds/not ejected 6 = enters airway/below vocal folds/ejected 7 = enters airway/below vocal folds/not ejected despite effort 8 = enters airway/below vocal folds/no effort VIDEOFLOROSCOPIC SCALE SCORE (BURKETT): Grade I = aspiration of material that has penetrated into the laryngeal vestibule, intact cough reflex Grade II = aspiration < 10 % of the bolus, intact cough reflex Grade III = aspiration of < 10 % of the bolus, reduced cough reflex or aspiration of > 10 % of the bolus, intact cough reflex Grade IV = aspiration of > 10 % of the bolus, reduced cough reflex Penetration-Aspiration Scale Score Thin Liquid via teaspoon: Result: 5= enters airways/contacts vocal folds/not ejected Thin Liquid via teaspoon Trial 2: Result: 5= enters airways/contacts vocal folds/not ejected Thin Liquid via large single sip: cup: Result: 7= enters airways/below vocal folds/not ejected despite effort [place] Thick Liquid via small single sip: cup: Result: 1= does not enter airway Pudding via teaspoon: Result: 1= does not enter airway 1/2 Cookie Chin tuck: Result: 2= enter airway/above vocal folds/ejected Thin Liquid via large single sip: cup Chin tuck: Result: 1= does not enter airway Thin Liquid via single sip: straw Chin tuck: Result: 3= enters airways/above vocal folds/not ejected Thin Liquid via single sip: straw: Result: 2= enter airway/above vocal folds/ejected Thin Liquid via small single sip: cup Chin tuck: Result: 8= enters airway/below vocal folds/no effort Thin Liquid via small single sip: cup Effortful swallow: Result: 2= enter airway/above vocal folds/ejected Oral Phase Labial Seal: Interlabial escape, no progression to anterior lip Tongue Control During Bolus Hold: Posterior escape of less than half of bolus Bolus Preparation/Mastication: Slow prolonged chewing/mashing with complete recollection Bolus Transport/Lingual Motion: Delayed initiation of tongue motion Oral Residue: Residue collection on oral structures Pharyngeal Phase Initiation of Pharyngeal Swallow: Bolus head in pyriforms Soft Palate Elevation: Trace column of contrast/air between soft palate and pharyngeal wall Laryngeal Elevation: Partial superior movement thyroid cart/partial apprx aryt- epig petiole Anterior Hyoid Excursion: Partial anterior movement Epiglottic Movement: Partial inversion Laryngeal Vestibule Closure at Height of Swallow: Incomplete; narrow column of air/contrast in laryngeal vestibule Pharyngeal Stripping Wave: Present - diminished Pharyngoesophageal Segment Opening: Parital distension and partial duration; parital obstruction of flow Tongue Base Retraction: Wide column of contrast between tongue base & post. pharyngeal wall Pharyngeal Residue: Collection of residue within or on pharyngeal structures Esophageal Phase Esophageal Clearance: Complete clearance Diagnosis/Impression Diagnosis: Moderate oropharyngeal dysphagia R13.12 Impression: The oral phase is primarily marked by... -Decreased bolus control w/ loss of <1/2 of thin liquids to the pharynx prior to swallow onset. One trial spilled to the pyriforms. -Delayed tongue motion for A-P transport. -Slowed, but complete mastication of cookie. The pharyngeal phase is primarily marked by... -Decreased tongue base retraction, pharyngeal stripping wave, and UES opening/duration w/ moderate pharyngeal residue of pudding. Use of chin tuck reduced pharyngeal residues to mild. -Decreased airway closure due to decreased anterior hyoid excursion, laryngeal elevation, and partial epiglottic inversion. -SILENT aspiration of thin liquids by cup w/ chin tuck. Overt aspiration of thin liquids via large cup sip. Recommendations Diet: Regular Textures (Easy to Chew textures - IDDSI Level 7) and Thin Liquids Compensatory Strategies: Small Bites (CHIN TUCK W/ BITES), Small Sips (EFFORTFUL/HARD SWALLOWS W/ SIPS), Slow Rate, Alternate bites/solids and sips/liquids and Sitting upright Supervision: 1:1 Close Supervision Recommend Repeat Modified Barium Swallow: TBD Need for Skilled Speech Therapy Services: Yes Comment: -Train the patient in use of strategies to decrease risk for aspiration. -Ongoing assessment of diet tolerance of recommended textures. If pt is unable to reliably utilize strategies or pt experiences a change in respiratory status, consider downgrade to nectar/mildly thick liquids. -Train the patient in oropharyngeal exercise program to airway closure, pharyngeal contraction, and UES opening/duration (Zan, Jalyn, Effortful, Yawn stretch). Education Completed: 1. Described result of evaluation., 2. Pt understands evaluation & agrees with goals and treatment plan. and 7. Pt requires further education on strategies & risks. Status Active ST Patient: Active Contact Information [facility] Speech Therapy:: Sparkle Flores M.A. CCC-SCIENTIFIC PROGRAMMER ANALYST? Speech-Language Pathologist?? [facility] [address] [address]? [email or web address]?? [phone]
--- NOTE | 2024-10-02 14:52 | DS.PCM_ITS ---
Providers Date of Admission: 09/30/24 Primary Care Physician: Dr. Geremias Norwood, DO Reason For Visit: WEAKNESS AND DIFFICULTY W/AMBULATION Diagnosis Discharge Diagnosis (1) Generalized weakness: Status: Acute Code(s): R53.1 - Weakness Plan Acute COVID-19 infection. * onset likely 09/28. Quarantine through 10/03, then mask from 10/04-. * on remdesivir and dexamethasone while in the hospital. Pt to be discharged with dexamethasone, to be completed on 10/09 debilty * poor baseline perforamance status, worsened by current COVID infection * PT OT * pt to go home with [facility]. Elevated troponins * chronically elevated. Lower than baseline. * stress test in April was negative. Though EF was 40% at that time. Chronic conditions: * afib: metoprolol succinate and rivaroxaban * HTN: losartan on hold VTE prophylaxis: Not indicated as patient is already anticoagulated. Disposition: To home with [facility]. - Medications at Discharge Home Medications magnesium 250 mg tablet 500 mg PO DAILY mineral 07/13/18 cholecalciferol (vitamin D3) 125 mcg (5,000 unit) capsule 5,000 unit PO DAILY vitamin 10/18/19 calcium carbonate (Calcium 600) 600 mg PO DAILY supplement 03/31/22 rivaroxaban 15 mg tablet 15 mg PO DAILY blood thinner #90 tabs 12/16/23 pravastatin 80 mg tablet 80 mg PO QHS #90 tabs 03/09/24 metoprolol succinate 25 mg tablet,extended release 24 hr 25 mg PO QDAY 09/20/24 oxybutynin chloride 5 mg tablet,extended release 24 hr 5 mg PO QDAY 09/20/24 paroxetine HCl 10 mg tablet 10 mg PO QDAY 09/20/24 dexamethasone 4 mg tablet 6 mg (1.5 x 4 mg) PO DAILY #7 tabs 10/02/24 Hospital Course Operations None Procedures None Summary of Care Provided Minutes Spent on Discharge: 35 Hospital Course: This is an 88-year old male who presents with worsening weakness. At baseline his performance status was poor, but he contracted COVID-19 and he was notably more weak. Seen by therapy who recommended additional therapy. Initially the plan was for a SNF. Eventually, he and his family decided upon Home with home health services. Weight / BMI Weight Weight: 64.9 kg Body Mass Index (BMI) 24.5 ABG / Lab / Microbiology Data 09/30/24 05:25 10/01/24 06:57 Microbiology: Microbiology 09/29/24 17:15 Mucosa - Nasopharyngeal Respiratory Panel (PCR) - Final 09/29/24 17:15 Mucosa - Nasopharyngeal SARS-CoV-2, Influenza & RSV (PCR) - Final SARS-CoV-2 (COVID 19) D/C Instructions Discharge Diet: No restrictions DC O2, CPAP, BIPAP Needs Additional Home O2 Discharge instructions: No DC home with Oxygen: No Meaningful Use Info Meaningful Use Meaningful Use Diagnoses (Choose all that apply): None applicable Ischemic Stroke Statin Dosing Therapy Reference: STATIN DOSE THERAPY REFERENCE: * Patients > 75 years receive moderate or high dose statin therapy. * Patients 75 years or YOUNGER should receive HIGH intensity statin dose unless contraindicated. You will be required to document reason for non-treatment if statin daily dose does not meet guidelines. HIGH DOSE STATIN THERAPY DAILY Atorvastatin > than or = to 40 mg Rosuvastatin > than or = to 20 mg Amlodipine + Atorvastatin > than or = to 2.5/40 mg Ezetimibe + Simvastatin 10/80 mg Simvastatin 80mg Discharge Plan Admission Admit Date/Time: 09/30/24 16:47 Primary Reason for Your Visit: COVID 19 Attending Provider: Petr Rader Primary Care Provider: Geremias Norwood Consulting Providers: Saturnino Bradford; Beto Barr Discharge Orders/Prescriptions Prescriptions: New dexamethasone 4 mg Tablet 6 mg PO DAILY Qty: 7 0RF Continued magnesium 250 mg tablet 500 mg PO DAILY cholecalciferol (vitamin D3) 5,000 unit capsule 5,000 unit PO DAILY calcium carbonate [Calcium 600] 600 mg calcium (1,500 mg) tablet 600 mg PO DAILY paroxetine HCl 10 mg tablet 10 mg PO QDAY oxybutynin chloride 5 mg tablet extended release 24hr 5 mg PO QDAY metoprolol succinate 25 mg tablet extended release 24 hr 25 mg PO QDAY Patient Comments: took this am rivaroxaban 15 mg tablet 15 mg PO DAILY Qty: 90 3RF pravastatin 80 mg tablet 80 mg PO QHS Qty: 90 3RF Discontinued PreserVision AREDS 4,296 mcg-226 mg-90 mg capsule 1 cap PO DAILY saw palmetto 450 MG capsule 450 mg PO DAILY Patient Comments: supplement losartan 50 mg tablet 50 mg PO BID metoprolol tartrate 25 mg tablet 25 mg PO BID Referrals / Follow Up: Geremias Norwood DO [Primary Care Provider] - Within 2 Weeks Disposition Disposition (needs filled in before D/C Order can be placed): Home Health Service Charges/Coding Visit Charges Inpatient E&M: 19019 Disch Hosp >30min
== END 2024-10-02 16:50 | disposition home health service (06) | DRG 178 ==
LOC: ED 15:39 → MS3 16:01
PROVIDERS: Internal Medicine; Admitting Provider Hospitalist; Emergency Provider Emergency Medicine; PCP Student in an Organized Health Care Education/Training Program
DX: U07.1 COVID-19 (principal); I48.21 Permanent atrial fibrillation; I13.0 Hypertensive heart and chronic kidney disease with heart failure and stage 1 through stage 4 chronic kidney disease, or unspecified chronic kidney disease; I50.22 Chronic systolic (congestive) heart failure; I25.5 Ischemic cardiomyopathy; N18.30 Chronic kidney disease, stage 3 unspecified; F32.A Depression, unspecified; M35.3 Polymyalgia rheumatica; E78.5 Hyperlipidemia, unspecified; I25.10 Atherosclerotic heart disease of native coronary artery without angina pectoris; G47.33 Obstructive sleep apnea (adult) (pediatric); R09.02 Hypoxemia; R53.1 Weakness; Z79.01 Long term (current) use of anticoagulants; R29.6 Repeated falls; R32 Unspecified urinary incontinence; Z99.89 Dependence on other enabling machines and devices
CPT/HCPCS: 36415; 70450; 71045; 74230; 80048; 80053; 81001; 84484; 85025; 85027; 87631; 87633; 92526; 92610; 92611; 93005; 94668; 97110; 97116; 97162; 97165; 97530; 97535; 99252; 99284; J7030; J7040; J7050; A4216; G0463; J0248

== ENCOUNTER 2024-11-11 13:31 | Inpatient (IN) | payer MEDICARE, SELFPAY ==
[2024-11-11] VITALS (8 sets, daily range): BP systolic 99–160; BP diastolic 69–96; PULSE 82–117; RESP 18–24; TEMP 36.6–37.9; O2SAT 86–98; BMI 25.0
--- NOTE | 2024-11-11 13:49 | EKG12_ITS ---
Test Reason : Blood Pressure : */* mmHG Vent. Rate : 96 BPM Atrial Rate : * BPM P-R Int : * ms QRS Dur : 108 ms QT Int : 348 ms P-R-T Axes : * -50 115 degrees QTcB Int : 439 ms Atrial fibrillation Left anterior fascicular block Minimal voltage criteria for LVH, may be normal variant ( Skip product ) ST & T wave abnormality, consider lateral ischemia Abnormal ECG Confirmed by LISET RODAS, DAYAN ([id number]), city editor DARIAN MEIER ([id number]) on 11/12/2024 11:05:18 AM Referred By: Confirmed By: DAYAN HUTCHINS MD
[2024-11-11 14:00] LABS: Absolute Neutrophil Count 11.4 X10^3/uL (2.0-7.7); Basophil# 0.03 X10^3/uL; Basophil% 0.2 % (0-1); Eosinophil# 0.24 X10^3/uL; Eosinophils% 1.8 % (0-5); Hematocrit 40.2 % (40-54); Hemoglobin 13.3 g/dL (13.0-16.5); Lymphocyte % 5.2 % (19-41); Mean Corp Hgb Conc 33.1 g/dL (32-36); Mean Corpuscular Hgb 31.2 pg (27.0-32.0); Mean Corpuscular Volume 94.4 fL (80-94); Mean Platelet Vol. 10.4 fl (6.2-12.0); Monocyte# 0.92 X10^3/uL; Monocyte% 6.9 % (0-10); NRBC Flagged by Analyzer 0 % (0-5); Neutrophil % 85.1 % (47-70); Platelet Count 234 K/mm3 (150-450); RBC Distribution Width CV 14.3 % (11.6-14.6); RBC Distribution Width SD 49.6 fl (35.1-43.9); Red Blood Count 4.26 M/mm3 (4.6-6.2); White Blood Count 13.4 K/mm3 (4.4-11.0)
[2024-11-11] MEDS: 0.9% Normal Saline (1000mL) 1,000 ML 999 ML IV (14:05)
[2024-11-11] MEDS: Ondansetron 4 MG/2 ML Vial IV (14:05)
[2024-11-11] MEDS: Acetaminophen 325 MG Tablet 650 MG PO (14:08)
--- NOTE | 2024-11-11 14:09 | EDS_ITS ---
HPI <IZA Diaz - Last Filed: 11/11/24 16:36> History of Present Illness Chief Complaint: Nausea/Vomiting Narrative Narrative: 88-year-old male with PMH of HTN, A-fib presents with difficulty ambulating and nausea and vomiting. History is provided by his and daughter. He uses a walker and they went on a day trip yesterday so he did more walking than usual. He was tired when he got home and he started to become stiff and they had a lot of difficulty getting into bed. states he has had similar episodes where he becomes very stiff and cannot move in the past but they have always resolved on their own. This morning after eating oatmeal he vomited a few times and complained of upper abdominal pain. No diarrhea or black or bloody stools. He is chronically incontinent and wears depends. He also was coughing last night. <Dr. Ovidio Oviedo DO - Last Filed: 11/11/24 16:41> Narrative Narrative: 88-year-old male with PMH of HTN, A-fib presents with difficulty ambulating and nausea and vomiting. Also endorse cough. History is provided by his and daughter. He uses a walker and they went on a day trip yesterday so he did more walking than usual. He was tired when he got home and he started to become stiff and they had a lot of difficulty getting into bed. states he has had similar episodes where he becomes very stiff and cannot move in the past but they have always resolved on their own. This morning after eating oatmeal he vomited a few times and complained of upper abdominal pain. No diarrhea or black or bloody stools. He is chronically incontinent and wears depends. He also was coughing last night. PFSH <IZA Diaz - Last Filed: 11/11/24 16:36> PFSH Medical History Hx of care home use of blood thinners Cardiomyopathy Ischemic cardiomyopathy NSVT (nonsustained ventricular tachycardia) Acute non-ST elevation myocardial infarction (NSTEMI) Atrial fibrillation with rapid ventricular response Atherosclerotic heart disease of [place] coronary artery without angina pectoris Atrial fibrillation CKD (chronic kidney disease) stage 3, GFR 30-59 ml/min Hypertrophic cardiomyopathy Home Medications ?Medication ?Instructions ?Recorded ?Last Taken ?Type magnesium 250 mg tablet 500 mg PO DAILY mineral 07/13/18 09/29/24 History cholecalciferol (vitamin D3) 125 5,000 unit PO DAILY vitamin 10/18/19 09/29/24 History mcg (5,000 unit) capsule calcium carbonate (Calcium 600) 600 mg PO DAILY supplement 03/31/22 09/29/24 History rivaroxaban 15 mg tablet 15 mg PO DAILY blood thinner #90 12/16/23 09/28/24 17:00 Rx tabs metoprolol succinate 25 mg 25 mg PO QDAY 09/20/24 Unknown History tablet,extended release 24 hr oxybutynin chloride 5 mg 5 mg PO QDAY 09/20/24 Unknown History tablet,extended release 24 hr paroxetine HCl 10 mg tablet 10 mg PO QDAY 09/20/24 Unknown History Allergy/AdvReac Type Severity Reaction Status Date / Time atorvastatin Allergy confused Verified 11/11/24 13:33 lisinopril Allergy cough Verified 11/11/24 13:33 amiodarone AdvReac Intermediate lightheaded Verified 11/11/24 13:33 ness Family History Father Myocardial infarction Brother Myocardial infarction Surgical History History of cardioversion (11/30/22) Social History Smoking Status: Never smoker second hand exposure: No alcohol intake: never substance use type: does not use caffeine: Yes Type: tea what type of physical activity do you participate in: walking ROS <IZA Diaz - Last Filed: 11/11/24 16:36> ROS ED ROS Narrative Constitutional: Negative for fever, chills. CVS: Negative for chest pain, syncope. Respiratory: Positive for cough. Negative for shortness of breath. GI: Positive for nausea, vomiting. : Negative for dysuria. Neuro: Negative for headache. EXAM <IZA Diaz - Last Filed: 11/11/24 16:36> Physical Exam Narrative Exam Narrative: CONST: Patient sitting in no acute distress. EYES: Normal inspection. NECK: Normal inspection. RESP: No respiratory distress, CTAB. CVS: Irregularly irregular rhythm, no murmur, no gallop. ABD: Soft and nontender, no guarding or rebound, nondistended, no hepatosplenomegaly. SKIN: Color normal, no rash, warm, dry, intact. EXTREMITIES: Normal appearance, no pedal edema. NEURO: Alert to self, place, age, year. Answering questions appropriately al though reticent. PSYCH: Normal affect. Const Vital Signs: 11/11/24 13:34 11/11/24 14:10 11/11/24 14:52 Temperature 100.1 F H 100.1 F H 100.3 F H Temperature Source Oral Oral Oral Pulse Rate 117 H 104 H 95 Respiratory Rate 22 H 18 24 H Blood Pressure 160/95 H 123/96 H 112/78 Blood Pressure Mean 116 105 89 Pulse Ox 94 94 92 Oxygen Delivery Method Room Air Room Air Room Air Oxygen Flow Rate (L/min) 11/11/24 15:29 11/11/24 15:29 11/11/24 16:08 Temperature 98.7 F Temperature Source Pulse Rate 85 88 Respiratory Rate 22 H 22 H Blood Pressure 103/84 H 105/80 Blood Pressure Mean 90 88 Pulse Ox 86 96 98 Oxygen Delivery Method Room Air Nasal Cannula Oxygen Flow Rate (L/min) 2 <Dr. Ovidio Oviedo DO - Last Filed: 11/11/24 16:41> Physical Exam Const Vital Signs: 11/11/24 13:34 11/11/24 14:10 11/11/24 14:52 Temperature 100.1 F H 100.1 F H 100.3 F H Temperature Source Oral Oral Oral Pulse Rate 117 H 104 H 95 Respiratory Rate 22 H 18 24 H Blood Pressure 160/95 H 123/96 H 112/78 Blood Pressure Mean 116 105 89 Pulse Ox 94 94 92 Oxygen Delivery Method Room Air Room Air Room Air Oxygen Flow Rate (L/min) 11/11/24 15:29 11/11/24 15:29 11/11/24 16:08 Temperature 98.7 F Temperature Source Pulse Rate 85 88 Respiratory Rate 22 H 22 H Blood Pressure 103/84 H 105/80 Blood Pressure Mean 90 88 Pulse Ox 86 96 98 Oxygen Delivery Method Room Air Nasal Cannula Oxygen Flow Rate (L/min) 2 MDM <IZA Diaz - Last Filed: 11/11/24 16:36> MDM MDM Narrative Medical decision making narrative: History gathered from: Patient, family Differential: Viral URI, pneumonia, intra-abdominal process, UTI 88-year-old male presents with constellation of symptoms including cough, nausea and vomiting, abdominal pain, and generalized weakness and difficulty ambulating. This started last night. He is awake and alert in no distress. He was hypertensive at 160/95, in chronic A-fib between 90?110s, and has a low- grade temperature of 100.1 F. Lungs sounded clear. Abdomen soft, nontender, nondistended. He is moving all extremities with a nonfocal neurological exam. Labs show WBC of 13.4, normal hemoglobin at 13.3, normal electrolytes and renal function. Glucose 121. Total bili is elevated at 2.2 but LFTs and lipase are normal. EKG shows chronic A-fib. Troponin is elevated at 431 with delta trending down to 336. This appears to be a chronically high value for him. In the past when he had an NSTEMI it was in the thousands and it appears he has a chronic elevation in the 400-500s. He is not having chest pain so not concerned this is ACS patient was initially 94% on room air but became hypoxic to 86% was placed on 2 L nasal cannula. CXR shows a left-sided pneumonia and viral swab was negative so he was treated for CAP with IV Rocephin and Zithromax. CT of the abdomen/pelvis shows no acute abdominal pelvic findings. It noted urinary bladder wall thickening but his urinalysis is negative. There is an incidental pancreatic nodule. There are also bilateral pleural effusions. Since patient is hypoxic with pneumonia and too weak to ambulate safely he requires admission. Case was discussed with the hospitalist. Lab Data Attestation: I reviewed the patient's lab results. Labs: Laboratory Results - last 24 hr 11/11/24 11/11/24 11/11/24 13:50 14:45 15:20 WBC 13.4 H RBC 4.26 L Hgb 13.3 Hct 40.2 MCV 94.4 H MCH 31.2 MCHC 33.1 RDW Std Deviation 49.6 H RDW Coeff of Samra 14.3 Plt Count 234 MPV 10.4 Immature Gran % (Auto) 0.800 Neut % (Auto) 85.1 H Lymph % (Auto) 5.2 L [place] % (Auto) 6.9 Eos % (Auto) 1.8 Baso % (Auto) 0.2 Absolute Neuts (auto) 11.4 H Absolute Lymphs (auto) 0.70 L Nucleated RBC % 0 Sodium 136 Potassium 4.4 Chloride 104 Carbon Dioxide 23.0 Anion Gap 9 BUN 22 H Creatinine 1.21 Estim Creat Clear Calc 36.69 Est GFR (MDRD) Af Amer 73 Est GFR (MDRD) Non-Af 60 BUN/Creatinine Ratio 18.2 Glucose 121 H Calcium 9.3 Total Bilirubin 2.20 H Direct Bilirubin 0.62 H AST 17 ALT 31 Alkaline Phosphatase 72 Troponin I High Sens 431 H* 336 H* Total Protein 7.3 Albumin 3.1 L Globulin 4.2 Lipase 33 Urine Color Yellow Urine Clarity Clear Urine pH 6.5 Ur Specific [place] 1.010 Urine Protein 100 H Urine Glucose (UA) Normal Urine Ketones 5 H Urine Occult Blood 10 H Urine Nitrite Negative Urine Bilirubin Negative Urine Urobilinogen Normal Ur Leukocyte Esterase Negative Urine RBC 0-5 SEEN Urine WBC 0-5 SEEN Ur Squamous Epith Cells 0-5 SEEN Urine Bacteria 0 SEEN Hyaline Casts 0-5 SEEN Urine Mucus 0 SEEN Radiography Diagnostic Testing: Clinical Impression(s) from Imaging Studies Chest X-Ray 11/11/24 14:25 IMPRESSION: Left sided pneumonia. Electronically Signed: Pete Alvares MD at 15:12 EST , Abdomen/Pelvis CT 11/11/24 15:07 IMPRESSION: (NOT LISTED IN ORDER OF SIGNIFICANCE) Small bilateral pleural effusions. Urinary bladder wall has wall thickening. This can be related to a partially contractile state. However, a cystitis is not excluded. Urinalysis should be performed in an effort to exclude cystitis. 9.4mm enhancing nodule in the tail of the pancreas. Neoplasm cannot be excluded. Enlarged prostate gland. Right inguinal hernia containing nonobstructed small bowel. Other findings as above. Electronically Signed: Pete Alvares MD at 15:56 EST , EKG Initial EKG: Attestation: I personally reviewed and interpreted this EKG as follows: Interpretation: Atrial Fibrillation Comments: Atrial fibrillation at 96 bpm No acute STEMI <Dr. Ovidio Oviedo, DO - Last Filed: 11/11/24 16:41> [facility] Narrative Medical decision making narrative: History gathered from: Patient, family Differential: Viral URI, pneumonia, intra-abdominal process, UTI 88-year-old male presents with constellation of symptoms including cough, nausea and vomiting, abdominal pain, and generalized weakness and difficulty ambulating. This started last night. He is awake and alert in no distress. He was hypertensive at 160/95, in chronic A-fib between 90?110s, and has a low- grade temperature of 100.1 F. Lungs sounded clear. Abdomen soft, nontender, nondistended. He is moving all extremities with a nonfocal neurological exam. Labs show WBC of 13.4, normal hemoglobin at 13.3, normal electrolytes and renal function. Glucose 121. Total bili is elevated at 2.2 but LFTs and lipase are normal. EKG shows chronic A-fib. Troponin is elevated at 431 with delta trending down to 336. This appears to be a chronically high value for him. In the past when he had an NSTEMI it was in the thousands and it appears he has a chronic elevation in the 400-500s. He is not having chest pain so not concerned this is ACS patient was initially 94% on room air but became hypoxic to 86% was placed on 2 L nasal cannula. CXR shows a left-sided pneumonia and viral swab was negative so he was treated for CAP with IV Rocephin and Zithromax. CT of the abdomen/pelvis shows no acute abdominal pelvic findings. It noted urinary bladder wall thickening but his urinalysis is negative. There is an incidental pancreatic nodule. There are also bilateral pleural effusions. Since patient is hypoxic with pneumonia and too weak to ambulate safely he requires admission. Case was discussed with the hospitalist. ED attending note: I evaluated the patient in conjunction with the MANUELA. I agree with his/her statements and above findings. I have personally performed a face to face assessment of the patient and have reviewed the MANUELA Note. I performed a substantive portion of the visit including all aspects of the following. I personally saw the patient performed chart review, physical exam, reviewed labs, imaging (if obtained), and formulated a treatment and management plan. This note was generated with [employer] dictation software. It may contain incorrect words, spelling, and punctuation that were not noted in review of the chart prior to signing. Lab Data Labs: Laboratory Results - last 24 hr 11/11/24 11/11/24 11/11/24 13:50 14:45 15:20 WBC 13.4 H RBC 4.26 L Hgb 13.3 Hct 40.2 MCV 94.4 H MCH 31.2 MCHC 33.1 RDW Std Deviation 49.6 H RDW Coeff of Samra 14.3 Plt Count 234 MPV 10.4 Immature Gran % (Auto) 0.800 Neut % (Auto) 85.1 H Lymph % (Auto) 5.2 L [place] % (Auto) 6.9 Eos % (Auto) 1.8 Baso % (Auto) 0.2 Absolute Neuts (auto) 11.4 H Absolute Lymphs (auto) 0.70 L Nucleated RBC % 0 Sodium 136 Potassium 4.4 Chloride 104 Carbon Dioxide 23.0 Anion Gap 9 BUN 22 H Creatinine 1.21 Estim Creat Clear Calc 36.69 Est GFR (MDRD) Af Amer 73 Est GFR (MDRD) Non-Af 60 BUN/Creatinine Ratio 18.2 Glucose 121 H Calcium 9.3 Total Bilirubin 2.20 H Direct Bilirubin 0.62 H AST 17 ALT 31 Alkaline Phosphatase 72 Troponin I High Sens 431 H* 336 H* Total Protein 7.3 Albumin 3.1 L Globulin 4.2 Lipase 33 Urine Color Yellow Urine Clarity Clear Urine pH 6.5 Ur Specific [place] 1.010 Urine Protein 100 H Urine Glucose (UA) Normal Urine Ketones 5 H Urine Occult Blood 10 H Urine Nitrite Negative Urine Bilirubin Negative Urine Urobilinogen Normal Ur Leukocyte Esterase Negative Urine RBC 0-5 SEEN Urine WBC 0-5 SEEN Ur Squamous Epith Cells 0-5 SEEN Urine Bacteria 0 SEEN Hyaline Casts 0-5 SEEN Urine Mucus 0 SEEN Radiography Diagnostic Testing: Clinical Impression(s) from Imaging Studies Chest X-Ray 11/11/24 14:25 IMPRESSION: Left sided pneumonia. Electronically Signed: Pete Alvares MD at 15:12 EST , Abdomen/Pelvis CT 11/11/24 15:07 IMPRESSION: (NOT LISTED IN ORDER OF SIGNIFICANCE) Small bilateral pleural effusions. Urinary bladder wall has wall thickening. This can be related to a partially contractile state. However, a cystitis is not excluded. Urinalysis should be performed in an effort to exclude cystitis. 9.4mm enhancing nodule in the tail of the pancreas. Neoplasm cannot be excluded. Enlarged prostate gland. Right inguinal hernia containing nonobstructed small bowel. Other findings as above. Electronically Signed: Pete Alvares MD at 15:56 EST , Discharge Plan Triage Chief Complaint: Nausea/Vomiting ED Midlevel Provider: Jana Gardner ED Provider: Ovidio Oviedo Dx/Rx/DC Orders Clinical Impression: Pneumonia, Hypoxia, Generalized weakness, Bilateral pleural effusion Primary Care Provider: Geremias Norwood
[2024-11-11 14:22] LABS: Anion Gap 9 (5-15); BUN 22 mg/dL (7-18); BUN/Creat Ratio 18.2 RATIO (10-20); Calcium,Total 9.3 mg/dL (8.5-10.1); Chloride 104 mmol/L (98-107); Creatinine, Serum 1.21 mg/dL (0.70-1.30); EST Glomerular Filtration Rate 60 mL/min (>60); Est Glom Filt Rate - Afr Amer 73 mL/min (>60); Estimated Creatinine Clearance 36.69 ml/min; Glucose 121 mg/dL (74-106); Potassium 4.4 mmol/L (3.5-5.1); Sodium Level 136 mmol/L (136-145); Troponin-I HS 431 pg/mL (3.0-78.0)
--- NOTE | 2024-11-11 14:25 | RAD_ITS ---
STUDY: XR Chest 1 View 11/11/2024 2:27 PM REASON FOR EXAM: Male, 88 years old. chest pain COMPARISON: 09/29/2024 TECHNIQUE: XR Chest 1 View FINDINGS: There is no demonstrated pleural abnormality. Left lower lobe infiltrate. Normal heart size. Normal mediastinum. Normal pham. Prominent appearing increased interstitial lung markings. Normal visualized pulmonary arteries. There is atherosclerotic calcification of the aortic arch with tortuosity. There are diffuse degenerative changes of the visualized thoracic spine. There is degenerative osteoarthritis of the bilateral shoulders. There are no acute findings of the upper abdomen. RAD/Chest 1 View (Portable) IMPRESSION: Left sided pneumonia. Electronically Signed: Pete Alvares MD at 15:12 EST ,
[2024-11-11 14:35] LABS: AST(SGOT) 17 U/L (15-37); Alanine Aminotransfer ALT/SGPT 31 U/L (16-61); Albumin, Serum 3.1 g/dL (3.2-5.0); Alkaline Phosphatase 72 U/L (45-117); Bilirubin, Direct 0.62 mg/dL (0.00-0.30); Globulin 4.2 g/dL (2.2-4.2); Lipase 33 U/L (13-75); Protein, Total 7.3 g/dL (6.4-8.2)
[2024-11-11 14:53] LABS: Bacteria 0 SEEN /hpf (None Seen); Mucous, Urine 0 SEEN /hpf (<or=2+)
[2024-11-11 15:00] LABS: Color, Urine Yellow (Yellow); Glucose, Dipstick Normal (Normal); Ketone-Dipstick 5 mg/dl (Negative); Leukocyte Esterase-Dipstick Negative /ul (Negative); Nitrite-Dipstick Negative (Negative); Occult Blood-Urine 10 /ul (Negative); Protein-Dipstick 100 mg/dl (Negative); Urine Bilirubin Dipstick Negative (Negative); Urine Clarity Clear (Clear); Urine Urobilinogen Normal (Normal); Urine pH 6.5 (5.0 - 8.0)
--- NOTE | 2024-11-11 15:07 | CT_ITS ---
STUDY: CT Abdomen And Pelvis W/ Contrast Injection 11/11/2024 3:51 PM REASON FOR EXAM: Male, 88 years old. Abdominal pain abdominal Individualized dose optimization techniques were used for this CT. COMPARISON: None. TECHNIQUE: CT Abdomen And Pelvis W/ Contrast Injection IV 100mL [id number] FINDINGS: There are atherosclerotic calcifications of visualized coronary arteries. Small right pleural effusion. Small left pleural effusion. Normal liver. Normal gallbladder and extrahepatic biliary system. Normal spleen. 9.4mm enhancing nodule in the tail of the pancreas. Normal bilateral adrenal glands. There are hypodensities in the right kidney. These are consistent for cysts. No follow up required. There are hypodensities in the left kidney. These are consistent for cysts. No follow up required. Normal visualized stomach. Normal small intestine. There are multiple colonic diverticula consistent with diverticulosis. Right inguinal hernia containing nonobstructed small bowel. The appendix is visualized and appears normal. There are calcifications of the abdominal aorta. This is consistent for atherosclerotic disease. There is NO abdominal aortic aneurysm. Vascular workup can be obtained based on clinical correlation. Normal inferior vena cava. Subcentimeter mesenteric lymph nodes. Urinary bladder wall has wall thickening. This can be related to a partially contractile state. However, a cystitis is not excluded. Urinalysis should be performed in an effort to exclude cystitis. There is enlargement of the prostate gland. Normal abdominal wall. There are diffuse degenerative changes of the visualized lumbar spine. There is bilateral neural foraminal stenosis at L4-5 and L5-S1. Total left hip arthroplasty. CT/Abdomen/Pelvis W IV Cont ONLY IMPRESSION: (NOT LISTED IN ORDER OF SIGNIFICANCE) Small bilateral pleural effusions. Urinary bladder wall has wall thickening. This can be related to a partially contractile state. However, a cystitis is not excluded. Urinalysis should be performed in an effort to exclude cystitis. 9.4mm enhancing nodule in the tail of the pancreas. Neoplasm cannot be excluded. Enlarged prostate gland. Right inguinal hernia containing nonobstructed small bowel. Other findings as above. Electronically Signed: Pete Alvares MD at 15:56 EST ,
[2024-11-11 15:17] LABS: Hyaline Cast 0-5 SEEN /lpf (0-5); Red Blood Cells-Urine 0-5 SEEN /hpf (0-5); White Blood Cells 0-5 SEEN /hpf (0-5)
[2024-11-11 15:20] LABS: Squamous Epithelial Cells - UA 0-5 SEEN /hpf (0-5)
[2024-11-11 15:57] LABS: Troponin-I HS 336 pg/mL (3.0-78.0)
--- NOTE | 2024-11-11 15:58 | ED.RN ---
TROPONIN 336. DR TURNER
[2024-11-11] MEDS: Ceftriaxone 1 GM/50 ML BAG IV (16:01)
[2024-11-11] MEDS: Azithromycin 500 MG in 0.9% Normal Saline (250mL Bag) 250 ML 250 MG IV (16:03)
--- NOTE | 2024-11-11 16:13 | PCM.HP.STD ---
HPI - General General Date of Admission: 11/11/24 Date of Service: 11/11/24 Chief Complaint: Cough, nausea with vomiting and difficulty with ambulation HPI Narrative WIL FISH, is a 88 M who presented to [facility] ED on 11/11/2024 with cough, nausea with vomiting and difficulty ambulating. Patient was recently hospitalized here from 09/29-10/02 and had similar presentation at that time. He was found to be COVID-positive then and was treated with steroids and remdesivir with good improvement. He was able to be discharged home with home health care. His and daughter accompanied him to the ED today. They noted that yesterday they went on a day trip and the patient was able to walk around during this trip but did become fatigued about care home through and required the seated walker to get back to the car. This morning he was very fatigued and had difficulty getting up to ambulate. He also had developed a cough and had an episode of nausea with vomiting this morning. Given these concerns they brought him in for further evaluation. In the ED he had low-grade fever to 100.3F, sinus tachycardia to the 110s and low normal blood pressures. He was also hypoxic to the mid 80s on room air, improved with 2 L nasal cannula. Labs notable for WBC count 13.4, creatinine 1.2 (baseline around 1.0), T. bili 2.2. Chest x-ray showed a left lower lobe infiltrate. CT abdomen pelvis showed small bilateral pleural effusions, 9.4 mm enhancing nodule in the tail the pancreas, enlarged prostate gland, no other concerning findings. UA was benign. COVID/flu/RSV were negative. Given concern for pneumonia with hypoxia and worsening weakness, hospitalist was contacted for admission. I saw the patient at bedside in the ED, and daughter were present. Patient was fatigued appearing but otherwise laying back comfortably in bed in no acute distress. He was breathing comfortably on 2 L nasal cannula at rest. He denied any shortness of breath at rest. Did have a mild nonproductive cough during our encounter. and daughter expressed frustration during the visit by lack of answers for his recent issues. They note that his intermittent lower extremity weakness and difficulty with ambulation has not been explained and he does not have a neurology appointment until late November. They also note that his chronic urinary continence has been getting worse and he was scheduled to see urology in the office for an initial appointment tomorrow. No other new concerns at this time. FOR[facility]LY [facility] Medical History Hx of usp use of blood thinners Cardiomyopathy Ischemic cardiomyopathy NSVT (nonsustained ventricular tachycardia) Acute non-ST elevation myocardial infarction (NSTEMI) Atrial fibrillation with rapid ventricular response Atherosclerotic heart disease of cahto coronary artery without angina pectoris Atrial fibrillation CKD (chronic kidney disease) stage 3, GFR 30-59 ml/min Hypertrophic cardiomyopathy Home Medications ?Medication ?Instructions ?Recorded ?Last Taken ?Type magnesium 250 mg tablet 500 mg PO DAILY mineral 07/13/18 09/29/24 History cholecalciferol (vitamin D3) 125 5,000 unit PO DAILY vitamin 10/18/19 09/29/24 History mcg (5,000 unit) capsule calcium carbonate (Calcium 600) 600 mg PO DAILY supplement 03/31/22 09/29/24 History rivaroxaban 15 mg tablet 15 mg PO DAILY blood thinner #90 12/16/23 09/28/24 17:00 Rx tabs metoprolol succinate 25 mg 25 mg PO QDAY 09/20/24 Unknown History tablet,extended release 24 hr oxybutynin chloride 5 mg 5 mg PO QDAY 09/20/24 Unknown History tablet,extended release 24 hr paroxetine HCl 10 mg tablet 10 mg PO QDAY 09/20/24 Unknown History Allergy/AdvReac Type Severity Reaction Status Date / Time atorvastatin Allergy confused Verified 11/11/24 13:33 lisinopril Allergy cough Verified 11/11/24 13:33 amiodarone AdvReac Intermediate lightheaded Verified 11/11/24 13:33 ness Family History Father Myocardial infarction Brother Myocardial infarction Surgical History History of cardioversion (11/30/22) Social History Smoking Status: Never smoker second hand exposure: No alcohol intake: never substance use type: does not use caffeine: Yes Type: tea what type of physical activity do you participate in: walking ROS Constitutional Constitutional: Reports fatigue; Denies chills, fever(s) or weakness Eyes Eyes: Denies change in vision Cardiovascular Cardiovascular: Denies chest pain Respiratory/Chest Respiratory/Chest: Reports cough; Denies productive cough, shortness of breath at rest, shortness of breath with exertion or wheezing Gastrointestinal Gastrointestinal: Reports nausea and vomiting; Denies abdominal pain, constipation or diarrhea Genitourinary Genitourinary: Reports urinary incontinence; Denies dysuria Musculoskeletal Musculoskeletal: Denies arthralgias or myalgias Neurologic Neurologic: Denies dizziness, focal weakness or headache(s) Vital Signs Vital Signs Vital Signs: 11/11/24 13:34 11/11/24 14:10 11/11/24 14:52 Temperature 100.1 F H 100.1 F H 100.3 F H Temperature Source Oral Oral Oral Pulse Rate 117 H 104 H 95 Respiratory Rate 22 H 18 24 H Blood Pressure 160/95 H 123/96 H 112/78 Blood Pressure Mean 116 105 89 Pulse Ox 94 94 92 Oxygen Delivery Method Room Air Room Air Room Air Oxygen Flow Rate (L/min) 11/11/24 15:29 11/11/24 15:29 11/11/24 16:08 Temperature 98.7 F Temperature Source Pulse Rate 85 88 Respiratory Rate 22 H 22 H Blood Pressure 103/84 H 105/80 Blood Pressure Mean 90 88 Pulse Ox 86 96 98 Oxygen Delivery Method Room Air Nasal Cannula Oxygen Flow Rate (L/min) 2 Weight Weight: 66.3 kg Body Mass Index (BMI) 25.0 Physical Exam Const alert, oriented x3, no apparent distress and average body habitus Constitutional Narrative: Elderly male, fatigued and somewhat chronically ill-appearing, laying back comfortably in bed, answering questions with short appropriate responses, in no acute distress. General Appearance: cooperative and comfortable HEENT normocephalic, head/scalp atraumatic, hearing grossly normal bilaterally and nasal mucous membranes and turbinates normal HEENT Narrative: Dry mucous membranes. Eyes PERRL, EOMs intact bilaterally and conjunctivae normal Neck full ROM Chest inspection of chest normal Resp normal respiratory effort and no use of accessory muscles Resp Narrative: Breathing comfortably on 2 L nasal cannula at rest. Mildly decreased breath sounds in bilateral lung bases but otherwise good air movement throughout, no wheezing or crackles noted. Cardio regular rate, regular rhythm, no murmurs and peripheral pulses 2+ throughout GI normal to inspection, nondistended, normoactive bowel sounds, soft to palpation, non-tender and non-distended Back/Spine normal ROM Extremity normal to inspection and no pedal edema Skin no rashes or lesions noted Neuro moves all extremities and no focal motor deficits Neuro Narrative: Family reported lower extremity weakness for patient but on my exam patient was able to hold each leg up without support for 10 seconds without any drift. Psych mental status grossly normal Results Lab / Micro Data 11/11/24 13:50 11/11/24 13:50 Labs: Laboratory Results - last 24 hr 11/11/24 13:50: WBC 13.4 H, RBC 4.26 L, Hgb 13.3, Hct 40.2, MCV 94.4 H, MCH 31.2, MCHC 33.1, RDW Std Deviation 49.6 H, RDW Coeff of Samra 14.3, Plt Count 234, MPV 10.4, Immature Gran % (Auto) 0.800, Neut % (Auto) 85.1 H, Lymph % (Auto) 5.2 L, [place] % (Auto) 6.9, Eos % (Auto) 1.8, Baso % (Auto) 0.2, Absolute Neuts (auto) 11.4 H, Absolute Lymphs (auto) 0.70 L, Nucleated RBC % 0, Sodium 136, Potassium 4.4, Chloride 104, Carbon Dioxide 23.0, Anion Gap 9, BUN 22 H, Creatinine 1.21, Estim Creat Clear Calc 36.69, Est GFR (MDRD) Af Amer 73, Est GFR (MDRD) Non-Af 60, BUN/Creatinine Ratio 18.2, Glucose 121 H, Calcium 9.3, Total Bilirubin 2.20 H, Direct Bilirubin 0.62 H, AST 17, ALT 31, Alkaline Phosphatase 72, Troponin I High Sens 431 H*, Total Protein 7.3, Albumin 3.1 L, Globulin 4.2, Lipase 33 11/11/24 14:45: Urine Color Yellow, Urine Clarity Clear, Urine pH 6.5, Ur Specific [place] 1.010, Urine Protein 100 H, Urine Glucose (UA) Normal, Urine Ketones 5 H, Urine Occult Blood 10 H, Urine Nitrite Negative, Urine Bilirubin Negative, Urine Urobilinogen Normal, Ur Leukocyte Esterase Negative, Urine RBC 0-5 SEEN, Urine WBC 0-5 SEEN, Ur Squamous Epith Cells 0-5 SEEN, Urine Bacteria 0 SEEN, Hyaline Casts 0-5 SEEN, Urine Mucus 0 SEEN 11/11/24 15:20: Troponin I High Sens 336 H* Micro: Microbiology 11/11/24 14:10 Mucosa - Nose SARS-CoV-2, Influenza & RSV (PCR) - Final Imaging Radiology Impression Chest X-Ray 11/11/24 14:25 IMPRESSION: Left sided pneumonia. Electronically Signed: Pete Alvares MD at 15:12 EST , Abdomen/Pelvis CT 11/11/24 15:07 IMPRESSION: (NOT LISTED IN ORDER OF SIGNIFICANCE) Small bilateral pleural effusions. Urinary bladder wall has wall thickening. This can be related to a partially contractile state. However, a cystitis is not excluded. Urinalysis should be performed in an effort to exclude cystitis. 9.4mm enhancing nodule in the tail of the pancreas. Neoplasm cannot be excluded. Enlarged prostate gland. Right inguinal hernia containing nonobstructed small bowel. Other findings as above. Electronically Signed: Pete Alvares MD at 15:56 EST , Assessment & Plan Assessment/Plan (1) Pneumonia: (2) Hypoxia: (3) Generalized weakness: PLAN: Plan Patient is an 88-year-old male who presented to [facility] ED on 11/11/2024 with cough, nausea with vomiting and difficulty with ambulation. 1. Suspected community-acquired pneumonia with acute hypoxia ? Admit under inpatient status to PCU. Chest x-ray on admit showed left lower lobe pneumonia. Patient with recent COVID infection and presentation seems consistent with superimposed bacterial infection. Procalcitonin mildly elevated at 0.24. Does not wear oxygen at home, requiring 2 L on admit to maintain appropriate oxygen saturations. COVID/flu/RSV negative. Strep and Legionella urine antigens negative. Sputum culture ordered. Will treat with IV ceftriaxone and azithromycin for now. Wean supplemental oxygen as able. 2. Acute on chronic debility and intermittent difficulty with ambulation ? PT/OT/case management consulted. Patient was ambulating on day prior to admission and has good leg strength on exam on admit. Unclear on reason for difficulty with ambulation. 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 Appreciate therapy recommendations. If patient continues to have significant issues during hospitalization can consider discussing with orthopedics. Notably has outpatient neurology appointment at the end of November. 3. Acute on chronic urinary incontinence ? Reports chronic urinary incontinence for about 2 years with worsening in the last 1 to 2 months for unclear reason. Has history of enlarged prostate gland and CT on pelvis showed enlarged prostate gland with no other abnormalities. Patient was scheduled to see urology in the office in the next few days. No clear inpatient urology needs at this time but can consider discussing with urology as needed. 4. Mild creatinine elevation ? Creatinine 1.2 on admit, baseline around 1.0. Suspect due to mild dehydration in setting of pneumonia and recent episode of nausea with vomiting. Given IV fluid resuscitation on admit. Follow-up a.m. BMP and monitor urine output. 5. Nodule in the tail of the pancreas ? CT abdomen pelvis showed a 9.4 mm nodule in the tail the pancreas of unclear significance. No other suspicious findings in the chest or abdomen/pelvis concerning for cancer. Can consider discussing with surgery but will likely be fine for close outpatient monitoring. 6. Chronic HFrEF with chronically elevated troponins, paroxysmal A-fib, nonobstructive CAD, hypertension, hyperlipidemia ? Follows with outpatient cardiology. Last echo in March showed EF 40%. Troponins elevated on admit but downtrending and on review the troponins are decreased from previous. Mildly hypotensive on admit suspect due to dehydration as noted above. Otherwise stable with normal sinus rhythm. Continue home Toprol and Xarelto. 7. Depression ? Stable. Continue home paroxetine. 8. KENNEDY ? Continue home CPAP at night. DVT prophylaxis: Not indicated, on Xarelto CODE STATUS: Full code, verified Expected disposition: TBD Total clinical time spent by myself addressing the patient's medical issues, reviewing all the data, and collaborating with patient's care team: 75 minutes. Charges/Coding Visit Charges Inpatient E&M: 83748 Init Hosp L3
[2024-11-11 18:25] LABS: Procalcitonin 0.24 ng/mL (0.00-0.09)
[2024-11-11] MEDS: 0.9% Normal Saline (1000mL) 1,000 ML 200 ML IV (22:28)
[2024-11-12] VITALS (8 sets, daily range): BP systolic 120–136; BP diastolic 76–98; PULSE 80–99; RESP 16–18; TEMP 36.6–37.5; O2SAT 93–100
[2024-11-12] MEDS: Acetaminophen 325 MG Tablet 650 MG PO (02:15)
[2024-11-12 06:14] LABS: ALB/GLOB Ratio 0.7 RATIO (0.9-2.4); AST(SGOT) 18 U/L (15-37); Alanine Aminotransfer ALT/SGPT 24 U/L (16-61); Albumin, Serum 2.7 g/dL (3.2-5.0); Alkaline Phosphatase 62 U/L (45-117); Anion Gap 4 (5-15); BUN 23 mg/dL (7-18); BUN/Creat Ratio 19.5 RATIO (10-20); Calcium,Total 8.9 mg/dL (8.5-10.1); Chloride 109 mmol/L (98-107); Creatinine, Serum 1.18 mg/dL (0.70-1.30); EST Glomerular Filtration Rate 62 mL/min (>60); Est Glom Filt Rate - Afr Amer 75 mL/min (>60); Estimated Creatinine Clearance 37.63 ml/min; Globulin 3.7 g/dL (2.2-4.2); Glucose 118 mg/dL (74-106); Potassium 4.5 mmol/L (3.5-5.1); Protein, Total 6.4 g/dL (6.4-8.2); Sodium Level 138 mmol/L (136-145)
[2024-11-12 06:16] LABS: Hematocrit 37.2 % (40-54); Hemoglobin 11.9 g/dL (13.0-16.5); Mean Corpuscular Hgb 30.7 pg (27.0-32.0); Mean Corpuscular Volume 96.1 fL (80-94); Mean Platelet Vol. 10.2 fl (6.2-12.0); Platelet Count 190 K/mm3 (150-450); RBC Distribution Width CV 14.4 % (11.6-14.6); RBC Distribution Width SD 50.6 fl (35.1-43.9); Red Blood Count 3.87 M/mm3 (4.6-6.2); White Blood Count 9.3 K/mm3 (4.4-11.0)
[2024-11-12] MEDS: Ceftriaxone 1 GM/50 ML BAG IV (09:19)
[2024-11-12] MEDS: Rivaroxaban 15 MG Tablet PO (09:20)
[2024-11-12] MEDS: PARoxetine 10 MG Tablet PO (09:20)
[2024-11-12] MEDS: Metoprolol(XL)Succ 25 MG Tablet PO (09:20)
[2024-11-12] MEDS: Calcium (Elemental) 500 MG Tablet PO (09:20)
[2024-11-12] MEDS: Azithromycin 500 MG in 0.9% Normal Saline (250mL Bag) 250 ML 250 MG IV (09:21)
--- NOTE | 2024-11-12 10:55 | CASEMGMT ---
JAZZMINE CM Face to Face with patient for initial transition planning/care coordination assessment. RN CM introduced self and role at [facility]. Patient lying in bed, alert and oriented. Patient willing to participate in assessment and is able to answer all questions appropriately. Care providers, pharmacy, and demographics verified. Strata: 3 PCP: [facility] Specialists: Chung, guest service host; Sailaja Bustillo, feed grinder; Preferred Pharmacy: [facility] Insurance: [facility] [place] Prescription Benefit: yes Living Will/HPOA: yes, Jaycee Yoo. LNOK: , daughter Living Arrangements: Patient lives with in a single story home with 2 steps to enter the home. assists with ADLS at home. Transportation: DME/HHC: Patient has shower chair, BSC, raised toilet, grab bars, walker, bipap, and pulse ox at home. Will monitor for home oxygen, prefers [employer]. Patient is active with [facility], no previous SNF. Patient wishes to discharge home with resumption of [facility], will monitor progress with therapy. Patient states he has no further needs or concerns at this time. CM to follow for discharge planning needs that may arise. Disposition Plan: Patient to discharge home with resumption of HHC, family support, and follow-up plans in place. Vianney DELUCA, RN, CM
--- NOTE | 2024-11-12 12:13 | PCM.PN.HOSP ---
Reason for Visit Reason for Visit: Diagnoses Pneumonia, unspecified organism (11/11/24) Hypoxemia (11/11/24) Weakness (11/11/24) Subjective Subjective Saw patient at bedside this morning, present. Patient appeared to have more energy today than yesterday. He was sitting up comfortably in bed and answering questions with short appropriate responses. He stated that he felt improved today. Denied any cough or sputum production. Denied any fevers or chills. Still does not have much of an appetite but denies any nausea. He had not gotten out of bed yet today but was going to work with therapy shortly after I saw him. No other new concerns today. Objective Data Objective Data Vital Signs: Vital Signs Temp Pulse Resp BP Pulse Ox O2 Del Method O2 Flow Rate 98.0 F 80 18 124/88 H 93 Nasal Cannula 2 11/12/24 08:10 11/12/24 09:20 11/12/24 08:10 11/12/24 08:10 11/12/24 08:10 11/12/24 10:00 11/12/24 10:00 Oxygen Flow Rate (L/min) 2 Oxygen Delivery Method Nasal Cannula Weight: 66.3 kg Body Mass Index (BMI) 25.0 Intake & Output: Intake and Output for Last 24 Hours 11/10/24 11/11/24 11/12/24 23:59 23:59 23:59 Intake Total 1455 / 1455 1305 / 1305 Balance 1455 / 1455 1305 / 1305 Lab / Micro Data 11/12/24 05:33 11/12/24 05:33 Labs: Laboratory Results - last 24 hr 11/11/24 13:50: WBC 13.4 H, RBC 4.26 L, Hgb 13.3, Hct 40.2, MCV 94.4 H, MCH 31.2, MCHC 33.1, RDW Std Deviation 49.6 H, RDW Coeff of Samra 14.3, Plt Count 234, MPV 10.4, Immature Gran % (Auto) 0.800, Neut % (Auto) 85.1 H, Lymph % (Auto) 5.2 L, [place] % (Auto) 6.9, Eos % (Auto) 1.8, Baso % (Auto) 0.2, Absolute Neuts (auto) 11.4 H, Absolute Lymphs (auto) 0.70 L, Nucleated RBC % 0, Sodium 136, Potassium 4.4, Chloride 104, Carbon Dioxide 23.0, Anion Gap 9, BUN 22 H, Creatinine 1.21, Estim Creat Clear Calc 36.69, Est GFR (MDRD) Af Amer 73, Est GFR (MDRD) Non-Af 60, BUN/Creatinine Ratio 18.2, Glucose 121 H, Calcium 9.3, Total Bilirubin 2.20 H, Direct Bilirubin 0.62 H, AST 17, ALT 31, Alkaline Phosphatase 72, Troponin I High Sens 431 H*, Total Protein 7.3, Albumin 3.1 L, Globulin 4.2, Lipase 33 11/11/24 14:45: Urine Color Yellow, Urine Clarity Clear, Urine pH 6.5, Ur Specific [place] 1.010, Urine Protein 100 H, Urine Glucose (UA) Normal, Urine Ketones 5 H, Urine Occult Blood 10 H, Urine Nitrite Negative, Urine Bilirubin Negative, Urine Urobilinogen Normal, Ur Leukocyte Esterase Negative, Urine RBC 0-5 SEEN, Urine WBC 0-5 SEEN, Ur Squamous Epith Cells 0-5 SEEN, Urine Bacteria 0 SEEN, Hyaline Casts 0-5 SEEN, Urine Mucus 0 SEEN 11/11/24 15:20: Troponin I High Sens 336 H* 11/11/24 17:37: Procalcitonin 0.24 H 11/12/24 05:33: WBC 9.3, RBC 3.87 L, Hgb 11.9 L, Hct 37.2 L, MCV 96.1 H, MCH 30.7, MCHC 32.0, RDW Std Deviation 50.6 H, RDW Coeff of Samra 14.4, Plt Count 190, MPV 10.2, Sodium 138, Potassium 4.5, Chloride 109 H, Carbon Dioxide 25.0, Anion Gap 4 L, BUN 23 H, Creatinine 1.18, Estim Creat Clear Calc 37.63, Est GFR (MDRD) Af Amer 75, Est GFR (MDRD) Non-Af 62, BUN/Creatinine Ratio 19.5, Glucose 118 H, Calcium 8.9, Total Bilirubin 1.10 H, AST 18, ALT 24, Alkaline Phosphatase 62, Total Protein 6.4, Albumin 2.7 L, Globulin 3.7, Albumin/Globulin Ratio 0.7 L Micro: Microbiology 11/12/24 00:32 Mucosa - Nose Respiratory Panel (PCR) - Final 11/11/24 14:45 Urine Catheter - Catheter Streptococcus pneumoniae Antigen (M - Final 11/11/24 14:45 Urine, Clean Catch Legionella Antigen - Final 11/11/24 14:10 Mucosa - Nose SARS-CoV-2, Influenza & RSV (PCR) - Final Radiography Diagnostic Testing: Radiology Impression Chest X-Ray 11/11/24 14:25 IMPRESSION: Left sided pneumonia. Electronically Signed: Pete Alvares MD at 15:12 EST , Abdomen/Pelvis CT 11/11/24 15:07 IMPRESSION: (NOT LISTED IN ORDER OF SIGNIFICANCE) Small bilateral pleural effusions. Urinary bladder wall has wall thickening. This can be related to a partially contractile state. However, a cystitis is not excluded. Urinalysis should be performed in an effort to exclude cystitis. 9.4mm enhancing nodule in the tail of the pancreas. Neoplasm cannot be excluded. Enlarged prostate gland. Right inguinal hernia containing nonobstructed small bowel. Other findings as above. Electronically Signed: Pete Alvares MD at 15:56 EST , Physical Exam Const alert, oriented x3, no apparent distress and average body habitus Constitutional Narrative: Elderly male, somewhat chronically ill-appearing, energy improved from admission, sitting up comfortably in bed, answering questions with short appropriate responses, in no acute distress. General Appearance: cooperative and comfortable HEENT normocephalic, head/scalp atraumatic, hearing grossly normal bilaterally, nasal mucous membranes and turbinates normal and moist oral mucous membranes Eyes PERRL, EOMs intact bilaterally and conjunctivae normal Neck full ROM Chest inspection of chest normal Resp normal respiratory effort and no use of accessory muscles Resp Narrative: Breathing comfortably on 2 L nasal cannula at rest. Mildly decreased breath sounds in bilateral lung bases but otherwise good air movement throughout, no wheezing or crackles noted. Stable. Cardio regular rate, regular rhythm, no murmurs and peripheral pulses 2+ throughout GI normal to inspection, nondistended, normoactive bowel sounds, soft to palpation, non-tender and non-distended Back/Spine normal ROM Extremity normal to inspection and no pedal edema Skin no rashes or lesions noted Neuro moves all extremities and no focal motor deficits Neuro Narrative: Family reported lower extremity weakness for patient but on my exam on admit patient was able to hold each leg up without support for 10 seconds without any drift. Psych mental status grossly normal Assessment & Plan Assessment/Plan (1) Pneumonia: (2) Hypoxia: (3) Generalized weakness: PLAN: Plan Patient is an 88-year-old male who presented to [facility] ED on 11/11/2024 with cough, nausea with vomiting and difficulty with ambulation. 1. Suspected community-acquired pneumonia with acute hypoxia ? Chest x-ray on admit showed left lower lobe pneumonia. Patient with recent COVID infection and presentation seems consistent with superimposed bacterial infection. Procalcitonin mildly elevated at 0.24. Does not wear oxygen at home, requiring 2 L on admit to maintain appropriate oxygen saturations. COVID/flu/RSV negative. Strep and Legionella urine antigens negative. Full respiratory panel negative. Sputum culture ordered, has not been collected yet. Continue treatment with IV ceftriaxone and azithromycin for now. Wean supplemental oxygen as able. 2. Acute on chronic debility and intermittent difficulty with ambulation ? PT/OT/case management following. Patient was ambulating on day prior to admission and has good leg strength on exam on admit. Unclear on reason for difficulty with ambulation. 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 Patient feeling improved on hospital day 2 and did well working with therapy, current recommendation is for return home with home health care on discharge. Will hold on any orthopedic surgery evaluation. Notably has outpatient neurology appointment at the end of November. 3. Acute on chronic urinary incontinence ? Reports chronic urinary incontinence for about 2 years with worsening in the last 1 to 2 months for unclear reason. Has history of enlarged prostate gland and CT on pelvis showed enlarged prostate gland with no other abnormalities. Patient was scheduled to see urology in the office in the next few days. Was previously on oxybutynin but did not have much improvement with this. discussed with urology and they we will plan to see the patient shortly after this discharge. Maintain PureWick catheter as needed while inpatient. 4. Mild creatinine elevation ? Creatinine 1.2 on admit, baseline around 1.0. Suspect due to mild dehydration in setting of pneumonia and recent episode of nausea with vomiting. Given IV fluid resuscitation on admit and creatinine stable at 1.1 with good urine output. Continue to monitor daily BMP and urine output. 5. Nodule in the tail of the pancreas ? CT abdomen pelvis showed a 9.4 mm nodule in the tail the pancreas of unclear significance. No other suspicious findings in the chest or abdomen/pelvis concerning for cancer. Given patient's age and comorbidities with this isolated finding, will plan for repeat imaging in 4 to 6 weeks for close follow-up. 6. Chronic HFrEF with chronically elevated troponins, paroxysmal A-fib, nonobstructive CAD, hypertension, hyperlipidemia ? Follows with outpatient cardiology. Last echo in March showed EF 40%. Troponins elevated on admit but downtrending and on review the troponins are decreased from previous. Mildly hypotensive on admit suspect due to dehydration as noted above. Otherwise stable with normal sinus rhythm. Continue home Toprol and Xarelto. 7. Depression ? Stable. Continue home paroxetine. 8. KENNEDY ? Continue home CPAP at night. DVT prophylaxis: Not indicated, on Xarelto CODE STATUS: Full code, verified Expected disposition: Home with home health care, 1 to 2 days Total clinical time spent by myself addressing the patient's medical issues, reviewing all the data, and collaborating with patient's care team: 35 minutes. Charges/Coding Visit Charges Inpatient E&M: 62582 Subs Hosp L2
--- NOTE | 2024-11-12 16:10 | CHAPLAIN ---
Type of Pastoral Visit _x__ Initial Visit ___ Follow-up Visit ___ On-call Visit ___ General Patient Visit ___ Spiritual Assessment ___ Family Conference ___ Bereavement ___ Rapid Response ___ Code Blue ___ Other (describe below) Pastoral Care Referral From ___ Patient _x__ Family ___ Nurse ___ Physician ___ Fitting Room Operator ___ Research Aide ___ Other (describe below) Sacrament/Intervention _x__ Active listening ___ Anointing ___ Mu-Ism ___ Bereavement ___ Communion ___ Jennifer exploration ___ ___ Life review _x__ Prayer ___ Reconciliation ___ Sacrament of Sick _x__ Supportive presence ___ Wedding ___ Other (describe below) Pastoral Comments spouse of this patient was visiting another relative in PCU who had been admitted to this hospital; spouse of this patient requests a visit to this person; went to room of this patient and spouse was also present at this time; offer of support given; pt is able to answer questions and relates that he is not worried or in need of anything; spouse speaks up about patient going through COVID and now pneumonia, which has made it hard to overcome; spouse expresses thanks for the visit; pt welcomes a prayer for support
[2024-11-13 02:29] VITALS: BP 107/63; PULSE 85; RESP 18; TEMP 36.4; O2SAT 95
[2024-11-13 07:40] VITALS: O2SAT 95; O2SAT 97
[2024-11-13 08:55] VITALS: BP 128/89; PULSE 87; RESP 18; TEMP 36.8; O2SAT 97
[2024-11-13 08:58] VITALS: PULSE 87
[2024-11-13] MEDS: Metoprolol(XL)Succ 25 MG Tablet PO (08:58)
[2024-11-13] MEDS: PARoxetine 10 MG Tablet PO (08:58)
[2024-11-13] MEDS: Calcium (Elemental) 500 MG Tablet PO (08:58)
[2024-11-13] MEDS: Rivaroxaban 15 MG Tablet PO (08:58)
[2024-11-13] MEDS: Ceftriaxone 1 GM/50 ML BAG IV (08:59)
[2024-11-13] MEDS: Azithromycin 500 MG in 0.9% Normal Saline (250mL Bag) 250 ML 250 MG IV (08:59)
--- NOTE | 2024-11-13 11:37 | DCINST_ITS ---
Discharge Instructions Diet Discharge Diet: No restrictions DC O2, CPAP, BIPAP needs RN Home O2 Qualification: Home O2 Qualification: Is the patient on home oxygen No 11/13/24 07:40 Home O2 Qualification: AT REST 1- Pulse Ox at rest 95 11/13/24 07:40 Home O2 Qualification: WITH AMBULATION 1- Pulse Ox with ambulation 97 11/13/24 07:40 1- Oxygen Flow Rate with 0 11/13/24 07:40 ambulation Home O2 Discharge instructions: No Dressing / Incision Discharge Activity: No Restrictions Follow Up Care Test Results: Test results from this visit will be discussed in further detail at your follow- up appointment, if applicable. Discharge Plan Admission Admit Date/Time: 11/11/24 16:38 Primary Reason for Your Visit: Weakness with cough and nausea/vomiting Attending Provider: Saturnino Bradford Primary Care Provider: Geremias Norwood Instructions Additional Instructions / Restrictions: ? Please take the antibiotic below twice daily for former days to complete 7-day course of antibiotics total for pneumonia. ? Continue your other home medications as normal. ? Follow-up with urology and neurology as able. Discharge Orders/Prescriptions Prescriptions: New amoxicillin-pot clavulanate 875-125 mg tablet 1 tab PO BID 4 Days Qty: 8 0RF Continued magnesium 250 mg tablet 500 mg PO DAILY cholecalciferol (vitamin D3) 5,000 unit capsule 5,000 unit PO DAILY calcium carbonate [Calcium 600] 600 mg calcium (1,500 mg) tablet 600 mg PO DAILY paroxetine HCl 10 mg tablet 10 mg PO QDAY metoprolol succinate 25 mg tablet extended release 24 hr 25 mg PO QDAY rivaroxaban 15 mg tablet 15 mg PO DAILY Qty: 90 3RF Discontinued oxybutynin chloride 5 mg tablet extended release 24hr 5 mg PO QDAY Referrals / Follow Up: Geremias Norwood DO [Primary Care Provider] - Disposition Disposition (needs filled in before D/C Order can be placed): Home Health Service
--- NOTE | 2024-11-13 11:40 | PCM.DC.SUM ---
Providers Date of Admission: 11/11/24 Date of Discharge: 11/13/24 Primary Care Physician: Dr. Geremias Norwood DO Reason For Visit: COMMUNITY-ACQUIRED PNEUMONIA WITH HYPOXIA Diagnosis Discharge Diagnosis (1) Pneumonia: Status: Acute Code(s): J18.9 - Pneumonia, unspecified organism (2) Hypoxia: Status: Acute Code(s): R09.02 - Hypoxemia (3) Generalized weakness: Status: Acute Code(s): R53.1 - Weakness Medications at Discharge Home Medications magnesium 250 mg tablet 500 mg PO DAILY mineral 07/13/18 cholecalciferol (vitamin D3) 125 mcg (5,000 unit) capsule 5,000 unit PO DAILY vitamin 10/18/19 calcium carbonate (Calcium 600) 600 mg PO DAILY supplement 03/31/22 rivaroxaban 15 mg tablet 15 mg PO DAILY blood thinner #90 tabs 12/16/23 metoprolol succinate 25 mg tablet,extended release 24 hr 25 mg PO QDAY 09/20/24 paroxetine HCl 10 mg tablet 10 mg PO QDAY 09/20/24 amoxicillin 875 mg-potassium clavulanate 125 mg tablet 1 tab PO BID 4 days #8 tabs 11/13/24 Hospital Course Operations None Procedures EKG and - (Chest x-ray, CT abdomen pelvis) Summary of Care Provided Minutes Spent on Discharge: 35 Hospital Course: Patient is an 88-year-old male who presented to [facility] ED on 11/11/2024 with cough, nausea with vomiting and difficulty with ambulation. Hospital course as noted below. Patient discharged home with home health care in stable condition on 11/13. 1. Suspected community-acquired pneumonia with acute hypoxia, improving ? Chest x-ray on admit showed left lower lobe pneumonia. Patient with recent COVID infection and presentation seems consistent with superimposed bacterial infection. Procalcitonin mildly elevated at 0.24. Does not wear oxygen at home, requiring 2 L on admit to maintain appropriate oxygen saturations. COVID/flu/RSV negative. Strep and Legionella urine antigens negative. Full respiratory panel negative. Sputum culture ordered but patient was never able to provide sample. Treated with IV ceftriaxone and azithromycin while inpatient with good improvement. Completed O2 testing on day of discharge and patient did not require any supplemental oxygen. Discharged on Augmentin to complete 7-day course of antibiotics total. 2. Acute on chronic debility and intermittent difficulty with ambulation ? PT/OT/case management followed. Patient was ambulating on day prior to admission and has good leg strength on exam on admit. Unclear on reason for difficulty with ambulation. 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 Patient felt improved by hospital day 2 and did well working with therapy. No need for orthopedic surgery evaluation at this time. Has outpatient neurology appointment at the end of November. Discharged home with home health care in stable condition on 11/13. 3. Acute on chronic urinary incontinence ? Reports chronic urinary incontinence for about 2 years with worsening in the last 1 to 2 months for unclear reason. Has history of enlarged prostate gland and CT on pelvis showed enlarged prostate gland with no other abnormalities. Patient was scheduled to see urology in the office in the next few days. Was previously on oxybutynin but did not have much improvement with this. discussed with urology and they we will plan to see the patient shortly after this discharge. 4. Mild creatinine elevation ? Creatinine 1.2 on admit, baseline around 1.0. Suspect due to mild dehydration in setting of pneumonia and recent episode of nausea with vomiting. Given IV fluid resuscitation on admit and creatinine stable at 1.1 with good urine output. 5. Nodule in the tail of the pancreas ? CT abdomen pelvis showed a 9.4 mm nodule in the tail the pancreas of unclear significance. No other suspicious findings in the chest or abdomen/pelvis concerning for cancer. Given patient's age and comorbidities with this isolated finding, recommend repeat imaging in 4 to 6 weeks for close follow-up. 6. Chronic HFrEF with chronically elevated troponins, paroxysmal A-fib, nonobstructive CAD, hypertension, hyperlipidemia ? Follows with outpatient cardiology. Last echo in March showed EF 40%. Troponins elevated on admit but downtrending and on review the troponins are decreased from previous. Mildly hypotensive on admit suspect due to dehydration as noted above. Otherwise stable with normal sinus rhythm. Continue home Toprol and Xarelto. 7. Depression ? Stable. Continue home paroxetine. 8. KENNEDY ? Continue home CPAP at night. Total clinical time spent by myself addressing the patient's medical issues, reviewing all the data, and collaborating with patient's care team: 35 minutes. Physical Exam Const alert, oriented x3, no apparent distress and average body habitus Constitutional Narrative: Elderly male, somewhat chronically ill-appearing, energy improved from admission, sitting up comfortably in bed, answering questions with short appropriate responses, in no acute distress. General Appearance: cooperative and comfortable HEENT normocephalic, head/scalp atraumatic, hearing grossly normal bilaterally, nasal mucous membranes and turbinates normal and moist oral mucous membranes Eyes PERRL, EOMs intact bilaterally and conjunctivae normal Neck full ROM Chest inspection of chest normal Resp normal respiratory effort and no use of accessory muscles Resp Narrative: Breathing comfortably on room air at rest. Mildly decreased breath sounds in bilateral lung bases but otherwise good air movement throughout, no wheezing or crackles noted. Stable. Cardio regular rate, regular rhythm, no murmurs and peripheral pulses 2+ throughout GI normal to inspection, nondistended, normoactive bowel sounds, soft to palpation, non-tender and non-distended Back/Spine normal ROM Extremity normal to inspection and no pedal edema Skin no rashes or lesions noted Neuro moves all extremities and no focal motor deficits Neuro Narrative: Family reported lower extremity weakness for patient but on my exam on admit patient was able to hold each leg up without support for 10 seconds without any drift. Walking with assistance of walker on day of discharge without issue. Psych mental status grossly normal Weight / BMI Weight Weight: 66.3 kg Body Mass Index (BMI) 25.0 ABG / Lab / Microbiology Data 11/12/24 05:33 11/12/24 05:33 Laboratory: Laboratory Results - last 24 hr 11/13/24 09:48: Magnesium 2.0 Microbiology: Microbiology 11/12/24 00:32 Mucosa - Nose Respiratory Panel (PCR) - Final 11/11/24 14:45 Urine Catheter - Catheter Streptococcus pneumoniae Antigen (M - Final 11/11/24 14:45 Urine, Clean Catch Legionella Antigen - Final 11/11/24 14:10 Mucosa - Nose SARS-CoV-2, Influenza & RSV (PCR) - Final D/C Instructions Discharge Diet: No restrictions DC O2, CPAP, BIPAP Needs RN Home O2 Qualification: Home O2 Qualification: Is the patient on home oxygen No 11/13/24 07:40 Home O2 Qualification: AT REST 1- Pulse Ox at rest 95 11/13/24 07:40 Home O2 Qualification: WITH AMBULATION 1- Pulse Ox with ambulation 97 11/13/24 07:40 1- Oxygen Flow Rate with 0 11/13/24 07:40 ambulation Home O2 Discharge instructions: No Meaningful Use Info Meaningful Use Meaningful Use Diagnoses (Choose all that apply): None applicable Ischemic Stroke Statin Dosing Therapy Reference: STATIN DOSE THERAPY REFERENCE: * Patients > 75 years receive moderate or high dose statin therapy. * Patients 75 years or YOUNGER should receive HIGH intensity statin dose unless contraindicated. You will be required to document reason for non-treatment if statin daily dose does not meet guidelines. HIGH DOSE STATIN THERAPY DAILY Atorvastatin > than or = to 40 mg Rosuvastatin > than or = to 20 mg Amlodipine + Atorvastatin > than or = to 2.5/40 mg Ezetimibe + Simvastatin 10/80 mg Simvastatin 80mg Discharge Plan Admission Admit Date/Time: 11/11/24 16:38 Primary Reason for Your Visit: Weakness with cough and nausea/vomiting Attending Provider: Saturnino Bradford Primary Care Provider: Geremias Norwood Instructions Additional Instructions / Restrictions: ? Please take the antibiotic below twice daily for former days to complete 7-day course of antibiotics total for pneumonia. ? Continue your other home medications as normal. ? Follow-up with urology and neurology as able. Discharge Orders/Prescriptions Prescriptions: New amoxicillin-pot clavulanate 875-125 mg tablet 1 tab PO BID 4 Days Qty: 8 0RF Continued magnesium 250 mg tablet 500 mg PO DAILY cholecalciferol (vitamin D3) 5,000 unit capsule 5,000 unit PO DAILY calcium carbonate [Calcium 600] 600 mg calcium (1,500 mg) tablet 600 mg PO DAILY paroxetine HCl 10 mg tablet 10 mg PO QDAY metoprolol succinate 25 mg tablet extended release 24 hr 25 mg PO QDAY rivaroxaban 15 mg tablet 15 mg PO DAILY Qty: 90 3RF Discontinued oxybutynin chloride 5 mg tablet extended release 24hr 5 mg PO QDAY Referrals / Follow Up: Geremias Norwood DO [Primary Care Provider] - 11/16/24 9:20 am Disposition Disposition (needs filled in before D/C Order can be placed): Home Health Service Charges/Coding Visit Charges Inpatient E&M: 34999 Disch Hosp >30min
--- NOTE | 2024-11-13 12:32 | CASEMGMT ---
Patient has order for discharge. JAZZMINE CALDERON updated [facility], resumption planned for . Patient does not qualify for home oxygen. JAZZMINE CALDERON in to discuss needs at discharge, family at bedside. denies further needs or help at discharge. JAZZMINE CALDERON updated regarding resumption of care with [facility]. had no further questions or concerns.
== END 2024-11-13 13:42 | disposition home health service (06) | DRG 194 ==
LOC: ED 16:22 → PCU 16:52
PROVIDERS: Physician Assistant; Admitting Provider Hospitalist; Emergency Provider Emergency Medicine; PCP Student in an Organized Health Care Education/Training Program; Visit Provider Hospitalist
DX: J18.9 Pneumonia, unspecified organism (principal); I50.22 Chronic systolic (congestive) heart failure; J90 Pleural effusion, not elsewhere classified; I13.0 Hypertensive heart and chronic kidney disease with heart failure and stage 1 through stage 4 chronic kidney disease, or unspecified chronic kidney disease; I25.5 Ischemic cardiomyopathy; I48.0 Paroxysmal atrial fibrillation; E78.5 Hyperlipidemia, unspecified; E86.0 Dehydration; N18.30 Chronic kidney disease, stage 3 unspecified; F32.A Depression, unspecified; G47.33 Obstructive sleep apnea (adult) (pediatric); I25.10 Atherosclerotic heart disease of native coronary artery without angina pectoris; M48.061 Spinal stenosis, lumbar region without neurogenic claudication; Z86.16 Personal history of COVID-19; R53.1 Weakness; Z79.01 Long term (current) use of anticoagulants; R32 Unspecified urinary incontinence; K86.9 Disease of pancreas, unspecified; R09.02 Hypoxemia
CPT/HCPCS: 36415; 71045; 74177; 80048; 80053; 80076; 81001; 83690; 83735; 84145; 84484; 85025; 85027; 87449; 87631; 87633; 93005; 94668; 97110; 97162; 97166; 99285; P9612; Q9967; J2405

== ENCOUNTER 2024-11-15 09:53 | Inpatient (IN) | payer MEDICARE, SELFPAY ==
[2024-11-15] VITALS (13 sets, daily range): BP systolic 97–153; BP diastolic 79–111; PULSE 55–113; RESP 14–24; TEMP 35.8–36.8; O2SAT 91–100; BMI 24.2; BMI 23.8
--- NOTE | 2024-11-15 10:46 | RAD_ITS ---
INDICATION: sob, cough EXAMINATION/TECHNIQUE: X-RAY - XR Chest 2 Views COMPARISON: November 11, 2024 FINDINGS: LINES/DEVICES: None. LUNGS: There are new ill-defined opacities within the right mid and lower lung. There is a persistent ill-defined opacity within the left midlung. There is a small left pleural effusion. No pneumothorax. MEDIASTINUM AND CARDIOVASCULAR STRUCTURES: Cardiac silhouette not enlarged. Central airways and mediastinal contour are unremarkable. BONES AND SOFT TISSUES: Unremarkable. RAD/Chest PA and Lateral IMPRESSION: Interval progression of multifocal pneumonia associated with a small left pleural effusion. Electronically Signed: Maria D Corbin MD at 12:07 EST ,
--- NOTE | 2024-11-15 10:47 | EKG12_ITS ---
Test Reason : SOB Blood Pressure : */* mmHG Vent. Rate : 106 BPM Atrial Rate : * BPM P-R Int : * ms QRS Dur : 100 ms QT Int : 320 ms P-R-T Axes : * -28 124 degrees QTcB Int : 425 ms Poor data quality, interpretation may be adversely affected Atrial fibrillation with rapid ventricular response with premature ventricular or aberrantly conducte d complexes Minimal voltage criteria for LVH, may be normal variant ( Skip product ) ST & T wave abnormality, consider lateral ischemia Abnormal ECG Confirmed by LISET RODAS, DAYAN ([id number]), offline editor LIYAH MERRILL ([id number]) on 11/16/2024 8:25:37 AM Referred By: Confirmed By: DAYAN HUTCHINS MD
--- NOTE | 2024-11-15 11:14 | ED.VIS.DYS ---
HPI History of Present Illness Chief Complaint: Shortness of Breath Informant: patient and spouse/S.O. Narrative Narrative: Patient is a 8-year-old male with history of coronary artery disease, atrial fibrillation (on Xarelto and metoprolol) and recent admission for pneumonia and generalized weakness presenting with worsening weakness and shortness of breath. Patient was discharged from the hospital 2 days ago. He was discharged home on Augmentin. notes yesterday after lunch she laid on the couch and did not really move all day until dinnertime. He was not very responsive. Throughout the night he seemed more short of breath. He had a fever 100.7 last night around 0230 and gave Tylenol for that. She states he could not catch his breath. He seems more confused. She also notes his blood pressure was high. He did not eat much dinner last night. There shows have home health come in but they canceled. The nurse on the phone heard his work of breathing and recommended call EMS to be brought back to the emergency room. Patient was 85% on room air when EMS arrived. He does not normally wear oxygen. In the hospital he was on 2 L but by the time he was discharged he was ambulatory and not requiring oxygen. states patient been compliant with his medications. [facility] Medical History (Updated 11/16/24 @ 00:[address] Hailee Vega, ) Depression BiPAP (biphasic positive airway pressure) dependence Non-smoker Atrial fibrillation Hypertension TIA (transient ischemic attack) Elevated troponin Hx of skilled nursing use of blood thinners Cardiomyopathy Ischemic cardiomyopathy NSVT (nonsustained ventricular tachycardia) Acute non-ST elevation myocardial infarction (NSTEMI) Atrial fibrillation with rapid ventricular response Atherosclerotic heart disease of [place] coronary artery without angina pectoris Atrial fibrillation CKD (chronic kidney disease) stage 3, GFR 30-59 ml/min Hypertrophic cardiomyopathy Home Medications ?Medication ?Instructions ?Recorded ?Last Taken ?Type magnesium 250 mg tablet 500 mg PO DAILY mineral 07/13/18 09/29/24 History cholecalciferol (vitamin D3) 125 5,000 unit PO DAILY vitamin 10/18/19 09/29/24 History mcg (5,000 unit) capsule calcium carbonate (Calcium 600) 600 mg PO DAILY supplement 03/31/22 09/29/24 History rivaroxaban 15 mg tablet 15 mg PO DAILY blood thinner #90 12/16/23 09/28/24 17:00 Rx tabs metoprolol succinate 25 mg 25 mg PO DAILY heart 09/20/24 Unknown History tablet,extended release 24 hr paroxetine HCl 10 mg tablet 10 mg PO QDAY mood 09/20/24 Unknown History amoxicillin 875 mg-potassium 1 tab PO BID 4 days #8 tabs 11/13/24 Unknown Rx clavulanate 125 mg tablet Allergy/AdvReac Type Severity Reaction Status Date / Time atorvastatin Allergy confused Verified 11/15/24 10:02 lisinopril Allergy cough Verified 11/15/24 10:02 amiodarone AdvReac Intermediate lightheaded Verified 11/15/24 10:02 ness Family History Father Myocardial infarction Brother Myocardial infarction Surgical History History of cardioversion (11/30/22) Social History Smoking Status: Never smoker second hand exposure: No alcohol intake: never substance use type: does not use caffeine: Yes Type: tea what type of physical activity do you participate in: walking ROS ROS ED Constitutional Constitutional ED: Reports chills and fever(s) ENT ENT ED: Denies rhinorrhea Cardiovascular Cardiovascular: Denies chest pain Respiratory/Chest Respiratory/Chest: Reports cough, dyspnea and dyspnea on exertion Gastrointestinal Gastrointestinal: Denies abdominal pain, diarrhea or vomiting Musculoskeletal Musculoskeletal: Reports myalgias; Denies arthralgias Integumentary Denies rash Neurologic Neurologic: Reports weakness Hematologic/Lymphatic Hematologic/Lymphatic: Reports easy bleeding, easy bruising and other Details: On Xarelto EXAM Physical Exam Const Vital Signs: 11/15/24 09:54 11/15/24 10:00 11/15/24 10:01 Temperature 96.5 F L Temperature Source Axillary Pulse Rate 61 Respiratory Rate 20 H Respiratory Effort Respiratory Depth Respiratory Pattern Blood Pressure 147/99 H Blood Pressure Mean 115 Pulse Ox 100 99 100 Oxygen Delivery Method Non-Rebreather Room Air Nasal Cannula Oxygen Flow Rate (L/min) 15 2 11/15/24 10:01 11/15/24 11:00 11/15/24 12:00 Temperature 98.1 F Temperature Source Temporal Pulse Rate 108 H 93 Respiratory Rate 19 H 14 Respiratory Effort Short of Breath Respiratory Depth Normal Respiratory Pattern Normal Blood Pressure 144/110 H 153/87 H Blood Pressure Mean 121 109 Pulse Ox 100 100 Oxygen Delivery Method Nasal Cannula Nasal Cannula Nasal Cannula Oxygen Flow Rate (L/min) 2 Positive well nourished and well developed Constitutional Narrative: ill appearing General Appearance ED: well developed and NAD HEENT Reports moist mucous membranes Eyes PERRL Neck supple, no meningeal signs and no JVD Resp Resp Narrative: Tachypneic Auscultation: Negative for diminished lung sounds Cardio Cardio Narrative: Irregularly irregular Rate: tachycardic GI non-tender and non-distended Extremity normal to inspection General Extremety ED: Negative for edema or tenderness General Extremity: Negative for edema Neuro Neuro Narrative: Generally weak and mildly confused Sensorium / Orientation: alert Motor Exam: general weakness Psych mental status grossly normal Skin no wounds MDM MDM MDM Narrative Medical decision making narrative: Patient is evaluated for recurrent weakness and pneumonia. He was just discharged in the hospital for pneumonia. He was not requiring any supplemental oxygen at time of discharge. Patient was 85% on room air when EMS arrived and is requiring supplemental oxygen at this time. Patient is generally weak. He is nontoxic-appearing. Patient denies any chest pain. EKG does not show any acute ischemic change but does show atrial fibrillation. Chest x-ray shows worsening multifocal pneumonia. Patient has chronic anemia which is mildly improved from his lab work 3 days ago. BMP at baseline large unremarkable. Patient does have an elevation of his high since he troponin at 639. He is chronically elevated. He is not denying any chest pain I do not think this is an ACS equivalent. COVID flu RSV are negative. Patient is placed on broad-spectrum antibiotics given recurrent/worsening of this pneumonia. Case discussed with Dr. Butts and he is admited. Lab Data Attestation: I reviewed the patient's lab results. Labs: Laboratory Results - last 24 hr 11/15/24 11:18 WBC 8.9 RBC 3.94 L Hgb 12.3 L Hct 37.2 L MCV 94.4 H MCH 31.2 MCHC 33.1 RDW Std Deviation 49.1 H RDW Coeff of Samra 14.2 Plt Count 203 MPV 10.4 Immature Gran % (Auto) 0.600 Neut % (Auto) 83.9 H Lymph % (Auto) 6.7 L Desha % (Auto) 8.1 Eos % (Auto) 0.1 Baso % (Auto) 0.6 Absolute Neuts (auto) 7.5 Absolute Lymphs (auto) 0.60 L Nucleated RBC % 0 Sodium 136 Potassium 4.1 Chloride 106 Carbon Dioxide 21.0 Anion Gap 9 BUN 24 H Creatinine 1.24 Estim Creat Clear Calc 37.20 Est GFR (MDRD) Af Amer 71 Est GFR (MDRD) Non-Af 59 L BUN/Creatinine Ratio 19.4 Glucose 124 H Lactic Acid 1.9 Calcium 8.8 Total Bilirubin 0.90 AST 34 ALT 49 Alkaline Phosphatase 68 Total Creatine Kinase 48 Troponin I High Sens 639 H* Total Protein 6.8 Albumin 2.6 L Globulin 4.2 Albumin/Globulin Ratio 0.6 L Radiography Diagnostic Testing: Clinical Impression(s) from Imaging Studies Chest X-Ray 11/15/24 10:46 IMPRESSION: Interval progression of multifocal pneumonia associated with a small left pleural effusion. Electronically Signed: Maria D Corbin MD at 12:07 EST , Rhythm Strip Rhythm Strip: A-fib Rate: 106 Ectopy: None EKG Initial EKG: Attestation: I personally reviewed and interpreted this EKG as follows: Interpretation: Atrial Fibrillation Comments: Atrial fibrillation rate 106 bpm Left axis deviation Minimal voltage criteria for LVH Normal ST segments with T wave versions in 1 and aVL Prior EKG tracings: available for review Prior: Unchanged Management Discussion w/another healthcare provider: Hospitalist Discharge Plan Dx/Rx/DC Orders Clinical Impression: Pneumonia, Hx of rn long term care use of blood thinners, Fatigue, Hypoxia Disposition Disposition: Acute Care Hospital [facility] Discharge Date/Time: 11/15/24 14:07
[2024-11-15 11:27] LABS: Absolute Neutrophil Count 7.5 X10^3/uL (2.0-7.7); Basophil# 0.05 X10^3/uL; Basophil% 0.6 % (0-1); Eosinophil# 0.01 X10^3/uL; Eosinophils% 0.1 % (0-5); Hematocrit 37.2 % (40-54); Hemoglobin 12.3 g/dL (13.0-16.5); Lymphocyte % 6.7 % (19-41); Mean Corp Hgb Conc 33.1 g/dL (32-36); Mean Corpuscular Hgb 31.2 pg (27.0-32.0); Mean Corpuscular Volume 94.4 fL (80-94); Mean Platelet Vol. 10.4 fl (6.2-12.0); Monocyte# 0.72 X10^3/uL; Monocyte% 8.1 % (0-10); NRBC Flagged by Analyzer 0 % (0-5); Neutrophil # 7.46 X10^3/uL (2.7-7.7); Neutrophil % 83.9 % (47-70); POSITIVE DIFFERENTIAL YES; Platelet Count 203 K/mm3 (150-450); RBC Distribution Width CV 14.2 % (11.6-14.6); RBC Distribution Width SD 49.1 fl (35.1-43.9); Red Blood Count 3.94 M/mm3 (4.6-6.2); White Blood Count 8.9 K/mm3 (4.4-11.0)
[2024-11-15 11:59] LABS: Lactic Acid 1.9 mmol/L (0.4-1.9)
[2024-11-15 12:11] LABS: CPK Total, Creatine Kinase 48 U/L (39-308)
--- NOTE | 2024-11-15 12:52 | HP.PCM.HOS_ITS ---
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 Patient was discharged home 3 days prior to his readmission. Per patient he has experienced progressive weakness since being discharged. On the morning of his admission patient's noticed patient was more dyspneic than his usual self. Patient subsequently presented to the emergency department. Imaging studies obtained demonstrated interval progression of multifocal pneumonia. Admitted to regular nursing floor for further management REPLACED BY [facility] Medical History Elevated troponin Hx of group home use of blood thinners Cardiomyopathy Ischemic cardiomyopathy NSVT (nonsustained ventricular tachycardia) Acute non-ST elevation myocardial infarction (NSTEMI) Atrial fibrillation with rapid ventricular response Atherosclerotic heart disease of [place] coronary artery without angina pectoris Atrial fibrillation CKD (chronic kidney disease) stage 3, GFR 30-59 ml/min Hypertrophic cardiomyopathy Home Medications ?Medication ?Instructions ?Recorded ?Last Taken ?Type magnesium 250 mg tablet 500 mg PO DAILY mineral 07/13/18 09/29/24 History cholecalciferol (vitamin D3) 125 5,000 unit PO DAILY vitamin 10/18/19 09/29/24 History mcg (5,000 unit) capsule calcium carbonate (Calcium 600) 600 mg PO DAILY supplement 03/31/22 09/29/24 History rivaroxaban 15 mg tablet 15 mg PO DAILY blood thinner #90 12/16/23 09/28/24 17:00 Rx tabs metoprolol succinate 25 mg 25 mg PO QDAY 09/20/24 Unknown History tablet,extended release 24 hr paroxetine HCl 10 mg tablet 10 mg PO QDAY 09/20/24 Unknown History amoxicillin 875 mg-potassium 1 tab PO BID 4 days #8 tabs 11/13/24 Unknown Rx clavulanate 125 mg tablet Allergy/AdvReac Type Severity Reaction Status Date / Time atorvastatin Allergy confused Verified 11/15/24 10:02 lisinopril Allergy cough Verified 11/15/24 10:02 amiodarone AdvReac Intermediate lightheaded Verified 11/15/24 10:02 ness Family History Father Myocardial infarction Brother Myocardial infarction Surgical History History of cardioversion (11/30/22) Social History Smoking Status: Never smoker second hand exposure: No alcohol intake: never substance use type: does not use caffeine: Yes Type: tea what type of physical activity do you participate in: walking ROS ROS Narrative GENERAL: Generalized weakness HEENT: denies headache, sinus congestion, or drainage, dysphagia RESPIRATORY: cough, sputum production, shortness of breath, dyspnea on exertion CARDIAC: denies chest pain, palpitations, orthopnea, PND GASTROINTESTINAL: denies abdominal pain, nausea, vomiting, melena, GENITOURINARY: denies dysuria, urgency, frequency, heamaturia EXTREMITY: denies swelling MUSCULOSKELETAL: denies current joint pain or tenderness NEUROLOGIC: denies focal numbness, weakness, tingling HEMATOLOGIC: denies easy bruising and/or hemorrhage INTEGUMENT: denies rashes PSYCHIATRIC: denies suicidal or homicidal ideation Vital Signs Vital Signs Vital Signs: 11/15/24 09:54 11/15/24 10:00 11/15/24 10:01 Temperature 96.5 F L Temperature Source Axillary Pulse Rate 61 Respiratory Rate 20 H Respiratory Effort Respiratory Depth Respiratory Pattern Blood Pressure 147/99 H Blood Pressure Mean 115 Pulse Ox 100 99 100 Oxygen Delivery Method Non-Rebreather Room Air Nasal Cannula Oxygen Flow Rate (L/min) 15 2 11/15/24 10:01 11/15/24 11:00 11/15/24 12:00 Temperature 98.1 F Temperature Source Temporal Pulse Rate 108 H 93 Respiratory Rate 19 H 14 Respiratory Effort Short of Breath Respiratory Depth Normal Respiratory Pattern Normal Blood Pressure 144/110 H 153/87 H Blood Pressure Mean 121 109 Pulse Ox 100 100 Oxygen Delivery Method Nasal Cannula Nasal Cannula Nasal Cannula Oxygen Flow Rate (L/min) 2 Weight Weight: 66 kg Body Mass Index (BMI) 24.2 Physical Exam Narrative GENERAL: cooperative but frail looking HEENT: Atraumatic; normocephalic EYES; Anicteric, Normal Conjunctiva NECK; supple, normal thyroid, RESPIRATORY: Diminished to auscultation CARDIOVASCULAR: Irregularly irregular GI: soft, normoactive bowel sounds, : No Renal angle tenderness; EXTREMITIES: No edema, no clubbing, MUSCULOSKELETAL: no muscle wasting NEURO: Awake; no lateralizing signs. SKIN: No Rash PSYCH; Flat affect Results Lab / Micro Data 11/15/24 11:18 11/15/24 11:18 Labs: Laboratory Results - last 24 hr 11/15/24 11:18: WBC 8.9, RBC 3.94 L, Hgb 12.3 L, Hct 37.2 L, MCV 94.4 H, MCH 31.2, MCHC 33.1, RDW Std Deviation 49.1 H, RDW Coeff of Samra 14.2, Plt Count 203, MPV 10.4, Immature Gran % (Auto) 0.600, Neut % (Auto) 83.9 H, Lymph % (Auto) 6.7 L, [place] % (Auto) 8.1, Eos % (Auto) 0.1, Baso % (Auto) 0.6, Absolute Neuts (auto) 7.5, Absolute Lymphs (auto) 0.60 L, Nucleated RBC % 0, Lactic Acid 1.9, Total Creatine Kinase 48 Micro: Microbiology 11/15/24 11:18 Mucosa - Nose SARS-CoV-2, Influenza & RSV (PCR) - Final Imaging Radiology Impression Chest X-Ray 11/15/24 10:46 IMPRESSION: Interval progression of multifocal pneumonia associated with a small left pleural effusion. Electronically Signed: Maria D Corbin MD at 12:07 EST , Assessment & Plan Assessment/Plan (1) Pneumonia: (2) Hypoxia: PLAN: Plan Patient is an 88-year-old gentleman with multiple comorbidities recently discharged from the hospital following a 2-day stay for community-acquired pneumonia presented back to the emergency department with progressive generalized weakness and shortness of breath 1. Pneumonia with suspected multidrug-resistant organisms ? Imaging studies obtained on admission demonstrated interval progression of multifocal pneumonia associated with small left pleural effusion. Patient has been admitted to monitored bed antibiotics initiated per protocol with Zosyn, azithromycin as well as vancomycin. Sputum and blood culture sent. Also did send for COVID as well as respiratory viral panel 2. Acute hypoxia ? Secondary to above patient was placed on supplemental oxygen titrated to keep saturation greater than 100 3. Physical deconditioning ? Requested for PT OT eval and drug abuse social worker to assist with discharge planning. Had a discussion with patient and the regarding possible discharge to a snf facility 4. 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 Echo from March 2024 demonstrated EF of 40% patient currently compensated 5. Paroxysmal atrial fibrillation ? Rate controlled on systemic anticoagulation with Xarelto did continue 6. Hypertension ? Blood pressure controlled, home medications continued with dose adjustment as needed 7. Depression ? Stable. Continue home paroxetine. 8. KENNEDY ? Continue home CPAP at night. 9. DVT prophylaxis ? Patient already anticoagulated?on Xarelto Time spent in the patient's overall evaluation,decision-making process, review of diagnostic data, adjustment of management, discussion with other providers, nursing nursing and ancillary staff involved in patient's care documentation, 75 Minutes Advance planning; did discuss with the patient and family regarding advanced directives as well as CODE STATUS. Did explain the various scenarios involved ( FULL CODE, DNR CCA, DNR CCA with no intubation, and DNR CC and what each meant) patient elected to remain full code with CPR and intubation if needed. Order was placed. Time spent on discussion 16 minutes. Charges/Coding Multi Select Codes Visit Charges Visit Charges: 08753 Init Hosp Hospitalists' Procedures Procedures: 83423 Advncd Care Plan 30 Min
[2024-11-15] MEDS: Piperacil/Tazobactam 3.375 GM in 0.9% Normal Saline (50mL MB+) 50 ML IV ×2 (13:15→21:17)
[2024-11-15 13:49] LABS: ALB/GLOB Ratio 0.6 RATIO (0.9-2.4); AST(SGOT) 34 U/L (15-37); Alanine Aminotransfer ALT/SGPT 49 U/L (16-61); Albumin, Serum 2.6 g/dL (3.2-5.0); Alkaline Phosphatase 68 U/L (45-117); Anion Gap 9 (5-15); BUN 24 mg/dL (7-18); BUN/Creat Ratio 19.4 RATIO (10-20); Calcium,Total 8.8 mg/dL (8.5-10.1); Chloride 106 mmol/L (98-107); Creatinine, Serum 1.24 mg/dL (0.70-1.30); EST Glomerular Filtration Rate 59 mL/min (>60); Est Glom Filt Rate - Afr Amer 71 mL/min (>60); Globulin 4.2 g/dL (2.2-4.2); Glucose 124 mg/dL (74-106); Potassium 4.1 mmol/L (3.5-5.1); Protein, Total 6.8 g/dL (6.4-8.2); Sodium Level 136 mmol/L (136-145); Troponin-I HS 639 pg/mL (3.0-78.0)
[2024-11-15] MEDS: Vancomycin IV 1,000 MG/200 ML BAG 200 MG IV (15:07)
--- NOTE | 2024-11-15 15:56 | PCM.RX.CS ---
Consult Antibiotic Management Pharmacy has been consulted to manage selected antibiotic: Vancomycin Type of Intervention Type of Consult: New start Suspected Infection Suspected Infection: Pneumonia Labs Labs: Sodium 136 mmol/L (136-145) 11/15/24 11:18 Potassium 4.1 mmol/L (3.5-5.1) 11/15/24 11:18 Chloride 106 mmol/L (98-107) 11/15/24 11:18 Carbon Dioxide 21.0 mmol/L (21.0-32.0) 11/15/24 11:18 Anion Gap 9 (5-15) 11/15/24 11:18 BUN 24 mg/dL (7-18) H 11/15/24 11:18 Creatinine 1.24 mg/dL (0.70-1.30) 11/15/24 11:18 Est GFR (MDRD) Af Amer 71 mL/min (>60) 11/15/24 11:18 Est GFR (MDRD) Non-Af 59 mL/min (>60) L 11/15/24 11:18 BUN/Creatinine Ratio 19.4 RATIO (10-20) 11/15/24 11:18 Glucose 124 mg/dL (74-106) H 11/15/24 11:18 Microbiology Microbiology: Microbiology 11/15/24 11:18 Mucosa - Nose SARS-CoV-2, Influenza & RSV (PCR) - Final Dosing Weight Weight used for dosin kg Goal Trough Goal Trough: 15-20 mcg/mL Pharmacy Plan for Drug Dosing Pharmacy Plan for Drug Dosing: NEW START IV VANCOMYCIN Consulting Physician: Dr. Butts Indication: Pneumonia Goal Trough: 15-20 SrCr: 1.24 CrCl: 37 ml/min Comments: pt received a 1000mg dose in the ER on 11/15/24 at 1507 Vancomycin Dose: based on patients weight and renal function, recommend an initial dose of 1000mg every 24 hours. trough prior to the 3rd dose. Note: dose was calculated using clinical pharmacology dosing calculator Pending Level: 11/17/24 at 1230 Pharmacy Service will continue to monitor and adjust dosing as required. Follow-Up Labs Follow-Up Labs: Trough: Vancomycin (11/17/24 at 1230)
[2024-11-15] MEDS: guaiFENesin 10 ML UDC (200MG/10ML) 20 ML PO (21:20)
[2024-11-16] VITALS (10 sets, daily range): BP systolic 112–133; BP diastolic 67–97; PULSE 73–90; RESP 18–24; TEMP 36.6–37.2; O2SAT 87–99; BMI 23.9
[2024-11-16] MEDS: guaiFENesin 10 ML UDC (200MG/10ML) 20 ML PO (02:49)
[2024-11-16] MEDS: Piperacil/Tazobactam 3.375 GM in 0.9% Normal Saline (50mL MB+) 50 ML IV ×3 (05:50→21:21)
[2024-11-16 06:58] LABS: Absolute Lymphocyte Count 0.79 X10^3/uL (0.83-4.51); Absolute Neutrophil Count 6.4 X10^3/uL (2.0-7.7); Basophil# 0.05 X10^3/uL; Basophil% 0.6 % (0-1); Eosinophil# 0.04 X10^3/uL; Eosinophils% 0.5 % (0-5); Hematocrit 34.7 % (40-54); Hemoglobin 11.5 g/dL (13.0-16.5); Lymphocyte # 0.79 X10^3/ul (0.83-4.51); Lymphocyte % 9.9 % (19-41); Mean Corp Hgb Conc 33.1 g/dL (32-36); Mean Corpuscular Hgb 31.3 pg (27.0-32.0); Mean Corpuscular Volume 94.3 fL (80-94); Mean Platelet Vol. 10.4 fl (6.2-12.0); Monocyte# 0.69 X10^3/uL; Monocyte% 8.7 % (0-10); NRBC Flagged by Analyzer 0 % (0-5); Neutrophil # 6.36 X10^3/uL (2.7-7.7); Neutrophil % 79.8 % (47-70); Platelet Count 180 K/mm3 (150-450); RBC Distribution Width CV 14.2 % (11.6-14.6); RBC Distribution Width SD 48.8 fl (35.1-43.9); Red Blood Count 3.68 M/mm3 (4.6-6.2)
[2024-11-16 07:23] LABS: Anion Gap 8 (5-15); BUN 26 mg/dL (7-18); BUN/Creat Ratio 21.1 RATIO (10-20); Calcium,Total 8.9 mg/dL (8.5-10.1); Chloride 106 mmol/L (98-107); Creatinine, Serum 1.23 mg/dL (0.70-1.30); EST Glomerular Filtration Rate 59 mL/min (>60); Est Glom Filt Rate - Afr Amer 72 mL/min (>60); Glucose 95 mg/dL (74-106); Phosphorus 2.8 mg/dL (2.5-4.9); Potassium 3.9 mmol/L (3.5-5.1); Sodium Level 136 mmol/L (136-145)
--- NOTE | 2024-11-16 08:15 | PN.HOSP_ITS ---
Reason for Visit Reason for Visit: Diagnoses Pneumonia, unspecified organism (11/15/24) Hypoxemia (11/15/24) Subjective Subjective Patient is an 88-year-old gentleman with multiple comorbidities recently discharged from the hospital following a 2-day stay for community-acquired pneumonia presented back to the emergency department with progressive generalized weakness and shortness of breath. His viral respiratory assay came back positive for COVID admitted to regular nursing floor symptom management initiated Objective Data Objective Data Vital Signs: Vital Signs Temp Pulse Resp BP Pulse Ox O2 Del Method O2 Flow Rate 98.1 F 73 24 H 133/83 H 95 Nasal Cannula 2 11/16/24 02:31 11/16/24 02:31 11/16/24 03:00 11/16/24 02:31 11/16/24 08:10 11/16/24 08:10 11/16/24 08:10 Oxygen Flow Rate (L/min) 2 Oxygen Delivery Method Nasal Cannula Weight: 65.2 kg Body Mass Index (BMI) 23.9 Intake & Output: Intake and Output for Last 24 Hours 11/14/24 11/15/24 11/16/24 23:59 23:59 23:59 Intake Total 950 / 950 250 / 250 Balance 950 / 950 250 / 250 Lab / Micro Data 11/16/24 06:45 11/16/24 06:45 Labs: Laboratory Results - last 24 hr 11/15/24 11:18: WBC 8.9, RBC 3.94 L, Hgb 12.3 L, Hct 37.2 L, MCV 94.4 H, MCH 31.2, MCHC 33.1, RDW Std Deviation 49.1 H, RDW Coeff of Samra 14.2, Plt Count 203, MPV 10.4, Immature Gran % (Auto) 0.600, Neut % (Auto) 83.9 H, Lymph % (Auto) 6.7 L, [place] % (Auto) 8.1, Eos % (Auto) 0.1, Baso % (Auto) 0.6, Absolute Neuts (auto) 7.5, Absolute Lymphs (auto) 0.60 L, Nucleated RBC % 0, Sodium 136, Potassium 4.1, Chloride 106, Carbon Dioxide 21.0, Anion Gap 9, BUN 24 H, Creatinine 1.24, Estim Creat Clear Calc 37.20, Est GFR (MDRD) Af Amer 71, Est GFR (MDRD) Non-Af 59 L, BUN/Creatinine Ratio 19.4, Glucose 124 H, Lactic Acid 1.9, Calcium 8.8, Total Bilirubin 0.90, AST 34, ALT 49, Alkaline Phosphatase 68, Total Creatine Kinase 48, Troponin I High Sens 639 H*, Total Protein 6.8, Albumin 2.6 L, Globulin 4.2, Albumin/Globulin Ratio 0.6 L 11/16/24 06:45: WBC 8.0, RBC 3.68 L, Hgb 11.5 L, Hct 34.7 L, MCV 94.3 H, MCH 31.3, MCHC 33.1, RDW Std Deviation 48.8 H, RDW Coeff of Samra 14.2, Plt Count 180, MPV 10.4, Immature Gran % (Auto) 0.500, Neut % (Auto) 79.8 H, Lymph % (Auto) 9.9 L, [place] % (Auto) 8.7, Eos % (Auto) 0.5, Baso % (Auto) 0.6, Absolute Neuts (auto) 6.4, Absolute Lymphs (auto) 0.79 L, Nucleated RBC % 0, Sodium 136, Potassium 3.9, Chloride 106, Carbon Dioxide 23.0, Anion Gap 8, BUN 26 H, Creatinine 1.23, Estim Creat Clear Calc 37.50, Est GFR (MDRD) Af Amer 72, Est GFR (MDRD) Non-Af 59 L, BUN/Creatinine Ratio 21.1 H, Glucose 95, Calcium 8.9, Phosphorus 2.8, Magnesium 2.0 Micro: Microbiology 11/16/24 02:45 Nasal Secretion MRSA (PCR) - Final 11/16/24 02:45 Urine, Random Legionella Antigen - Final 11/16/24 02:45 Urine, Random Streptococcus pneumoniae Antigen (M - Final 11/15/24 15:04 Mucosa - Nasopharyngeal Coronavirus COVID-19 PCR - Final SARS-CoV-2 (COVID 19 PCR) 11/15/24 15:04 Mucosa - Nasopharyngeal Respiratory Panel (PCR) - Final 11/15/24 19:45 Sputum, Expectorated/Coughed Gram Stain - Preliminary 11/15/24 11:18 Mucosa - Nose SARS-CoV-2, Influenza & RSV (PCR) - Final Radiography Diagnostic Testing: Radiology Impression Chest X-Ray 11/15/24 10:46 IMPRESSION: Interval progression of multifocal pneumonia associated with a small left pleural effusion. Electronically Signed: Maria D Corbin MD at 12:07 EST , Rhythm Strip Rhythm Strip: A-fib Rate: 106 Ectopy: None Physical Exam Narrative GENERAL: cooperative but frail looking HEENT: Atraumatic; normocephalic EYES; Anicteric, Normal Conjunctiva NECK; supple, normal thyroid, RESPIRATORY: Diminished to auscultation CARDIOVASCULAR: Irregularly irregular GI: soft, normoactive bowel sounds, : No Renal angle tenderness; EXTREMITIES: No edema, no clubbing, MUSCULOSKELETAL: no muscle wasting NEURO: Awake; no lateralizing signs. SKIN: No Rash PSYCH; Flat affect Assessment & Plan Assessment/Plan (1) Pneumonia: (2) Hypoxia: PLAN: Plan Patient is an 88-year-old gentleman with multiple comorbidities recently discharged from the hospital following a 2-day stay for community-acquired pneumonia presented back to the emergency department with progressive generalized weakness and shortness of breath 1. Pneumonia with suspected multidrug-resistant organisms ? Imaging studies obtained on admission demonstrated interval progression of multifocal pneumonia associated with small left pleural effusion. Patient has been admitted to monitored bed antibiotics initiated per protocol with Zosyn, azithromycin as well as vancomycin. Sputum and blood culture sent. Also did send for COVID as well as respiratory viral panel ? 11/16/2024; His viral respiratory assay came back positive for COVID admitted to regular nursing floor symptom management initiated 2. COVID-pneumonia ? With patient being hypoxic and requiring oxygen patient was started on dexamethasone 2. Acute hypoxia ? Secondary to above patient was placed on supplemental oxygen titrated to keep saturation greater than 100 3. Physical deconditioning ? Requested for PT OT eval and social welfare research worker to assist with discharge planning. Had a discussion with patient and the regarding possible discharge to a alf facility 4. 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 Echo from March 2024 demonstrated EF of 40% patient currently compensated 5. Paroxysmal atrial fibrillation ? Rate controlled on systemic anticoagulation with Xarelto did continue 6. Hypertension ? Blood pressure controlled, home medications continued with dose adjustment as needed 7. Depression ? Stable. Continue home paroxetine. 8. KENNEDY ? Continue home CPAP at night. 9. DVT prophylaxis ? Patient already anticoagulated?on Xarelto Time spent in the patient's overall evaluation,decision-making process, review of diagnostic data, adjustment of management, discussion with other providers, nursing nursing and ancillary staff involved in patient's care documentation, 38 minutes Charges/Coding Visit Charges Inpatient E&M: 58807 Subs Hosp L2
[2024-11-16] MEDS: Azithromycin 500 MG in 0.9% Normal Saline (250mL Bag) 250 ML 250 MG IV (10:26)
[2024-11-16] MEDS: Rivaroxaban 15 MG Tablet PO (10:26)
[2024-11-16] MEDS: dexAMETHasone 4 MG Tablet 6 MG PO (10:26)
[2024-11-16] MEDS: Magnesium Chloride 64 MG Delay Rel.Tablet 128 MG PO (10:27)
[2024-11-16] MEDS: Calcium (Elemental) 500 MG Tablet PO (10:27)
[2024-11-16] MEDS: PARoxetine 10 MG Tablet PO (10:27)
[2024-11-16] MEDS: Metoprolol(XL)Succ 25 MG Tablet PO (10:28)
[2024-11-16] MEDS: Cholecalciferol (Vit D3) 125 MCG CAPSULE (5,000 UNITS) PO (10:28)
--- NOTE | 2024-11-16 12:05 | CASEMGMT ---
Social Work- SW met with pt and pt to discuss preferences at discharge. SW introduced self and role. Pt and share that pt has done intermittently well with OP therapy @ [facility], however, pt reports that pt has episodes where pt limbs become stiff and unable to bend. During these episodes, pt reports that pt does not know who she is and becomes very confused, as well as unable to follow directions to physically move. Pt does not see a pattern for these episodes. Pt has a neurology appointment at the end of November. Pt and pt selected TCU as FOC. A list of SNF providers including quality and resource use data and consistent with the patient?s preferred geographic region, medical needs, and insurance network were provided from the [employer] Guide. Pt and will review for alternate choices if needed. SW completed referral to TCU. SW remains available to follow. Plan: TCU; pending acceptance [facility]
--- NOTE | 2024-11-16 12:11 | CHAPLAIN ---
Type of Pastoral Visit ___ Initial Visit ___ Follow-up Visit ___ On-call Visit ___ General Patient Visit ___ Spiritual Assessment ___ Family Conference ___ Bereavement ___ Rapid Response ___ Code Blue ___ Other (describe below) Pastoral Care Referral From ___ Patient ___ Family ___ Nurse ___ Physician ___ Brick Veneer Maker ___ Crystal Finisher ___ Other (describe below) Sacrament/Intervention ___ Active listening ___ Anointing ___ Holiness ___ Bereavement ___ Communion ___ Jennifer exploration ___ ___ Life review ___ Prayer ___ Reconciliation ___ Sacrament of Sick ___ Supportive presence ___ Wedding ___ Other (describe below) Pastoral Comments patient is in isolation room and at time of attempted visit other staff members were assisting him with care
--- NOTE | 2024-11-16 12:12 | CASEMGMT ---
JAZZMINE CM Readmission Note Previous Admission: 11/11/24-11/13/24 Diagnosis: CAP with hypoxia DC [facility] Current Admission: Admitted 11/15/24 Current Diagnosis:pneumonia Pt dc'd 3 days prior to home with resumption of [facility] planned on . Pt did not require home oxygen at time of dc. Pt presented with increasing dyspnea as well as progressive weakness. Imaging showed progression of multifocal pneumonia. Pt admitted for management of this. SW met with pt, referral made to [facility] TCU. DC Plan: [facility] TCU pending acceptance and precert. TC to [facility] intake, left vm stating pt was admitted.
[2024-11-16] MEDS: Vancomycin IV 1,000 MG/200 ML BAG 200 MG IV (14:50)
[2024-11-16] MEDS: 0.9% Saline Lock 10 ML Syringe IV (21:21)
[2024-11-16] MEDS: Menthol/Lanolin/Calamine/Znox 113 GM Tube 1 APPLIC TOPICAL (21:24)
[2024-11-17] VITALS (8 sets, daily range): BP systolic 114–144; BP diastolic 67–89; PULSE 61–94; RESP 18–22; TEMP 36.3–36.7; O2SAT 94–98; BMI 24.3
[2024-11-17] MEDS: Piperacil/Tazobactam 3.375 GM in 0.9% Normal Saline (50mL MB+) 50 ML IV ×3 (05:02→20:57)
[2024-11-17 07:15] LABS: Absolute Lymphocyte Count 0.58 X10^3/uL (0.83-4.51); Absolute Neutrophil Count 8.4 X10^3/uL (2.0-7.7); Basophil# 0.02 X10^3/uL; Basophil% 0.2 % (0-1); Hematocrit 34.4 % (40-54); Hemoglobin 11.4 g/dL (13.0-16.5); Lymphocyte # 0.58 X10^3/ul (0.83-4.51); Lymphocyte % 6.1 % (19-41); Mean Corp Hgb Conc 33.1 g/dL (32-36); Mean Corpuscular Hgb 31.2 pg (27.0-32.0); Mean Corpuscular Volume 94.2 fL (80-94); Mean Platelet Vol. 10.5 fl (6.2-12.0); Monocyte# 0.51 X10^3/uL; Monocyte% 5.3 % (0-10); NRBC Flagged by Analyzer 0 % (0-5); Neutrophil # 8.36 X10^3/uL (2.7-7.7); Neutrophil % 87.7 % (47-70); POSITIVE DIFFERENTIAL YES; Platelet Count 200 K/mm3 (150-450); RBC Distribution Width SD 48.8 fl (35.1-43.9); Red Blood Count 3.65 M/mm3 (4.6-6.2); White Blood Count 9.5 K/mm3 (4.4-11.0)
[2024-11-17 07:58] LABS: Anion Gap 6 (5-15); BUN 29 mg/dL (7-18); BUN/Creat Ratio 24.8 RATIO (10-20); Chloride 110 mmol/L (98-107); Creatinine, Serum 1.17 mg/dL (0.70-1.30); EST Glomerular Filtration Rate 63 mL/min (>60); Est Glom Filt Rate - Afr Amer 76 mL/min (>60); Estimated Creatinine Clearance 39.42 ml/min; Glucose 129 mg/dL (74-106); Potassium 4.1 mmol/L (3.5-5.1); Sodium Level 139 mmol/L (136-145)
--- NOTE | 2024-11-17 08:13 | PCM.PN.HOSP ---
Reason for Visit Reason for Visit: Diagnoses Pneumonia, unspecified organism (11/15/24) Hypoxemia (11/15/24) Subjective Subjective Patient seen continues to improve clinically. Patient has been weaned off supplemental oxygen. Plan is for patient to be [facility] to [facility] pending insurance precertification Objective Data Objective Data Vital Signs: Vital Signs Temp Pulse Resp BP Pulse Ox O2 Del Method O2 Flow Rate 97.6 F L 94 20 H 122/89 H 95 Room Air 2 11/17/24 05:03 11/17/24 05:14 11/17/24 05:03 11/17/24 05:03 11/17/24 05:14 11/17/24 05:14 11/16/24 21:20 Oxygen Flow Rate (L/min) 2 Oxygen Delivery Method Room Air Weight: 66.3 kg Body Mass Index (BMI) 24.3 Intake & Output: Intake and Output for Last 24 Hours 11/15/24 11/16/24 11/17/24 23:59 23:59 23:59 Intake Total 950 / 950 5 / 1955 200 / 200 Balance 950 / 950 1954 / 1954 200 / 200 Lab / Micro Data 11/17/24 07:00 11/17/24 07:00 Labs: Laboratory Results - last 24 hr 11/17/24 07:00: WBC 9.5, RBC 3.65 L, Hgb 11.4 L, Hct 34.4 L, MCV 94.2 H, MCH 31.2, MCHC 33.1, RDW Std Deviation 48.8 H, RDW Coeff of Samra 14.0, Plt Count 200, MPV 10.5, Immature Gran % (Auto) 0.700, Neut % (Auto) 87.7 H, Lymph % (Auto) 6.1 L, [place] % (Auto) 5.3, Eos % (Auto) 0.0, Baso % (Auto) 0.2, Absolute Neuts (auto) 8.4 H, Absolute Lymphs (auto) 0.58 L, Nucleated RBC % 0, Sodium 139, Potassium 4.1, Chloride 110 H, Carbon Dioxide 23.0, Anion Gap 6, BUN 29 H, Creatinine 1.17, Estim Creat Clear Calc 39.42, Est GFR (MDRD) Af Amer 76, Est GFR (MDRD) Non-Af 63, BUN/Creatinine Ratio 24.8 H, Glucose 129 H, Calcium 9.0 Micro: Microbiology 11/15/24 19:45 Sputum, Expectorated/Coughed Gram Stain - Final 11/15/24 19:45 Sputum, Expectorated/Coughed Respiratory Culture - Final Presumptive C albicans 11/16/24 02:45 Nasal Secretion MRSA (PCR) - Final 11/16/24 02:45 Urine, Random Legionella Antigen - Final 11/16/24 02:45 Urine, Random Streptococcus pneumoniae Antigen (M - Final 11/15/24 15:04 Mucosa - Nasopharyngeal Coronavirus COVID-19 PCR - Final SARS-CoV-2 (COVID 19 PCR) 11/15/24 15:04 Mucosa - Nasopharyngeal Respiratory Panel (PCR) - Final 11/15/24 11:18 Mucosa - Nose SARS-CoV-2, Influenza & RSV (PCR) - Final Rhythm Strip Rhythm Strip: A-fib Rate: 106 Ectopy: None Physical Exam Narrative GENERAL: cooperative but frail looking HEENT: Atraumatic; normocephalic EYES; Anicteric, Normal Conjunctiva NECK; supple, normal thyroid, RESPIRATORY: Diminished to auscultation CARDIOVASCULAR: Irregularly irregular GI: soft, normoactive bowel sounds, : No Renal angle tenderness; EXTREMITIES: No edema, no clubbing, MUSCULOSKELETAL: no muscle wasting NEURO: Awake; no lateralizing signs. SKIN: No Rash PSYCH; Flat affect Assessment & Plan Assessment/Plan (1) Pneumonia: (2) Hypoxia: PLAN: Plan Patient is an 88-year-old gentleman with multiple comorbidities recently discharged from the hospital following a 2-day stay for community-acquired pneumonia presented back to the emergency department with progressive generalized weakness and shortness of breath 1. Pneumonia with suspected multidrug-resistant organisms ? Imaging studies obtained on admission demonstrated interval progression of multifocal pneumonia associated with small left pleural effusion. Patient has been admitted to monitored bed antibiotics initiated per protocol with Zosyn, azithromycin as well as vancomycin. Sputum and blood culture sent. Also did send for COVID as well as respiratory viral panel ? 11/16/2024; His viral respiratory assay came back positive for COVID admitted to regular nursing floor symptom management initiated ? 11/17/2024; patient has been weaned off supplemental oxygen 2. COVID-pneumonia ? With patient being hypoxic and requiring oxygen patient was started on dexamethasone 2. Acute hypoxia ? Secondary to above patient was placed on supplemental oxygen titrated to keep saturation greater than 100 3. Physical deconditioning ? Requested for PT OT eval and social and political studies professor to assist with discharge planning. Had a discussion with patient and the regarding possible discharge to a penitentiary facility ? 11/17/2024; awaiting insurance precertification prior to transfer to penitentiary facility 4. 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 Echo from March 2024 demonstrated EF of 40% patient currently compensated 5. Paroxysmal atrial fibrillation ? Rate controlled on systemic anticoagulation with Xarelto did continue 6. Hypertension ? Blood pressure controlled, home medications continued with dose adjustment as needed 7. Depression ? Stable. Continue home paroxetine. 8. KENNEDY ? Continue home CPAP at night. 9. DVT prophylaxis ? Patient already anticoagulated?on Xarelto Time spent in the patient's overall evaluation,decision-making process, review of diagnostic data, adjustment of management, discussion with other providers, nursing nursing and ancillary staff involved in patient's care documentation, 38 minutes Charges/Coding Visit Charges Inpatient E&M: 10910 Subs Hosp L2
[2024-11-17] MEDS: Metoprolol(XL)Succ 25 MG Tablet PO (09:05)
[2024-11-17] MEDS: dexAMETHasone 4 MG Tablet 6 MG PO (09:05)
[2024-11-17] MEDS: PARoxetine 10 MG Tablet PO (09:05)
[2024-11-17] MEDS: Rivaroxaban 15 MG Tablet PO (09:08)
[2024-11-17] MEDS: Calcium (Elemental) 500 MG Tablet PO (09:08)
[2024-11-17] MEDS: Azithromycin 500 MG in 0.9% Normal Saline (250mL Bag) 250 ML 250 MG IV (10:05)
[2024-11-17] MEDS: Cholecalciferol (Vit D3) 125 MCG CAPSULE (5,000 UNITS) PO (10:05)
[2024-11-17] MEDS: Menthol/Lanolin/Calamine/Znox 113 GM Tube 1 APPLIC TOPICAL ×2 (10:06→21:00)
--- NOTE | 2024-11-17 13:12 | CASEMGMT ---
Social Work Pt's family is in the room asking to speak w/SW. SW called as pt has COVID and is in precautions. Her phone does not go through. SW called daughter Ramila, she is also in the room. SW offered to speak w/her on the phone or have her come out of the room. Ramila spoke to SW on the phone. She inquired about TCU referral, SW explained we will not know until Tuesday. After some discussion, they are not sure of the next choices if TCU cannot take pt. Daughter Ramila asked if pt has appts, can pt get to the appts while in SNF or TCU. SW explained that wherever pt is, they can help set up transportation. Daughter states pt has a neurology appt here and does not want pt to miss it. She states he also needs a urology appt, that needs rescheduled. Daughter asked about SNF process w/insurance, SW educated daughter on approval process through insurance. Daughter asked to be the one for SW to call Tuesday to update, SW will let SW on Tuesday know. She states pt and are fine w/Ramila being the main lathe operator contact lens. Plan continues to be SNF, TCU vs another SNF in the community. SW to follow up w/TCU and family on Tuesday. KWAN Cisse
[2024-11-17 13:13] LABS: Vancomycin, Trough Level 9.5 ug/mL (5.0-15.0)
--- NOTE | 2024-11-17 13:23 | PCM.RX.CS ---
Consult Antibiotic Management Pharmacy has been consulted to manage selected antibiotic: Vancomycin Type of Intervention Type of Consult: Follow-up Labs Labs: Sodium 139 mmol/L (136-145) 11/17/24 07:00 Potassium 4.1 mmol/L (3.5-5.1) 11/17/24 07:00 Chloride 110 mmol/L (98-107) H 11/17/24 07:00 Carbon Dioxide 23.0 mmol/L (21.0-32.0) 11/17/24 07:00 Anion Gap 6 (5-15) 11/17/24 07:00 BUN 29 mg/dL (7-18) H 11/17/24 07:00 Creatinine 1.17 mg/dL (0.70-1.30) 11/17/24 07:00 Est GFR (MDRD) Af Amer 76 mL/min (>60) 11/17/24 07:00 Est GFR (MDRD) Non-Af 63 mL/min (>60) 11/17/24 07:00 BUN/Creatinine Ratio 24.8 RATIO (10-20) H 11/17/24 07:00 Glucose 129 mg/dL (74-106) H 11/17/24 07:00 Vancomycin Trough 9.5 ug/mL (5.0-15.0) 11/17/24 12:35 Microbiology Microbiology: Microbiology 11/15/24 11:45 Blood Culture (Wb) - Right Hand Blood Culture - Preliminary No growth in 48 hours. 11/15/24 11:18 Blood Culture (Wb) - Arm Left Blood Culture - Preliminary No growth in 48 hours. 11/15/24 19:45 Sputum, Expectorated/Coughed Gram Stain - Final 11/15/24 19:45 Sputum, Expectorated/Coughed Respiratory Culture - Final Presumptive C albicans 11/16/24 02:45 Nasal Secretion MRSA (PCR) - Final 11/16/24 02:45 Urine, Random Legionella Antigen - Final 11/16/24 02:45 Urine, Random Streptococcus pneumoniae Antigen (M - Final 11/15/24 15:04 Mucosa - Nasopharyngeal Coronavirus COVID-19 PCR - Final SARS-CoV-2 (COVID 19 PCR) 11/15/24 15:04 Mucosa - Nasopharyngeal Respiratory Panel (PCR) - Final 11/15/24 11:18 Mucosa - Nose SARS-CoV-2, Influenza & RSV (PCR) - Final Pharmacy Plan for Drug Dosing Pharmacy Plan for Drug Dosing: VANCOMYCIN LEVEL RECEIVED Current Vancomycin Dose: 1000MG Q24 Number of Doses Received: 2 Vancomycin Level: 9.5 mg/dL Hours Since Last Dose: 22 Renal Function: SCr 1.17 mg/dL, CrCl 39 mL/min Renal Function Trend: stable Lab/Micro: none Vancomycin Plan/Comments: 22 hour trough is subtherapeutic at 9.5 mg/dL (goal 15-20). Will increase dose to 2000mg Q24 and get a level prior to 3rd dose of new regimen. Pending Level: 11/19/24 @ 1300 Pharmacy Service will continue to monitor and adjust dosing as required.
[2024-11-17] MEDS: Vancomycin HCl 2,000 MG in 0.9% Normal Saline (500mL Bag) 500 ML 250 MG IV (13:47)
[2024-11-17] MEDS: 0.9% Normal Saline (100mL Bag) 100 ML 15 ML IV (14:24)
[2024-11-18] VITALS (7 sets, daily range): BP systolic 124–145; BP diastolic 77–94; PULSE 73–100; RESP 18–20; TEMP 36.3–36.6; O2SAT 93–99; BMI 24.3
[2024-11-18] MEDS: Piperacil/Tazobactam 3.375 GM in 0.9% Normal Saline (50mL MB+) 50 ML IV ×3 (05:34→20:46)
[2024-11-18 07:15] LABS: Absolute Lymphocyte Count 0.84 X10^3/uL (0.83-4.51); Absolute Neutrophil Count 12.1 X10^3/uL (2.0-7.7); Basophil# 0.03 X10^3/uL; Basophil% 0.2 % (0-1); Hematocrit 36.9 % (40-54); Hemoglobin 11.8 g/dL (13.0-16.5); Lymphocyte # 0.84 X10^3/ul (0.83-4.51); Lymphocyte % 6.1 % (19-41); Mean Corpuscular Hgb 31.1 pg (27.0-32.0); Mean Corpuscular Volume 97.4 fL (80-94); Mean Platelet Vol. 10.4 fl (6.2-12.0); Monocyte# 0.73 X10^3/uL; Monocyte% 5.3 % (0-10); NRBC Flagged by Analyzer 0 % (0-5); Neutrophil # 12.11 X10^3/uL (2.7-7.7); Neutrophil % 87.3 % (47-70); Platelet Count 250 K/mm3 (150-450); RBC Distribution Width CV 14.2 % (11.6-14.6); Red Blood Count 3.79 M/mm3 (4.6-6.2); White Blood Count 13.9 K/mm3 (4.4-11.0)
[2024-11-18 07:38] LABS: Anion Gap 5 (5-15); BUN 37 mg/dL (7-18); Calcium,Total 9.5 mg/dL (8.5-10.1); Chloride 110 mmol/L (98-107); Creatinine, Serum 1.48 mg/dL (0.70-1.30); EST Glomerular Filtration Rate 48 mL/min (>60); Est Glom Filt Rate - Afr Amer 58 mL/min (>60); Estimated Creatinine Clearance 31.17 ml/min; Glucose 112 mg/dL (74-106); Potassium 4.5 mmol/L (3.5-5.1); Sodium Level 140 mmol/L (136-145)
--- NOTE | 2024-11-18 07:43 | PCM.PN.HOSP ---
Reason for Visit Reason for Visit: Diagnoses Pneumonia, unspecified organism (11/15/24) Hypoxemia (11/15/24) Subjective Subjective Patient seen still has a persistent cough. Objective Data Objective Data Vital Signs: Vital Signs Temp Pulse Resp BP Pulse Ox O2 Del Method O2 Flow Rate 97.7 F L 82 20 H 132/89 H 99 Room Air 2 11/18/24 05:25 11/18/24 05:25 11/18/24 05:25 11/18/24 05:25 11/18/24 05:25 11/18/24 05:25 11/16/24 21:20 Oxygen Flow Rate (L/min) 2 Oxygen Delivery Method Room Air Weight: 66.3 kg Body Mass Index (BMI) 24.3 Intake & Output: Intake and Output for Last 24 Hours 11/16/24 11/17/24 11/18/24 23:59 23:59 23:59 Intake Total 1954 1893.25 / 189.25 250 / 250 Balance 1954. / 1892. 250 / 250 Lab / Micro Data 11/18/24 06:55 11/18/24 06:55 Labs: Laboratory Results - last 24 hr 11/17/24 07:00: Sodium 139, Potassium 4.1, Chloride 110 H, Carbon Dioxide 23.0, Anion Gap 6, BUN 29 H, Creatinine 1.17, Estim Creat Clear Calc 39.42, Est GFR (MDRD) Af Amer 76, Est GFR (MDRD) Non-Af 63, BUN/Creatinine Ratio 24.8 H, Glucose 129 H, Calcium 9.0 11/17/24 12:35: Vancomycin Trough 9.5 11/18/24 06:55: WBC 13.9 H, RBC 3.79 L, Hgb 11.8 L, Hct 36.9 L, MCV 97.4 H, MCH 31.1, MCHC 32.0, RDW Std Deviation 51.0 H, RDW Coeff of Samra 14.2, Plt Count 250, MPV 10.4, Immature Gran % (Auto) 1.100 H, Neut % (Auto) 87.3 H, Lymph % (Auto) 6.1 L, [place] % (Auto) 5.3, Eos % (Auto) 0.0, Baso % (Auto) 0.2, Absolute Neuts (auto) 12.1 H, Absolute Lymphs (auto) 0.84, Nucleated RBC % 0, Sodium 140, Potassium 4.5, Chloride 110 H, Carbon Dioxide 24.0, Anion Gap 5, BUN 37 H, Creatinine 1.48 H, Estim Creat Clear Calc 31.17, Est GFR (MDRD) Af Amer 58 L, Est GFR (MDRD) Non-Af 48 L, BUN/Creatinine Ratio 25.0 H, Glucose 112 H, Calcium 9.5 Micro: Microbiology 11/15/24 11:45 Blood Culture (Wb) - Right Hand Blood Culture - Preliminary No growth in 48 hours. 11/15/24 11:18 Blood Culture (Wb) - Arm Left Blood Culture - Preliminary No growth in 48 hours. 11/15/24 19:45 Sputum, Expectorated/Coughed Gram Stain - Final 11/15/24 19:45 Sputum, Expectorated/Coughed Respiratory Culture - Final Presumptive C albicans 11/16/24 02:45 Nasal Secretion MRSA (PCR) - Final 11/16/24 02:45 Urine, Random Legionella Antigen - Final 11/16/24 02:45 Urine, Random Streptococcus pneumoniae Antigen (M - Final 11/15/24 15:04 Mucosa - Nasopharyngeal Coronavirus COVID-19 PCR - Final SARS-CoV-2 (COVID 19 PCR) 11/15/24 15:04 Mucosa - Nasopharyngeal Respiratory Panel (PCR) - Final 11/15/24 11:18 Mucosa - Nose SARS-CoV-2, Influenza & RSV (PCR) - Final Rhythm Strip Rhythm Strip: A-fib Rate: 106 Ectopy: None Physical Exam Narrative GENERAL: cooperative but frail looking HEENT: Atraumatic; normocephalic EYES; Anicteric, Normal Conjunctiva NECK; supple, normal thyroid, RESPIRATORY: Diminished to auscultation CARDIOVASCULAR: Irregularly irregular GI: soft, normoactive bowel sounds, : No Renal angle tenderness; EXTREMITIES: No edema, no clubbing, MUSCULOSKELETAL: no muscle wasting NEURO: Awake; no lateralizing signs. SKIN: No Rash PSYCH; Flat affect Assessment & Plan Assessment/Plan (1) Pneumonia: (2) Hypoxia: PLAN: Plan Patient is an 88-year-old gentleman with multiple comorbidities recently discharged from the hospital following a 2-day stay for community-acquired pneumonia presented back to the emergency department with progressive generalized weakness and shortness of breath 1. Pneumonia with suspected multidrug-resistant organisms ? Imaging studies obtained on admission demonstrated interval progression of multifocal pneumonia associated with small left pleural effusion. Patient has been admitted to monitored bed antibiotics initiated per protocol with Zosyn, azithromycin as well as vancomycin. Sputum and blood culture sent. Also did send for COVID as well as respiratory viral panel ? 11/16/2024; His viral respiratory assay came back positive for COVID admitted to regular nursing floor symptom management initiated ? 11/17/2024; patient has been weaned off supplemental oxygen ? 11/18/2024; patient still has a persistent cough. WBC count still remains elevated but overall clinical condition improving. De-escalated patient antibiotic therapy with discontinuation of vancomycin 2. COVID-pneumonia ? With patient being hypoxic and requiring oxygen patient was started on dexamethasone 2. Acute hypoxia ? Secondary to above patient was placed on supplemental oxygen titrated to keep saturation greater than 100 3. Physical deconditioning ? Requested for PT OT eval and social work supervisor to assist with discharge planning. Had a discussion with patient and the regarding possible discharge to a senior care facility ? 11/17/2024; awaiting insurance precertification prior to transfer to senior care facility 4. 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 Echo from March 2024 demonstrated EF of 40% patient currently compensated 5. Paroxysmal atrial fibrillation ? Rate controlled on systemic anticoagulation with Xarelto did continue 6. Hypertension ? Blood pressure controlled, home medications continued with dose adjustment as needed 7. Depression ? Stable. Continue home paroxetine. 8. KENNEDY ? Continue home CPAP at night. 9. DVT prophylaxis ? Patient already anticoagulated?on Xarelto Time spent in the patient's overall evaluation,decision-making process, review of diagnostic data, adjustment of management, discussion with other providers, nursing nursing and ancillary staff involved in patient's care documentation, 38 minutes Charges/Coding Visit Charges Inpatient E&M: 01875 Subs Hosp L2
[2024-11-18] MEDS: Rivaroxaban 15 MG Tablet PO (08:14)
[2024-11-18] MEDS: Metoprolol(XL)Succ 25 MG Tablet PO (08:14)
[2024-11-18] MEDS: dexAMETHasone 4 MG Tablet 6 MG PO (08:14)
[2024-11-18] MEDS: Calcium (Elemental) 500 MG Tablet PO (08:14)
[2024-11-18] MEDS: PARoxetine 10 MG Tablet PO (08:14)
[2024-11-18] MEDS: Menthol/Lanolin/Calamine/Znox 113 GM Tube 1 APPLIC TOPICAL ×2 (08:15→20:46)
[2024-11-18] MEDS: Cholecalciferol (Vit D3) 125 MCG CAPSULE (5,000 UNITS) PO (08:15)
[2024-11-18] MEDS: Azithromycin 500 MG in 0.9% Normal Saline (250mL Bag) 250 ML 250 MG IV (09:59)
--- NOTE | 2024-11-18 14:26 | NURSING ---
pt has 5 visitors in room. none are wearing isolation protection. nursing explained that masks should be worn, pt is still contagious. family stated thats ok we have good immunity.
[2024-11-18] MEDS: 0.9% Normal Saline (100mL Bag) 100 ML 15 ML IV (20:35)
[2024-11-19] VITALS (7 sets, daily range): BP systolic 128–157; BP diastolic 91–104; PULSE 53–101; RESP 16–22; TEMP 36.3–36.6; O2SAT 93–99; BMI 24.7
[2024-11-19] MEDS: Piperacil/Tazobactam 3.375 GM in 0.9% Normal Saline (50mL MB+) 50 ML IV ×3 (05:10→22:13)
--- NOTE | 2024-11-19 07:28 | PN.HOSP_ITS ---
Reason for Visit Reason for Visit: Diagnoses Pneumonia, unspecified organism (11/15/24) Hypoxemia (11/15/24) Subjective Subjective Patient seen back to baseline. Awaiting transfer to group home facility pending insurance approval Objective Data Objective Data Vital Signs: Vital Signs Temp Pulse Resp BP Pulse Ox O2 Del Method O2 Flow Rate 97.3 F L 74 20 H 146/95 H 95 Room Air 2 11/19/24 03:08 11/19/24 03:08 11/19/24 03:08 11/19/24 03:08 11/19/24 03:08 11/19/24 03:17 11/16/24 21:20 Oxygen Flow Rate (L/min) 2 Oxygen Delivery Method Room Air Weight: 67.5 kg Body Mass Index (BMI) 24.7 Intake & Output: Intake and Output for Last 24 Hours 11/17/24 11/18/24 11/19/24 23:59 23:59 23:59 Intake Total 1893.25 / 1893.25 1458 / 1458 314.5 / 314.5 Balance 1893.25 / 1893.25 1458 / 1458 314.5 / 314.5 Lab / Micro Data 11/19/24 07:36 11/19/24 07:36 Labs: Laboratory Results - last 24 hr 11/18/24 06:55: Sodium 140, Potassium 4.5, Chloride 110 H, Carbon Dioxide 24.0, Anion Gap 5, BUN 37 H, Creatinine 1.48 H, Estim Creat Clear Calc 31.17, Est GFR (MDRD) Af Amer 58 L, Est GFR (MDRD) Non-Af 48 L, BUN/Creatinine Ratio 25.0 H, G lucose 112 H, Calcium 9.5 Micro: Microbiology 11/15/24 11:45 Blood Culture (Wb) - Right Hand Blood Culture - Preliminary No growth in 48 hours. 11/15/24 11:18 Blood Culture (Wb) - Arm Left Blood Culture - Preliminary No growth in 48 hours. 11/15/24 19:45 Sputum, Expectorated/Coughed Gram Stain - Final 11/15/24 19:45 Sputum, Expectorated/Coughed Respiratory Culture - Final Presumptive C albicans 11/16/24 02:45 Nasal Secretion MRSA (PCR) - Final 11/16/24 02:45 Urine, Random Legionella Antigen - Final 11/16/24 02:45 Urine, Random Streptococcus pneumoniae Antigen (M - Final 11/15/24 15:04 Mucosa - Nasopharyngeal Coronavirus COVID-19 PCR - Final SARS-CoV-2 (COVID 19 PCR) 11/15/24 15:04 Mucosa - Nasopharyngeal Respiratory Panel (PCR) - Final 11/15/24 11:18 Mucosa - Nose SARS-CoV-2, Influenza & RSV (PCR) - Final Rhythm Strip Rhythm Strip: A-fib Rate: 106 Ectopy: None Physical Exam Narrative GENERAL: cooperative but frail looking HEENT: Atraumatic; normocephalic EYES; Anicteric, Normal Conjunctiva NECK; supple, normal thyroid, RESPIRATORY: Diminished to auscultation CARDIOVASCULAR: Irregularly irregular GI: soft, normoactive bowel sounds, : No Renal angle tenderness; EXTREMITIES: No edema, no clubbing, MUSCULOSKELETAL: no muscle wasting NEURO: Awake; no lateralizing signs. SKIN: No Rash PSYCH; Flat affect Assessment & Plan Assessment/Plan (1) Pneumonia: (2) Hypoxia: PLAN: Plan Patient is an 88-year-old gentleman with multiple comorbidities recently discharged from the hospital following a 2-day stay for community-acquired pneumonia presented back to the emergency department with progressive generalized weakness and shortness of breath 1. Pneumonia with suspected multidrug-resistant organisms ? Imaging studies obtained on admission demonstrated interval progression of multifocal pneumonia associated with small left pleural effusion. Patient has been admitted to monitored bed antibiotics initiated per protocol with Zosyn, azithromycin as well as vancomycin. Sputum and blood culture sent. Also did send for COVID as well as respiratory viral panel ? 11/16/2024; His viral respiratory assay came back positive for COVID admitted to regular nursing floor symptom management initiated ? 11/17/2024; patient has been weaned off supplemental oxygen ? 11/18/2024; patient still has a persistent cough. WBC count still remains elevated but overall clinical condition improving. De-escalated patient antibiotic therapy with discontinuation of vancomycin 2. COVID-pneumonia ? With patient being hypoxic and requiring oxygen patient was started on dexamethasone 2. Acute hypoxia ? Secondary to above patient was placed on supplemental oxygen titrated to keep saturation greater than 100 3. Physical deconditioning ? Requested for PT OT eval and social media marketing specialist to assist with discharge planning. Had a discussion with patient and the regarding possible discharge to a group home facility ? 11/17/2024; awaiting insurance precertification prior to transfer to group home facility 4. 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 Echo from March 2024 demonstrated EF of 40% patient currently compensated 5. Paroxysmal atrial fibrillation ? Rate controlled on systemic anticoagulation with Xarelto did continue 6. Hypertension ? Blood pressure controlled, home medications continued with dose adjustment as needed 7. Depression ? Stable. Continue home paroxetine. 8. KENNEDY ? Continue home CPAP at night. 9. DVT prophylaxis ? Patient already anticoagulated?on Xarelto 10. Elevated troponin due to demand ischemia from PNA and hypoxia Time spent in the patient's overall evaluation,decision-making process, review of diagnostic data, adjustment of management, discussion with other providers, nursing nursing and ancillary staff involved in patient's care documentation, 38 minutes Charges/Coding Visit Charges Inpatient E&M: 88023 [facility] Hosp L2
[2024-11-19] MEDS: Magnesium Chloride 64 MG Delay Rel.Tablet 128 MG PO (08:08)
[2024-11-19] MEDS: Cholecalciferol (Vit D3) 125 MCG CAPSULE (5,000 UNITS) PO (08:08)
[2024-11-19] MEDS: Rivaroxaban 15 MG Tablet PO (08:08)
[2024-11-19] MEDS: dexAMETHasone 4 MG Tablet 6 MG PO (08:08)
[2024-11-19] MEDS: Calcium (Elemental) 500 MG Tablet PO (08:09)
[2024-11-19] MEDS: Metoprolol(XL)Succ 25 MG Tablet PO (08:09)
[2024-11-19] MEDS: Menthol/Lanolin/Calamine/Znox 113 GM Tube 1 APPLIC TOPICAL ×2 (08:09→22:17)
[2024-11-19] MEDS: PARoxetine 10 MG Tablet PO (08:09)
[2024-11-19 08:11] LABS: Absolute Lymphocyte Count 0.84 X10^3/uL (0.83-4.51); Basophil# 0.02 X10^3/uL; Basophil% 0.2 % (0-1); Hematocrit 35.3 % (40-54); Hemoglobin 11.4 g/dL (13.0-16.5); Lymphocyte # 0.84 X10^3/ul (0.83-4.51); Lymphocyte % 7.2 % (19-41); Mean Corp Hgb Conc 32.3 g/dL (32-36); Mean Corpuscular Hgb 31.1 pg (27.0-32.0); Mean Corpuscular Volume 96.4 fL (80-94); Mean Platelet Vol. 10.5 fl (6.2-12.0); Monocyte# 0.69 X10^3/uL; Monocyte% 5.9 % (0-10); NRBC Flagged by Analyzer 0 % (0-5); Neutrophil # 9.97 X10^3/uL (2.7-7.7); Neutrophil % 85.2 % (47-70); Platelet Count 274 K/mm3 (150-450); RBC Distribution Width CV 14.3 % (11.6-14.6); RBC Distribution Width SD 50.5 fl (35.1-43.9); Red Blood Count 3.66 M/mm3 (4.6-6.2); White Blood Count 11.7 K/mm3 (4.4-11.0)
[2024-11-19 08:41] LABS: Anion Gap 6 (5-15); BUN 38 mg/dL (7-18); BUN/Creat Ratio 25.5 RATIO (10-20); Calcium,Total 9.2 mg/dL (8.5-10.1); Chloride 111 mmol/L (98-107); Creatinine, Serum 1.49 mg/dL (0.70-1.30); EST Glomerular Filtration Rate 47 mL/min (>60); Est Glom Filt Rate - Afr Amer 57 mL/min (>60); Estimated Creatinine Clearance 30.96 ml/min; Glucose 117 mg/dL (74-106); Potassium 4.2 mmol/L (3.5-5.1); Sodium Level 139 mmol/L (136-145)
--- NOTE | 2024-11-19 11:06 | CASEMGMT ---
TC sudarshan Meneses at [facility], she is aware pt plan is SNF at this time.
--- NOTE | 2024-11-19 12:32 | CASEMGMT ---
Addendum entered by Laieny Boles 11/21/24 11:06: [facility] had multiple concerns after meeting with family. Due to family asking for alarms to be used, [place] feels that they may not be the best option for pt. SW updated. Family requested that referral be made to [place]. Per , they have toured and admissions is expecting referral. Call placed to [place] prior to referral being sent. They stated that pt could not admit until 11/26 and that family was made aware of that when they toured. Referral not sent d/t pt being medically ready. SW updated. Addendum entered by Lainey Boles 11/20/24 09:31: [facility] has accepted. Updates sent with request to submit for precert. Lainey Boles DC Planning Asst. Addendum entered by Lainey Boles 11/19/24 14:50: [facility] declined. Lainey Bolse DC Planning Asst. Original Note: Discharge Planning Referral sent to [facility]. Lainey Boles DC Planning Asst.
--- NOTE | 2024-11-19 13:07 | CASEMGMT ---
Addendum entered by Mari Pandey 11/19/24 14:46: [facility] declined referral. [facility] referral remains under review. KARINA Ribeiro Original Note: Social Work- SW met with pt dtr and pt . SW introduced self and role. SW answered questions regarding short and rn pool care for pt. SW discussed pt and family preferences at d/c. SW provided private duty list. Pt prior to admittance had [facility] for several weeks. Family's plan is for pt to return home with [facility] and private duty. [facility] advised that referral can be completed. F[facility]AZ remains available to follow. KARINA Ribeiro
[2024-11-19] MEDS: 0.9% Saline Lock 10 ML Syringe IV ×2 (13:49→22:14)
[2024-11-19] MEDS: 0.9% Normal Saline (100mL Bag) 100 ML 15 ML IV (22:14)
[2024-11-20] VITALS (7 sets, daily range): BP systolic 127–146; BP diastolic 86–98; PULSE 76–87; RESP 16–20; TEMP 36.2–36.6; O2SAT 95–100
[2024-11-20] MEDS: Piperacil/Tazobactam 3.375 GM in 0.9% Normal Saline (50mL MB+) 50 ML IV (05:24)
[2024-11-20 07:35] LABS: Absolute Lymphocyte Count 1.03 X10^3/uL (0.83-4.51); Absolute Neutrophil Count 10.3 X10^3/uL (2.0-7.7); Basophil# 0.03 X10^3/uL; Basophil% 0.2 % (0-1); Hematocrit 36.9 % (40-54); Lymphocyte # 1.03 X10^3/ul (0.83-4.51); Lymphocyte % 8.3 % (19-41); Mean Corp Hgb Conc 32.5 g/dL (32-36); Mean Corpuscular Hgb 31.3 pg (27.0-32.0); Mean Corpuscular Volume 96.1 fL (80-94); Mean Platelet Vol. 10.4 fl (6.2-12.0); Monocyte# 0.78 X10^3/uL; Monocyte% 6.3 % (0-10); NRBC Flagged by Analyzer 0 % (0-5); Neutrophil # 10.28 X10^3/uL (2.7-7.7); Neutrophil % 83.1 % (47-70); Platelet Count 302 K/mm3 (150-450); RBC Distribution Width CV 14.6 % (11.6-14.6); RBC Distribution Width SD 50.2 fl (35.1-43.9); Red Blood Count 3.84 M/mm3 (4.6-6.2); White Blood Count 12.4 K/mm3 (4.4-11.0)
[2024-11-20 08:21] LABS: Anion Gap 7 (5-15); BUN 42 mg/dL (7-18); BUN/Creat Ratio 28.2 RATIO (10-20); Calcium,Total 9.4 mg/dL (8.5-10.1); Chloride 111 mmol/L (98-107); Creatinine, Serum 1.49 mg/dL (0.70-1.30); EST Glomerular Filtration Rate 47 mL/min (>60); Est Glom Filt Rate - Afr Amer 57 mL/min (>60); Estimated Creatinine Clearance 30.96 ml/min; Glucose 132 mg/dL (74-106); Potassium 4.3 mmol/L (3.5-5.1); Sodium Level 139 mmol/L (136-145)
--- NOTE | 2024-11-20 08:26 | PCM.PN.HOSP ---
Reason for Visit Reason for Visit: Diagnoses Pneumonia, unspecified organism (11/15/24) Hypoxemia (11/15/24) Subjective Subjective Patient seen back to baseline awaiting insurance precertification prior to transfer to nursing home facility. Made changes to patient antibiotic therapy with discontinuation of Zosyn and initiation of Augmentin Objective Data Objective Data Vital Signs: Vital Signs Temp Pulse Resp BP Pulse Ox O2 Del Method O2 Flow Rate 97.3 F L 81 20 H 146/98 H 98 Room Air 2 11/20/24 05:20 11/20/24 05:20 11/20/24 05:20 11/20/24 05:20 11/20/24 05:20 11/20/24 05:20 11/16/24 21:20 Oxygen Flow Rate (L/min) 2 Oxygen Delivery Method Room Air Weight: 67.5 kg Body Mass Index (BMI) 24.7 Intake & Output: Intake and Output for Last 24 Hours 11/18/24 11/19/24 11/20/24 23:59 23:59 23:59 Intake Total 1458 / 1458 1315.5 / 1315.5 250 / 250 Balance 1458 / 1458 1315.5 / 1315.5 250 / 250 Lab / Micro Data 11/20/24 07:09 11/20/24 07:07 Labs: Laboratory Results - last 24 hr 11/19/24 07:36: Sodium 139, Potassium 4.2, Chloride 111 H, Carbon Dioxide 22.0, Anion Gap 6, BUN 38 H, Creatinine 1.49 H, Estim Creat Clear Calc 30.96, Est GFR (MDRD) Af Amer 57 L, Est GFR (MDRD) Non-Af 47 L, BUN/Creatinine Ratio 25.5 H, Glucose 117 H, Calcium 9.2 11/20/24 07:07: Sodium 139, Potassium 4.3, Chloride 111 H, Carbon Dioxide 20.0 L, Anion Gap 7, BUN 42 H, Creatinine 1.49 H, Estim Creat Clear Calc 30.96, Est GFR (MDRD) Af Amer 57 L, Est GFR (MDRD) Non-Af 47 L, BUN/Creatinine Ratio 28.2 H, Glucose 132 H, Calcium 9.4 11/20/24 07:09: WBC 12.4 H, RBC 3.84 L, Hgb 12.0 L, Hct 36.9 L, MCV 96.1 H, MCH 31.3, MCHC 32.5, RDW Std Deviation 50.2 H, RDW Coeff of Samra 14.6, Plt Count 302, MPV 10.4, Immature Gran % (Auto) 2.100 H, Neut % (Auto) 83.1 H, Lymph % (Auto) 8.3 L, [place] % (Auto) 6.3, Eos % (Auto) 0.0, Baso % (Auto) 0.2, Absolute Neuts (auto) 10.3 H, Absolute Lymphs (auto) 1.03, Nucleated RBC % 0 Micro: Microbiology 11/15/24 11:45 Blood Culture (Wb) - Right Hand Blood Culture - Preliminary No growth in 48 hours. 11/15/24 11:18 Blood Culture (Wb) - Arm Left Blood Culture - Preliminary No growth in 48 hours. 11/15/24 19:45 Sputum, Expectorated/Coughed Gram Stain - Final 11/15/24 19:45 Sputum, Expectorated/Coughed Respiratory Culture - Final Presumptive C albicans 11/16/24 02:45 Nasal Secretion MRSA (PCR) - Final 11/16/24 02:45 Urine, Random Legionella Antigen - Final 11/16/24 02:45 Urine, Random Streptococcus pneumoniae Antigen (M - Final 11/15/24 15:04 Mucosa - Nasopharyngeal Coronavirus COVID-19 PCR - Final SARS-CoV-2 (COVID 19 PCR) 11/15/24 15:04 Mucosa - Nasopharyngeal Respiratory Panel (PCR) - Final 11/15/24 11:18 Mucosa - Nose SARS-CoV-2, Influenza & RSV (PCR) - Final Rhythm Strip Rhythm Strip: A-fib Rate: 106 Ectopy: None Physical Exam Narrative GENERAL: cooperative HEENT: Atraumatic; normocephalic EYES; Anicteric, Normal Conjunctiva NECK; supple, normal thyroid, RESPIRATORY: Diminished to auscultation CARDIOVASCULAR: Irregularly irregular GI: soft, normoactive bowel sounds, : No Renal angle tenderness; EXTREMITIES: No edema, no clubbing, MUSCULOSKELETAL: no muscle wasting NEURO: Awake; no lateralizing signs. SKIN: No Rash PSYCH; Flat affect Assessment & Plan Assessment/Plan (1) Pneumonia: (2) Hypoxia: PLAN: Plan Patient is an 88-year-old gentleman with multiple comorbidities recently discharged from the hospital following a 2-day stay for community-acquired pneumonia presented back to the emergency department with progressive generalized weakness and shortness of breath 1. Pneumonia with suspected multidrug-resistant organisms ? Imaging studies obtained on admission demonstrated interval progression of multifocal pneumonia associated with small left pleural effusion. Patient has been admitted to monitored bed antibiotics initiated per protocol with Zosyn, azithromycin as well as vancomycin. Sputum and blood culture sent. Also did send for COVID as well as respiratory viral panel ? 11/16/2024; His viral respiratory assay came back positive for COVID admitted to regular nursing floor symptom management initiated ? 11/17/2024; patient has been weaned off supplemental oxygen ? 11/18/2024; patient still has a persistent cough. WBC count still remains elevated but overall clinical condition improving. De-escalated patient antibiotic therapy with discontinuation of vancomycin -11/20/2024Made changes to patient antibiotic therapy with discontinuation of Zosyn and initiation of 2. COVID-pneumonia ? With patient being hypoxic and requiring oxygen patient was started on dexamethasone 2. Acute hypoxia ? Secondary to above patient was placed on supplemental oxygen titrated to keep saturation greater than 100 3. Physical deconditioning ? Requested for PT OT eval and social media assistant to assist with discharge planning. Had a discussion with patient and the regarding possible discharge to a nursing home facility ? 11/17/2024; awaiting insurance precertification prior to transfer to nursing home facility 4. 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 Echo from March 2024 demonstrated EF of 40% patient currently compensated 5. Paroxysmal atrial fibrillation ? Rate controlled on systemic anticoagulation with Xarelto did continue 6. Hypertension ? Blood pressure controlled, home medications continued with dose adjustment as needed 7. Depression ? Stable. Continue home paroxetine. 8. KENNEDY ? Continue home CPAP at night. 9. DVT prophylaxis ? Patient already anticoagulated?on Xarelto 10. Elevated troponin due to demand ischemia from PNA and hypoxia Time spent in the patient's overall evaluation,decision-making process, review of diagnostic data, adjustment of management, discussion with other providers, nursing nursing and ancillary staff involved in patient's care documentation, 38 minutes Charges/Coding Visit Charges Inpatient E&M: 21962 Subs Hosp L2
--- NOTE | 2024-11-20 09:17 | CASEMGMT ---
Addendum entered by Mari Pandey 11/20/24 16:12: SW received a call from pt dtr Ramila. Ramila reports that family is discussing discharge options for pt. Ramila is frustrated by the lack of options in network. Ramila also expressed frustration that facilities do not use bed alarms. Ramila states that she feels pt has not tried to get up while admitted due to the bed alarm, as at home, he is often up. FARAZ provided education on SNF policies. Ramila expressed that she does not feel pt is medically ready and asked to speak to the physician. SW messaged physician. Physician reports that he called dtr and dtr did not answer. SW will follow up with dtr on choices tomorrow after family discusses options this evening. KARINA Ribeiro Addendum entered by Mari Pandey 11/20/24 14:51: Pt family visited [facility] and has concerns regarding pt stay d/t doors being closed while pt is in precautions. Pt family would like referral withdrawn and requested referral to [facility]. [facility] reports [facility] does not have availability. PT family to continue to look at list for options. KARINA Ribeiro Original Note: Social Work- FARAZ called pt dtr to advise that [facility] accepted pt referral. FARAZ left a voicemail. FARAZ called pt to advise of referral acceptance at [facility], denial at [facility]. Pt would like to speak with [facility] since the financial service representative came to do a bedside while family was not present. FARAZ encouraged pt to do so LEBRON so decision can be made on stating precert. Pt advised to have [facility] start precert and she will speak with staff and visit as able. Pt reports that they will transport pt to [facility] at d/c. STEFANY notified that [facility] can start precert. FARAZ remains available to follow. Plan: [facility], pending precert KARINA Ribeiro
[2024-11-20] MEDS: dexAMETHasone 4 MG Tablet 6 MG PO (10:04)
[2024-11-20] MEDS: Magnesium Chloride 64 MG Delay Rel.Tablet 128 MG PO (10:04)
[2024-11-20] MEDS: Metoprolol(XL)Succ 25 MG Tablet PO (10:04)
[2024-11-20] MEDS: Cholecalciferol (Vit D3) 125 MCG CAPSULE (5,000 UNITS) PO (10:04)
[2024-11-20] MEDS: PARoxetine 10 MG Tablet PO (10:04)
[2024-11-20] MEDS: Menthol/Lanolin/Calamine/Znox 113 GM Tube 1 APPLIC TOPICAL ×2 (10:05→22:35)
[2024-11-20] MEDS: Rivaroxaban 15 MG Tablet PO (10:05)
[2024-11-20] MEDS: Calcium (Elemental) 500 MG Tablet PO (10:05)
[2024-11-20] MEDS: Amox/Clavulanate 875 MG Tablet PO ×2 (10:05→17:10)
--- NOTE | 2024-11-20 16:50 | RAD_ITS ---
INDICATION: dyspnea EXAMINATION/TECHNIQUE: X-RAY - XR Chest 1 View COMPARISON: 11/15/2024. FINDINGS: The lungs are clear. Tortuous and calcified thoracic aorta. The heart is not enlarged. No pleural effusion or pneumothorax. Degenerative changes of the thoracic spine. RAD/Chest 1 View (Portable) IMPRESSION: No acute radiographic abnormalities. Electronically Signed: Eros Woodruff MD at 17:33 EST ,
[2024-11-21] VITALS (7 sets, daily range): BP systolic 141–155; BP diastolic 95–110; PULSE 74–107; RESP 18–25; TEMP 36.4; O2SAT 89–99; BMI 25.1
--- NOTE | 2024-11-21 07:47 | PN.HOSP_ITS ---
Reason for Visit Reason for Visit: Diagnoses Pneumonia, unspecified organism (11/15/24) Hypoxemia (11/15/24) Subjective Subjective Patient seen remains comfortable at rest without oxygen. Did order chest x-ray the day prior did not show any acute cardiopulmonary pathology. Patient clinical condition as well as findings of the x-ray relayed to her daughter Objective Data Objective Data Vital Signs: Vital Signs Temp Pulse Resp BP Pulse Ox O2 Del Method O2 Flow Rate 97.5 F L 79 18 155/95 H 94 Room Air 2 11/21/24 03:04 11/21/24 03:04 11/21/24 03:04 11/21/24 03:04 11/21/24 03:04 11/21/24 03:04 11/16/24 21:20 Oxygen Flow Rate (L/min) 2 Oxygen Delivery Method Room Air Weight: 68.447 kg Body Mass Index (BMI) 25.1 Intake & Output: Intake and Output for Last 24 Hours 11/19/24 11/20/24 11/21/24 23:59 23:59 23:59 Intake Total 1315.5 / 1315.5 795.25 / 795.25 Balance 1315.5 / 1315.5 795.25 / 795.25 Lab / Micro Data 11/20/24 07:09 11/20/24 07:07 Labs: Laboratory Results - last 24 hr 11/20/24 07:07: Sodium 139, Potassium 4.3, Chloride 111 H, Carbon Dioxide 20.0 L , Anion Gap 7, BUN 42 H, Creatinine 1.49 H, Estim Creat Clear Calc 30.96, Est GFR (MDRD) Af Amer 57 L, Est GFR (MDRD) Non-Af 47 L, BUN/Creatinine Ratio 28.2 H , Glucose 132 H, Calcium 9.4 Micro: Microbiology 11/15/24 11:45 Blood Culture (Wb) - Right Hand Blood Culture - Final No growth in 5 days. 11/15/24 11:18 Blood Culture (Wb) - Arm Left Blood Culture - Final No growth in 5 days. 11/15/24 19:45 Sputum, Expectorated/Coughed Gram Stain - Final 11/15/24 19:45 Sputum, Expectorated/Coughed Respiratory Culture - Final Presumptive C albicans 11/16/24 02:45 Nasal Secretion MRSA (PCR) - Final 11/16/24 02:45 Urine, Random Legionella Antigen - Final 11/16/24 02:45 Urine, Random Streptococcus pneumoniae Antigen (M - Final 11/15/24 15:04 Mucosa - Nasopharyngeal Coronavirus COVID-19 PCR - Final SARS-CoV-2 (COVID 19 PCR) 11/15/24 15:04 Mucosa - Nasopharyngeal Respiratory Panel (PCR) - Final 11/15/24 11:18 Mucosa - Nose SARS-CoV-2, Influenza & RSV (PCR) - Final Radiography Diagnostic Testing: Radiology Impression Chest X-Ray 11/20/24 16:50 IMPRESSION: No acute radiographic abnormalities. Electronically Signed: Eros Woodruff MD at 17:33 EST , Rhythm Strip Rhythm Strip: A-fib Rate: 106 Ectopy: None Physical Exam Narrative GENERAL: cooperative HEENT: Atraumatic; normocephalic EYES; Anicteric, Normal Conjunctiva NECK; supple, normal thyroid, RESPIRATORY: Diminished to auscultation CARDIOVASCULAR: Irregularly irregular GI: soft, normoactive bowel sounds, : No Renal angle tenderness; EXTREMITIES: No edema, no clubbing, MUSCULOSKELETAL: no muscle wasting NEURO: Awake; no lateralizing signs. SKIN: No Rash PSYCH; Flat affect Assessment & Plan Assessment/Plan (1) Pneumonia: (2) Hypoxia: PLAN: Plan Patient is an 88-year-old gentleman with multiple comorbidities recently discharged from the hospital following a 2-day stay for community-acquired pneumonia presented back to the emergency department with progressive generalized weakness and shortness of breath 1. Pneumonia with suspected multidrug-resistant organisms ? Imaging studies obtained on admission demonstrated interval progression of multifocal pneumonia associated with small left pleural effusion. Patient has been admitted to monitored bed antibiotics initiated per protocol with Zosyn, azithromycin as well as vancomycin. Sputum and blood culture sent. Also did send for COVID as well as respiratory viral panel ? 11/16/2024; His viral respiratory assay came back positive for COVID admitted to regular nursing floor symptom management initiated ? 11/17/2024; patient has been weaned off supplemental oxygen ? 11/18/2024; patient still has a persistent cough. WBC count still remains elevated but overall clinical condition improving. De-escalated patient antibiotic therapy with discontinuation of vancomycin -11/20/2024Made changes to patient antibiotic therapy with discontinuation of Zosyn and initiation of Augmentin 11/21/2023 remains off oxygen during 2. COVID-pneumonia ? With patient being hypoxic and requiring oxygen patient was started on dexamethasone 2. Acute hypoxia ? Secondary to above patient was placed on supplemental oxygen titrated to keep saturation greater than 100 3. Physical deconditioning ? Requested for PT OT eval and social service liaison to assist with discharge planning. Had a discussion with patient and the regarding possible discharge to a fdc facility ? 11/17/2024; awaiting insurance precertification prior to transfer to fdc facility ? 11/21/2024 awaiting on family to make a decision regarding disposition 4. 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 Echo from March 2024 demonstrated EF of 40% patient currently compensated 5. Paroxysmal atrial fibrillation ? Rate controlled on systemic anticoagulation with Xarelto did continue 6. Hypertension ? Blood pressure controlled, home medications continued with dose adjustment as needed 7. Depression ? Stable. Continue home paroxetine. 8. KENNEDY ? Continue home CPAP at night. 9. DVT prophylaxis ? Patient already anticoagulated?on Xarelto 10. Elevated troponin due to demand ischemia from PNA and hypoxia Time spent in the patient's overall evaluation,decision-making process, review of diagnostic data, adjustment of management, discussion with other providers, nursing nursing and ancillary staff involved in patient's care documentation, 38 minutes Charges/Coding Visit Charges Inpatient E&M: [id number] [facility] H[facility] L2
[2024-11-21] MEDS: dexAMETHasone 4 MG Tablet 6 MG PO (08:23)
[2024-11-21] MEDS: PARoxetine 10 MG Tablet PO (08:23)
[2024-11-21] MEDS: Metoprolol(XL)Succ 25 MG Tablet PO (08:24)
[2024-11-21] MEDS: Amox/Clavulanate 875 MG Tablet PO ×2 (08:24→16:59)
[2024-11-21] MEDS: Cholecalciferol (Vit D3) 125 MCG CAPSULE (5,000 UNITS) PO (08:24)
[2024-11-21] MEDS: Rivaroxaban 15 MG Tablet PO (08:24)
[2024-11-21] MEDS: Magnesium Chloride 64 MG Delay Rel.Tablet 128 MG PO (08:24)
[2024-11-21] MEDS: Calcium (Elemental) 500 MG Tablet PO (08:25)
[2024-11-21] MEDS: Menthol/Lanolin/Calamine/Znox 113 GM Tube 1 APPLIC TOPICAL ×2 (08:25→21:41)
--- NOTE | 2024-11-21 10:31 | CASEMGMT ---
Addendum entered by Lainey Boles 11/21/24 16:22: [facility] declined d/t no bed availability. SW updated. Lainey Boles DC Planning Asst. Addendum entered by Lainey Boles 11/21/24 12:04: [facility] declined d/t no bed availability. SW updated. Lainey Boles DC Planning Asst. Original Note: Discharge Planning Referral sent via [facility] to [facility] and [facility]. Lainey Boles DC Planning Asst.
--- NOTE | 2024-11-21 11:08 | CASEMGMT ---
Addendum entered by Mari Pandey 11/21/24 17:15: Social Work- SW printed a list of SNF choices 25-35 miles from pt home address via [employer] including quality and resource use data and consistent with the patient?s preferred geographic region, medical needs, and insurance network were provided from the [employer] per pt dtr request. FARAZ left list in the room per pt dtr request. KARINA Rbieiro Addendum entered by Mari Pandey 11/21/24 17:04: Social Work- SW received notice that [facility] is unable to accept referral. FARAZ called pt dtr to relay status of referral. FARAZ shared that [facility] is the only facility that remains on pt list that has not been referred to/ has not reported that they are unable to accept referrals due to lack of bed availability per [facility]. Pt dtr expressed frustration at not having options. FARAZ relayed that we could reach back out to [facility] to see if they would again accept pt despite COVID status, as per [facility] they are not taking positive pt. Pt dtr will talk with family to decide if they are agreeable to referrals to [facility] and [facility] or if they will take pt home. FARAZ provided a deadline of 9:30am tomorrow morning for a decision, citing that pt is medically ready per physician and precert needs to be obtained prior to d/c. Pt dtr agreeable. KARINA Ribeiro Addendum entered by Mari Pandey 11/21/24 12:16: [facility] declined referral. [facility] referral remains pending. KARINA Ribeiro Original Note: Social Work- FARAZ spoke with pt dtr Ramila who had appropriate questions regarding discharge planning. Pt dtr selected [facility] and [facility] as referral preferences. [facility] notified of referrals request. Pt dtr requested email of private duty list, as well as list to be left in room. FARAZ emailed list and left list in room. Pt dtr inquired about palliative vs hospice referral and would like additional information. FARAZ provided printed information and completed referral for educational purposes. FARAZ will remain available to follow. KARINA Ribeiro
[2024-11-22] VITALS (10 sets, daily range): BP systolic 135–151; BP diastolic 102–120; PULSE 51–105; RESP 18–24; TEMP 36.4–36.5; O2SAT 93–100; BMI 25.4
--- NOTE | 2024-11-22 08:23 | PCM.PN.HOSP ---
Reason for Visit Reason for Visit: Diagnoses Pneumonia, unspecified organism (11/15/24) Hypoxemia (11/15/24) Subjective Subjective Patient seen has been placed back on oxygen. Awaiting approval from a group home facility prior to patient being discharged Objective Data Objective Data Vital Signs: Vital Signs Temp Pulse Resp BP Pulse Ox O2 Del Method O2 Flow Rate 97.6 F L 51 L 19 H 135/104 H 93 Nasal Cannula 2 11/22/24 08:15 11/22/24 08:15 11/22/24 08:15 11/22/24 08:15 11/22/24 08:15 11/22/24 08:15 11/22/24 08:15 Oxygen Flow Rate (L/min) 2 Oxygen Delivery Method Nasal Cannula Weight: 69.3 kg Body Mass Index (BMI) 25.4 Intake & Output: Intake and Output for Last 24 Hours 11/20/24 11/21/24 11/22/24 23:59 23:59 23:59 Intake Total 795.25 / 795.25 Balance 795.25 / 795.25 Lab / Micro Data 11/20/24 07:09 11/20/24 07:07 Micro: Microbiology 11/15/24 11:45 Blood Culture (Wb) - Right Hand Blood Culture - Final No growth in 5 days. 11/15/24 11:18 Blood Culture (Wb) - Arm Left Blood Culture - Final No growth in 5 days. 11/15/24 19:45 Sputum, Expectorated/Coughed Gram Stain - Final 11/15/24 19:45 Sputum, Expectorated/Coughed Respiratory Culture - Final Presumptive C albicans 11/16/24 02:45 Nasal Secretion MRSA (PCR) - Final 11/16/24 02:45 Urine, Random Legionella Antigen - Final 11/16/24 02:45 Urine, Random Streptococcus pneumoniae Antigen (M - Final 11/15/24 15:04 Mucosa - Nasopharyngeal Coronavirus COVID-19 PCR - Final SARS-CoV-2 (COVID 19 PCR) 11/15/24 15:04 Mucosa - Nasopharyngeal Respiratory Panel (PCR) - Final 11/15/24 11:18 Mucosa - Nose SARS-CoV-2, Influenza & RSV (PCR) - Final Rhythm Strip Rhythm Strip: A-fib Rate: 106 Ectopy: None Physical Exam Narrative GENERAL: cooperative HEENT: Atraumatic; normocephalic EYES; Anicteric, Normal Conjunctiva NECK; supple, normal thyroid, RESPIRATORY: Diminished to auscultation CARDIOVASCULAR: Irregularly irregular GI: soft, normoactive bowel sounds, : No Renal angle tenderness; EXTREMITIES: No edema, no clubbing, MUSCULOSKELETAL: no muscle wasting NEURO: Awake; no lateralizing signs. SKIN: No Rash PSYCH; Flat affect Assessment & Plan Assessment/Plan (1) Pneumonia: (2) Hypoxia: PLAN: Plan Patient is an 88-year-old gentleman with multiple comorbidities recently discharged from the hospital following a 2-day stay for community-acquired pneumonia presented back to the emergency department with progressive generalized weakness and shortness of breath 1. Pneumonia with suspected multidrug-resistant organisms ? Imaging studies obtained on admission demonstrated interval progression of multifocal pneumonia associated with small left pleural effusion. Patient has been admitted to monitored bed antibiotics initiated per protocol with Zosyn, azithromycin as well as vancomycin. Sputum and blood culture sent. Also did send for COVID as well as respiratory viral panel ? 11/16/2024; His viral respiratory assay came back positive for COVID admitted to regular nursing floor symptom management initiated ? 11/17/2024; patient has been weaned off supplemental oxygen ? 11/18/2024; patient still has a persistent cough. WBC count still remains elevated but overall clinical condition improving. De-escalated patient antibiotic therapy with discontinuation of vancomycin -11/20/2024Made changes to patient antibiotic therapy with discontinuation of Zosyn and initiation of Augmentin 11/21/2023 remains off oxygen during 2. COVID-pneumonia ? With patient being hypoxic and requiring oxygen patient was started on dexamethasone 2. Acute hypoxia ? Secondary to above patient was placed on supplemental oxygen titrated to keep saturation greater than 100 3. Physical deconditioning ? Requested for PT OT eval and older adult social work specialist to assist with discharge planning. Had a discussion with patient and the regarding possible discharge to a group home facility ? 11/17/2024; awaiting insurance precertification prior to transfer to group home facility ? 11/21/2024 awaiting on family to make a decision regarding disposition 4. 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 Echo from March 2024 demonstrated EF of 40% patient currently compensated 5. Paroxysmal atrial fibrillation ? Rate controlled on systemic anticoagulation with Xarelto did continue 6. Hypertension ? Blood pressure controlled, home medications continued with dose adjustment as needed 7. Depression ? Stable. Continue home paroxetine. 8. KENNEDY ? Continue home CPAP at night. 9. DVT prophylaxis ? Patient already anticoagulated?on Xarelto 10. Elevated troponin due to demand ischemia from PNA and hypoxia Time spent in the patient's overall evaluation,decision-making process, review of diagnostic data, adjustment of management, discussion with other providers, nursing nursing and ancillary staff involved in patient's care documentation, 38 minutes
[2024-11-22] MEDS: Amox/Clavulanate 875 MG Tablet PO ×2 (08:27→17:29)
[2024-11-22] MEDS: dexAMETHasone 4 MG Tablet 6 MG PO (08:27)
[2024-11-22] MEDS: Menthol/Lanolin/Calamine/Znox 113 GM Tube 1 APPLIC TOPICAL ×2 (08:28→21:29)
[2024-11-22] MEDS: Magnesium Chloride 64 MG Delay Rel.Tablet 128 MG PO (08:28)
[2024-11-22] MEDS: Calcium (Elemental) 500 MG Tablet PO (08:28)
[2024-11-22] MEDS: PARoxetine 10 MG Tablet PO (08:29)
[2024-11-22] MEDS: Rivaroxaban 15 MG Tablet PO (08:30)
[2024-11-22] MEDS: Cholecalciferol (Vit D3) 125 MCG CAPSULE (5,000 UNITS) PO (08:30)
--- NOTE | 2024-11-22 09:30 | CASEMGMT ---
Addendum entered by Lainey Boles 11/22/24 12:47: [facility] is [facility]. [facility] asked to cancel auth and [facility] asked to submit for auth. Lainey Boles DC Planning Asst. Addendum entered by Lainey Boles 11/22/24 12:38: [facility] has accepted. SW updated. Lainey Boles DC Planning Asst. Addendum entered by Lainey Boles 11/22/24 09:50: [facility] stated that they are still willing to accept and they actually had obtained precert that is good through 11/26. New clinicals sent and SW updated. Lainey Boles DC Planning Asst. Original Note: Discharge Planning Referral sent to [facility]. left for admissions @ [facility] to ask if they would reconsider. Awaiting response. Lainey Boles DC Planning Asst.
--- NOTE | 2024-11-22 10:13 | CASEMGMT ---
Addendum entered by Mari Pandey 11/22/24 11:49: Social Work- SW spoke with pt dtr to discuss that pt has a discharge in and referral has been made to [facility]. Pt dtr agreeable to see if [facility] accepts. Pt dtr asked about LTC; SW provided education that LTC would be private pay or would need to go through the process of qualifying for LTC [facility]. SW provided information that any facility would be open for consideration via private pay/LTC [facility]. Pt dtr asked about if pt d/c home, having HHC and oxygen at home; SW provided education. Pt dtr reports that she has a hospice consult at 5:30PM today. Pt dtr reiterates numerous times that she is feeling overwhelmed and does not feel pt is ready for d/c. SW again provided support and encouragement that physician feels pt is medically ready and safe for discharge. SW will remain available to follow. Plan: [facility]; pending acceptance and precert KARINA Ribeiro Original Note: Social Work- SW called pt dtr upon arrival to floor to discuss preferences at d/c. SW left a voicemail. FARAZ spoke with pt in pt room to discuss preferences. Pt chose [facility]. SW called pt dtr to update on selection and left a voicemail. SW notified [facility] of referral request. Plan: [facility]; pending precert KARINA Ribeiro
--- NOTE | 2024-11-22 10:54 | TREXTCAR_ITS ---
Diet Diet Order/Speech Therapy: 11/15/24 14:49 Diet: Regular - General Food consistency:: Regular Liquid Consistency:: Regular/Thin Diet Comments: No milk. Routine Orders/Code Status Code Status: Full Code DC O2, CPAP, BIPAP needs Home O2 Discharge instructions: Yes Type of respiratory needs?: Oxygen Oxygen frequency: Continuous Continuous oxygen liters per minute: 2L Therapies Physical Therapy: Eval and Treat Occupational Therapy: Eval and Treat Problem/Diagnosis (1) Pneumonia: Status: Acute Code(s): J18.9 - Pneumonia, unspecified organism (2) Hypoxia: Status: Resolved Code(s): R09.02 - Hypoxemia Plan Patient is an 88-year-old gentleman with multiple comorbidities recently discharged from the hospital following a 2-day stay for community-acquired pneumonia presented back to the emergency department with progressive generalized weakness and shortness of breath 1. Pneumonia with suspected multidrug-resistant organisms ? Imaging studies obtained on admission demonstrated interval progression of multifocal pneumonia associated with small left pleural effusion. Patient has been admitted to monitored bed antibiotics initiated per protocol with Zosyn, azithromycin as well as vancomycin. Sputum and blood culture sent. Also did send for COVID as well as respiratory viral panel ? 11/16/2024; His viral respiratory assay came back positive for COVID admitted to regular nursing floor symptom management initiated ? 11/17/2024; patient has been weaned off supplemental oxygen ? 11/18/2024; patient still has a persistent cough. WBC count still remains elevated but overall clinical condition improving. De-escalated patient antibiotic therapy with discontinuation of vancomycin -11/20/2024Made changes to patient antibiotic therapy with discontinuation of Zosyn and initiation of Augmentin 11/21/2023 remains off oxygen during 2. COVID-pneumonia ? With patient being hypoxic and requiring oxygen patient was started on dexamethasone 2. Acute hypoxia ? Secondary to above patient was placed on supplemental oxygen titrated to keep saturation greater than 100 3. Physical deconditioning ? Requested for PT OT eval and social and political studies professor to assist with discharge planning. Had a discussion with patient and the regarding possible discharge to a senior living facility ? 11/17/2024; awaiting insurance precertification prior to transfer to senior living facility ? 11/21/2024 awaiting on family to make a decision regarding disposition 4. 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 Echo from March 2024 demonstrated EF of 40% patient currently compensated 5. Paroxysmal atrial fibrillation ? Rate controlled on systemic anticoagulation with Xarelto did continue 6. Hypertension ? Blood pressure controlled, home medications continued with dose adjustment as needed 7. Depression ? Stable. Continue home paroxetine. 8. KENNEDY ? Continue home CPAP at night. 9. DVT prophylaxis ? Patient already anticoagulated?on Xarelto 10. Elevated troponin due to demand ischemia from PNA and hypoxia Time spent in the patient's overall evaluation,decision-making process, review of diagnostic data, adjustment of management, discussion with other providers, nursing nursing and ancillary staff involved in patient's care documentation, 38 minutes Allergies/Procedures Done in Hospital Allergies atorvastatin Allergy (Verified 11/15/24 10:02) confused lisinopril Allergy (Verified 11/15/24 10:02) cough amiodarone Adverse Reaction (Intermediate, Verified 11/15/24 10:02) lightheadedness Type of Care/Length of Stay Estimated LOS: Convalescent Care Less Than 30 days Type of Care Needed: Skilled Rehab Potential: Good Prognosis: Good Additional Orders/Day of Discharge Day of Discharge: 11/22/24 Dietary and Speech Recommendations Dietitian Recommendations/Changes: Continue liberalized Regular diet to optimize oral intakes. RDN will order 240mL Ensure Plus High Protein TID chocolate and chocolate Magic Cup TID with meals to provide supplemental energy if consumed. Discharge Plan Admission Admit Date/Time: 11/15/24 12:44 Attending Provider: Jose Butts Primary Care Provider: Geremias Norwood Discharge Orders/Prescriptions Prescriptions: New acetaminophen 325 mg Tablet 650 mg PO Q6H PRN PRN (Reason: Pain 1-10 Or Fever>100.7) Qty: 0 0RF albuterol sulfate 2.5 mg /3 mL (0.083 %) Solution For Nebulization 2.5 mg inhalation Q2H PRN PRN (Reason: Sob &/Or Wheezing) Qty: 0 0RF sennosides-docusate sodium [Stimulant Laxative Plus] 8.6-50 mg Tablet 2 tab PO BID PRN PRN (Reason: Constipation) Qty: 0 0RF melatonin 3 mg Tablet 3 mg PO QHS PRN PRN (Reason: Insomnia) Qty: 0 0RF dexamethasone 4 mg Tablet 6 mg PO DAILY@0800 Qty: 0 0RF alum-mag hydroxide-simeth [Mag-Al Plus Extra Strength] 400-400-40 mg/5 mL Suspension 30 ml PO Q6H PRN PRN (Reason: Gastric Burning) Qty: 0 0RF guaifenesin 100 mg/5 mL Liquid 400 mg PO Q4H PRN PRN (Reason: Cough) Qty: 0 0RF Continued magnesium 250 mg tablet 500 mg PO DAILY cholecalciferol (vitamin D3) 5,000 unit capsule 5,000 unit PO DAILY calcium carbonate [Calcium 600] 600 mg calcium (1,500 mg) tablet 600 mg PO DAILY paroxetine HCl 10 mg tablet 10 mg PO QDAY metoprolol succinate 25 mg tablet extended release 24 hr 25 mg PO DAILY amoxicillin-pot clavulanate 875-125 mg tablet 1 tab PO BID 4 Days Qty: 8 0RF rivaroxaban 15 mg tablet 15 mg PO DAILY Qty: 90 3RF Referrals / Follow Up: Geremias Norwood DO [Primary Care Provider] - Disposition Disposition (needs filled in before D/C Order can be placed): Al[facility] Facility
--- NOTE | 2024-11-22 11:07 | DS.PCM_ITS ---
Providers Date of Admission: 11/15/24 Date of Discharge: 11/22/24 Primary Care Physician: Dr. Geremias Norwood, DO Reason For Visit: PNEUMONIA Diagnosis Discharge Diagnosis (1) Pneumonia: Status: Acute Code(s): J18.9 - Pneumonia, unspecified organism (2) Hypoxia: Status: Resolved Code(s): R09.02 - Hypoxemia Plan Patient is an 88-year-old gentleman with multiple comorbidities recently discharged from the hospital following a 2-day stay for community-acquired pneumonia presented back to the emergency department with progressive generalized weakness and shortness of breath 1. Pneumonia with suspected multidrug-resistant organisms ? Imaging studies obtained on admission demonstrated interval progression of multifocal pneumonia associated with small left pleural effusion. Patient has been admitted to monitored bed antibiotics initiated per protocol with Zosyn, azithromycin as well as vancomycin. Sputum and blood culture sent. Also did send for COVID as well as respiratory viral panel ? 11/16/2024; His viral respiratory assay came back positive for COVID admitted to regular nursing floor symptom management initiated ? 11/17/2024; patient has been weaned off supplemental oxygen ? 11/18/2024; patient still has a persistent cough. WBC count still remains elevated but overall clinical condition improving. De-escalated patient antibiotic therapy with discontinuation of vancomycin -11/20/2024Made changes to patient antibiotic therapy with discontinuation of Zosyn and initiation of Augmentin 11/21/2023 remains off oxygen during 2. COVID-pneumonia ? With patient being hypoxic and requiring oxygen patient was started on dexamethasone 2. Acute hypoxia ? Secondary to above patient was placed on supplemental oxygen titrated to keep saturation greater than 100 3. Physical deconditioning ? Requested for PT OT eval and child welfare social worker to assist with discharge planning. Had a discussion with patient and the regarding possible discharge to a intermediate facility ? 11/17/2024; awaiting insurance precertification prior to transfer to intermediate facility ? 11/21/2024 awaiting on family to make a decision regarding disposition 4. 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 Echo from March 2024 demonstrated EF of 40% patient currently compensated 5. Paroxysmal atrial fibrillation ? Rate controlled on systemic anticoagulation with Xarelto did continue 6. Hypertension ? Blood pressure controlled, home medications continued with dose adjustment as needed 7. Depression ? Stable. Continue home paroxetine. 8. KENNEDY ? Continue home CPAP at night. 9. DVT prophylaxis ? Patient already anticoagulated?on Xarelto 10. Elevated troponin due to demand ischemia from PNA and hypoxia Time spent in the patient's overall evaluation,decision-making process, review of diagnostic data, adjustment of management, discussion with other providers, nursing nursing and ancillary staff involved in patient's care documentation, 38 minutes Medications at Discharge Home Medications magnesium 250 mg tablet 500 mg PO DAILY mineral 07/13/18 cholecalciferol (vitamin D3) 125 mcg (5,000 unit) capsule 5,000 unit PO DAILY vitamin 10/18/19 calcium carbonate (Calcium 600) 600 mg PO DAILY supplement 03/31/22 rivaroxaban 15 mg tablet 15 mg PO DAILY blood thinner #90 tabs 12/16/23 metoprolol succinate 25 mg tablet,extended release 24 hr 25 mg PO DAILY heart 09/20/24 paroxetine HCl 10 mg tablet 10 mg PO QDAY mood 09/20/24 amoxicillin 875 mg-potassium clavulanate 125 mg tablet 1 tab PO BID 4 days #8 tabs 11/13/24 acetaminophen 325 mg tablet 650 mg (2 x 325 mg) PO Q6H PRN PRN Pain 1-10 Or Fever>100.7 #0 tabs 11/22/24 albuterol sulfate 2.5 mg/3 mL (0.083 %) solution for nebulization 2.5 mg (3 mL) inhalation Q2H PRN PRN Sob &/Or Wheezing #0 mL 11/22/24 aluminum-mag hydroxide-simethicone 400 mg-400 mg-40 mg/5 mL oral susp (Mag-Al Plus Extra Strength) 30 ml PO Q6H PRN PRN Gastric Burning #0 mL 11/22/24 dexamethasone 4 mg tablet 6 mg (1.5 x 4 mg) PO DAILY@0800 #0 tabs 11/22/24 guaifenesin 100 mg/5 mL oral liquid 400 mg (20 mL) PO Q4H PRN PRN Cough #0 mL 11/22/24 melatonin 3 mg tablet 3 mg PO QHS PRN PRN Insomnia #0 tabs 11/22/24 sennosides 8.6 mg-docusate sodium 50 mg tablet (Stimulant Laxative Plus) 2 tab PO BID PRN PRN Constipation #0 tabs 11/22/24 Physical Exam Narrative GENERAL: cooperative HEENT: Atraumatic; normocephalic EYES; Anicteric, Normal Conjunctiva NECK; supple, normal thyroid, RESPIRATORY: Diminished to auscultation CARDIOVASCULAR: Irregularly irregular GI: soft, normoactive bowel sounds, : No Renal angle tenderness; EXTREMITIES: No edema, no clubbing, MUSCULOSKELETAL: no muscle wasting NEURO: Awake; no lateralizing signs. SKIN: No Rash PSYCH; Flat affect Weight / BMI Weight Weight: 69.3 kg Body Mass Index (BMI) 25.4 ABG / Lab / Microbiology Data 11/20/24 07:09 11/20/24 07:07 Microbiology: Microbiology 11/15/24 11:45 Blood Culture (Wb) - Right Hand Blood Culture - Final No growth in 5 days. 11/15/24 11:18 Blood Culture (Wb) - Arm Left Blood Culture - Final No growth in 5 days. 11/15/24 19:45 Sputum, Expectorated/Coughed Gram Stain - Final 11/15/24 19:45 Sputum, Expectorated/Coughed Respiratory Culture - Final Presumptive C albicans 11/16/24 02:45 Nasal Secretion MRSA (PCR) - Final 11/16/24 02:45 Urine, Random Legionella Antigen - Final 11/16/24 02:45 Urine, Random Streptococcus pneumoniae Antigen (M - Final 11/15/24 15:04 Mucosa - Nasopharyngeal Coronavirus COVID-19 PCR - Final SARS-CoV-2 (COVID 19 PCR) 11/15/24 15:04 Mucosa - Nasopharyngeal Respiratory Panel (PCR) - Final 11/15/24 11:18 Mucosa - Nose SARS-CoV-2, Influenza & RSV (PCR) - Final D/C Instructions Discharge Diet: No restrictions Discharge Activity: Return to Normal Activity Call your doctor if you observe: Fever of 101 or Higher, Shortness of breath, Fainting spells and Chest pain DC O2, CPAP, BIPAP Needs Home O2 Discharge instructions: Yes Type of respiratory needs?: Oxygen Oxygen frequency: Continuous Continuous oxygen liters per minute: 2L DC home with Oxygen: Yes Home O2 MD Review: I have reviewed the oxygen testing, and the patient qualifies for home oxygen equipment and portability. The patient is mobile in the home and the community. Meaningful Use Info Meaningful Use Meaningful Use Diagnoses (Choose all that apply): None applicable Ischemic Stroke Statin Dosing Therapy Reference: STATIN DOSE THERAPY REFERENCE: * Patients > 75 years receive moderate or high dose statin therapy. * Patients 75 years or YOUNGER should receive HIGH intensity statin dose unless contraindicated. You will be required to document reason for non-treatment if statin daily dose does not meet guidelines. HIGH DOSE STATIN THERAPY DAILY Atorvastatin > than or = to 40 mg Rosuvastatin > than or = to 20 mg Amlodipine + Atorvastatin > than or = to 2.5/40 mg Ezetimibe + Simvastatin 10/80 mg Simvastatin 80mg Discharge Plan Admission Admit Date/Time: 11/15/24 12:44 Attending Provider: Jose Butts Primary Care Provider: Geremias Norwood Discharge Orders/Prescriptions Prescriptions: New acetaminophen 325 mg Tablet 650 mg PO Q6H PRN PRN (Reason: Pain 1-10 Or Fever>100.7) Qty: 0 0RF albuterol sulfate 2.5 mg /3 mL (0.083 %) Solution For Nebulization 2.5 mg inhalation Q2H PRN PRN (Reason: Sob &/Or Wheezing) Qty: 0 0RF sennosides-docusate sodium [Stimulant Laxative Plus] 8.6-50 mg Tablet 2 tab PO BID PRN PRN (Reason: Constipation) Qty: 0 0RF melatonin 3 mg Tablet 3 mg PO QHS PRN PRN (Reason: Insomnia) Qty: 0 0RF dexamethasone 4 mg Tablet 6 mg PO DAILY@0800 Qty: 0 0RF alum-mag hydroxide-simeth [Mag-Al Plus Extra Strength] 400-400-40 mg/5 mL Suspension 30 ml PO Q6H PRN PRN (Reason: Gastric Burning) Qty: 0 0RF guaifenesin 100 mg/5 mL Liquid 400 mg PO Q4H PRN PRN (Reason: Cough) Qty: 0 0RF Continued magnesium 250 mg tablet 500 mg PO DAILY cholecalciferol (vitamin D3) 5,000 unit capsule 5,000 unit PO DAILY calcium carbonate [Calcium 600] 600 mg calcium (1,500 mg) tablet 600 mg PO DAILY paroxetine HCl 10 mg tablet 10 mg PO QDAY metoprolol succinate 25 mg tablet extended release 24 hr 25 mg PO DAILY amoxicillin-pot clavulanate 875-125 mg tablet 1 tab PO BID 4 Days Qty: 8 0RF rivaroxaban 15 mg tablet 15 mg PO DAILY Qty: 90 3RF Referrals / Follow Up: Norwood,Geremias, DO [Primary Care Provider] - Disposition Disposition (needs filled in before D/C Order can be placed): [facility] Facility Charges/Coding Visit Charges Inpatient E&M: 89167 Disch Hosp >30min
--- NOTE | 2024-11-22 14:48 | CHAPLAIN ---
Type of Pastoral Visit ___ Initial Visit ___ Follow-up Visit ___ On-call Visit ___ General Patient Visit ___ Spiritual Assessment ___ Family Conference ___ Bereavement ___ Rapid Response ___ Code Blue _x__ Other (describe below) Pastoral Care Referral From ___ Patient _x__ Family ___ Nurse ___ Physician ___ Machine Repairer Maintenance ___ Single Fold Machine Operator ___ Other (describe below) Sacrament/Intervention ___ Active listening ___ Anointing ___ Latter Day ___ Bereavement ___ Communion ___ Jennifer exploration ___ ___ Life review ___ Prayer ___ Reconciliation ___ Sacrament of Sick ___ Supportive presence ___ Wedding _x__ Other (describe below) Pastoral Comments attempts have been made to contact this patient who is in strict isolation room; two phone calls yesterday and one phone call made into room this day to make contact; patient is not available for a conversation
[2024-11-22] MEDS: Albuterol 2.5 MG/3 ML VIAL.NEB. INHALATION (21:19)
[2024-11-22] MEDS: hydrALAZINE 20 MG/ML Vial 10 MG IV (21:30)
[2024-11-23 02:31] VITALS: BMI 25.4
[2024-11-23 04:45] VITALS: BP 148/103; PULSE 93; RESP 20; TEMP 36.4; O2SAT 98
[2024-11-23 05:00] VITALS: RESP 20; O2SAT 98
--- NOTE | 2024-11-23 07:28 | PCM.PN.HOSP ---
Reason for Visit Reason for Visit: Diagnoses Pneumonia, unspecified organism (11/15/24) Hypoxemia (11/15/24) Subjective Subjective Plan was for patient to have been discharged the day prior however insurance precertification was not obtained. Patient otherwise remained stable Objective Data Objective Data Vital Signs: Vital Signs Temp Pulse Resp BP Pulse Ox O2 Del Method O2 Flow Rate 97.5 F L 93 20 H 148/103 H 98 Room Air 2 11/23/24 04:45 11/23/24 04:45 11/23/24 05:00 11/23/24 04:45 11/23/24 05:00 11/23/24 05:00 11/23/24 04:45 Oxygen Flow Rate (L/min) 2 Oxygen Delivery Method Room Air Weight: 69.3 kg Body Mass Index (BMI) 25.4 Intake & Output: Intake and Output for Last 24 Hours 11/21/24 11/22/24 11/23/24 23:59 23:59 23:59 Intake Total 320 / 320 Balance 320 / 320 Lab / Micro Data 11/20/24 07:09 11/20/24 07:07 Micro: Microbiology 11/15/24 11:45 Blood Culture (Wb) - Right Hand Blood Culture - Final No growth in 5 days. 11/15/24 11:18 Blood Culture (Wb) - Arm Left Blood Culture - Final No growth in 5 days. 11/15/24 19:45 Sputum, Expectorated/Coughed Gram Stain - Final 11/15/24 19:45 Sputum, Expectorated/Coughed Respiratory Culture - Final Presumptive C albicans 11/16/24 02:45 Nasal Secretion MRSA (PCR) - Final 11/16/24 02:45 Urine, Random Legionella Antigen - Final 11/16/24 02:45 Urine, Random Streptococcus pneumoniae Antigen (M - Final 11/15/24 15:04 Mucosa - Nasopharyngeal Coronavirus COVID-19 PCR - Final SARS-CoV-2 (COVID 19 PCR) 11/15/24 15:04 Mucosa - Nasopharyngeal Respiratory Panel (PCR) - Final 11/15/24 11:18 Mucosa - Nose SARS-CoV-2, Influenza & RSV (PCR) - Final Rhythm Strip Rhythm Strip: A-fib Rate: 106 Ectopy: None Physical Exam Narrative GENERAL: cooperative HEENT: Atraumatic; normocephalic EYES; Anicteric, Normal Conjunctiva NECK; supple, normal thyroid, RESPIRATORY: Diminished to auscultation CARDIOVASCULAR: Irregularly irregular GI: soft, normoactive bowel sounds, : No Renal angle tenderness; EXTREMITIES: No edema, no clubbing, MUSCULOSKELETAL: no muscle wasting NEURO: Awake; no lateralizing signs. SKIN: No Rash PSYCH; Flat affect Assessment & Plan Assessment/Plan (1) Pneumonia: (2) Hypoxia: PLAN: Plan Patient is an 88-year-old gentleman with multiple comorbidities recently discharged from the hospital following a 2-day stay for community-acquired pneumonia presented back to the emergency department with progressive generalized weakness and shortness of breath 1. Pneumonia with suspected multidrug-resistant organisms ? Imaging studies obtained on admission demonstrated interval progression of multifocal pneumonia associated with small left pleural effusion. Patient has been admitted to monitored bed antibiotics initiated per protocol with Zosyn, azithromycin as well as vancomycin. Sputum and blood culture sent. Also did send for COVID as well as respiratory viral panel ? 11/16/2024; His viral respiratory assay came back positive for COVID admitted to regular nursing floor symptom management initiated ? 11/17/2024; patient has been weaned off supplemental oxygen ? 11/18/2024; patient still has a persistent cough. WBC count still remains elevated but overall clinical condition improving. De-escalated patient antibiotic therapy with discontinuation of vancomycin -11/20/2024Made changes to patient antibiotic therapy with discontinuation of Zosyn and initiation of Augmentin 11/21/2023 remains off oxygen during 2. COVID-pneumonia ? With patient being hypoxic and requiring oxygen patient was started on dexamethasone 2. Acute hypoxia ? Secondary to above patient was placed on supplemental oxygen titrated to keep saturation greater than 100 3. Physical deconditioning ? Requested for PT OT eval and social work administrator to assist with discharge planning. Had a discussion with patient and the regarding possible discharge to a senior living facility ? 11/17/2024; awaiting insurance precertification prior to transfer to senior living facility ? 11/21/2024 awaiting on family to make a decision regarding disposition 4. 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 Echo from March 2024 demonstrated EF of 40% patient currently compensated 5. Paroxysmal atrial fibrillation ? Rate controlled on systemic anticoagulation with Xarelto did continue 6. Hypertension ? Blood pressure controlled, home medications continued with dose adjustment as needed 7. Depression ? Stable. Continue home paroxetine. 8. KENNEDY ? Continue home CPAP at night. 9. DVT prophylaxis ? Patient already anticoagulated?on Xarelto 10. Elevated troponin due to demand ischemia from PNA and hypoxia Time spent in the patient's overall evaluation,decision-making process, review of diagnostic data, adjustment of management, discussion with other providers, nursing nursing and ancillary staff involved in patient's care documentation, 25 minutes Charges/Coding Visit Charges Inpatient E&M: 87239 [facility] Hosp L1
[2024-11-23 08:02] VITALS: PULSE 88
[2024-11-23] MEDS: Metoprolol(XL)Succ 25 MG Tablet PO (08:02)
[2024-11-23] MEDS: Calcium (Elemental) 500 MG Tablet PO (08:13)
[2024-11-23] MEDS: PARoxetine 10 MG Tablet PO (08:13)
[2024-11-23] MEDS: dexAMETHasone 4 MG Tablet 6 MG PO (08:13)
[2024-11-23] MEDS: Amox/Clavulanate 875 MG Tablet PO (08:13)
[2024-11-23] MEDS: Magnesium Chloride 64 MG Delay Rel.Tablet 128 MG PO (08:13)
[2024-11-23] MEDS: Menthol/Lanolin/Calamine/Znox 113 GM Tube 1 APPLIC TOPICAL (08:14)
[2024-11-23 08:18] VITALS: BP 148/103; PULSE 88; RESP 18; TEMP 36.4; O2SAT 96
[2024-11-23] MEDS: Rivaroxaban 15 MG Tablet PO (09:35)
[2024-11-23] MEDS: Cholecalciferol (Vit D3) 125 MCG CAPSULE (5,000 UNITS) PO (09:35)
[2024-11-23 11:09] VITALS: BP 125/92; PULSE 55; RESP 16; TEMP 36.4; O2SAT 99
--- NOTE | 2024-11-23 12:59 | CASEMGMT ---
Addendum entered by Mari Pandey 11/23/24 15:44: [id number] completed in [employer] system. KARINA Ribeiro Addendum entered by Mari Pandey 11/23/24 14:59: FARAZ called pt dtr to update that precert has been obtained. SW left a voicemail. KARINA Ribeiro Original Note: Social Work- SW called pt dtr to provide updates on precert status. SW updated that precert is expected to come back today and pt will d/c as soon as we receive the precert. Pt dtr reports that she has medical concerns and does not feel pt is medically ready for discharge, as she has expressed previously. SW provided education, assurances, and active and empathetic listening. SW again shared that SW can share medical concerns with medical staff, but that the physician reports that pt is medically ready for discharge and pt will discharge as soon as precert is obtained. Pt dtr reports that the hospice informational meeting went well last night, but that family has not made a decision. FARAZ again reiterated that pt will d/c when we have precert and hospice would be something that pt could not have at SNF, but would be a home service IF pt family did not want HHC/to continue treatments. Pt dtr states that pt has a neurology appointment 12/10 that he needs to follow up with. SW will let pt dtr know when precert is obtained; pt dtr agreeable. Plan: [facility]; pending precert KARINA Ribeiro
--- NOTE | 2024-11-23 14:27 | CASEMGMT ---
[facility] has obtained auth to admit. SW updated. Lainey Boles DC Planning Asst.
[2024-11-23 14:44] VITALS: O2SAT 93; O2SAT 95
--- NOTE | 2024-11-23 14:53 | CASEMGMT ---
TC to [facility], spoke to Zaira, she is aware that pt is dc'ing today to hospice.
--- NOTE | 2024-11-23 15:00 | CASEMGMT ---
Social Work- SW received a call from pt dtr, Ramila, reporting that they have decided to take pt home. Pt dtr requesting extension on discharge. SW shared that discharge has already been placed, as plans had been made for SNF. Pt dtr verbalizing feeling rushed and reports that she is at work. SW shared that family can pick out hand at earliest convenience today, but pt will need to discharge today. Pt dtr reports that she will reach out to family. SW met with pt in room directly after the phone conversation with pt dtr. Pt reports that the plan is to d/c home with hospice and they will hire night care private duty. SW confirmed that pt is understanding HHC cannot co-exist with hospice; pt expressed understanding. Pt declines the need for any other community resources. SW called hospice to advise that pt will discharge today and confirm that pt is connected with hospice. Hospice reports that the family did not sign, as they had not made a decision at the time of the meeting and pt was not present. Hospice offered to move referral to scheduling to reach out to pt family; SW agreeable. SW called pt dtr to update on phone call to hospice. Dtr reports that she already called hospice and plans to sign. Ptr dtr reports that we havent had time for anything and again expressed frustration at pt discharge. Dtr understanding that hospice will be calling her to set up a time to sign. FARAZ received a call from Milagro at hospice who reports that she called pt dtr and left a voicemail. Milagro was looking to set up an appointment and only had one remaining time. FARAZ took call to pt room to ask pt and pt if 7:30PM tonight would work for hospice to come to their home. Pt son in room as well. Family all in agreement that time would work. Milagro shared with the family that the nurse coming to the home is [place]. Family will share that appointment time with other family members. FARAZ advised DCA and physician of pt family plans for home with hospice. FARAZ collaborated with bedside nurse for oxygen test and RNCM to cancel HHC resumption. Plan: Home with [facility] KARINA Ribeiro
--- NOTE | 2024-11-23 15:38 | CASEMGMT ---
Discharge Planning Green Sheet completed and sent to SW in the event that family decides not to proceed with hospice at home. Lainey Boles DC Planning Asst.
== END 2024-11-23 16:05 | disposition hospice, home (50) | DRG 177 ==
LOC: ED 12:46 → MS3 21:21
PROVIDERS: Admitting Provider Internal Medicine; Emergency Provider Emergency Medicine; PCP Student in an Organized Health Care Education/Training Program; Visit Provider Internal Medicine
DX: U07.1 COVID-19 (principal); J12.82 Pneumonia due to coronavirus disease 2019; I24.89 Other forms of acute ischemic heart disease; I13.0 Hypertensive heart and chronic kidney disease with heart failure and stage 1 through stage 4 chronic kidney disease, or unspecified chronic kidney disease; I50.22 Chronic systolic (congestive) heart failure; Z16.24 Resistance to multiple antibiotics; N18.30 Chronic kidney disease, stage 3 unspecified; F32.A Depression, unspecified; I48.0 Paroxysmal atrial fibrillation; I25.10 Atherosclerotic heart disease of native coronary artery without angina pectoris; G47.33 Obstructive sleep apnea (adult) (pediatric); I25.2 Old myocardial infarction; E78.5 Hyperlipidemia, unspecified; R09.02 Hypoxemia; Z79.01 Long term (current) use of anticoagulants; Z79.899 Other long term (current) drug therapy; R53.81 Other malaise; Z99.89 Dependence on other enabling machines and devices
CPT/HCPCS: 36415; 71045; 71046; 80048; 80053; 80202; 82550; 83605; 83735; 84100; 84484; 85025; 87040; 87070; 87205; 87449; 87631; 87633; 87635; 87641; 93005; 94640; 94668; 97116; 97162; 97166; 97530; 97535; 99252; 99285; A4216; G0463